=== PATIENT | male | born 1945 | race Caucasian/White ===

== ENCOUNTER 2017-12-12 10:12 | Emergency (ER) | payer MEDICARE, OTHER, SELFPAY ==
[2017-12-12 10:13] VITALS: BP 129/59; PULSE 55; RESP 16; TEMP 36.7; O2SAT 96; BMI 29.8
--- NOTE | 2017-12-12 10:24 | CT_ITS ---
STUDY: CT ABDOMEN AND PELVIS WITHOUT CONTRAST REASON FOR EXAM: Male, 72 years old. Hematuria RADIATION DOSAGE (If Supplied By Facility): CTDIvol = ( 17.22 ) mGy, DLP = ( 985.42 ) mGycm TECHNIQUE: Transaxial images were obtained from the dome of the diaphragm to the symphysis pubis without oral contrast, and without intravenous contrast. Sagittal and coronal images were reconstructed. Individualized dose optimization techniques were used for this CT. COMPARISON: None. FINDINGS: There is minimal atelectasis. There is an emphysematous bleb in the right lung base that measures 3.6 x 1.7 cm. Sternotomy wires are seen midline. There are coronary calcifications. Normal liver. Normal gallbladder and extrahepatic biliary system. Normal spleen. Normal pancreas. Normal bilateral adrenal glands. There is mild right perinephric stranding and hypertrophy of the right-sided perinephric fat. The left side renal stone measuring 6.3 x 8.2 mm. There is left-sided mild perinephric stranding and hypertrophy of the left renal fat. There is a small hiatal hernia. Normal small intestine. There is abundant stool in the colon from the cecum to the descending colon. There is a tortuous redundant appearance of the sigmoid colon which rises up to the upper abdomen. The appendix is visualized and appears normal. The aorta is tortuous and partially calcified. There is calcification the takeoff of the celiac. There is calcification of the takeoff of the super mesenteric artery with at least moderate stenosis. This is best seen on image #89 of the sagittal views and image 62 of the axial views. There is calcification of the takeoff of the bilateral renal arteries left greater than right. Normal inferior vena cava. Normal retroperitoneum. The bladder is decompressed and the wall is thickened. The contents of the bladder are of low attenuation. The prostate is within normal limits of size. There is a small umbilical hernia containing fat. There are diffuse degenerative changes of the visualized lumbar spine. At the level of L3-L4 there is a slight retrolisthesis right lateral osteophyte formation right greater than left neural foraminal narrowing and no significant central stenosis. CT/Abdomen/Pelvis without Cont IMPRESSION: There is a approximately 6.3 mm stone in the left kidney without evidence of hydronephrosis. There is mild bilateral fairly symmetric perinephric stranding with hypertrophy of the perirenal fat. There is a thick walled appearance of the bladder with mild stranding suspicious for cystitis. 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 There is constipation but no radiographic evidence of ischemic colitis at this time. Pulmonary emphysema Status post sternotomy mild cardiomegaly coronary artery disease. Degenerative change of the thoracolumbar spine most significant L3-L4. Electronically Signed: Adela Cabrera MD at 11:19 EDT Tel , Service support ,
[2017-12-12 10:40] LABS: Absolute Lymphocyte Count 1.27 X10^3/ul (0.83-4.51); Absolute Neutrophil Count 3.6 X10^3/uL (2.0-7.7); Basophil# 0.02 X10^3/uL; Basophil% 0.4 % (0-1); Eosinophil# 0.09 X10^3/uL; Eosinophils% 1.7 % (0-5); Hematocrit 38.6 % (40-54); Hemoglobin 12.7 g/dl (13.0-16.5); Lymphocyte # 1.27 X10^3/ul (4.0); Lymphocyte % 23.7 % (19-41); Mean Corp Hgb Conc 32.9 g/gl (32-36); Mean Corpuscular Hgb 31.3 pg (27.0-32.0); Mean Corpuscular Volume 95.1 fL (80-94); Mean Platelet Vol. 10.4 fl (6.2-12.0); Monocyte# 0.39 X10^3/uL; Monocyte% 7.3 % (0-10); Neutrophil # 3.57 X10^3/uL (2.7-7.7); Neutrophil % 66.7 % (47-70); Platelet Count 156 K/mm3 (150-450); RBC Distribution Width CV 14.8 % (11.6-14.6); RBC Distribution Width SD 51.4 fl (35.1-43.9); Red Blood Count 4.06 M/mm3 (4.6-6.2); White Blood Count 5.4 K/mm3 (4.4-11.0)
[2017-12-12 10:41] LABS: POSITIVE COUNT NO; POSITIVE DIFFERENTIAL NO; POSITIVE MORPHOLOGY NO
[2017-12-12 10:51] LABS: Anion Gap 3 (5-15); BUN 26 mg/dL (7-18); BUN/Creat Ratio 24.8 RATIO (10-20); Chloride 107 mmol/L (98-107); Creatinine, Serum 1.05 mg/dL (0.70-1.30); EST Glomerular Filtration Rate 74 mL/min (>60); Est Glom Filt Rate - Afr Amer 89 mL/min (>60); Estimated Creatinine Clearance 70.83 ml/min; Glucose 146 mg/dL (74-106); Potassium 4.4 mmol/L (3.5-5.1); Sodium Level 139 mmol/L (136-145)
[2017-12-12 11:06] LABS: Mucous, Urine 0 SEEN /hpf (<or=2+)
[2017-12-12 11:09] LABS: Color, Urine Yellow (Yellow); Glucose, Dipstick Normal (Normal); Ketone-Dipstick Negative (Negative); Leukocyte Esterase-Dipstick 25 /ul (Negative); Nitrite-Dipstick Negative (Negative); Occult Blood-Urine 250 /ul (Negative); Protein-Dipstick 15 mg/dl (Negative); Specific Gravity, Urine 1.015 (1.002-1.030); Urine Bilirubin Dipstick Negative (Negative); Urine Clarity Cloudy (Clear); Urine Urobilinogen 1 mg/dl (Normal)
[2017-12-12 11:15] LABS: Bacteria RARE /hpf (None Seen); Red Blood Cells-Urine 25-50 SEEN /hpf (0-5); Squamous Epithelial Cells - UA 0-5 SEEN /hpf (0-5); White Blood Cells 0-5 SEEN /hpf (0-5)
--- NOTE | 2017-12-12 12:18 | ED.VISSUMM ---
- ER Visit Summary Date of Service: 12/12/17 Chief Complaint: [Hematuria] History of Present Illness: The patient is a 72 M [presents the emergency department with complaint of blood in his urine that started yesterday. Patient was seen at urgent care and sent to the ER for further evaluation. Patient also gives history of nondescript low back pain for the last 6 weeks. Patient states that typically the pain is there when he wakes up in the morning but after stretching and being up in a chair for 20 or so minutes the pain then resolves. Patient denies any abdominal pain. He denies any fevers. Patient denies dysuria. Patient states he always urinates frequently because he is diabetic. Patient is never had hematuria before. Patient was a smoker but quit many years ago. No prostate issues in the past.] Physical Examination: [HEENT-PERRLA, EOMI. Cranial nerves II through XII grossly intact. TMs clear. Mucous membranes moist. No adenopathy. Cardiovascular-regular rate and rhythm without murmur or ectopy Lungs-clear to auscultation, chest wall stable without crepitus or subcu emphysema Abdomen-normoactive bowel sounds, soft, nontender, no rebound or rigidity, no peritoneal signs. Extremities-intact ?4, normal range of motion, normal pulses, atraumatic] Test Results: CBC with differential obtained showed a white count of 5.4, hemoglobin 12.7, hematocrit 38.6, platelets 156. Chemistries unremarkable. BUN was 6. Current was 1.05. Urinalysis showed 25-50 RBCs, 0-5 WBCs, 25 leukocyte esterase, negative nitrites. CT flank showed 6.51 m stone in the left kidney with no evidence of hydro-. Patient had some bilateral perinephric stranding noted. Patient also had some thickened appearance of the bladder wall there was question for cystitis.] Emergency Department Course and Treatment: Case was discussed with Dr. Sarwat Bruno who is on-call for Dr. Hernandez regarding the patient's Plavix. It was agreed that patient could discontinue his Plavix for the next 5 days until his hematuria resolves or he seen the urologist and may need to have it restarted afterwards. Patient to continue with his aspirin.] Treatment Plan: [Patient will be referred to urology for further follow-up. It is unclear the etiology of his hematuria at this time although given the appearance of the bladder and the painless nature need to rule out malignancy.] Disposition: [Discharged home in stable condition. Patient advised to return if persistent heavy bleeding, fevers, urinary retention, or condition should worsen in any way.] Impression: Hematuria-etiology uncertain] This note was generated with [employer] dictation software. It may contain incorrect words, spelling, and punctuation that were not noted in review of the chart prior to signing ED Disposition - Plan for ED Patient: Chief Complaint: Complaint Referrals: Jeffrey Thorne [Primary Care Provider] -
--- NOTE | 2017-12-12 12:22 | ED.DEP ---
ED Disposition - Plan for ED Patient: Chief Complaint: Complaint Instructions: ED Hematuria Referrals: Jeffrey Thorne [Primary Care Provider] - 2 Days Masoud Solis MD [STAFF PHYSICIAN] - 3-5 Days
[2017-12-12 12:36] VITALS: BP 122/58; PULSE 51; RESP 17; O2SAT 100
== END 2017-12-12 12:38 | disposition home or self-care (01) ==
PROVIDERS: Emergency Provider Emergency Medicine; Family Provider Family Medicine; PCP Family Medicine
DX: R31.9 Hematuria, unspecified (principal); N20.0 Calculus of kidney; E11.9 Type 2 diabetes mellitus without complications; I25.10 Atherosclerotic heart disease of native coronary artery without angina pectoris; Z87.891 Personal history of nicotine dependence; Z79.02 Long term (current) use of antithrombotics/antiplatelets; Z79.82 Long term (current) use of aspirin; Z79.84 Long term (current) use of oral hypoglycemic drugs; Z79.899 Other long term (current) drug therapy
CPT/HCPCS: 74176; 80048; 81001; 85025; 99283; A4216

== ENCOUNTER → 2017-12-14 13:10 | Outpatient (CLI) | payer MEDICARE, OTHER, SELFPAY ==
--- NOTE | 2017-12-14 11:55 | CYSPIN_PTH ---
PATIENT: JEANETH MEHTA LOC: [facility] U#:[id number] AGE/SX: 79/M ROOM: RE12/14/[address]: Dr. Masoud Solis MD : 1945 BED: DIS: SPEC #: [id number] RECD: 12/14/17 13:39 STATUS: ELMA REJose #: [id number] LUCAS: 12/14/17 11:[address]: Masoud Solis DEPT: CYTOLOGY RECD BY: Rito Howell ENTERED: 12/14/17 13:39 SP TYPE: CYSPIN FL OTHR DR: Dr. Jeffrey Thorne, DO Tissues: Urine Procedures: Pap Stain (control) Special Stain Group II Cytospin Fluid HEADER OPERATION: Not noted PRE-OP DIAGNOSIS: Hematuria TISSUE SUBMITTED: Urine for cytology DIAGNOSIS CYTOLOGY Urine for cytology (cytospin): Negative for malignant cells. SJ:ubaldo 12/15/17 COMMENT Clinical correlation and appropriate follow up are necessary. CYTOLOGY STUDY Slides are reviewed. The specimen consists of benign squamous cells, urothelial cells and red blood cells. CYTOLOGY GROSS Received is 20 ml of yellow cloudy fluid labeled with the patient's name and and designated per the requisition as urine. Submitted for cytology preparation. / RB:donny 12/14/17 TC:5 [facility]: [id number]
[2017-12-14 13:13] LABS: Cytology, Body Fluid / CSF SEE PATHOLOGY REPORT
== END ==
PROVIDERS: Family Provider Family Medicine; PCP Family Medicine; Visit Provider Urology
DX: R31.9 Hematuria, unspecified (principal)
CPT/HCPCS: 87086; 87088; 88108; 88313

== ENCOUNTER 2017-12-24 08:34 | Day surgery (SDC) | payer MEDICARE, OTHER, SELFPAY ==
--- NOTE | 2017-12-24 08:45 | RAD_ITS ---
STUDY: X-RAY - ABDOMEN/PELVIS REASON FOR EXAM: Male, 72 years old. Left flank pain and left renal calculus. TECHNIQUE: Two AP supine views of the abdomen and pelvis. COMPARISON: None. FINDINGS: Normal visualized lung bases. There is an abundance of fecal material throughout the colon. Questionable 5.3 mm thickness in the midportion the left kidney. Atherosclerotic calcification of the iliac arteries. There are diffuse degenerative changes of the visualized lumbar spine. RAD/Abdomen Single View IMPRESSION: Large amount of fecal material is seen in the colon. Questionable 5.3 mm calculus in the midportion of the left kidney. Electronically Signed: Beka Holman MD at 9:20 EDT Tel [phone], Service support ,
[2017-12-24 09:19] VITALS: BP 121/54; PULSE 53; TEMP 36.6; O2SAT 96; BMI 30.4
[2017-12-24 09:46] LABS: Bedside Glucose 114 mg/dL (70-110)
[2017-12-24] MEDS: Cefazolin 2 GM in 0.9% Normal Saline 100 ML IV (10:25)
--- NOTE | 2017-12-24 10:31 | PCM.DC.URO ---
Discharge Diet: Light diet - advance as tolerated Discharge Activity: Return to Normal Activity, May Not Drive - for 2 days. Additional Activity Instructions:: typically eat light foods as you take your pain medication. Pain medication may cause constipation, if this is a problem for you, please discuss with your doctor. Call your doctor if your incision/area has: Sudden Increased Bleeding Call your doctor if you observe: Fever of 101 or Higher, Uncontrolled pain Instructions: Shock Wave Lithotripsy Allergies/Adverse Reactions: Allergies lisinopril Allergy (Intermediate, Verified 12/21/17 09:50) Unknown Medications to take at Discharge Aspirin E.C. [Ecotrin] 81 mg PO DAILY@0800 05/22/13 Levothyroxine [Synthroid] 125 mcg PO DAILY 05/22/13 Metformin HCl [Glucophage] 1,000 mg PO DINNER 05/22/13 Metformin HCl [Glucophage] 1,500 mg PO BREAKFAST 05/22/13 Simvastatin [Zocor] 40 mg PO QHS 05/22/13 Pioglitazone HCl 45 mg PO DAILY 01/22/15 Cyanocobalamin (Vitamin B-12) [Vitamin B-12] 500 mcg PO BID 01/05/17 Nitroglycerin [Nitrostat] 0.4 mg SUBLINGUAL Q5M PRN 01/05/17 amlodipine 5 mg tablet 5 mg PO QDAY #90 tab 12/01/17 clopidogrel 75 mg tablet 75 mg PO DAILY #90 tab 12/01/17 glimepiride 4 mg tablet 4 mg PO BID tab 12/01/17 isosorbide mononitrate ER 60 mg tablet,extended release 24 hr 60 mg PO BID #180 tab 12/01/17 losartan 25 mg tablet 25 mg PO DAILY #90 tab 12/01/17 metoprolol tartrate 25 mg tablet 25 mg PO BID #180 tab 12/01/17 ranolazine ER 500 mg tablet,extended release,12 hr 500 mg PO BID #180 tab 12/01/17 Multivitamin [Daily Multiple Vitamin] 1 each PO DAILY 12/12/17 Ciprofloxacin [Cipro] 500 mg PO BID #6 tab 12/24/17 Hydrocodone/Acetaminophen [[place] 5-325 Tablet] 1 ea PO Q4H PRN PRN 3 Days #14 tab 12/24/17 The following prescriptions were given: Hydrocodone/Acetaminophen [[place] 5-325 Tablet] 1 ea PO Q4H PRN PRN 3 Days #14 tab PRN Reason: Pain Ciprofloxacin [Cipro] 500 mg PO BID #6 tab Primary Care Physician: Jeffrey Thorne [Primary Care Provider] - Please Follow Up With: Masoud Solis MD When: January 06 at 9:15 am, get xray first.
[2017-12-24 11:35] VITALS: BP 121/54; BP 122/60; PULSE 65; RESP 15; TEMP 36.1; O2SAT 92
--- NOTE | 2017-12-24 11:36 | OP.PCM_ITS ---
Report of Operation Date of Procedure: 12/24/17 Pre-Operative Diagnosis: Left renal calculi Post-Operative Diagnosis: Same Surgery/Procedure Performed:: Cystoscopy diagnostic, left extracorporeal shockwave lithotripsy Description of Surgical Findings:: 72-year-old male who had episode of gross hematuria presents today the hospital for cystoscopy also treatment of a kidney stone on the left kidney. Procedure note patient was taken back to the operating room. After smooth induction of general anesthesia. He was placed in dorsal lithotomy position. Penis and testicles were prepped and draped in usual sterile fashion. Went into the urethra with a 21 [place] rigid cystourethroscope, the entire length of the urethra is normal, prostate was normal, trigone was normal, the bladder was normal no tumors or stones are seen within the bladder some mild trabeculation of the bladder wall. The bladder was then drained and the cystoscope was removed we then positioned the patient on the lithotripter table identified a stone in the left kidney and delivered 3000 shockwaves to the stone at a rate of 90 shocks per minute. At the end of the treatment cycle the stone appeared to break up nicely. No stent was placed. Plan to see patient back in a few weeks with a KUB. Type of Anesthesia:: General Drains: none - Admit VTE Documentation VTE Present on Admission: No VTE Mechan Device Prophylaxis: SCD's VTE Pharm Prophylaxis ordered?: No Reason prophylaxis not ordered:: Treatment Not Indicated
[2017-12-24 11:45] VITALS: BP 121/54; BP 121/63; PULSE 61; RESP 16; O2SAT 95
--- NOTE | 2017-12-24 11:54 | EKG12_ITS ---
Test Reason : Blood Pressure : / mmHG Vent. Rate : 058 BPM Atrial Rate : 058 BPM P-R Int : 204 ms QRS Dur : 100 ms QT Int : 456 ms P-R-T Axes : 054 002 064 degrees QTc Int : 447 ms Sinus bradycardia Otherwise normal ECG When compared with ECG of 23-MAY-2013 05:43, No significant change was found Confirmed by LIEN SWENSON, COLUMBA ([id number]), editor newspaper JIM BOYER ([id number]) on 12/28/2017 2:12:34 PM Referred By: Masoud Solis Confirmed By:COLUMBA EMMANUEL MD
[2017-12-24 12:00] VITALS: BP 118/55; BP 121/54; PULSE 59; RESP 16; O2SAT 97
[2017-12-24 12:15] VITALS: BP 110/59; BP 121/54; PULSE 60; RESP 16; TEMP 35.8; O2SAT 94
[2017-12-24 13:14] VITALS: BP 121/54
== END 2017-12-24 13:29 | disposition home or self-care (01) ==
LOC: SDC 08:34
PROVIDERS: Family Provider Family Medicine; PCP Family Medicine; Visit Provider Urology
PROC: (CPT 50590; principal; 2017-12-24 10:00)
DX: N20.0 Calculus of kidney (principal); G47.30 Sleep apnea, unspecified; E11.9 Type 2 diabetes mellitus without complications; E05.90 Thyrotoxicosis, unspecified without thyrotoxic crisis or storm; I10 Essential (primary) hypertension; E78.00 Pure hypercholesterolemia, unspecified; Z95.1 Presence of aortocoronary bypass graft; Z87.891 Personal history of nicotine dependence; Z79.82 Long term (current) use of aspirin; Z79.84 Long term (current) use of oral hypoglycemic drugs; Z79.899 Other long term (current) drug therapy
CPT/HCPCS: 52353; 74018; 82962; 93005; J7120

== ENCOUNTER 2017-12-27 19:12 | Inpatient (IN) | payer MEDICARE, OTHER, SELFPAY ==
[2017-12-27] VITALS (7 sets, daily range): BP systolic 123–148; BP diastolic 55–71; PULSE 77–96; RESP 17–26; TEMP 38.3–38.7; O2SAT 89–94; BMI 31.1
--- NOTE | 2017-12-27 19:21 | EKG12_ITS ---
Test Reason : SOB Blood Pressure : / mmHG Vent. Rate : 087 BPM Atrial Rate : 087 BPM P-R Int : 170 ms QRS Dur : 094 ms QT Int : 332 ms P-R-T Axes : 047 -02 059 degrees QTc Int : 399 ms Normal sinus rhythm Normal ECG Confirmed by LIEN SWENSON, COLUMBA ([id number]), magazine editor JIM BOYER ([id number]) on 12/31/2017 2:52:22 PM Referred By: Masoud Solis Confirmed By:COLUMBA EMMANUEL MD
--- NOTE | 2017-12-27 19:31 | ED.VISSUMM ---
- ER Visit Summary Date of Service: 12/27/17 Chief Complaint: Shortness of breath, chills, fever, dysuria, frequency and hematuria History of Present Illness: The patient is a 72 M who presents because he does not feel well. He had lithotripsy by Dr. Solis on Wednesday. He states he felt well until today. He did have hematuria after the procedure. No stents were placed. He does complain of nausea without vomiting diarrhea. He denies headache, photophobia or neck pain. He denies any cardiac respiratory symptoms other than shortness of breath. He does complain of vague abdominal pain with nausea. Review of systems otherwise negative. Past medical history coronary disease, [place], diabetes, hypertension hypercholesterolemia. Past surgical history coronary bypass surgery 1997, 2 vessels and PTCA 2014. Lithotripsy past Wednesday by Dr. Micah Solis Physical Examination: She appears ill. Temperature is 101.7, rest rate 22 heart rate 96 and saturation 94%. Blood pressure is 141/71. Head is atraumatic normocephalic. Pupils are equal round reactive. Extraocular muscles are intact. TMs are pearly white with landmarks noted. Nares patent with no drainage. Posterior pharynx without erythema or exudate. Uvula is midline. There is no dysphonia or dysphasia. Trachea is midline. There is no stridor with auscultation of the neck. Heart is regular without murmur, gallop or rub. S1 and S2 are normal. Lungs are clear to auscultation with good movement of air bilaterally. Abdomen is remarkable minimal tenderness in suprapubic area. There is left flank pain on percussion. Test Results: It is normal with an H&H 7.3 and 34.0. BMP is marked for glucose of 257 with creatinine 1.87. Coags normal. Urine reveals hematuria. CT of the abdomen and pelvis without contrast reveals:Interval development of a abnormal appearing left kidney where there is a peripheral hyperdense appearance of the kidney which is highly suggestive of a subcapsular hematoma or renal parenchymal hemorrhage. There is now a cluster of small stones in the place of the larger 6 mm stone seen in the left kidney. There is no evidence of hydronephrosis. There is a visualization of hyperdense blood tracking in the proximal left ureter. Bilateral perinephric stranding and hypertrophy of the renal fat. Constipation Mild ileus. Trace blood within the bladder. 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 Emergency Department Course and Treatment: Sepsis order set was initiated and presumption is UTI; therefore, Rocephin was ordered. Treatment Plan: IV antibiotics, consult urology, admit to hospital Disposition: Admit MedSurg/PCU Impression: Line 1. Hydronephrosis secondary to obstructing ureteral calculi 2. Subcapsular hematoma and parenchymal bleeding secondary to lithotripsy 3. SIRS syndrome 4. History of coronary disease 5. History of diabetes 6. History of hypertension 7. History hypercholesterolemia This note was generated with [employer] dictation software. It may contain incorrect words, spelling, and punctuation that were not noted in review of the chart prior to signing ED Disposition - Plan for ED Patient: Chief Complaint: Other, Pain/Inj Referrals: Jeffrey Thorne [Primary Care Provider] -
[2017-12-27 20:05] LABS: Bacteria 0 SEEN /hpf (None Seen); Mucous, Urine 0 SEEN /hpf (<or=2+); Squamous Epithelial Cells - UA 0 SEEN /hpf (0-5)
[2017-12-27] MEDS: 0.9% Normal Saline 1,000 ML 250 ML IV (20:06)
[2017-12-27 20:10] LABS: Color, Urine Yellow (Yellow); Glucose, Dipstick 250 mg/dl (Normal); Ketone-Dipstick Negative (Negative); Leukocyte Esterase-Dipstick 25 /ul (Negative); Nitrite-Dipstick Negative (Negative); Occult Blood-Urine 250 /ul (Negative); Protein-Dipstick 100 mg/dl (Negative); Specific Gravity, Urine 1.015 (1.002-1.030); Urine Bilirubin Dipstick Negative (Negative); Urine Clarity Cloudy (Clear); Urine Urobilinogen Normal (Normal)
[2017-12-27 20:18] LABS: Red Blood Cells-Urine > 100 SEEN /hpf (0-5); White Blood Cells 5-10 SEEN /hpf (0-5)
[2017-12-27 20:32] LABS: Lactic Acid 1.3 mmol/L (0.4-2.0)
--- NOTE | 2017-12-27 20:53 | CT_ITS ---
STUDY: CT ABDOMEN AND PELVIS WITHOUT CONTRAST REASON FOR EXAM: Male, 72 years old. Breath, pain, flank pain status post lithotripsy on Wednesday RADIATION DOSAGE (If Supplied By Facility): CTDIvol = ( 18.67 ) mGy, DLP = ( 1119.29 ) mGycm TECHNIQUE: Transaxial images were obtained from the dome of the diaphragm to the symphysis pubis without oral contrast, and without intravenous contrast. Sagittal and coronal images were reconstructed. Individualized dose optimization techniques were used for this CT. COMPARISON: December 12, 2017 CT scan abdomen and pelvis FINDINGS: There is lower lobe atelectasis. There is an emphysematous bleb in the right lung base. There coronary calcifications. There is mild cardiac enlargement. Sternotomy wires are seen midline. Normal liver. The gallbladder is distended. Normal spleen. Normal pancreas. There is a tiny focal metallic density just posterior to the first part of the duodenum. Normal bilateral adrenal glands. There is stable appearance of the right kidney with mild right perinephric stranding and hypertrophy of the renal fat. There is no evidence of hydronephrosis. There is minimal distention of the right distal ureter similar to the prior study. Since prior study there is been interval development of abnormal appearing left kidney. The left kidney appears part hyperdense and part low in attenuation. The hyperdense portion measures 3.2 x 6.7 x 9.8 cm and appears to be surrounding the left kidney which may suggesting subcapsular hemorrhage. There is a cluster of smaller stones in the lower pole of the left kidney when compared to prior study. There was a approximate 6.3 mm stone in the left kidney on prior study which showed no evidence of hydronephrosis. Today's study there is mild left hydronephrosis and visualized blood within the left ureter on image #85. This is also seen on the coronal image #56. There is hypertrophy of the left perirenal fat and fat stranding. There is a minimal hiatal hernia. There is a distended appearance of the small bowel in the left lower quadrant. There is moderate stool in the colon. The appendix is visualized and appears normal. Aorta is densely calcified. There is calcification of the celiac, takeoff of the bilateral renal arteries. There is calcification of the superior mesenteric artery as described on the prior study where there is at least moderate stenosis of the spur mesenteric artery. There is calcification of the bilateral iliac arteries with dense calcification of the branches. Normal inferior vena cava. There is stranding in the retroperitoneum. There is a subtle hyperdense fluid within the bladder suggesting probable blood Normal visualized prostate gland. There is a small umbilical hernia containing fat. There is multilevel degenerative change in the thoracolumbar spine unchanged since the prior study. CT/Abdomen/Pelvis without Cont IMPRESSION: Interval development of a abnormal appearing left kidney where there is a peripheral hyperdense appearance of the kidney which is highly suggestive of a subcapsular hematoma or renal parenchymal hemorrhage. There is now a cluster of small stones in the place of the larger 6 mm stone seen in the left kidney. There is no evidence of hydronephrosis. There is a visualization of hyperdense blood tracking in the proximal left ureter. Bilateral perinephric stranding and hypertrophy of the renal fat. Constipation Mild ileus. Trace blood within the bladder. 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 N.B. : The above information has been verbally conveyed by Adela Cabrera MD to Dr. George Miramontes, Referring Physician, on 12/27/2017 21:56:41 (ET). Electronically Signed: Adela Cabrera MD at 21:57 EDT Tel , Service support , N.B. : The above information has been verbally conveyed by Adela Cabrera MD to Dr. George Miramontes, Referring Physician, on 12/27/2017 21:56:41 (ET).
[2017-12-27 20:57] LABS: Absolute Lymphocyte Count 0.74 X10^3/ul (0.83-4.51); Absolute Neutrophil Count 6.6 X10^3/uL (2.0-7.7); Basophil# 0.01 X10^3/uL; Basophil% 0.1 % (0-1); Hemoglobin 11.3 g/dl (13.0-16.5); Lymphocyte # 0.74 X10^3/ul (4.0); Lymphocyte % 8.9 % (19-41); Mean Corp Hgb Conc 33.2 g/gl (32-36); Mean Corpuscular Hgb 30.7 pg (27.0-32.0); Mean Corpuscular Volume 92.4 fL (80-94); Mean Platelet Vol. 10.6 fl (6.2-12.0); Monocyte# 0.97 X10^3/uL; Monocyte% 11.6 % (0-10); Neutrophil % 79.3 % (47-70); POSITIVE COUNT NO; POSITIVE DIFFERENTIAL NO; POSITIVE MORPHOLOGY NO; Platelet Count 121 K/mm3 (150-450); RBC Distribution Width CV 14.2 % (11.6-14.6); Red Blood Count 3.68 M/mm3 (4.6-6.2); White Blood Count 8.3 K/mm3 (4.4-11.0)
[2017-12-27 21:01] LABS: International Normalized Ratio 1.1; Prothrombin Time (Protime)PT. 14.3 SECONDS (11.7-14.9)
[2017-12-27 21:02] LABS: Partial Thromboplast Time 34.8 Seconds (24.1-36.2)
[2017-12-27 21:15] LABS: ALB/GLOB Ratio 0.7 RATIO (0.9-2.4); AST(SGOT) 29 U/L (15-37); Alanine Aminotransfer ALT/SGPT 31 U/L (16-61); Albumin, Serum 2.8 g/dL (3.2-5.0); Alkaline Phosphatase 86 U/L (45-117); Anion Gap 7 (5-15); BUN 33 mg/dL (7-18); BUN/Creat Ratio 17.6 RATIO (10-20); Calcium,Total 8.8 mg/dL (8.5-10.1); Chloride 98 mmol/L (98-107); Creatinine, Serum 1.87 mg/dL (0.70-1.30); EST Glomerular Filtration Rate 38 mL/min (>60); Est Glom Filt Rate - Afr Amer 46 mL/min (>60); Estimated Creatinine Clearance 39.77 ml/min; Globulin 3.8 g/dL (2.2-4.2); Glucose 257 mg/dL (74-106); Potassium 4.2 mmol/L (3.5-5.1); Protein, Total 6.6 g/dL (6.4-8.2); Sodium Level 133 mmol/L (136-145)
--- NOTE | 2017-12-27 23:31 | HP.PCM_ITS ---
Problem List (1) Back pain Status: Acute Qualifiers: Back pain location: low back pain Back pain laterality: unspecified (2) Abdominal pain Status: Acute Qualifiers: Abdominal location: generalized Qualified Code(s): R10.84 - Generalized abdominal pain (3) Occlusion and stenosis of bilateral carotid arteries Status: Chronic (4) Right carotid bruit Status: Chronic (5) Angina pectoris Status: Chronic (6) Atherosclerosis of aorta Status: Chronic (7) Coronary angioplasty status Status: Resolved Comment: 01/22/2015 left heart cath with subsequent tsfer to [place] for BMS-SVG-CX (8) HLD (hyperlipidemia) Status: Chronic Qualifiers: (9) Hypothyroidism Status: Chronic (10) Diabetes mellitus Status: Chronic Qualifiers: (11) H/O coronary artery bypass surgery Status: Resolved Comment: CABG, PAZ-LAD, SVG-OM of CX Apr 1998 (12) Atherosclerosis of coronary artery bypass graft(s), unspecified, with other forms of angina pectoris Status: Chronic Comment: CABG, PAZ-LAD, SVG-OM of CX Apr 1998; (13) HTN (hypertension) Status: Chronic Qualifiers: History of Present Illness Date of Admission: 12/27/17 Chief Complaint: abdominal pain The patient is a 72 year old male patient with a complex past medical history presents to the ER with abdominal pain, nausea no vomiting and lower back pain. He is status post lithotripsy this past Wednesday and admits to hematuria post procedure every morning since. He states he is unable to eat normally following the procedure. He feels nauseated and prematurely full. He has only moved his bowels one time with the assistance of Colace. CT scan is remarkable for a hematoma formed in the left kidney capsule. The once larger stone is now in smaller particles found the lower pole of the left kidney. The patient also has some chest discomfort and suffers from chronic angina due to a known distal coronary lesion that wasn't amenable to stenting. He had a double bypass in the late nineties and a stent placed in 2014. He will be admitted for hydration and consult to urology for continuing post procedural management. Past Medical History Past Medical History (Chronic Problems): Chronic Problems (Last Updated 11/22/17 @ 16:32 by Navya Ross) Occlusion and stenosis of bilateral carotid arteries (Chronic) Right carotid bruit (Chronic) Angina pectoris (Chronic) Atherosclerosis of aorta (Chronic) HLD (hyperlipidemia) (Chronic) Hypothyroidism (Chronic) Diabetes mellitus (Chronic) Atherosclerosis of coronary artery bypass graft(s), unspecified, with other forms of angina pectoris (Chronic) CABG, PAZ-LAD, SVG-OM of CX Apr 1998; HTN (hypertension) (Chronic) Allergies lisinopril Allergy (Intermediate, Verified 12/27/17 19:16) Unknown Home Medications: Ambulatory Orders Medication Instructions Recorded Aspirin E.C. [Ecotrin] 81 mg PO DAILY@0800 05/22/13 Levothyroxine [Synthroid] 125 mcg PO DAILY 05/22/13 Metformin HCl [Glucophage] 1,000 mg PO DINNER 05/22/13 Metformin HCl [Glucophage] 1,500 mg PO BREAKFAST 05/22/13 Simvastatin [Zocor] 40 mg PO QHS 05/22/13 Pioglitazone HCl 45 mg PO DAILY 01/22/15 Cyanocobalamin (Vitamin B-12) 500 mcg PO BID 01/05/17 [Vitamin B-12] Nitroglycerin [Nitrostat] 0.4 mg SUBLINGUAL Q5M PRN 01/05/17 amlodipine 5 mg tablet 5 mg PO QDAY #90 tab 12/01/17 clopidogrel 75 mg tablet 75 mg PO DAILY #90 tab 12/01/17 glimepiride 4 mg tablet 4 mg PO BID tab 12/01/17 isosorbide mononitrate ER 60 mg 60 mg PO BID #180 tab 12/01/17 tablet,extended release 24 hr losartan 25 mg tablet 25 mg PO DAILY #90 tab 12/01/17 metoprolol tartrate 25 mg tablet 25 mg PO BID #180 tab 12/01/17 ranolazine ER 500 mg 500 mg PO BID #180 tab 12/01/17 tablet,extended release,12 hr Multivitamin [Daily Multiple 1 each PO DAILY 12/12/17 Vitamin] Ciprofloxacin [Cipro] 500 mg PO BID #6 tab 12/24/17 Hydrocodone/Acetaminophen [[place] 1 ea PO Q4H PRN PRN 3 Days #14 tab 12/24/17 5-325 Tablet] Surgical History: - - CABG Smoking Status: Former smoker - *Family History Maternal History Items: No pertinent history Review of Systems Constitutional: Denies: Chills, Fever, Weight Change HEENT: Denies: Head Aches, Sinus Congestion, Sinus Drainage Cardiovascular: Denies: Chest Pain, Palpitations Respiratory: Denies: Cough, Shortness of breath at rest, Sputum production Gastrointestinal: Reports: Abdominal Pain, Nausea. Denies: Vomiting Genitourinary: Denies: Dysuria Musculoskeletal: Reports: Back Pain. Denies: Joint Pain, Joint Tenderness Skin: Denies: Rash, Wounds Neurological: Denies: Numbness, Tingling, Focal weakness Psychiatric: Denies: Anxiety, Depression, Homicidal Ideations, Suicidal Ideations Hematologic/ Lymphatic: Denies: Easy Bruising, Easy Bleeding VTE Information - Inpt Only VTE Present on Admission: No VTE Mechan Device Prophylaxis: SCD's VTE Pharm Prophylaxis ordered?: No Patient Problems: Active and Suspected Problems (Last Updated 11/22/17 @ 16:32 by Navya Ross) Back pain (Acute) Abdominal pain (Acute) - Physical Exam General: Alert, Oriented x3, Cooperative HEENT: Atraumatic, Normocephalic Neck: Supple, No JVD Lungs: Clear to auscultation, Normal air movement, No rhonchi, No wheeze, No rales Cardiovascular: Regular rate, Regular Rhythm, Normal S1, Normal S2 Abdomen: Bowel Sounds Present, Soft, Non Tender, Hyperactive Bowel Sounds, Distended Extremities: No edema, Capillary Refill Less than 3 Seconds Skin: No rashes, No breakdown Musculoskeletal: No Tenderness to Palpation of Joints or Extremities Neurological: Neuro grossly intact Psych/Mental Status: Normal Affect, Appropriate Vital Signs Temp Pulse Resp BP Pulse Ox 101 F H 84 17 128/55 H 94 12/27/17 21:48 12/27/17 23:07 12/27/17 23:07 12/27/17 23:07 12/27/17 23:07 Oxygen Delivery Method Room Air Weight: 229 lb 4.492 oz Body Mass Index (BMI) 31.1 Laboratory Tests Past 24 Hrs 12/27/17 12/27/17 12/27/17 19:45 19:55 20:40 WBC 8.3 RBC 3.68 L Hgb 11.3 L Hct 34.0 L MCV 92.4 MCH 30.7 MCHC 33.2 RDW 14.2 RDW Differential 48.0 H Plt Count 121 L MPV 10.6 Immature Gran % (Auto) 0.100 Neut % (Auto) 79.3 H Lymph % (Auto) 8.[address] [place] % (Auto) 11.6 H Eos % (Auto) 0.0 Baso % (Auto) 0.1 Absolute Neuts (auto) 6.6 Absolute Lymphs (auto) 0.74 L Total Counted Not Reportable PT INR APTT Sodium Potassium Chloride Carbon Dioxide Anion Gap BUN Creatinine Estim Creat Clear Calc Est GFR (MDRD) Af Amer Est GFR (MDRD) Non-Af BUN/Creatinine Ratio Glucose Lactic Acid 1.3 Calcium Total Bilirubin AST ALT Alkaline Phosphatase Total Protein Albumin Globulin Albumin/Globulin Ratio Urine Color Yellow Urine Clarity Cloudy Urine pH 6.0 Ur Specific [place] 1.015 Urine Protein 100 H Urine Glucose (UA) 250 H Urine Ketones Negative Urine Occult Blood 250 H Urine Nitrite Negative Urine Bilirubin Negative Urine Urobilinogen Normal Ur Leukocyte Esterase 25 H Urine RBC > 100 SEEN Urine WBC 5-10 SEEN Ur Squamous Epith Cells 0 SEEN Urine Bacteria 0 SEEN Urine Mucus 0 SEEN 12/27/17 12/27/17 20:40 20:40 WBC RBC Hgb Hct MCV MCH MCHC RDW RDW Differential Plt Count MPV Immature Gran % (Auto) Neut % (Auto) Lymph % (Auto) [place] % (Auto) Eos % (Auto) Baso % (Auto) Absolute Neuts (auto) Absolute Lymphs (auto) Total Counted PT 14.3 INR 1.1 APTT 34.8 Sodium 133 L Potassium 4.2 Chloride 98 Carbon Dioxide 28.0 Anion Gap 7 BUN 33 H Creatinine 1.87 H Estim Creat Clear Calc 39.77 Est GFR (MDRD) Af Amer 46 L Est GFR (MDRD) Non-Af 38 L BUN/Creatinine Ratio 17.6 Glucose 257 H Lactic Acid Calcium 8.8 Total Bilirubin 2.10 H AST 29 ALT 31 Alkaline Phosphatase 86 Total Protein 6.6 Albumin 2.8 L Globulin 3.8 Albumin/Globulin Ratio 0.7 L Urine Color Urine Clarity Urine pH Ur Specific [place] Urine Protein Urine Glucose (UA) Urine Ketones Urine Occult Blood Urine Nitrite Urine Bilirubin Urine Urobilinogen Ur Leukocyte Esterase Urine RBC Urine WBC Ur Squamous Epith Cells Urine Bacteria Urine Mucus Assessment/Plan Active and Suspected Problems (Last Updated 11/22/17 @ 16:32 by [employer]) Back pain (Acute) Abdominal pain (Acute) Chronic Problems (Last Updated 11/22/17 @ 16:32 by Harumi DeFinis) Occlusion and stenosis of bilateral carotid arteries (Chronic) Right carotid bruit (Chronic) Angina pectoris (Chronic) Atherosclerosis of aorta (Chronic) HLD (hyperlipidemia) (Chronic) Hypothyroidism (Chronic) Diabetes mellitus (Chronic) Atherosclerosis of coronary artery bypass graft(s), unspecified, with other forms of angina pectoris (Chronic) CABG, PAZ-LAD, SVG-OM of CX Apr 1998; HTN (hypertension) (Chronic) Plan - admit to medical surgical floor. - cbc, Cmp in am - IV hydration with 125cc/ Normal saline q hour - zofran 4mq IV q 6hrs prn - NPO tonight pending surgical evaluation by Dr Solis. - may need miralax or other management for chronic IBS constipation - SCDs for DVT prophylaxis
[2017-12-28] VITALS (7 sets, daily range): BP systolic 117–138; BP diastolic 53–62; PULSE 75–82; RESP 16–18; TEMP 36.7–38.4; O2SAT 93–98; BMI 30.7; BMI 30.8
[2017-12-28] MEDS: 0.9% Normal Saline 1,000 ML 125 ML IV (00:59)
[2017-12-28 01:11] LABS: Bedside Glucose 158 mg/dL (70-110)
[2017-12-28 06:09] LABS: Absolute Lymphocyte Count 1.11 X10^3/ul (0.83-4.51); Absolute Neutrophil Count 5.4 X10^3/uL (2.0-7.7); Basophil# 0.01 X10^3/uL; Basophil% 0.1 % (0-1); Eosinophil# 0.01 X10^3/uL; Eosinophils% 0.1 % (0-5); Hematocrit 30.7 % (40-54); Hemoglobin 10.2 g/dl (13.0-16.5); Lymphocyte # 1.11 X10^3/ul (4.0); Mean Corp Hgb Conc 33.2 g/gl (32-36); Mean Corpuscular Hgb 30.7 pg (27.0-32.0); Mean Corpuscular Volume 92.5 fL (80-94); Mean Platelet Vol. 10.9 fl (6.2-12.0); Monocyte# 0.83 X10^3/uL; Monocyte% 11.2 % (0-10); Neutrophil # 5.41 X10^3/uL (2.7-7.7); Neutrophil % 73.5 % (47-70); Platelet Count 121 K/mm3 (150-450); RBC Distribution Width CV 14.2 % (11.6-14.6); RBC Distribution Width SD 48.1 fl (35.1-43.9); Red Blood Count 3.32 M/mm3 (4.6-6.2); White Blood Count 7.4 K/mm3 (4.4-11.0)
[2017-12-28 06:14] LABS: POSITIVE COUNT NO; POSITIVE DIFFERENTIAL NO; POSITIVE MORPHOLOGY NO
[2017-12-28 06:26] LABS: ALB/GLOB Ratio 0.7 RATIO (0.9-2.4); AST(SGOT) 22 U/L (15-37); Alanine Aminotransfer ALT/SGPT 26 U/L (16-61); Albumin, Serum 2.5 g/dL (3.2-5.0); Alkaline Phosphatase 72 U/L (45-117); Anion Gap 8 (5-15); BUN 28 mg/dL (7-18); BUN/Creat Ratio 17.2 RATIO (10-20); Calcium,Total 8.3 mg/dL (8.5-10.1); Chloride 103 mmol/L (98-107); Creatinine, Serum 1.63 mg/dL (0.70-1.30); EST Glomerular Filtration Rate 45 mL/min (>60); Est Glom Filt Rate - Afr Amer 54 mL/min (>60); Estimated Creatinine Clearance 45.62 ml/min; Globulin 3.5 g/dL (2.2-4.2); Glucose 135 mg/dL (74-106); Potassium 3.9 mmol/L (3.5-5.1); Sodium Level 137 mmol/L (136-145)
--- NOTE | 2017-12-28 07:36 | CON.PCM_ITS ---
Reason for Consult Date of Consultation: 12/28/17 Reason for Consultation: Admitted to the hospital for generalized pain and fever not feeling well. History of Present Illness: The patient is a 72 year old male who had a stone in the left kidney underwent shockwave lithotripsy. Was doing well and then yesterday presented to the emergency room with a fever and generalized discomfort complaining of discomfort in his neck discomfort in both sides of his back some mild abdominal pain also some constipation. He did have a fever.White blood count was normal on admission 8.3 hemoglobin was 11.3, today is 10.2 after hydration, creatinine is down to 1.6 the urine was positive with blood no signs of infection nitrite negative. Currently admitted for further workup and evaluation. Past Medical History Past Medical History (Chronic Problems): Chronic Problems (Last Updated 11/22/17 @ 16:32 by Navya Ross) Occlusion and stenosis of bilateral carotid arteries (Chronic) Right carotid bruit (Chronic) Angina pectoris (Chronic) Atherosclerosis of aorta (Chronic) HLD (hyperlipidemia) (Chronic) Hypothyroidism (Chronic) Diabetes mellitus (Chronic) Atherosclerosis of coronary artery bypass graft(s), unspecified, with other forms of angina pectoris (Chronic) CABG, PAZ-LAD, SVG-OM of CX Apr 1998; HTN (hypertension) (Chronic) Allergies lisinopril Allergy (Intermediate, Verified 12/27/17 23:38) Unknown Home Medications: Ambulatory Orders Medication Instructions Recorded Aspirin E.C. [Ecotrin] 81 mg PO DAILY@0800 05/22/13 Levothyroxine [Synthroid] 125 mcg PO DAILY 05/22/13 Metformin HCl [Glucophage] 1,000 mg PO DINNER 05/22/13 Metformin HCl [Glucophage] 1,500 mg PO BREAKFAST 05/22/13 Simvastatin [Zocor] 40 mg PO QHS 05/22/13 Pioglitazone HCl 45 mg PO DAILY 01/22/15 Cyanocobalamin (Vitamin B-12) 500 mcg PO BID 01/05/17 [Vitamin B-12] Nitroglycerin [Nitrostat] 0.4 mg SUBLINGUAL Q5M PRN 01/05/17 amlodipine 5 mg tablet 5 mg PO QDAY #90 tab 12/01/17 clopidogrel 75 mg tablet 75 mg PO DAILY #90 tab 12/01/17 glimepiride 4 mg tablet 4 mg PO BID tab 12/01/17 isosorbide mononitrate ER 60 mg 60 mg PO BID #180 tab 12/01/17 tablet,extended release 24 hr losartan 25 mg tablet 25 mg PO DAILY #90 tab 12/01/17 metoprolol tartrate 25 mg tablet 25 mg PO BID #180 tab 12/01/17 ranolazine ER 500 mg 500 mg PO BID #180 tab 12/01/17 tablet,extended release,12 hr Multivitamin [Daily Multiple 1 each PO DAILY 12/12/17 Vitamin] Hydrocodone/Acetaminophen [[place] 1 ea PO Q4H PRN PRN 3 Days #14 tab 12/24/17 5-325 Tablet] Surgical History: - - CABG, lithotripsy Psychiatric History: No pertinent psych hx Lives: Spouse/ Significant Other Smoking Status: Former smoker Tobacco Use: Non-smoker Alcohol: None Drugs: None - *Family History Maternal History Items: No pertinent history Review of Systems Constitutional: Reports: Chills, Fever HEENT: Reports: Difficulty Swallowing. Denies: Head Aches, Sinus Congestion, Sinus Drainage Cardiovascular: Denies: Chest Pain, Palpitations Respiratory: Reports: Shortness of Breath Gastrointestinal: Reports: Abdominal Pain. Denies: Nausea, Vomiting Genitourinary: Reports: Hematuria Musculoskeletal: Denies: Joint Pain, Joint Tenderness Skin: Denies: Rash, Wounds Neurological: Denies: Numbness, Tingling, Focal weakness Psychiatric: Denies: Anxiety, Depression, Homicidal Ideations, Suicidal Ideations Hematologic/ Lymphatic: Denies: Easy Bruising, Easy Bleeding Physical Exam - Physical Exam Vital Signs Temp 98.7 F 12/28/17 05:40 Pulse 75 12/28/17 05:40 Resp 16 12/28/17 05:40 BP 124/57 H 12/28/17 05:40 Pulse Ox 98 12/28/17 05:40 Intake & Output 12/26/17 12/27/17 12/28/17 23:59 23:59 23:59 Intake Total 587 / 587 Output Total 250 / 250 Balance 337 / 337 Weight: 102.9 kg Intake: IV fluid/meds 587 / 587 Output: Urine 250 / 250 General: Alert, Oriented x3 HEENT: Atraumatic Oral: Moist Mucosa Neck: Supple Lungs: Normal air movement Cardiovascular: Regular rate, Regular Rhythm Abdomen: Bowel Sounds Present, Soft Laboratory Tests Past 24 Hrs 12/28/17 12/28/17 05:50 05:50 WBC 7.4 RBC 3.32 L Hgb 10.2 L Hct 30.7 L MCV 92.5 MCH 30.7 MCHC 33.2 RDW 14.2 RDW Differential 48.1 H Plt Count 121 L MPV 10.9 Immature Gran % (Auto) 0.100 Neut % (Auto) 73.5 H Lymph % (Auto) 15.0 L [place] % (Auto) 11.2 H Eos % (Auto) 0.1 Baso % (Auto) 0.1 Absolute Neuts (auto) 5.4 Absolute Lymphs (auto) 1.11 Total Counted Not Reportable Sodium 137 Potassium 3.9 Chloride 103 Carbon Dioxide 26.0 Anion Gap 8 BUN 28 H Creatinine 1.63 H Estim Creat Clear Calc 45.62 Est GFR (MDRD) Af Amer 54 L Est GFR (MDRD) Non-Af 45 L BUN/Creatinine Ratio 17.2 Glucose 135 H Calcium 8.3 L Total Bilirubin 1.50 H AST 22 ALT 26 Alkaline Phosphatase 72 Total Protein 6.0 L Albumin 2.5 L Globulin 3.5 Albumin/Globulin Ratio 0.7 L Assessment/Plan Active and Suspected Problems (Last Updated 11/22/17 @ 16:32 by Navya Ross) Back pain (Acute) Abdominal pain (Acute) Assessment and plan 72-year-old male status post lithotripsy, CT scan reviewed he has no hydronephrosis no obstruction of the kidney he does have a small capsular hematoma around the kidney, we can monitor H&H to make sure its stable , no surgical intervention is necessary, broken stones in the left kidney will pass, I do not anticipate having to do any surgery for the remaining fragmented stones in the left kidney. He does have a myriad of other complaints including shortness of breath, pain in his neck, some generalized back pain,Fever, culture pending, really no localized pain to the left kidney, unclear what the other causes of the pain are would recommend further evaluation by hospitalist/ medical team. From my standpoint no further intervention will be necessary we will continue to monitor him while he is in the hospital, made at the sign out as a plan to leave town within 48 hours. Call me with questions. He has an appointment to follow-up with me on discharge.
--- NOTE | 2017-12-28 09:04 | PN_ITS ---
Patient Problems: Active and Suspected Problems (Last Updated 11/22/17 @ 16:32 by Navya Ross) Back pain (Acute) Abdominal pain (Acute) Subjective: Patient was seen and examined. He complains of severe anterior neck pain, unable to be comfortable. He says this pain feels like when he had his anginal pain. Denied any nausea or vomiting or diaphoresis or palpitations. He said he had a dose of nitro in the ED yesterday which seemed to have helped his pain. He also complains of constipation, last moved his bowel on 12/26/2017. He was febrile last night, afebrile this morning. Denies any cough or dysuria or frequency. Vitals/I&O's: Vital Signs Temp Pulse Resp BP Pulse Ox 98.7 F 81 18 130/62 H 94 12/28/17 08:24 12/28/17 08:24 12/28/17 08:24 12/28/17 08:24 12/28/17 08:24 Oxygen Flow Rate (L/min) 2 Oxygen Delivery Method Room Air Weight: 102.9 kg Body Mass Index (BMI) 30.7 Intake and Output for Last 24 Hours 12/26/17 12/27/17 12/28/17 23:59 23:59 23:59 Intake Total 587 / 587 Output Total 250 / 250 Balance 337 / 337 General: Alert, Oriented x3, Cooperative, No apparent distress, - - on 2L oxygen HEENT: Atraumatic, PERRLA, EOMI, Normocephalic Oral: Moist Mucosa Neck: Supple, - - Tenderness over the anterior chest on palpation especially over the cricoid Lungs: Clear to auscultation, Normal air movement Cardiovascular: Regular rate, Regular Rhythm, Normal S1, Normal S2, No murmurs Abdomen: Bowel Sounds Present, Soft, Non Tender, No Hepato-splenomegaly, Obese, - - Appears full and distended Extremities: No edema Skin: No rashes, No breakdown Musculoskeletal: No Tenderness to Palpation of Joints or Extremities Lymphatic: No Cervical, Supraclavicular, or Inguinal Adenopathy Neurological: Cranial nerves II-XII grossly intact, Neuro grossly intact Psych/Mental Status: Normal Affect, Appropriate Laboratory Results 12/28/17 00:44: POC Glucose 158 H 12/28/17 05:50: WBC 7.4, RBC 3.32 L, Hgb 10.2 L, Hct 30.7 L, MCV 92.5, MCH 30.7 , MCHC 33.2, RDW 14.2, RDW Differential 48.1 H, Plt Count 121 L, MPV 10.9, Immature Gran % (Auto) 0.100, Neut % (Auto) 73.5 H, Lymph % (Auto) 15.0 L, [place] % (Auto) 11.2 H, Eos % (Auto) 0.1, Baso % (Auto) 0.1, Absolute Neuts (auto) 5.4 , Absolute Lymphs (auto) 1.11, Total Counted Not Reportable 12/28/17 05:50: Sodium 137, Potassium 3.9, Chloride 103, Carbon Dioxide 26.0, Anion Gap 8, BUN 28 H, Creatinine 1.63 H, Estim Creat Clear Calc 45.62, Est GFR (MDRD) Af Amer 54 L, Est GFR (MDRD) Non-Af 45 L, BUN/Creatinine Ratio 17.2, Glucose 135 H, Calcium 8.3 L, Total Bilirubin 1.50 H, AST 22, ALT 26, Alkaline Phosphatase 72, Total Protein 6.0 L, Albumin 2.5 L, Globulin 3.5, Albumin/ Globulin Ratio 0.7 L Current Medications Hydrocodone Bitart/Acetaminophen ([place] 5mg-325mg) 1 tablet PO Q4H PRN PRN PRN Reason: PAIN Amlodipine Besylate (Norvasc) 5 mg PO QDAY [facility] Aspirin (Ecotrin) 81 mg PO DAILY@0800 [facility] Clopidogrel Bisulfate (Plavix) 75 mg PO DAILY [facility] Cyanocobalamin (Vitamin B12) 500 mcg PO BID ATM[facility] Glimepiride (Amaryl) 4 mg PO BID [facility] Sodium Chloride () 1,000 mls @ 125 mls/hr IV .Q8H [facility] Last Admin: 12/28/17 08:33 Dose: 125 mls/hr Ceftriaxone Sodium (Rocephin) 1 gm in 50 mls @ 100 mls/hr IV Q24 [facility] Isosorbide Mononitrate (Imdur) 60 mg PO BID [facility] Levothyroxine Sodium (Synthroid) 125 mcg PO DAILY [facility] Losartan Potassium (Cozaar) 25 mg PO DAILY [facility] Magnesium Hydroxide (Milk Of Magnesia) 30 ml PO DAILY PRN PRN PRN Reason: Constipation Metoprolol Tartrate (Lopressor (Beta Suleiman)) 25 mg PO BID [facility] Nitroglycerin (Nitrostat) 0.4 mg SUBLINGUAL Q5M PRN PRN Reason: Chest Pain Non-Formulary Medication (Multivitamin [Daily Multiple Vitamin]) 1 each PO DAILY [facility] Non-Formulary Medication (Simvastatin) 40 mg PO QHS [facility] Ondansetron HCl (Zofran) 4 mg IV Q8H PRN PRN PRN Reason: Nausea Ranolazine (Ranexa) 500 mg PO BID [facility] Sodium Chloride () 5 - 30 ml IV UD PRN PRN Reason: SALINE FLUSH Medical Necessity - Tobacco Use Smoking Status: Former smoker Tobacco Use: Non-smoker Assessment/Plan Active and Suspected Problems (Last Updated 11/22/17 @ 16:32 by Navya Ross) Back pain (Acute) Abdominal pain (Acute) 72-year-old male with multiple comorbidities, status post lithotripsy 4 days ago is admitted with abdominal pain, sore throat and hematuria postprocedure. 1. Neck pain, chest pain, likely secondary to musculoskeletal pain, EKG has been negative, troponins ?1 has been negative, pain is reproducible on examination Plan: Continue on patient's home [place], symptomatic care, PT and OT to evaluate and treat 2. Hematuria secondary to possible left kidney subcapsular hematoma, debris in the renal pelvis stable vitals, stable H&H, neurology consulted and did not recommend any intervention. Continue to monitor and manage patient symptomatically 3. LEONA secondary to dehydration, status post recent procedure with subsequent nausea and poor p.o. intake, creatinine improved with hydration, will continue on IV fluids and repeat BMP in a.m. 4. 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 5. Hypertension, controlled, continue on home medications. 6. CAD, status post CABG, on Plavix, aspirin, beta-suleiman, statins, Imdur, ranolazine 7. DVT prophylaxis with SCDs and account of recent hematuria and subcapsular hematoma 8. Disposition: Possible DC in a.m. if renal function is improved Code Visit Inpatient E&M: 28047 Subs Hosp L3
[2017-12-28] MEDS: Ceftriaxone 1 GM/50 ML BAG IV (09:28)
[2017-12-28] MEDS: amLODIPine 5 MG Tablet PO (09:30)
[2017-12-28] MEDS: Levothyroxine 125 MCG Tablet PO (09:30)
[2017-12-28] MEDS: Clopidogrel Bisulfate 75 MG Tablet PO (09:30)
[2017-12-28] MEDS: Losartan Potassium 25 MG Tablet PO (09:30)
[2017-12-28] MEDS: Metoprolol Tartrate 25 MG Tablet PO ×2 (09:30→21:26)
--- NOTE | 2017-12-28 09:44 | EKG12_ITS ---
Test Reason : CP Blood Pressure : / mmHG Vent. Rate : 080 BPM Atrial Rate : 080 BPM P-R Int : 178 ms QRS Dur : 092 ms QT Int : 384 ms P-R-T Axes : 045 -20 044 degrees QTc Int : 442 ms Normal sinus rhythm Normal ECG Confirmed by RHONDA SWENSON, PHILIP ([id number]), city editor JIM BOYER ([id number] on 01/12/2018 3:26:25 PM Referred By: Masoud Solis Confirmed By:PHILIP ELLIS MD
[2017-12-28] MEDS: BENZOCAINE/MENTHOL 1 LOZENGE MUCOUS MEM ×2 (10:11→12:51)
[2017-12-28] MEDS: HYDROcodone Bitartrate/Apap 5/325 Tablet PO (10:11)
[2017-12-28] MEDS: Acetaminophen 500 MG Tablet PO (10:12)
[2017-12-28] MEDS: Isosorbide Mononitrate 60 MG Tablet PO ×2 (10:12→21:25)
[2017-12-28] MEDS: Cyanocobalamin 500 MCG Tablet PO ×2 (10:13→16:24)
[2017-12-28] MEDS: Ranolazine 500 MG Tablet PO ×2 (10:13→21:26)
[2017-12-28] MEDS: 0.9% Normal Saline 1,000 ML 75 ML IV (10:16)
--- NOTE | 2017-12-28 10:41 | NURSING ---
[facility] notified of EKG order by telephone at this time- notified that they would be up shortly.
--- NOTE | 2017-12-28 11:20 | NURSING ---
EKG obtained. pt being transported down to radiology for X-Ray at this time
--- NOTE | 2017-12-28 11:24 | RAD_ITS ---
STUDY: X-RAY CHEST REASON FOR EXAM: Male, 72 years old. Fever TECHNIQUE: PA and lateral views of the chest. COMPARISON: January 21, 2018 chest x-ray FINDINGS: There is a focus of streaky linear opacity within the left lung base. There is no demonstrated pleural abnormality. Sternal cerclage wires are present from a prior sternotomy. Normal mediastinum and nuria. Normal visualized pulmonary arteries. There is atherosclerotic calcification of the aortic arch with tortuosity. There are diffuse degenerative changes of the visualized thoracic spine. Normal visualized ribs, clavicles, and shoulders. There is no demonstrated abnormality of the visualized soft tissue structures of the upper abdomen. RAD/Chest PA and Lateral IMPRESSION: Streaky linear opacity left lung base suggestive of atelectasis and/or developing infiltrate. Status post sternotomy. Electronically Signed: Adela Cabrera MD at 13:17 EDT Tel , Service support ,
[2017-12-28 11:45] LABS: Bedside Glucose 289 mg/dL (70-110)
[2017-12-28] MEDS: 0.9% NaCl Peripheral Flush Adult/Peds IV (11:46)
[2017-12-28] MEDS: Polyethylene Glycol 3350 17 GM PACKET PO (11:46)
[2017-12-28] MEDS: Glimepiride 4 MG Tablet PO ×2 (11:51→16:24)
--- NOTE | 2017-12-28 13:27 | CASEMGMT ---
RN CM Assessment. See Link. DC PLAN: home -PT/OT evaluations are pending. CM will assist w/dc needs if they arise. Pt with significant back pain today. Luisito GIORDANO RN ACM
--- NOTE | 2017-12-28 16:18 | CHAPLAIN ---
Type of Pastoral Visit _x__ Initial Visit ___ Follow-up Visit ___ On-call Visit ___ General Patient Visit ___ Spiritual Assessment ___ Family Conference ___ Bereavement ___ Rapid Response ___ Code Blue ___ Other (describe below) Pastoral Care Referral From _x__ Patient ___ Family ___ Nurse ___ Physician ___ Shaker Operator ___ Statistical Methods Professor ___ Other (describe below) Sacrament/Intervention _x__ Active listening ___ Anointing ___ Episcopalian ___ Bereavement ___ Communion ___ Winsome exploration ___ _x__ Life review _x__ Prayer ___ Reconciliation ___ Sacrament of Sick _x__ Supportive presence ___ Wedding ___ Other (describe below) Pastoral Comments spouse is with patient in room; pt outlines a long history of illness; spouse adds history of grief and loss to family; pt and spouse both refer to 'being mary' in life or 'blessed'; pt welcomed prayer
[2017-12-28] MEDS: Senna/Docusate Sodium 1 Tablet 2 TABLET PO (16:27)
[2017-12-28 17:31] LABS: Bedside Glucose 239 mg/dL (70-110)
[2017-12-28 21:26] LABS: Bedside Glucose 220 mg/dL (70-110)
[2017-12-28] MEDS: Atorvastatin Calcium 20 MG Tablet PO (21:26)
[2017-12-29] MEDS: 0.9% Normal Saline 1,000 ML 50 ML IV (02:14)
[2017-12-29 02:15] VITALS: BP 119/64; PULSE 76; RESP 18; TEMP 37.6; O2SAT 93
[2017-12-29] MEDS: Levothyroxine 125 MCG Tablet PO (06:04)
[2017-12-29 06:05] LABS: Absolute Lymphocyte Count 0.87 X10^3/ul (0.83-4.51); Absolute Neutrophil Count 4.1 X10^3/uL (2.0-7.7); Basophil# 0.01 X10^3/uL; Basophil% 0.2 % (0-1); Eosinophil# 0.07 X10^3/uL; Eosinophils% 1.2 % (0-5); Hematocrit 30.1 % (40-54); Hemoglobin 10.2 g/dl (13.0-16.5); Lymphocyte # 0.87 X10^3/ul (4.0); Lymphocyte % 14.8 % (19-41); Mean Corp Hgb Conc 33.9 g/gl (32-36); Mean Corpuscular Hgb 31.5 pg (27.0-32.0); Mean Corpuscular Volume 92.9 fL (80-94); Mean Platelet Vol. 10.6 fl (6.2-12.0); Monocyte# 0.77 X10^3/uL; Monocyte% 13.1 % (0-10); Neutrophil # 4.14 X10^3/uL (2.7-7.7); Neutrophil % 70.5 % (47-70); Platelet Count 129 K/mm3 (150-450); RBC Distribution Width CV 13.9 % (11.6-14.6); RBC Distribution Width SD 45.9 fl (35.1-43.9); Red Blood Count 3.24 M/mm3 (4.6-6.2); White Blood Count 5.9 K/mm3 (4.4-11.0)
[2017-12-29 06:19] LABS: POSITIVE COUNT NO; POSITIVE DIFFERENTIAL NO; POSITIVE MORPHOLOGY NO
[2017-12-29 06:29] LABS: Anion Gap 8 (5-15); BUN 27 mg/dL (7-18); BUN/Creat Ratio 16.3 RATIO (10-20); Calcium,Total 8.4 mg/dL (8.5-10.1); Chloride 101 mmol/L (98-107); Creatinine, Serum 1.66 mg/dL (0.70-1.30); EST Glomerular Filtration Rate 44 mL/min (>60); Est Glom Filt Rate - Afr Amer 53 mL/min (>60); Glucose 203 mg/dL (74-106); Potassium 4.2 mmol/L (3.5-5.1); Sodium Level 134 mmol/L (136-145)
[2017-12-29 06:56] LABS: Bedside Glucose 185 mg/dL (70-110)
[2017-12-29 07:46] VITALS: BP 138/70; PULSE 81; RESP 16; TEMP 37.1; O2SAT 95
[2017-12-29] MEDS: Ranolazine 500 MG Tablet PO (07:51)
[2017-12-29] MEDS: Clopidogrel Bisulfate 75 MG Tablet PO (07:51)
[2017-12-29] MEDS: Cyanocobalamin 500 MCG Tablet PO (07:51)
[2017-12-29] MEDS: Glimepiride 4 MG Tablet PO (07:51)
[2017-12-29] MEDS: amLODIPine 5 MG Tablet PO (07:51)
[2017-12-29 07:52] VITALS: PULSE 81
[2017-12-29] MEDS: Losartan Potassium 25 MG Tablet PO (07:52)
[2017-12-29] MEDS: Metoprolol Tartrate 25 MG Tablet PO (07:52)
[2017-12-29] MEDS: Multivitamins,Therapeutic Tablet 1 TABLET PO (07:52)
[2017-12-29] MEDS: Isosorbide Mononitrate 60 MG Tablet PO (07:52)
[2017-12-29] MEDS: Aspirin E.C. 81 MG Tablet PO (07:52)
--- NOTE | 2017-12-29 09:26 | PCM.DC ---
- Discharge Diagnoses Current Active Problems: Current Active and Chronic Problems (Last Updated 11/22/17 @ 16:32 by Navya Ross) Back pain (Acute) Abdominal pain (Acute) Reason(s) for Visit for Discharge Instructions: Abdominal pain, hematuria You will use the following diet at home:: Calorie/Carbohydrate Controlled (specify 1200, 1400, etc), Cardiac Your food should be the consistency of: Regular Your liquids should be the consistency of: Regular/Thin Discharge Activity: Return to Normal Activity Additional Instructions: You are encouraged to keep yourself hydrated with fluids. Drink to your thirst, at least 1.5L of fluids. One of your BP medication has been held for now pending improvement in your kidney function. Continue to be active. Note the changes in your medications for constipation. Allergies/Adverse Reactions: Allergies lisinopril Allergy (Intermediate, Verified 12/27/17 23:38) Unknown Medications to take at Discharge Aspirin E.C. [Ecotrin] 81 mg PO DAILY@0800 05/22/13 Levothyroxine [Synthroid] 125 mcg PO DAILY 05/22/13 Metformin HCl [Glucophage] 1,000 mg PO DINNER 05/22/13 Metformin HCl [Glucophage] 1,500 mg PO BREAKFAST 05/22/13 Simvastatin [Zocor] 40 mg PO QHS 05/22/13 Pioglitazone HCl 45 mg PO DAILY 01/22/15 Cyanocobalamin (Vitamin B-12) [Vitamin B-12] 500 mcg PO BID 01/05/17 Nitroglycerin [Nitrostat] 0.4 mg SUBLINGUAL Q5M PRN 01/05/17 amlodipine 5 mg tablet 5 mg PO QDAY #90 tab 12/01/17 clopidogrel 75 mg tablet 75 mg PO DAILY #90 tab 12/01/17 glimepiride 4 mg tablet 4 mg PO BID tab 12/01/17 isosorbide mononitrate ER 60 mg tablet,extended release 24 hr 60 mg PO BID #180 tab 12/01/17 metoprolol tartrate 25 mg tablet 25 mg PO BID #180 tab 12/01/17 ranolazine ER 500 mg tablet,extended release,12 hr 500 mg PO BID #180 tab 12/01/17 Multivitamin [Daily Multiple Vitamin] 1 each PO DAILY 12/12/17 Hydrocodone/Acetaminophen [[place] 5-325 Tablet] 1 ea PO Q4H PRN PRN 3 Days #14 tab 12/24/17 Bisacodyl [Dulcolax] 5 mg PO DAILY PRN #30 tab 12/29/17 Polyethylene Glycol 3350 [Miralax] 17 gm PO DAILY PRN #30 packet 12/29/17 Senna/Docusate Sodium [Senokot-S] 2 tab PO DAILY PRN PRN #30 tab 12/29/17 The following prescriptions were given: Bisacodyl [Dulcolax] 5 mg PO DAILY PRN #30 tab PRN Reason: Constipation Polyethylene Glycol 3350 [Miralax] 17 gm PO DAILY PRN #30 packet PRN Reason: Constipation Senna/Docusate Sodium [Senokot-S] 2 tab PO DAILY PRN PRN #30 tab PRN Reason: CONSTIPATION Primary Care Physician: Jeffrey Thorne [Primary Care Provider] - Please follow up with your Primary Care Physician in: within 2 weeks Please Follow Up With: Masoud Solis MD When: as scheduled Proposed Discharge Date: 12/29/17
[2017-12-29] MEDS: Senna/Docusate Sodium 1 Tablet 2 TABLET PO (09:30)
[2017-12-29] MEDS: Polyethylene Glycol 3350 17 GM PACKET PO (09:30)
[2017-12-29] MEDS: Ceftriaxone 1 GM/50 ML BAG IV (09:30)
--- NOTE | 2017-12-29 09:30 | DCINST_ITS ---
- Discharge Diagnoses Current Active Problems: Current Active and Chronic Problems (Last Updated 11/22/17 @ 16:32 by Navya Ross) Back pain (Acute) Abdominal pain (Acute) Reason(s) for Visit for Discharge Instructions: Abdominal pain, hematuria You will use the following diet at home:: Calorie/Carbohydrate Controlled ( specify 1200, 1400, etc), Cardiac Your food should be the consistency of: Regular Your liquids should be the consistency of: Regular/Thin Discharge Activity: Return to Normal Activity Additional Instructions: You are encouraged to keep yourself hydrated with fluids. Drink to your thirst, at least 1.5L of fluids. One of your BP medication has been held for now pending improvement in your kidney function. Continue to be active. Note the changes in your medications for constipation. Allergies/Adverse Reactions: Allergies lisinopril Allergy (Intermediate, Verified 12/27/17 23:38) Unknown Medications to take at Discharge Aspirin E.C. [Ecotrin] 81 mg PO DAILY@0800 05/22/13 Levothyroxine [Synthroid] 125 mcg PO DAILY 05/22/13 Metformin HCl [Glucophage] 1,000 mg PO DINNER 05/22/13 Metformin HCl [Glucophage] 1,500 mg PO BREAKFAST 05/22/13 Simvastatin [Zocor] 40 mg PO QHS 05/22/13 Pioglitazone HCl 45 mg PO DAILY 01/22/15 Cyanocobalamin (Vitamin B-12) [Vitamin B-12] 500 mcg PO BID 01/05/17 Nitroglycerin [Nitrostat] 0.4 mg SUBLINGUAL Q5M PRN 01/05/17 amlodipine 5 mg tablet 5 mg PO QDAY #90 tab 12/01/17 clopidogrel 75 mg tablet 75 mg PO DAILY #90 tab 12/01/17 glimepiride 4 mg tablet 4 mg PO BID tab 12/01/17 isosorbide mononitrate ER 60 mg tablet,extended release 24 hr 60 mg PO BID #180 tab 12/01/17 metoprolol tartrate 25 mg tablet 25 mg PO BID #180 tab 12/01/17 ranolazine ER 500 mg tablet,extended release,12 hr 500 mg PO BID #180 tab Multivitamin [Daily Multiple Vitamin] 1 each PO DAILY 12/12/17 Hydrocodone/Acetaminophen [[place] 5-325 Tablet] 1 ea PO Q4H PRN PRN 3 Days #14 tab 12/24/17 Bisacodyl [Dulcolax] 5 mg PO DAILY PRN #30 tab 12/29/17 Polyethylene Glycol 3350 [Miralax] 17 gm PO DAILY PRN #30 packet 12/29/17 Senna/Docusate Sodium [Senokot-S] 2 tab PO DAILY PRN PRN #30 tab 12/29/17 The following prescriptions were given: Bisacodyl [Dulcolax] 5 mg PO DAILY PRN #30 tab PRN Reason: Constipation Polyethylene Glycol 3350 [Miralax] 17 gm PO DAILY PRN #30 packet PRN Reason: Constipation Senna/Docusate Sodium [Senokot-S] 2 tab PO DAILY PRN PRN #30 tab PRN Reason: CONSTIPATION Primary Care Physician: Jeffrey Thorne [Primary Care Provider] - Please follow up with your Primary Care Physician in: within 2 weeks Please Follow Up With: Masoud Solis MD When: as scheduled Proposed Discharge Date: 12/29/17
--- NOTE | 2017-12-29 15:59 | PCM.DC.SUM ---
Discharge Date and Diagnosis Date of Admission: 12/27/17 Date of Discharge: 12/29/17 - Primary Discharge Diagnosis Left kidney subcapsular hematoma Acute kidney injury Hyperglycemia Musculoskeletal pain - Secondary Discharge Diagnosis Chronic Problems (Last Updated 11/22/17 @ 16:32 by Navya Ross) Occlusion and stenosis of bilateral carotid arteries (Chronic) Right carotid bruit (Chronic) Angina pectoris (Chronic) Atherosclerosis of aorta (Chronic) HLD (hyperlipidemia) (Chronic) Hypothyroidism (Chronic) Diabetes mellitus (Chronic) Atherosclerosis of coronary artery bypass graft(s), unspecified, with other forms of angina pectoris (Chronic) CABG, PAZ-LAD, SVG-OM of CX Apr 1998; HTN (hypertension) (Chronic) Hospital Course and Treatment Imaging Results: Clinical Impression(s) from Imaging Studies Abdomen/Pelvis CT 12/27/17 20:53 IMPRESSION: Interval development of a abnormal appearing left kidney where there is a peripheral hyperdense appearance of the kidney which is highly suggestive of a subcapsular hematoma or renal parenchymal hemorrhage. There is now a cluster of small stones in the place of the larger 6 mm stone seen in the left kidney. There is no evidence of hydronephrosis. There is a visualization of hyperdense blood tracking in the proximal left ureter. Bilateral perinephric stranding and hypertrophy of the renal fat. Constipation Mild ileus. Trace blood within the bladder. 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 N.B. : The above information has been verbally conveyed by Adela Cabrera MD to Dr. George Miramontes, Referring Physician, on 12/27/2017 21:56:41 (ET). Electronically Signed: Adela Cabrera MD at 21:57 EDT Tel , Service support , N.B. : The above information has been verbally conveyed by Adela Cabrera MD to Dr. George Miramontes, Referring Physician, on 12/27/2017 21:56:41 (ET). Chest X-Ray 12/28/17 11:24 IMPRESSION: Streaky linear opacity left lung base suggestive of atelectasis and/or developing infiltrate. Status post sternotomy. Electronically Signed: Adela Cabrera MD at 13:17 EDT Tel , Service support , Urology Operations: None Procedures: None Summary of Care Provided: 72-year-old male with multiple comorbidities, status post lithotripsy 4 days prior to admission comes in with abdominal pain, sore throat and hematuria postprocedure. 1. Neck pain, chest pain, likely secondary to musculoskeletal pain, status post intubation for procedure, EKG has been negative, troponins ?1 has been negative, pain is reproducible on examination, resolved with pain medication and lozenges. 2. Hematuria secondary to possible left kidney subcapsular hematoma, to scan of the abdomen and pelvis showed debris in the renal pelvis, H & H remained stable, urology consulted and did not recommend any intervention. Patient was reassured and asked to follow-up with urology in the outpatient 3. LEONA secondary to dehydration, status post recent procedure with subsequent nausea and poor p.o. intake, creatinine slightly improved with hydration, patient will need to follow-up with his primary care doctor in the outpatient and repeat BMP in 3 days. 4. Type II DM, sugars were slightly uncontrolled in the hospital on account of LEONA, patient was discharged on home medications. 5. Hypertension, controlled, fairly controlled, home losartan was held on account of acute kidney injury 6. CAD, status post CABG, on Plavix, aspirin, beta-jolly, statins, Imdur, ranolazine Discharge Diet: Low fat/ Low Cholesterol, 2000 mg Sodium Diet, Carb Control Diet Discharge Activity: Return to Normal Activity Home Medications: Medications to take at Discharge Aspirin E.C. [Ecotrin] 81 mg PO DAILY@0800 05/22/13 Levothyroxine [Synthroid] 125 mcg PO DAILY 05/22/13 Metformin HCl [Glucophage] 1,000 mg PO DINNER 05/22/13 Metformin HCl [Glucophage] 1,500 mg PO BREAKFAST 05/22/13 Simvastatin [Zocor] 40 mg PO QHS 05/22/13 Pioglitazone HCl 45 mg PO DAILY 01/22/15 Cyanocobalamin (Vitamin B-12) [Vitamin B-12] 500 mcg PO BID 01/05/17 Nitroglycerin [Nitrostat] 0.4 mg SUBLINGUAL Q5M PRN 01/05/17 amlodipine 5 mg tablet 5 mg PO QDAY #90 tab 12/01/17 clopidogrel 75 mg tablet 75 mg PO DAILY #90 tab 12/01/17 glimepiride 4 mg tablet 4 mg PO BID tab 12/01/17 isosorbide mononitrate ER 60 mg tablet,extended release 24 hr 60 mg PO BID #180 tab 12/01/17 metoprolol tartrate 25 mg tablet 25 mg PO BID #180 tab 12/01/17 ranolazine ER 500 mg tablet,extended release,12 hr 500 mg PO BID #180 tab 12/01/17 Multivitamin [Daily Multiple Vitamin] 1 each PO DAILY 12/12/17 Hydrocodone/Acetaminophen [[place] 5-325 Tablet] 1 ea PO Q4H PRN PRN 3 Days #14 tab 12/24/17 Bisacodyl [Dulcolax] 5 mg PO DAILY PRN #30 tab 12/29/17 Polyethylene Glycol 3350 [Miralax] 17 gm PO DAILY PRN #30 packet 12/29/17 Senna/Docusate Sodium [Senokot-S] 2 tab PO DAILY PRN PRN #30 tab 12/29/17 Following Prescrptions Were Given to Patient: Bisacodyl [Dulcolax] 5 mg PO DAILY PRN #30 tab PRN Reason: Constipation Polyethylene Glycol 3350 [Miralax] 17 gm PO DAILY PRN #30 packet PRN Reason: Constipation Senna/Docusate Sodium [Senokot-S] 2 tab PO DAILY PRN PRN #30 tab PRN Reason: CONSTIPATION Primary Care Physician: Jeffrey Thorne [Primary Care Provider] - Please follow up with your Primary Care Physician in: within 2 weeks Please Follow Up With: Masoud Solis MD When: as scheduled Please Follow Up With: Jeffrey Thorne Disposition: Home Minutes spent on discharge:: 40 Patient Condition:: Stable Medical Necessity - Tobacco Use Smoking Status: Former smoker Tobacco Use: Non-smoker Meaningful Use Info Meaningful Use Diagnoses (Choose all that apply): None applicable Code Visit Inpatient E&M: 99635 Disch Hosp
--- NOTE | 2017-12-29 16:05 | DS.PCM_ITS ---
Discharge Date and Diagnosis Date of Admission: 12/27/17 Date of Discharge: 12/29/17 - Primary Discharge Diagnosis Left kidney subcapsular hematoma Acute kidney injury Hyperglycemia Musculoskeletal pain - Secondary Discharge Diagnosis Chronic Problems (Last Updated 11/22/17 @ 16:32 by Navya Ross) Occlusion and stenosis of bilateral carotid arteries (Chronic) Right carotid bruit (Chronic) Angina pectoris (Chronic) Atherosclerosis of aorta (Chronic) HLD (hyperlipidemia) (Chronic) Hypothyroidism (Chronic) Diabetes mellitus (Chronic) Atherosclerosis of coronary artery bypass graft(s), unspecified, with other forms of angina pectoris (Chronic) CABG, PAZ-LAD, SVG-OM of CX Apr 1998; HTN (hypertension) (Chronic) Hospital Course and Treatment Imaging Results: Clinical Impression(s) from Imaging Studies Abdomen/Pelvis CT 12/27/17 20:53 IMPRESSION: Interval development of a abnormal appearing left kidney where there is a peripheral hyperdense appearance of the kidney which is highly suggestive of a subcapsular hematoma or renal parenchymal hemorrhage. There is now a cluster of small stones in the place of the larger 6 mm stone seen in the left kidney. There is no evidence of hydronephrosis. There is a visualization of hyperdense blood tracking in the proximal left ureter. Bilateral perinephric stranding and hypertrophy of the renal fat. Constipation Mild ileus. Trace blood within the bladder. 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 N.B. : The above information has been verbally conveyed by Adela Cabrera MD to Dr. George Miramontes, Referring Physician, on 12/27/2017 21:56:41 (ET). Electronically Signed: Adela Cabrera MD at 21:57 EDT Tel , Service support , N.B. : The above information has been verbally conveyed by Adela Cabrera MD to Dr. George Miramontes, Referring Physician, on 12/27/2017 21:56:41 (ET). Chest X-Ray 12/28/17 11:24 IMPRESSION: Streaky linear opacity left lung base suggestive of atelectasis and/or developing infiltrate. Status post sternotomy. Electronically Signed: Adela Cabrera MD at 13:17 EDT Tel , Service support , Urology Operations: None Procedures: None Summary of Care Provided: 72-year-old male with multiple comorbidities, status post lithotripsy 4 days prior to admission comes in with abdominal pain, sore throat and hematuria postprocedure. 1. Neck pain, chest pain, likely secondary to musculoskeletal pain, status post intubation for procedure, EKG has been negative, troponins ?1 has been negative, pain is reproducible on examination, resolved with pain medication and lozenges. 2. Hematuria secondary to possible left kidney subcapsular hematoma, to scan of the abdomen and pelvis showed debris in the renal pelvis, H & H remained stable, urology consulted and did not recommend any intervention. Patient was reassured and asked to follow-up with urology in the outpatient 3. LEONA secondary to dehydration, status post recent procedure with subsequent nausea and poor p.o. intake, creatinine slightly improved with hydration, patient will need to follow-up with his primary care doctor in the outpatient and repeat BMP in 3 days. 4. Type II DM, sugars were slightly uncontrolled in the hospital on account of LEONA, patient was discharged on home medications. 5. Hypertension, controlled, fairly controlled, home losartan was held on account of acute kidney injury 6. CAD, status post CABG, on Plavix, aspirin, beta-jolly, statins, Imdur, ranolazine Discharge Diet: Low fat/ Low Cholesterol, 2000 mg Sodium Diet, Carb Control Diet Discharge Activity: Return to Normal Activity Home Medications: Medications to take at Discharge Aspirin E.C. [Ecotrin] 81 mg PO DAILY@0800 05/22/13 Levothyroxine [Synthroid] 125 mcg PO DAILY 05/22/13 Metformin HCl [Glucophage] 1,000 mg PO DINNER 05/22/13 Metformin HCl [Glucophage] 1,500 mg PO BREAKFAST 05/22/13 Simvastatin [Zocor] 40 mg PO QHS 05/22/13 Pioglitazone HCl 45 mg PO DAILY 01/22/15 Cyanocobalamin (Vitamin B-12) [Vitamin B-12] 500 mcg PO BID 01/05/17 Nitroglycerin [Nitrostat] 0.4 mg SUBLINGUAL Q5M PRN 01/05/17 amlodipine 5 mg tablet 5 mg PO QDAY #90 tab 12/01/17 clopidogrel 75 mg tablet 75 mg PO DAILY #90 tab 12/01/17 glimepiride 4 mg tablet 4 mg PO BID tab 12/01/17 isosorbide mononitrate ER 60 mg tablet,extended release 24 hr 60 mg PO BID #180 tab 12/01/17 metoprolol tartrate 25 mg tablet 25 mg PO BID #180 tab 12/01/17 ranolazine ER 500 mg tablet,extended release,12 hr 500 mg PO BID #180 tab Multivitamin [Daily Multiple Vitamin] 1 each PO DAILY 12/12/17 Hydrocodone/Acetaminophen [[place] 5-325 Tablet] 1 ea PO Q4H PRN PRN 3 Days #14 tab 12/24/17 Bisacodyl [Dulcolax] 5 mg PO DAILY PRN #30 tab 12/29/17 Polyethylene Glycol 3350 [Miralax] 17 gm PO DAILY PRN #30 packet 12/29/17 Senna/Docusate Sodium [Senokot-S] 2 tab PO DAILY PRN PRN #30 tab 12/29/17 Following Prescrptions Were Given to Patient: Bisacodyl [Dulcolax] 5 mg PO DAILY PRN #30 tab PRN Reason: Constipation Polyethylene Glycol 3350 [Miralax] 17 gm PO DAILY PRN #30 packet PRN Reason: Constipation Senna/Docusate Sodium [Senokot-S] 2 tab PO DAILY PRN PRN #30 tab PRN Reason: CONSTIPATION Primary Care Physician: Jeffrey Thorne [Primary Care Provider] - Please follow up with your Primary Care Physician in: within 2 weeks Please Follow Up With: Masoud Solis MD When: as scheduled Please Follow Up With: Jeffrey Thorne Disposition: Home Minutes spent on discharge:: 40 Patient Condition:: Stable Medical Necessity - Tobacco Use Smoking Status: Former smoker Tobacco Use: Non-smoker Meaningful Use Info Meaningful Use Diagnoses (Choose all that apply): None applicable Code Visit Inpatient E&M: 75403 Disch Hosp
--- NOTE | 2017-12-31 09:43 | CASEMGMT ---
ANTOINETTE OSEI DC F/U call: Intro role of CM to patient via home phone. Pt states he is doing well. Back pain is improved, however, he feels more comfortable sitting up. Is considering Hospital bed. Information given to pt re: DME companies locally and able to rent bed. Pt will first attempt to purchase a used one, if not available, will look to rent. Prescriptions: understands medications, has prescriptions filled. F/U appt: made by . Is able to attend, can provide transportation. ANTOINETTE OSEI thanked pt for using [facility]. No suggestions given per pt. Luisito GIORDANO RN ACM
== END 2017-12-29 11:14 | disposition home or self-care (01) | DRG 699 ==
LOC: ED 21:00 → MS2 23:43
PROVIDERS: Admitting Provider Family Medicine; Emergency Provider Emergency Medicine; Family Provider Family Medicine; PCP Family Medicine; Visit Provider Internal Medicine
DX: S37.012A Minor contusion of left kidney, initial encounter (principal); N17.9 Acute kidney failure, unspecified; X58.XXXA Exposure to other specified factors, initial encounter; Y93.9 Activity, unspecified; Y92.9 Unspecified place or not applicable; Y99.9 Unspecified external cause status; M54.2 Cervicalgia; R07.9 Chest pain, unspecified; R31.9 Hematuria, unspecified; E86.0 Dehydration; E11.65 Type 2 diabetes mellitus with hyperglycemia; I10 Essential (primary) hypertension; I25.119 Atherosclerotic heart disease of native coronary artery with unspecified angina pectoris; I25.2 Old myocardial infarction; Z95.1 Presence of aortocoronary bypass graft; Z87.891 Personal history of nicotine dependence; I65.23 Occlusion and stenosis of bilateral carotid arteries; E03.9 Hypothyroidism, unspecified; E78.5 Hyperlipidemia, unspecified; Z79.82 Long term (current) use of aspirin; Z79.84 Long term (current) use of oral hypoglycemic drugs; Z79.899 Other long term (current) drug therapy; Z79.891 Long term (current) use of opiate analgesic; Z98.890 Other specified postprocedural states; N20.0 Calculus of kidney; G47.30 Sleep apnea, unspecified; E05.90 Thyrotoxicosis, unspecified without thyrotoxic crisis or storm
CPT/HCPCS: 36415; 71046; 74018; 74176; 80048; 80053; 81001; 82962; 83605; 84484; 85025; 85610; 85730; 87040; 87086; 93005; 97162; 97165; 99285; J7030; J7120; A4216; J0696

== ENCOUNTER → 2018-01-03 10:47 | Outpatient (CLI) | payer MEDICARE, OTHER, SELFPAY ==
[2018-01-03 11:27] LABS: Absolute Lymphocyte Count 0.93 X10^3/ul (0.83-4.51); Absolute Neutrophil Count 5.2 X10^3/uL (2.0-7.7); Basophil# 0.04 X10^3/uL; Basophil% 0.6 % (0-1); Eosinophil# 0.13 X10^3/uL; Eosinophils% 1.9 % (0-5); Hematocrit 30.4 % (40-54); Hemoglobin 10.1 g/dl (13.0-16.5); Lymphocyte # 0.93 X10^3/ul (4.0); Lymphocyte % 13.3 % (19-41); Mean Corp Hgb Conc 33.2 g/gl (32-36); Mean Corpuscular Hgb 31.1 pg (27.0-32.0); Mean Corpuscular Volume 93.5 fL (80-94); Mean Platelet Vol. 10.2 fl (6.2-12.0); Monocyte# 0.64 X10^3/uL; Monocyte% 9.1 % (0-10); Neutrophil # 5.19 X10^3/uL (2.7-7.7); Neutrophil % 74.1 % (47-70); Platelet Count 297 K/mm3 (150-450); RBC Distribution Width CV 13.7 % (11.6-14.6); RBC Distribution Width SD 45.3 fl (35.1-43.9); Red Blood Count 3.25 M/mm3 (4.6-6.2)
[2018-01-03 11:33] LABS: POSITIVE COUNT NO; POSITIVE DIFFERENTIAL NO; POSITIVE MORPHOLOGY NO
[2018-01-03 11:56] LABS: Anion Gap 9 (5-15); BUN 20 mg/dL (7-18); BUN/Creat Ratio 12.9 RATIO (10-20); Calcium,Total 8.8 mg/dL (8.5-10.1); Chloride 102 mmol/L (98-107); Creatinine, Serum 1.55 mg/dL (0.70-1.30); EST Glomerular Filtration Rate 47 mL/min (>60); Est Glom Filt Rate - Afr Amer 57 mL/min (>60); Glucose 196 mg/dL (74-106); Potassium 4.4 mmol/L (3.5-5.1); Sodium Level 138 mmol/L (136-145)
== END ==
PROVIDERS: Family Provider Family Medicine; PCP Family Medicine; Visit Provider Internal Medicine
DX: N20.0 Calculus of kidney (principal); R31.9 Hematuria, unspecified; N18.9 Chronic kidney disease, unspecified; N17.9 Acute kidney failure, unspecified
CPT/HCPCS: 36415; 80048; 85025

== ENCOUNTER → 2018-01-04 11:30 | Outpatient (CLI) | payer MEDICARE, OTHER, SELFPAY ==
--- NOTE | 2018-01-04 11:37 | RAD_ITS ---
STUDY: X-RAY - ABDOMEN/PELVIS REASON FOR EXAM: Male, 72 years old. History of kidney stones. TECHNIQUE: Two AP supine views of the abdomen and pelvis. COMPARISON: Comparison is made with prior study dated December 24, 2017. FINDINGS: There is an abundance of fecal material throughout the colon. Tiny calcifications are seen in the mid lower pole calyces of the left kidney. Vascular calcification. There are diffuse degenerative changes of the visualized lumbar spine. RAD/Abdomen Single View IMPRESSION: Tiny calculi are seen in the mid lower pole calyces of the left kidney. Electronically Signed: Beka Holman MD at 15:22 EDT Tel [phone], Service support ,
== END ==
PROVIDERS: Family Provider Family Medicine; PCP Family Medicine; Visit Provider Urology
DX: N20.0 Calculus of kidney (principal)
CPT/HCPCS: 74018

== ENCOUNTER → 2018-06-08 09:41 | Outpatient (CLI) | payer MEDICARE, OTHER, SELFPAY ==
--- NOTE | 2018-06-08 09:44 | US_ITS ---
STUDY: RENAL ULTRASOUND - COMPLETE REASON FOR EXAM: Male, 72 years old. ABNORMAL KIDNEY FUNCTION TECHNIQUE: Ultrasound evaluation of the kidneys was performed with real-time and static samuel-scale imaging. COMPARISON: ct 5.14.18 FINDINGS: RIGHT KIDNEY: Normal location of the right kidney, which is normal in size. The right kidney measures 12.6x5.1x5.3 cm. There is a normal cortex of the right kidney. The renal cortex measures 1.7 cm. There is no right renal mass or cyst. There are no right renal calculi. There is no right hydronephrosis. DISTAL RIGHT URETER: There is non-visualization of the distal right ureter. There is no demonstrated right ureterovesical junction calculus. There is a visualized right ureteral jet. LEFT KIDNEY: Normal location of the left kidney, which is normal in size. The left kidney measures 10.6x5.8x6.8 cm. There is a normal cortex of the left kidney. The renal cortex measures 2.2 cm. There is no left renal mass or cyst. Left renal stone measuring 11 x 10 mm. There is no left hydronephrosis. DISTAL LEFT URETER: There is non-visualization of the distal left ureter. There is no demonstrated left ureterovesical junction calculus. There is no demonstrated left ureteral jet. AORTA: There is obscuration of the abdominal aorta by overlying bowel gas I.V.C.: The IVC is obscured. BLADDER: The distended urinary bladder has a volume of 122 ml. There is a normal wall thickness of the distended urinary bladder. There is no demonstrated mass within the urinary bladder. There are no demonstrated bladder calculi. US/Kidney and Bladder IMPRESSION: Nonobstructing left renal stone. Electronically Signed: Maverick Hernandez MD at 21:14 EDT , Service support ,
== END ==
PROVIDERS: Family Provider Family Medicine; PCP Family Medicine; Referring Provider Family Medicine; Visit Provider Family Medicine
DX: N28.9 Disorder of kidney and ureter, unspecified (principal)
CPT/HCPCS: 76770

== ENCOUNTER → 2018-06-20 09:40 | Outpatient (CLI) | payer MEDICARE, OTHER, SELFPAY ==
--- NOTE | 2018-06-20 09:45 | RAD_ITS ---
STUDY: X-RAY - ABDOMEN/PELVIS REASON FOR EXAM: Male, 72 years old. Kidney stones. TECHNIQUE: Two AP supine views of the abdomen and pelvis. COMPARISON: January 04, 2018. FINDINGS: Normal visualized lung bases. There is a large amount of feces throughout the colon with air-filled small bowel loops in the central abdomen. This limits evaluation of the kidneys. There is no demonstrated free abdominal air. The visualized liver, spleen and kidneys are grossly normal in size and morphology. There is no visualized renal calculi. Normal soft tissue structures. There are diffuse degenerative changes of the visualized lumbar spine. RAD/Abdomen Single View IMPRESSION: A large amount of air and feces in bowel limiting evaluation the kidneys. There is no visualized renal calculi. Electronically Signed: Rogers Young DO at 18:52 EST Tel [phone], Service support ,
== END ==
PROVIDERS: Family Provider Family Medicine; PCP Family Medicine; Referring Provider Urology; Visit Provider Urology
DX: N20.0 Calculus of kidney (principal)
CPT/HCPCS: 74018

== ENCOUNTER → 2018-11-07 15:27 | Outpatient (CLI) | payer MEDICARE, OTHER, SELFPAY ==
[2018-07-12 13:58] VITALS: BMI 31.0
[2018-11-07 16:50] LABS: PSA,Total - Annual Screen 0.81 ng/mL (0.00-4.00)
== END ==
PROVIDERS: Family Provider Family Medicine; PCP Family Medicine; Referring Provider Urology; Visit Provider Urology
DX: Z12.5 Encounter for screening for malignant neoplasm of prostate (principal)
CPT/HCPCS: 36415; 84153; G0103

== ENCOUNTER → 2019-07-18 09:36 | Outpatient (CLI) | payer MEDICARE, OTHER, SELFPAY ==
[2019-01-11 10:03] VITALS: BMI 31.0
[2019-07-18 12:50] LABS: Hematocrit 37.3 % (40-54); Hemoglobin 11.7 g/dL (13.0-16.5); Mean Corp Hgb Conc 31.4 g/dL (32-36); Mean Corpuscular Volume 95.6 fL (80-94); Mean Platelet Vol. 11.4 fl (6.2-12.0); Platelet Count 150 K/mm3 (150-450); RBC Distribution Width SD 52.3 fl (35.1-43.9); White Blood Count 4.2 K/mm3 (4.4-11.0)
[2019-07-18 12:56] LABS: Ferritin 54 ng/mL (26-388); Iron 60 ug/dL (65-175)
== END ==
PROVIDERS: Family Provider Family Medicine; PCP Family Medicine; Referring Provider Internal Medicine Gastroenterology; Visit Provider Internal Medicine Gastroenterology
DX: D64.9 Anemia, unspecified (principal); E61.1 Iron deficiency
CPT/HCPCS: 36415; 82728; 83540; 85027

== ENCOUNTER → 2019-08-24 12:22 | Outpatient (CLI) | payer MEDICARE, OTHER, SELFPAY ==
[2019-08-17 08:31] VITALS: BMI 32.4
[2019-08-24 14:14] LABS: Absolute Lymphocyte Count 1.09 X10^3/uL (0.83-4.51); Absolute Neutrophil Count 2.7 X10^3/uL (2.0-7.7); Basophil# 0.03 X10^3/uL; Basophil% 0.7 % (0-1); Eosinophil# 0.12 X10^3/uL; Eosinophils% 2.8 % (0-5); Hematocrit 40.2 % (40-54); Hemoglobin 12.8 g/dL (13.0-16.5); Lymphocyte # 1.09 X10^3/ul (4.0); Lymphocyte % 25.1 % (19-41); Mean Corp Hgb Conc 31.8 g/dL (32-36); Mean Corpuscular Hgb 30.5 pg (27.0-32.0); Mean Corpuscular Volume 95.9 fL (80-94); Mean Platelet Vol. 11.4 fl (6.2-12.0); Monocyte# 0.37 X10^3/uL; Monocyte% 8.5 % (0-10); NRBC Flagged by Analyzer 0 % (0-5); Neutrophil # 2.72 X10^3/uL (2.7-7.7); Neutrophil % 62.4 % (47-70); Platelet Count 143 K/mm3 (150-450); RBC Distribution Width CV 14.9 % (11.6-14.6); RBC Distribution Width SD 52.9 fl (35.1-43.9); Red Blood Count 4.19 M/mm3 (4.6-6.2); White Blood Count 4.4 K/mm3 (4.4-11.0)
[2019-08-24 14:30] LABS: Ferritin 70 ng/mL (26-388); Iron 101 ug/dL (65-175)
== END ==
PROVIDERS: Family Provider Family Medicine; PCP Family Medicine; Referring Provider Internal Medicine Gastroenterology; Visit Provider Internal Medicine Gastroenterology
DX: D64.9 Anemia, unspecified (principal)
CPT/HCPCS: 36415; 82728; 83540; 85025

== ENCOUNTER 2019-10-17 23:27 | Inpatient (IN) | payer MEDICARE, OTHER, SELFPAY ==
[2019-08-17 08:31] VITALS: BMI 32.4
[2019-10-17 23:28] VITALS: BP 115/49; PULSE 74; RESP 18; TEMP 36.4; O2SAT 95; BMI 35.3
--- NOTE | 2019-10-17 23:37 | EKG12_ITS ---
Test Reason : REPEAT Blood Pressure : / mmHG Vent. Rate : 082 BPM Atrial Rate : 082 BPM P-R Int : 222 ms QRS Dur : 098 ms QT Int : 400 ms P-R-T Axes : 056 -37 151 degrees QTc Int : 467 ms Sinus rhythm with 1st degree A-V block Left axis deviation Marked ST abnormality, possible inferior subendocardial injury Marked ST abnormality, possible lateral subendocardial injury Abnormal ECG Confirmed by TOSHA MARTINEZ ([id number]), web content editor NIKITA ALEJANDRE ([id number]) on 10/18/2019 2:21:42 PM Referred By: Confirmed By:TOSHA MARTINEZ
--- NOTE | 2019-10-17 23:37 | RAD_ITS ---
STUDY: X-RAY CHEST REASON FOR EXAM: Male, 74 years old. C/O CP -- BEST INSPIRATION POSSIBLE TECHNIQUE: Single frontal view of the chest. COMPARISON: December 28, 2017. FINDINGS: Low lung volumes. No pneumothorax or pleural effusion. No focal consolidation. Basilar atelectasis. Chronic lung changes. Sternal cerclage wires and vascular clips are present from a prior sternotomy and coronary artery bypass graft procedure (CABG). The heart is within normal limits in size for portable technique. Aortic calcifications. There are diffuse degenerative changes of the visualized thoracic spine. There is degenerative osteoarthritis of the bilateral shoulders. There is no demonstrated abnormality of the visualized soft tissue structures of the upper abdomen. RAD/Chest 1 View (Portable) IMPRESSION: Basilar atelectasis/scarring. There is no focal consolidation identified. Electronically Signed: Oliver Roca, at 0:07 EST Tel , Service support ,
--- NOTE | 2019-10-17 23:38 | ED.VISSUMM ---
- ER Visit Summary Date of Service: 10/17/19 Chief Complaint: Chest pain History of Present Illness: The patient is a 74 M presenting with chest pain that started 1 hour prior to arrival. Patient states this woke him from sleep. He had chest pain and burning sensation that was midsternal radiated to his neck and both arms. He had associated shortness of breath. He states yesterday had an episode of dizziness and near syncope. He was seen by his primary care physician today to evaluate this. He states he had blood work drawn that is pending. He denies falls or head trauma. He has a history of hypertension, diabetes, hypercholesterolemia. Denies PE/DVT risk factors. He took one nitro and was given additional 2 nitro per EMS. This resolved his pain. Physical Examination: Vitals are stable. Patient is afebrile. Alert no acute distress. HEENT exam is unremarkable. Neck is supple. Lungs are clear and equal bilaterally. Heart is regular rate and rhythm. Abdomen is soft nontender nondistended. Extremities are unremarkable. Skin is warm and dry. No focal neurologic deficit. Remainder of exam is unremarkable. Emergency Department Course and Treatment: Patient given aspirin prior to arrival. EKG is sinus rhythm rate of 75 with no acute ischemic changes. Patient is initially pain-free in the ED. CBC shows hemoglobin 6.2, platelet 104. Stool is guaiac negative. He states he has had black stool but he is on iron pills. His chemistry panel shows BUN 101, creatinine 2.0, glucose 243. Troponin is negative. Chest x-ray shows basilar atelectasis/scarring. There is no focal consolidation identified. He was typed and crossed for 2 units packed red blood cells. While in the emergency room he started having chest pain again. Repeat EKG showed ST depression V2 through V6 and inferior laterally. He was given 1 nitro with improvement of his pain. Repeat EKG now that he is pain-free is normal sinus rhythm with no acute ischemic changes. Discussed with Dr. Dawson. Patient will be given blood transfusion. He will be admitted. Discussed with the hospitalist for admission. Disposition: Admission Impression: Chest pain, anemia This note was generated with [employer] dictation software. It may contain incorrect words, spelling, and punctuation that were not noted in review of the chart prior to signing ED Disposition - Plan for ED Patient: Referrals: Jeffrey Thorne [Primary Care Provider] -
[2019-10-17 23:40] VITALS: O2SAT 93
[2019-10-17] MEDS: Aspirin 81 MG TAB.CHEW 324 MG PO (23:43)
[2019-10-17 23:50] LABS: Absolute Lymphocyte Count 0.85 X10^3/uL (0.83-4.51); Absolute Neutrophil Count 3.8 X10^3/uL (2.0-7.7); Basophil# 0.01 X10^3/uL; Basophil% 0.2 % (0-1); Eosinophil# 0.08 X10^3/uL; Eosinophils% 1.5 % (0-5); Hematocrit 18.8 % (40-54); Hemoglobin 6.2 g/dL (13.0-16.5); Lymphocyte # 0.85 X10^3/ul (4.0); Lymphocyte % 16.4 % (19-41); Mean Corpuscular Volume 96.9 fL (80-94); Mean Platelet Vol. 10.3 fl (6.2-12.0); Monocyte# 0.41 X10^3/uL; Monocyte% 7.9 % (0-10); NRBC Flagged by Analyzer 0 % (0-5); Neutrophil % 73.2 % (47-70); Platelet Count 104 K/mm3 (150-450); RBC Distribution Width SD 52.5 fl (35.1-43.9); Red Blood Count 1.94 M/mm3 (4.6-6.2); White Blood Count 5.2 K/mm3 (4.4-11.0)
[2019-10-18] VITALS (48 sets, daily range): BP systolic 84–144; BP diastolic 35–67; PULSE 71–89; RESP 16–25; TEMP 36.4–37.1; O2SAT 91–100; BMI 32.1
[2019-10-18 00:11] LABS: Anion Gap 5 (5-15); BUN 101 mg/dL (7-18); BUN/Creat Ratio 50.5 RATIO (10-20); Calcium,Total 8.7 mg/dL (8.5-10.1); Chloride 107 mmol/L (98-107); EST Glomerular Filtration Rate 35 mL/min (>60); Est Glom Filt Rate - Afr Amer 42 mL/min (>60); Estimated Creatinine Clearance 33.97 ml/min; Glucose 243 mg/dL (74-106); Potassium 4.1 mmol/L (3.5-5.1); Sodium Level 139 mmol/L (136-145)
[2019-10-18] MEDS: Nitroglycerin SL (ED/IMG/CATH) 0.4 MG TABLET SUBLINGUAL (00:38)
--- NOTE | 2019-10-18 00:49 | EKG12_ITS ---
Test Reason : CP Blood Pressure : / mmHG Vent. Rate : 075 BPM Atrial Rate : 075 BPM P-R Int : 198 ms QRS Dur : 100 ms QT Int : 412 ms P-R-T Axes : 054 -06 073 degrees QTc Int : 460 ms Normal sinus rhythm Nonspecific ST abnormality Abnormal ECG Confirmed by TOSHA MARTINEZ ([id number]), manager editorial NIKITA ALEJANDRE ([id number]) on 10/18/2019 2:21:56 PM Referred By: Confirmed By:TOSHA MARTINEZ
--- NOTE | 2019-10-18 00:50 | EKG12_ITS ---
Test Reason : REPEAT X2 Blood Pressure : / mmHG Vent. Rate : 073 BPM Atrial Rate : 073 BPM P-R Int : 196 ms QRS Dur : 102 ms QT Int : 420 ms P-R-T Axes : 056 -09 070 degrees QTc Int : 462 ms Normal sinus rhythm Nonspecific ST abnormality Abnormal ECG Confirmed by TOSHA MARTINEZ ([id number]), manager editorial JIM BOYER ([id number] on 10/18/2019 4:11:41 PM Referred By: Confirmed By:TOSHA MARTINEZ
--- NOTE | 2019-10-18 01:11 | PCM.HP.STD ---
Problem List (1) Acute blood loss anemia Status: Acute (2) Unstable angina Status: Acute History of Present Illness Date of Admission: 10/18/19 Chief Complaint: CHEST PAIN The patient is a 74 year old M with a significant history of CAD status post CABG and stent who presented to the emergency department with chest pain lasted a few hours before presentation. He described the chest pain as a burning sensation that spun across his entire chest goes to his neck and to his left arm. The chest pain started when he was watching TV. He took some nitroglycerin and the chest pain went away. He then went to sleep. However the chest pain woke him up from his sleep. The chest pain is intermittent it comes on with moving in the bed. It improved with rest. Associated with symptoms is nausea. He had hemoptysis significant only for about a drop of blood. A day before his chest pain started he reported paresthesia moving up his body; and weakness. So on the day of presentation he went to see his PCP who ordered labs with a plan to call him later with the results. Also patient reports dark stools that he attributes to his iron pills. Emergency department doctor reported that occult stools was negative at the ED. At emergency department patient was found to have diffuse ST depressions in anterior and lateral leads as he pulled his pants down. This resolved. However while at the [facility] his ST depression reoccurred. Emergent department doctor discussed the case with Dr. aDwson who will follow. Also patient was found to have low hemoglobin and 2 units of blood was ordered from the emergency department. Past Medical History Past Medical History (Chronic Problems): Chronic Problems (Last Reviewed 08/17/19 @ 09:[address] 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 [Ecotrin] 81 mg PO DAILY@0800 05/22/13 Pioglitazone HCl 45 mg PO DAILY 01/22/15 Cyanocobalamin (Vitamin B-12) 500 mcg PO BID 01/05/17 [Vitamin B-12] glimepiride 4 mg tablet 4 mg PO BID tab 12/01/17 levothyroxine 150 mcg capsule 150 mcg PO DAILY 07/12/18 nitroglycerin 0.4 mg sublingual 0.4 mg SUBLINGUAL Q5M PRN #25 tab 07/19/18 tablet alfuzosin 10 mg tablet,extended 10 mg PO DAILY 01/11/19 release 24 hr ascorbate calcium (vitamin C) 500 500 mg PO DAILY 08/17/19 mg tablet ferrous sulfate 325 mg (65 mg 325 mg PO BID 08/17/19 iron) tablet Amlodipine Besylate [Norvasc] 5 mg PO QDAY 10/18/19 Clopidogrel Bisulfate [Clopidogrel] 75 mg PO DAILY 10/18/19 Isosorbide Mononitrate [Isosorbide 60 mg PO BID 10/18/19 Mononitrate ER] Losartan Potassium [Cozaar] 25 mg PO QDAY 10/18/19 Metoprolol Tartrate 25 mg PO BID 10/18/19 Ranolazine [Ranexa] 1,000 mg PO BID 10/18/19 Simvastatin 40 mg PO QHS 10/18/19 Surgical History: Surgical History (Last Reviewed 10/18/19 @ 06:[address] Juan Francisco Pete MD) H/O coronary artery bypass surgery (Resolved) Onset Date: 04/1998 Z95.1 CABG x 2 PAZ-LAD, SVG-OM Apr 1998 History of coronary artery stent placement (Resolved) Onset Date: 01/22/15 Z95.5 [id number] w/ 4.0 x 15 mm Stent 01/22/15 History of left heart catheterization Onset Date: 01/06/17 Z98.890 Surgical History: - - CABG, lithotripsy Psychiatric History: No pertinent psych hx Smoking Status: Former smoker - *Family History Maternal Family History: Family History (Last Reviewed 10/18/19 @ 05:[address] Juan Francisco Pete MD) Father Diabetes Mother Cancer Brother CAD (coronary artery disease) HLD (hyperlipidemia) Myocardial infarction Sister Myocardial infarction CAD (coronary artery disease) Hypertension HLD (hyperlipidemia) Sister Diabetes Daughter Arthritis Son Arthritis Brother Myocardial infarction Review of Systems Constitutional: Reports: Weakness, Fatigue. Denies: Chills, Fever, Weight Change HEENT: Denies: Head Aches, Sinus Congestion, Sinus Drainage Cardiovascular: Reports: Chest Pain. Denies: Palpitations Respiratory: Reports: Hemoptysis, Shortness of Breath. Denies: Cough, Sputum production Gastrointestinal: Reports: Nausea, Melena. Denies: Abdominal Pain, Vomiting Genitourinary: Denies: Dysuria Musculoskeletal: Denies: Joint Pain, Joint Tenderness Skin: Denies: Rash, Wounds Neurological: Denies: Numbness, Tingling, Focal weakness Psychiatric: Denies: Anxiety, Depression, Homicidal Ideations, Suicidal Ideations Hematologic/ Lymphatic: Denies: Easy Bruising, Easy Bleeding VTE Information - Inpt Only VTE Present on Admission: No VTE Mechan Device Prophylaxis: SCD's VTE Pharm Prophylaxis ordered?: No Patient Problems: Active and Suspected Problems (Last Reviewed 08/17/19 @ 09:[address] Cosme Hernandez MD) Acute blood loss anemia (Acute) Unstable angina (Acute) - Physical Exam Vitals/I&O's: Vital Signs Temp Pulse Resp BP Pulse Ox 97.6 F L 74 20 H 98/46 L 99 10/17/19 23:28 10/18/19 01:02 10/18/19 01:02 10/18/19 01:02 10/18/19 01:02 Oxygen Flow Rate (L/min) 2 Oxygen Delivery Method Nasal Cannula Weight: 111.7 kg Body Mass Index (BMI) 35.3 General: Alert, Oriented x3, Cooperative HEENT: Atraumatic, PERRLA, EOMI, Normocephalic Neck: Supple, Trachea Midline Lungs: Clear to auscultation, Normal air movement Cardiovascular: Regular rate, Normal S1, Normal S2, Murmur Abdomen: Bowel Sounds Present, Soft, Non Tender Extremities: No edema, Capillary Refill Less than 3 Seconds Skin: No rashes, No breakdown Musculoskeletal: No Tenderness to Palpation of Joints or Extremities Neurological: Cranial nerves II-XII grossly intact Psych/Mental Status: Normal Affect, Appropriate Microbiology Past 72 Hours 10/18/19 00:10 Stool Stool Occult Blood (STEFANY) - Final Laboratory Results 10/17/19 23:36: WBC 5.2, RBC 1.94 L, Hgb 6.2 L, Hct 18.8 L, MCV 96.9 H, MCH 32.0, MCHC 33.0, RDW Std Deviation 52.5 H, RDW Coeff of Matthew 15.0 H, Plt Count 104 L, MPV 10.3, Immature Gran % (Auto) 0.800, Neut % (Auto) 73.2 H, Lymph % (Auto) 16.4 L, [place] % (Auto) 7.9, Eos % (Auto) 1.5, Baso % (Auto) 0.2, Absolute Neuts (auto) 3.8, Absolute Lymphs (auto) 0.85, Nucleated RBC % 0 10/17/19 23:36: Sodium 139, Potassium 4.1, Chloride 107, Carbon Dioxide 27.0, Anion Gap 5, BUN 101 H*, Creatinine 2.00 H, Estim Creat Clear Calc 33.97, Est GFR (MDRD) Af Amer 42 L, Est GFR (MDRD) Non-Af 35 L, BUN/Creatinine Ratio 50.5 H, Glucose 243 H, Calcium 8.7, Troponin I < 0.015 10/18/19 00:45: Blood Type Pending, Antibody Screen Pending, Crossmatch See Detail Assessment/Plan All Active Problems (Last Reviewed 08/17/19 @ 09:[address] Cosme Hernandez MD) Acute blood loss anemia (Acute) Unstable angina (Acute) H/O coronary artery bypass surgery (Resolved 04/1998) History of coronary artery stent placement (Resolved 01/22/15) Abdominal pain (Resolved) Back pain (Resolved) The patient is a 74 year old M with a significant history of CAD status post CABG and stent who presented to the emergency department with chest pain; hemoptysis vs hematemesis and probable melena with a significant drop in hemoglobin consistent with unstable angina and acute blood loss anemia Unstable angina Hold Plavix because of possible bleed. Continue aspirin. Trend troponin. Consult cardiology. N.p.o. except medications. Because of possible GI bleed hold home amlodipine and Imdur. Hold metoprolol. Nitroglycerin as needed and morphine as needed for pain. Lipitor continued. Trend troponin. Suspected acute blood loss anemia On presentation was 6.2. Repeat hemoglobin still remains 6.2. His hemoglobin on 08/24/2019 was 12.8. His hemoglobin in the last 2 years has been between 10-12s. Probably upper GI bleed because of severely elevated BUN. Of note his BUN on presentation was 101. Highest BUN in our hospital system before presentation was 33. Transfused 2 units of blood ordered at the emergency department. Repeat H&H 1 hour after transfusion. Start on Protonix drip. No chemical thromboprophylaxis. Home Plavix held. Aspirin was continued because of chest pain. Keep n.p.o. except meds. Hold ferrous sulfate for now. LEONA on CKD stage III On presentation his creatinine was 2.0. BUN over creatinine is 50.5. His creatinine 01/03/2018 was 1.55. Likely prerenal from acute GI bleed. Hemoglobin transfusion as above. Gentle IV hydration. Trend BMP. Avoid nephrotoxins. Diabetes and hypertension likely contributed to CKD. Diabetes mellitus Patient is hyperglycemia. On presentation blood glucose was not within goal. Hold home glimepiride and pioglitazone because of n.p.o. status. Accu-Chek with correction scale insulin ordered. Hypertension Generally blood pressure is stable in regard to his age. Home blood pressure medication held in the setting of probable GI bleed. Labetalol PRN ordered. Hypothyroidism Synthroid continued DVT Prophylaxis SCDs. Code Visit Inpatient E&M: [id number] Init Hosp L3
--- NOTE | 2019-10-18 02:33 | EKG12_ITS ---
Test Reason : CP Blood Pressure : / mmHG Vent. Rate : 082 BPM Atrial Rate : 082 BPM P-R Int : 194 ms QRS Dur : 098 ms QT Int : 406 ms P-R-T Axes : 053 -12 138 degrees QTc Int : 474 ms Normal sinus rhythm Marked ST abnormality, possible inferolateral subendocardial injury Abnormal ECG When compared with ECG of 18-OCT-2019 02:28, MANUAL COMPARISON REQUIRED, DATA IS UNCONFIRMED Confirmed by LIEN SWENSON, COLUMBA ([id number]), acquisitions editor JIM BOYER ([id number]) on 10/23/2019 4:01:31 PM Referred By: CAIN Confirmed By:COLUMBA EMMANUEL MD
[2019-10-18] MEDS: Morphine 2 MG/ML Syringe IV ×3 (02:49→14:01)
[2019-10-18] MEDS: 0.9% Saline Lock 10 ML Syringe IV ×4 (02:49→14:01)
[2019-10-18 03:15] LABS: Hemoglobin 6.2 g/dL (13.0-16.5)
[2019-10-18] MEDS: 0.9% Normal Saline 1,000 ML 75 ML IV (03:45)
[2019-10-18] MEDS: Insulin Lispro 100 UNIT/ML INSULN.PEN SC ×3 (05:55→18:12)
[2019-10-18] MEDS: Levothyroxine 150 MCG Tablet PO (05:55)
[2019-10-18 06:25] LABS: Bedside Glucose 233 mg/dL (70-110)
[2019-10-18 06:55] LABS: Anion Gap 8 (5-15); BUN 89 mg/dL (7-18); BUN/Creat Ratio 48.9 RATIO (10-20); Calcium,Total 8.1 mg/dL (8.5-10.1); Chloride 109 mmol/L (98-107); Creatinine, Serum 1.82 mg/dL (0.70-1.30); EST Glomerular Filtration Rate 39 mL/min (>60); Est Glom Filt Rate - Afr Amer 47 mL/min (>60); Estimated Creatinine Clearance 39.68 ml/min; Glucose 235 mg/dL (74-106); Potassium 4.6 mmol/L (3.5-5.1); Sodium Level 135 mmol/L (136-145)
--- NOTE | 2019-10-18 07:14 | CON.PCM_ITS ---
Problem List (1) Unstable angina Status: Acute (2) CAD in [place] artery Status: Chronic (3) History of coronary artery stent placement Status: Resolved Comment: WEY-DAP-THV-OM w/ 4.0 x 15 mm Stent 01/22/15 (4) H/O coronary artery bypass surgery Status: Resolved Comment: CABG x 2 PAZ-LAD, SVG-OM Apr 1998 (5) HLD (hyperlipidemia) Status: Chronic Qualifiers: Hyperlipidemia type: unspecified Qualified Code(s): E78.5 - Hyperlipidemia, unspecified (6) Essential (primary) hypertension Status: Chronic (7) Diabetes mellitus Status: Chronic (8) Acute blood loss anemia Status: Acute (9) Renal insufficiency Status: Acute Reason for Consult Date of Consultation: 10/18/19 History of Present Illness: The patient is a 74 year old white male with a past cardiovascular history which is included underlying CAD, PCI (bare metal stent to the SVG to the LCx system), CABG (PAZ to the LAD and SVG to the LCx system), hyperlipidemia, hypertension, diabetes, and anemia who presents for concerns of unstable angina pectoris in the setting of anemia thought secondary to gastrointestinal bleeding. The patient stated recently he started to note increased episodes of his angina pectoralis which he states he is familiar with which includes discomfort in his chest, neck, as well as upper extremities. He does use nitroglycerin sublingual at home on a as needed basis. He states that he did this and his symptoms abated. However he noted his symptoms returned with very minimal activity and then at rest. Based upon his ongoing symptoms he took aspirin, nitroglycerin sublingual, and summoned EMS. The EMS evaluated the patient with an ECG. It was noted that he had on the EMS ECG sinus rhythm with ST/T wave abnormality concerning for possible subendocardial injury in the anterior, lateral, and inferior distributions. He was brought to the emergency department for further evaluation. In the emergency department he was evaluated and noted to have waxing and waning symptoms depending on whether he was resting or moving. His initial troponin I level was negative. His ECG did wax and wane in the [place] apartment demonstrating sinus rhythm with nonspecific ST/T changes 2 with symptoms more dramatic [address]/T wave changes concerning for subendocardial injury in the anterior, lateral, and inferior distributions. With subsequent rest and nitroglycerin sublingual he has electrocardiogram appeared to return towards baseline. He was also noted to have a drop in his hemoglobin from approximately 12.8 in August of this year to 6.2. His creatinine level was also noted to have increased. He had repeat troponin I levels which became indeterminate. He was placed in the PCU for further evaluation and care. He was treated medically with PRBCs. At the moment he states he is resting comfortably. He has denied ongoing nausea, emesis, or diaphoresis. There has been no near syncope or syncope. He states he can feel somewhat short of breath and dyspneic with his symptoms. He does not recall having any bright red blood per rectum. He states he has been on iron thus his stools have been dark. He states he did coughed up which he believes from his stomach material that he believes was blood-tinged. He states he is undergone EGD and colonoscopy in the past. He notes that he underwent a colonoscopy not long ago which demonstrated a polyp which was clipped . He was placed on iron supplements. He noted his hemoglobin level increased. He states he is supposed to be having a future EGD. He does note he has battled the anemia in the past with no clear-cut etiology. [] Past Medical History Allergies/Adverse Reactions: Allergies lisinopril Allergy (Intermediate, Verified 10/18/19 01:26) COUGH Home Medications: Ambulatory Orders Medication Instructions Recorded Aspirin E.C. [Ecotrin] 81 mg PO DAILY@0800 05/22/13 Pioglitazone HCl 45 mg PO DAILY 01/22/15 Cyanocobalamin (Vitamin B-12) 500 mcg PO BID 01/05/17 [Vitamin B-12] glimepiride 4 mg tablet 4 mg PO BID tab 12/01/17 levothyroxine 150 mcg capsule 150 mcg PO DAILY 07/12/18 nitroglycerin 0.4 mg sublingual 0.4 mg SUBLINGUAL Q5M PRN #25 tab 07/19/18 tablet alfuzosin 10 mg tablet,extended 10 mg PO DAILY 01/11/19 release 24 hr ascorbate calcium (vitamin C) 500 500 mg PO DAILY 08/17/19 mg tablet ferrous sulfate 325 mg (65 mg 325 mg PO BID 08/17/19 iron) tablet Amlodipine Besylate [Norvasc] 5 mg PO QDAY 10/18/19 Clopidogrel Bisulfate [Clopidogrel] 75 mg PO DAILY 10/18/19 Isosorbide Mononitrate [Isosorbide 60 mg PO BID 10/18/19 Mononitrate ER] Losartan Potassium [Cozaar] 25 mg PO QDAY 10/18/19 Metoprolol Tartrate 25 mg PO BID 10/18/19 Ranolazine [Ranexa] 1,000 mg PO BID 10/18/19 Simvastatin 40 mg PO QHS 10/18/19 Past Medical History (Chronic Problems): Chronic Problems (Last Reviewed 10/18/19 @ 06:[address] 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 Juan Francisco Pete MD) Father Diabetes Mother Cancer Brother CAD (coronary artery disease) HLD (hyperlipidemia) Myocardial infarction Sister Myocardial infarction CAD (coronary artery disease) Hypertension HLD (hyperlipidemia) Sister Diabetes Daughter Arthritis Son Arthritis Brother Myocardial infarction History Items: No pertinent history Smoking Status: Former smoker Review of Systems - Review of Systems General: Denies: Fever, Night Sweats, Fatigue Cardiovascular: Reports: Chest Discomfort, Chest Discomfort at Rest, Chest Discomfort with Exertion, Shortness of Breath. Denies: Orthopnea, PND, Peripheral Edema, Palpitations, Lightheadedness, Dizziness, Near Syncope, Syncope Respiratory: Reports: Shortness of Breath. Denies: Cough, Sputum Production, Hemoptysis Gastrointestinal: Reports: Melena. Denies: Hematemesis, Hematochezia Genitourinary: Denies: Dysuria, Hematuria Skin: Denies: Rash Subjectve: This is a 74-year-old white male who appears to be resting comfortably at the moment in no acute distress. Objective: Vital Signs Temp Pulse Resp BP Pulse Ox 97.9 F 79 18 129/55 H 93 10/18/19 07:07 10/18/19 07:07 10/18/19 07:07 10/18/19 07:07 10/18/19 07:07 Oxygen Flow Rate (L/min) 2 Oxygen Delivery Method CPAP Weight: 236 lb 15.951 oz Body Mass Index (BMI) 32.1 Intake and Output for Last 24 Hours 10/16/19 10/17/19 10/18/19 23:59 23:59 23:59 Intake Total 116.25 / 116.25 Output Total 500 / 500 Balance -383.75 / -383.75 General: Awake, Alert, Oriented x 3, Cooperative, No Acute Distress, Obese HEENT: Atraumatic, Normocephalic, PERRL, EOMI, Sclera Non Icteric Oral: Moist Mucosa Neck: Supple, Good ROM, No JVD Lungs: Clear to auscultation Cardiovascular: Regular Rhythm, Normal S1, Normal S2 Murmur Murmur: Grade 2/6, Soft, Mid Systolic, LLSB, LVOT, Sternal Notch Abdomen: Bowel Sounds Present, Soft, Non Tender Extremities: No edema Neurological: No Focal Motor or Sensory Deficit Psych/Mental Status: Appropriate 10/17/19 23:36: WBC 5.2, RBC 1.94 L, Hgb 6.2 L, Hct 18.8 L, MCV 96.9 H, MCH 32.0, MCHC 33.0, Plt Count 104 L, MPV 10.3, Immature Gran % (Auto) 0.800, Neut % (Auto) 73.2 H, Lymph % (Auto) 16.4 L, [place] % (Auto) 7.9, Eos % (Auto) 1.5, Baso % (Auto) 0.2, Absolute Neuts (auto) 3.8, Nucleated RBC % 0 10/17/19 23:36: Sodium 139, Potassium 4.1, Chloride 107, Carbon Dioxide 27.0, Anion Gap 5, BUN 101 H*, Creatinine 2.00 H, Est GFR (MDRD) Af Amer 42 L, Est GFR (MDRD) Non-Af 35 L, BUN/Creatinine Ratio 50.5 H, Glucose 243 H, Calcium 8.7, Troponin I < 0.015 10/18/19 03:00: Troponin I 0.059 H 10/18/19 03:00: Hgb 6.2 L, Hct 19.0 L 10/18/19 05:40: Sodium 135 L, Potassium 4.6, Chloride 109 H, Carbon Dioxide 18.0 L, Anion Gap 8, BUN 89 H, Creatinine 1.82 H, Est GFR (MDRD) Af Amer 47 L, Est GFR (MDRD) Non-Af 39 L, BUN/Creatinine Ratio 48.9 H, Glucose 235 H, Calcium 8.1 L, Troponin I 0.098 H Rhythm: Sinus rhythm EKG: As noted above Stress Test: DATE OF SERVICE: 12/28/2016 EXERCISE MYOCARDIAL PERFUSION STRESS TEST A 71-year-old man with a history of coronary artery disease. MEDICATIONS: Simvastatin, metoprolol, losartan, isosorbide, vitamin D, clopidogrel and amlodipine. Resting EKG demonstrates normal sinus rhythm with a rate of 58 beats per minute. Normal intervals are noted. Resting blood pressure was 128/58. STRESS TEST: The patient exercised according to the regular [place] protocol for a total duration of 6 minutes. Maximum heart rate attained was 98 beats per minute, which is more than85% of maximum predicted heart rate. The patient maintained sinus rhythm throughout the recording. At rest, there were no nonspecific ST-T-wave changes were noted which did not meet the criteria for ischemia. At peak exercise, there was approximately 2.[address] elevation noted in AVR and 1.[address] depression noted in lead I, lead II and less than [address] depression noted, horizontal ST depression noted in V5 and V6. The above changes were not accompanied by chest discomfort. T-wave inversions, however, were noted in lead I, II and aVL, V5 and V6. The above changes are suggestive of ischemia. The workload attained was 7 METs. The resting blood pressure was 120/58 with a peak blood pressure 160/68. MYOCARDIAL PERFUSION PROTOCOL: A 14.1 mCi of sestamibi was injected at rest. The patient exercised according to a regular [place] protocol for 6 minutes, attaining 65% of maximum predicted heart rate and workload of 7 METs. At peak exercise, 44.5 mCi of sestamibi was injected. Stress images were obtained. Stress and rest images were reconstructed and compared in the short axis, vertical long and horizontal long axes. Gated images were also obtained. PERFUSION SPECT ANALYSIS: Review of the images demonstrates normal cardiac silhouette size. There is reduced perfusion noted in the basal anterior wall as well as the apex. The resting images demonstrate improvement in this area suggesting a moderate amount of ischemia noted in the basal anterior wall, moderate amount of ischemia noted at the apex. There is a defect also noted in the basal inferior wall with mild reversibility present. Ischemia is suggested in the basal inferior wall as well. GATED SPECT ANALYSIS: The gated ejection fraction is noted to be 60%. CONCLUSION: 1. Exercise myocardial perfusion stress test with evidence of ischemia noted at a moderate workload on an EKG. 2. The basal anterior, apical, basal inferior ischemia noted. 3. Preserved ejection fraction. Cardiac Cath: 01/22/2015 CONCLUSION: 1. Left main coronary artery with high-grade stenosis. 2. Left anterior descending artery, which is totally occluded. 3. Left circumflex artery, which is totally occluded. 4. Right coronary artery, which is totally occluded. 5. Saphenous vein graft to the circumflex artery with a high-grade lesion noted in the mid segment. 6. Left internal mammary artery to the left anterior descending artery, which is patent. PCI: 01/22/2015: ACH: BMS to the SVG to the LCX CT Surgery:: 1998: PAZ to the LAD; SVG to the LCx system CXR: Portable chest x-ray: Post open heart surgery changes: No acute process identified: Please see official report Assessment/Plan 1. Unstable angina pectoris The patient does have unstable angina pectoris. He has had indeterminate troponin I levels. He has had waxing and waning electrocardiographic changes. This raises concern of his underlying CAD/graft vessel process. His symptoms may be exacerbated by his marked anemia. At the present time he will continue to be monitored. He will continue to have his cardiac enzymes and ECG followed. He can have an echocardiogram to further assess his left ventricular wall motion and systolic function. He will need continued medical therapy. As part of his medical therapy this will include PRBC transfusion to increase his H&H and his oxygen carrying capacity. Depending upon his clinical course he may need further noninvasive or invasive cardiovascular evaluation. 2. CAD status post PCI status post CABG He does have a history of cardiovascular disease as noted. He states he has been doing well on medical therapy using nitroglycerin sublingual as needed. However based upon his current issues there are concerns regarding his underlying CAD/graft vessel process. Again he will continue his noninvasive evaluation. Over time he may need further invasive evaluation when he is clinically stable. In the interim continue with medical therapy with adjustment as needed. Of note there are concerns at this time, based upon his marked anemia and concern of gastrointestinal bleeding, using other agents such as antiplatelet therapy on her anticoagulant therapy. 3. Hyperlipidemia He will continue medical management as deemed appropriate. 4. Hypertension He will continue medical therapy with adjustment as needed take into consideration his renal insufficiency. 5. Diabetes mellitus He will continue under the care of internal medicine. 6. Anemia thought secondary to gastrointestinal bleeding He is markedly anemic. He is receiving PRBCs. He is to be evaluated by general surgery for the need for additional endoscopy and/or other evaluation as deemed appropriate. 7. Renal insufficiency His creatinine level has increased. This may be secondary to his diminished intravascular volume secondary to his anemia thought secondary to his gastrointestinal bleeding process. His renal function will need to be followed as he receives medical management PRBCs. However this does have to be taken into consideration with respect to medications and/or other studies that would involve IV contrast. Comment: The patient's case was discussed and reviewed with the patient, spouse, and Dr. Duenas of the [facility] emergency department staff. This note was generated using a voice recognition system and there may be incorrect words, spelling or punctuation that were not noted when reviewing the office note prior to saving.
--- NOTE | 2019-10-18 07:31 | ECHOD_ITS ---
Reason For Study: CAD Procedure This was a 2D Doppler, Color Flow transthoracic echocardiogram. The exam was of adequate technical quality. Exam performed portable in patient room. Left Ventricle Normal LV size. Segmental dysfunction with preserved ejection fraction (see wall motion). The estimated ejection fraction is 65 %. Anterio-Basal: Hypokinetic. Infero-Basal: Hypokinetic. Mid- Anterior : Hypokinetic. Mid-Lateral : Hypokinetic. Anterior [place] : Hypokinetic. Right Ventricle Normal RV size. Normal systolic function. Atria The left atrium is mildly enlarged. Normal right atrium. No doppler evidence for ASD. Mitral Valve There is no mitral annular calcification. Normal mitral valve. Trivial mitral valve insufficiency. Tricuspid Valve Normal tricuspid valve. Mild tricuspid valve insufficiency. Right ventricular systolic pressure estimated to be 41 mmHg. Aortic Valve Trisinus/trileaflet aortic valve. Mild focal aortic valve calcification. Pulmonic Valve The pulmonic valve is not well visualized. Trivial pulmonic valve insufficiency. Great Vessels Mildly dilated aortic root. Pericardium/Pleural No pericardial effusion. MMode/2D Measurements & Calculations LVIDd: 5.5 cm IVSd: 1.00 cm Ao root diam: 4.0 cm LVIDs: 3.9 cm LVPWd: 1.2 cm RVDd: 3.5 cm FS: 29.8 % LAV(MOD-bp): 70.9 ml LA A4 area: 21.1 cm2 LA dimension(2D): 5.2 cm LAV(MOD-bp) Indexed: 31.0 ml/m2 LAV(MOD-sp2): 75.9 ml LAV(MOD-sp4): 61.9 ml RA A4 area: 11.7 cm2 Doppler Measurements & Calculations MV E max ronaldo: 118.4 cm/sec Lat Peak E' Ronaldo: 10.4 cm/sec Med Peak E' Ronaldo: 4.9 cm/sec MV A max ronaldo: 106.3 cm/sec E/E' lat: 11.4 E/E' med: 24.1 MV E/A: 1.1 MV V2 max: 117.5 cm/sec Ao V2 max: 160.8 cm/sec LV V1 max: 126.9 cm/sec MV max P.5 mmHg Ao max P.3 mmHg LV V1 max P.5 mmHg MV V2 mean: 79.2 cm/sec MV mean P.8 mmHg MV V2 VTI: 35.1 cm PA V2 max: 116.4 cm/sec TR max ronaldo: 305.2 cm/sec MV P1/2t-pr_phl: 70.2 msec TR max P.7 mmHg Interpretation Summary Segmental dysfunction with preserved ejection fraction (see wall motion). The estimated ejection fraction is 65 %. The left atrium is mildly enlarged. Trivial mitral valve insufficiency. Mild tricuspid valve insufficiency. Mild focal aortic valve calcification. Trivial pulmonic valve insufficiency. Mildly dilated aortic root. Right ventricular systolic pressure estimated to be 41 mmHg. Transmitral diastolic flow velocities suggest diastolic dysfunction (pseudonormal pattern). Ordering Physician: Jeffrey Dawson Referring Physician: JEFFREY HERNANDEZ Performed By: Concha Branham, LISHA, RVT
[2019-10-18] MEDS: Metoprolol Tartrate 25 MG Tablet PO ×2 (08:26→22:02)
[2019-10-18] MEDS: Ranolazine 500 MG Tablet 1000 MG PO ×2 (08:26→22:01)
[2019-10-18] MEDS: Cyanocobalamin 500 MCG Tablet PO ×2 (08:27→22:03)
[2019-10-18] MEDS: Aspirin E.C. 81 MG Tablet PO (08:27)
--- NOTE | 2019-10-18 08:57 | CON.PCM_ITS ---
Problem List (1) Acute blood loss anemia Status: Acute Reason for Consult Date of Consultation: 10/18/19 Reason for Consultation: Acute anemia History of Present Illness: The patient is a 74 year old M who presented to the ED last night secondary to chest pain and weakness. Patient states he became weak on Wednesday evening. He developed chest pain Wednesday evening and throughout the night intermittently. Chest pain has radiated down his left arm. Patient's stated the patient has been anemia previously and is currently being treated with B12 and iron supplementation. Patient also noted a coughing spell last night resulting in a single drop of dark sputum. Per patient unsure if this was blood. He notes it was dark. Patient denies previous myocardial infarction. He notes CABG in 1997 and single stent placed in 2014. Dr. Hernandez is his lens gauger. Patient is maintained on Plavix and aspirin. Patient recently had a failed colonoscopy in August with Dr. Elaine. Patient was not cleaned out well enough and Dr. Elaine was only able to view the left side of the colon. Patient is to repeat the colonoscopy in 1 year. He noted having a single polyp removed which was benign. He notes he had an upper scope years ago, unsure of date. He is not currently on PPI medication. He notes occasional heartburn symptoms, however nothing consistent. He notes dark stools, however relates this to iron supplement. He denies tarry stools. He denies abdominal pain. Patient's hemoglobin is 6.2 on admission. Hemoglobin typically ranges from 10-12 range. Patient had heme negative stools test in the ED. He is currently receiving his second unit of blood. 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) Occlusion and stenosis of bilateral carotid arteries (Chronic) Central retinal vein occlusion of left eye (Chronic 05/08/19) Essential (primary) hypertension (Chronic) HLD (hyperlipidemia) (Chronic) Medical History: Medical History (Last Reviewed 10/18/19 @ 09:07 by Monica Davis PA-C) Atherosclerosis of coronary artery of [place] heart with angina pectoris (Chronic) I25.119 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 [Ecotrin] 81 mg PO DAILY@0800 05/22/13 Pioglitazone HCl 45 mg PO DAILY 01/22/15 Cyanocobalamin (Vitamin B-12) 500 mcg PO BID 01/05/17 [Vitamin B-12] glimepiride 4 mg tablet 4 mg PO BID tab 12/01/17 levothyroxine 150 mcg capsule 150 mcg PO DAILY 07/12/18 nitroglycerin 0.4 mg sublingual 0.4 mg SUBLINGUAL Q5M PRN #25 tab 07/19/18 tablet alfuzosin 10 mg tablet,extended 10 mg PO DAILY 01/11/19 release 24 hr ascorbate calcium (vitamin C) 500 500 mg PO DAILY 08/17/19 mg tablet ferrous sulfate 325 mg (65 mg 325 mg PO BID 08/17/19 iron) tablet Amlodipine Besylate [Norvasc] 5 mg PO QDAY 10/18/19 Clopidogrel Bisulfate [Clopidogrel] 75 mg PO DAILY 10/18/19 Isosorbide Mononitrate [Isosorbide 60 mg PO BID 10/18/19 Mononitrate ER] Losartan Potassium [Cozaar] 25 mg PO QDAY 10/18/19 Metoprolol Tartrate 25 mg PO BID 10/18/19 Ranolazine [Ranexa] 1,000 mg PO BID 10/18/19 Simvastatin 40 mg PO QHS 10/18/19 Surgical History: Surgical History (Last Reviewed 10/18/19 @ 09:08 by Monica Davis PA-C) H/O coronary artery bypass surgery (Resolved) Onset Date: 04/1998 Z95.1 CABG x 2 PAZ-LAD, SVG-OM Apr 1998 History of coronary artery stent placement (Resolved) Onset Date: 01/22/15 Z95.5 BTA-NAL-NOV-OM w/ 4.0 x 15 mm Stent 01/22/15 History of left heart catheterization Onset Date: 01/06/17 Z98.890 Surgical History: - - CABG, lithotripsy Psychiatric History: No pertinent psych hx Smoking Status: Former smoker - *Family History Maternal Family History: Family History (Last Reviewed 10/18/19 @ 09:08 by Monica Davis PA-C) Father Diabetes Mother Cancer Brother CAD (coronary artery disease) HLD (hyperlipidemia) Myocardial infarction Sister Myocardial infarction CAD (coronary artery disease) Hypertension HLD (hyperlipidemia) Sister Diabetes Daughter Arthritis Son Arthritis Brother Myocardial infarction History Items: No pertinent history Review of Systems Constitutional: Reports: Anorexia, Weakness, Fatigue HEENT: Denies: Head Aches, Sinus Congestion, Sinus Drainage Cardiovascular: Reports: Chest Pain Respiratory: Reports: Hemoptysis. Denies: Cough, Shortness of breath at rest, Sputum production Gastrointestinal: Denies: Abdominal Pain, Nausea, Vomiting Genitourinary: Denies: Dysuria Musculoskeletal: Reports: - - Bilateral lower extremity edema 2+. Denies: Joint Pain, Joint Tenderness Skin: Denies: Rash, Wounds Neurological: Denies: Numbness, Tingling, Focal weakness Psychiatric: Denies: Anxiety, Depression, Homicidal Ideations, Suicidal Ideations Hematologic/ Lymphatic: Reports: Anemia. Denies: Easy Bruising, Easy Bleeding, Hx of blood clot, Hx of blood transfusion Patient Problems: Active and Suspected Problems (Last Reviewed 10/18/19 @ 09:07 by Monica Davis PA-C) Acute blood loss anemia (Acute) Unstable angina (Acute) Renal insufficiency (Acute) - Physical Exam Vitals/I&O's: Vital Signs Temp Pulse Resp BP Pulse Ox 98.3 F 87 18 125/52 H 95 10/18/19 07:22 10/18/19 08:26 10/18/19 07:22 10/18/19 07:22 10/18/19 08:05 Oxygen Flow Rate (L/min) 3 Oxygen Delivery Method Nasal Cannula Weight: 236 lb 15.951 oz Body Mass Index (BMI) 32.1 Intake and Output for Last 24 Hours 10/16/19 10/17/19 10/18/19 23:59 23:59 23:59 Intake Total 116.25 / 116.25 Output Total 500 / 500 Balance -383.75 / -383.75 General: Alert, Oriented x3, Cooperative HEENT: Atraumatic, PERRLA, EOMI, Normocephalic Neck: Supple, No JVD, Negative Carotid Bruits Lungs: Clear to auscultation, Normal air movement Cardiovascular: Regular rate, No murmurs Abdomen: Bowel Sounds Present, Soft, Non Tender Extremities: Edema - bilateral lower extremity 2+ Skin: No rashes, No breakdown Musculoskeletal: No Tenderness to Palpation of Joints or Extremities Neurological: Neuro grossly intact Psych/Mental Status: Normal Affect, Appropriate Microbiology Past 72 Hours 10/18/19 00:10 Stool Stool Occult Blood (STEFANY) - Final Laboratory Results 10/17/19 23:36: WBC 5.2, RBC 1.94 L, Hgb 6.2 L, Hct 18.8 L, MCV 96.9 H, MCH 32.0, MCHC 33.0, RDW Std Deviation 52.5 H, RDW Coeff of Matthew 15.0 H, Plt Count 104 L, MPV 10.3, Immature Gran % (Auto) 0.800, Neut % (Auto) 73.2 H, Lymph % (Auto) 16.4 L, [place] % (Auto) 7.9, Eos % (Auto) 1.5, Baso % (Auto) 0.2, Absolute Neuts (auto) 3.8, Absolute Lymphs (auto) 0.85, Nucleated RBC % 0 10/17/19 23:36: Sodium 139, Potassium 4.1, Chloride 107, Carbon Dioxide 27.0, Anion Gap 5, BUN 101 H*, Creatinine 2.00 H, Estim Creat Clear Calc 33.97, Est GFR (MDRD) Af Amer 42 L, Est GFR (MDRD) Non-Af 35 L, BUN/Creatinine Ratio 50.5 H , Glucose 243 H, Calcium 8.7, Troponin I < 0.015 10/18/19 00:45: Blood Type O POSITIVE, Antibody Screen NEGATIVE, Crossmatch See Detail 10/18/19 03:00: Troponin I 0.059 H 10/18/19 03:00: Hgb 6.2 L, Hct 19.0 L 10/18/19 05:40: Sodium 135 L, Potassium 4.6, Chloride 109 H, Carbon Dioxide 18.0 L, Anion Gap 8, BUN 89 H, Creatinine 1.82 H, Estim Creat Clear Calc 39.68, Est GFR (MDRD) Af Amer 47 L, Est GFR (MDRD) Non-Af 39 L, BUN/Creatinine Ratio 48.9 H , Glucose 235 H, Calcium 8.1 L, Troponin I 0.098 H 10/18/19 05:52: POC Glucose 233 H Current Medications Acetaminophen (Tylenol) 650 mg PO Q6H PRN PRN PRN Reason: Pain Score 1-10/Temp > 100.7 F Aspirin (Ecotrin) 81 mg PO DAILY@0800 [facility] Last Admin: 10/18/19 08:27 Dose: 81 mg Documented by: Atorvastatin Calcium (Lipitor) 20 mg PO QHS [facility] Cyanocobalamin (Vitamin B12) 500 mcg PO BID [facility] Last Admin: 10/18/19 08:27 Dose: 500 mcg Documented by: Glucagon () 1 mg IM .X1 PRN PRN Reason: Hypoglycemia Sodium Chloride () 500 mls @ 15 mls/hr IV PRN PRN PRN Reason: Blood Transfusion Sodium Chloride () 250 mls @ 15 mls/hr IV .[id number] PRN PRN Reason: Saline Flush Sodium Chloride () 250 mls @ 15 mls/hr IV .[id number] PRN PRN Reason: Additional IVPB Infusion Sodium Chloride () 1,000 mls @ 75 mls/hr IV .[id number] [facility] Last Infusion: 10/18/19 04:30 Dose: 0 mls/hr Documented by: Pantoprazole Sodium 80 mg/ (Sodium Chloride) 100 mls @ 10 mls/hr CONT INF Q10H [facility] Last Admin: 10/18/19 03:59 Dose: 10 mls/hr Documented by: Dextrose (Dextrose 10%-Water) 250 mls @ 999 mls/hr IV .Q16M PRN; Protocol PRN Reason: HYPOGLYCEMIA Insulin Human Lispro (Humalog Kwikpen (Bkc)) 0 unit SC Q6 [facility]; Protocol Last Admin: 10/18/19 05:55 Dose: 4 units Documented by: Labetalol HCl (Trandate) 10 mg IV Q4H PRN PRN PRN Reason: sbp > 160 or DBP > 120 Levothyroxine Sodium (Synthroid) 150 mcg PO DAILY@0600 [facility] Last Admin: 10/18/19 05:55 Dose: 150 mcg Documented by: Metoprolol Tartrate (Lopressor (Beta Suleiman)) 25 mg PO BID [facility] Last Admin: 10/18/19 08:26 Dose: 25 mg Documented by: Morphine Sulfate () 2 mg IV Q4H PRN PRN PRN Reason: Pain 6-10/10 Last Admin: 10/18/19 08:19 Dose: 2 mg Documented by: Nitroglycerin (Nitrostat) 0.4 mg SUBLINGUAL Q5M PRN PRN Reason: CARDIAC/CHEST PAIN Nitroglycerin (Nitrobid) 1 inch TRANSDERM. Q6 [facility] Ondansetron HCl (Zofran) 4 mg IV Q8H PRN PRN PRN Reason: NAUSEA/VOMITING Ranolazine (Ranexa) 1,000 mg PO BID [facility] Last Admin: 10/18/19 08:26 Dose: 1,000 mg Documented by: Sodium Chloride () 10 - 40 ml IV UD PRN PRN Reason: SALINE FLUSH Last Admin: 10/18/19 08:19 Dose: 10 ml Documented by: Tamsulosin HCl (Flomax) 0.4 mg PO DAILY@1730 [facility] Assessment/Plan All Active Problems (Last Reviewed 10/18/19 @ 09:07 by Monica Davis PA-C) Acute blood loss anemia (Acute) Unstable angina (Acute) Renal insufficiency (Acute) H/O coronary artery bypass surgery (Resolved 04/1998) History of coronary artery stent placement (Resolved 01/22/15) Abdominal pain (Resolved) Back pain (Resolved) I have been consulted in conjunction with Dr. Wesley Acute anemia Plan: Patient discussed with Dr. Wesley. Dr. Wesley will plan to perform an upper scope tomorrow. Procedure details, risks and benefits have been explained to the patient and his . I have also discussed with the patient of possible pe rforming a colonoscopy. I will discuss this with Dr. Wesley. Patient is scheduled to have an ECHO today. Patient has had the opportunity to ask and have questions answered. Patient verbally understands and agrees with the plan. Thank you for allowing us to participate in this patient's care. Code Visit Office Visits / Consults: [id number] IP Consult L3
[2019-10-18] MEDS: Nitroglycerin Oint 1 INCH PACKET TRANSDERM. (11:10)
--- NOTE | 2019-10-18 11:20 | EKG12_ITS ---
Test Reason : CP ADMISSION Blood Pressure : / mmHG Vent. Rate : 084 BPM Atrial Rate : 084 BPM P-R Int : 236 ms QRS Dur : 098 ms QT Int : 384 ms P-R-T Axes : 063 -51 165 degrees QTc Int : 453 ms Sinus rhythm with 1st degree A-V block Left axis deviation Marked ST abnormality, possible inferior subendocardial injury Marked ST abnormality, possible anteroseptal subendocardial injury Abnormal ECG Confirmed by LIEN SWENSON, COLUMBA ([id number]), digital editor JIM BOYER ([id number]) on 10/23/2019 4:05:54 PM Referred By: MELVIN Confirmed By:COLUMBA EMMANUEL MD
[2019-10-18 11:24] LABS: Hematocrit 23.6 % (40-54); Hemoglobin 7.8 g/dL (13.0-16.5)
[2019-10-18 11:25] LABS: Bedside Glucose 172 mg/dL (70-110)
--- NOTE | 2019-10-18 11:46 | PN_ITS ---
<Giovana Cisneros - Last Filed: 10/18/19 12:13> Patient Problems: Active and Suspected Problems (Last Reviewed 10/18/19 @ 09:07 by Monica Davis PA-C) Acute blood loss anemia (Acute) Unstable angina (Acute) Renal insufficiency (Acute) Subjective: Patient seen and examined. Denies further chest pain. To undergo EGD tomorrow morning. - Physical Exam Vitals/I&O's: Vital Signs Temp Pulse Resp BP Pulse Ox 98.3 F 87 18 130/56 H 97 10/18/19 09:45 10/18/19 11:10 10/18/19 09:45 10/18/19 11:10 10/18/19 09:45 Oxygen Flow Rate (L/min) 2 Oxygen Delivery Method Nasal Cannula Weight: 236 lb 15.951 oz Body Mass Index (BMI) 32.1 Intake and Output for Last 24 Hours 10/16/19 10/17/19 10/18/19 23:59 23:59 23:59 Intake Total 756.25 / 756.25 Output Total 800 / 800 Balance -43.75 / -43.75 General: Alert, Oriented x3, Cooperative HEENT: Atraumatic, PERRLA, EOMI, Normocephalic Neck: Supple, No JVD, Negative Carotid Bruits Lungs: Clear to auscultation, Normal air movement Cardiovascular: Regular rate, Regular Rhythm, Normal S1, Normal S2, Murmur Abdomen: Bowel Sounds Present, Soft, Non Tender, Non-Distended Extremities: No clubbing, No cyanosis, No edema, Capillary Refill Less than 3 Seconds Skin: No rashes, No breakdown Musculoskeletal: No Tenderness to Palpation of Joints or Extremities Neurological: Cranial nerves II-XII grossly intact, Neuro grossly intact Psych/Mental Status: Normal Affect, Appropriate Microbiology Past 72 Hours 10/18/19 00:10 Stool Stool Occult Blood (STEFANY) - Final Laboratory Results 10/17/19 23:36: WBC 5.2, RBC 1.94 L, Hgb 6.2 L, Hct 18.8 L, MCV 96.9 H, MCH 32.0, MCHC 33.0, RDW Std Deviation 52.5 H, RDW Coeff of Matthew 15.0 H, Plt Count 104 L, MPV 10.3, Immature Gran % (Auto) 0.800, Neut % (Auto) 73.2 H, Lymph % (Auto) 16.4 L, [place] % (Auto) 7.9, Eos % (Auto) 1.5, Baso % (Auto) 0.2, Absolute Neuts (auto) 3.8, Absolute Lymphs (auto) 0.85, Nucleated RBC % 0 10/17/19 23:36: Sodium 139, Potassium 4.1, Chloride 107, Carbon Dioxide 27.0, Anion Gap 5, BUN 101 H*, Creatinine 2.00 H, Estim Creat Clear Calc 33.97, Est GFR (MDRD) Af Amer 42 L, Est GFR (MDRD) Non-Af 35 L, BUN/Creatinine Ratio 50.5 H , Glucose 243 H, Calcium 8.7, Troponin I < 0.015 10/18/19 00:45: Blood Type O POSITIVE, Antibody Screen NEGATIVE, Crossmatch See Detail 10/18/19 03:00: Troponin I 0.059 H 10/18/19 03:00: Hgb 6.2 L, Hct 19.0 L 10/18/19 05:40: Sodium 135 L, Potassium 4.6, Chloride 109 H, Carbon Dioxide 18.0 L, Anion Gap 8, BUN 89 H, Creatinine 1.82 H, Estim Creat Clear Calc 39.68, Est GFR (MDRD) Af Amer 47 L, Est GFR (MDRD) Non-Af 39 L, BUN/Creatinine Ratio 48.9 H , Glucose 235 H, Calcium 8.1 L, Troponin I 0.098 H 10/18/19 05:52: POC Glucose 233 H 10/18/19 11:12: Hgb 7.8 L, Hct 23.6 L 10/18/19 11:17: POC Glucose 172 H Current Medications Acetaminophen (Tylenol) 650 mg PO Q6H PRN PRN PRN Reason: Pain Score 1-10/Temp > 100.7 F Aspirin (Ecotrin) 81 mg PO DAILY@0800 [facility] Last Admin: 10/18/19 08:27 Dose: 81 mg Documented by: Atorvastatin Calcium (Lipitor) 20 mg PO QHS [facility] Cyanocobalamin (Vitamin B12) 500 mcg PO BID [facility] Last Admin: 10/18/19 08:27 Dose: 500 mcg Documented by: Glucagon () 1 mg IM .X1 PRN PRN Reason: Hypoglycemia Sodium Chloride () 500 mls @ 15 mls/hr IV PRN PRN PRN Reason: Blood Transfusion Sodium Chloride () 250 mls @ 15 mls/hr IV .[id number] PRN PRN Reason: Saline Flush Sodium Chloride () 250 mls @ 15 mls/hr IV .[id number] PRN PRN Reason: Additional IVPB Infusion Sodium Chloride () 1,000 mls @ 75 mls/hr IV .[id number] [facility] Last Infusion: 10/18/19 10:00 Dose: 75 mls/hr Documented by: Pantoprazole Sodium 80 mg/ (Sodium Chloride) 100 mls @ 10 mls/hr CONT INF Q10H [facility] Last Admin: 10/18/19 03:59 Dose: 10 mls/hr Documented by: Dextrose (Dextrose 10%-Water) 250 mls @ 999 mls/hr IV .Q16M PRN; Protocol PRN Reason: HYPOGLYCEMIA Insulin Human Lispro (Humalog Kwikpen (Bkc)) 0 unit SC Q6 [facility]; Protocol Last Admin: 10/18/19 11:18 Dose: 2 units Documented by: Labetalol HCl (Trandate) 10 mg IV Q4H PRN PRN PRN Reason: sbp > 160 or DBP > 120 Levothyroxine Sodium (Synthroid) 150 mcg PO DAILY@0600 [facility] Last Admin: 10/18/19 05:55 Dose: 150 mcg Documented by: Metoprolol Tartrate (Lopressor (Beta Suleiman)) 25 mg PO BID [facility] Last Admin: 10/18/19 08:26 Dose: 25 mg Documented by: Morphine Sulfate () 2 mg IV Q4H PRN PRN PRN Reason: Pain 6-1010 Last Admin: 10/18/19 08:19 Dose: 2 mg Documented by: Nitroglycerin (Nitrostat) 0.4 mg SUBLINGUAL Q5M PRN PRN Reason: CARDIAC/CHEST PAIN Nitroglycerin (Nitrobid) 1 inch TRANSDERM. Q6 [facility] Last Admin: 10/18/19 11:10 Dose: 1 inch Documented by: Ondansetron HCl (Zofran) 4 mg IV Q8H PRN PRN PRN Reason: NAUSEA/VOMITING Ranolazine (Ranexa) 1,000 mg PO BID [facility] Last Admin: 10/18/19 08:26 Dose: 1,000 mg Documented by: Sodium Chloride () 10 - 40 ml IV UD PRN PRN Reason: SALINE FLUSH Last Admin: 10/18/19 08:19 Dose: 10 ml Documented by: Tamsulosin HCl (Flomax) 0.4 mg PO DAILY@1730 [facility] Medical Necessity - Tobacco Use Smoking Status: Former smoker Assessment/Plan All Active Problems (Last Reviewed 10/18/19 @ 09:07 by Monica Davis PA-C) Acute blood loss anemia (Acute) Unstable angina (Acute) Renal insufficiency (Acute) H/O coronary artery bypass surgery (Resolved 04/1998) History of coronary artery stent placement (Resolved 01/22/15) Abdominal pain (Resolved) Back pain (Resolved) 1. Chest pain with indeterminate troponin-possibly related to acute anemia and LEONA however patient has history of CAD with history of CABG and PCI-cardiology following. On aspirin, statin, beta-suleiman, Ranexa, isosorbide. Echocardiogram pending. 2. Acute on chronic anemia, suspect GI bleed-status post 2 unit PRBC. Clear liquids. IV PPI. General surgery on consult with plans for EGD tomorrow morning. Trend H&H. Plavix on hold. 3. CAD with history of CABG and PCI-medical management as noted above. Echo pending. 4. Acute kidney injury on chronic kidney disease stage III-improving with fluids. Trend BMP. Renal ultrasound May 2018 unremarkable with the exception of nonobstructing left renal stone. 5. Type 2 diabetes mellitus-hold oral regimen. Accu-Cheks with sliding scale insulin. 6. Hypertension-stable, continue current regimen. 7. Hyperlipidemia-continue statin. 8. Hypothyroidism-continue Synthroid regimen. DVT prophylaxis- SCDs This patient was seen by MICHELE Arreguin under the supervision of Dr. Davenport. <Jono Davenport - Last Filed: 10/18/19 13:19> - Physical Exam Vitals/I&O's: Vital Signs Temp Pulse Resp BP Pulse Ox 36.8 C 87 18 130/56 H 97 10/18/19 09:45 10/18/19 11:10 10/18/19 09:45 10/18/19 11:10 10/18/19 09:45 Oxygen Flow Rate (L/min) 2 Oxygen Delivery Method Nasal Cannula Weight: 107.5 kg Body Mass Index (BMI) 32.1 Intake and Output for Last 24 Hours 10/16/19 10/17/19 10/18/19 23:59 23:59 23:59 Intake Total 756.25 / 756.25 Output Total 800 / 800 Balance -43.75 / -43.75 General: Alert, Cooperative HEENT: Atraumatic, Normocephalic Neck: No Nodes, Trachea Midline Lungs: Clear to auscultation, Normal air movement, No rhonchi, No wheeze Cardiovascular: Regular rate, Regular Rhythm, Normal S1, Normal S2, Murmur Abdomen: Bowel Sounds Present, Soft, Non Tender, Non-Distended Extremities: No edema, No Calf Tenderness Psych/Mental Status: Normal Affect, Appropriate Microbiology Past 72 Hours 10/18/19 00:10 Stool Stool Occult Blood (STEFANY) - Final Laboratory Results 10/17/19 23:36: WBC 5.2, RBC 1.94 L, Hgb 6.2 L, Hct 18.8 L, MCV 96.9 H, MCH 32.0, MCHC 33.0, RDW Std Deviation 52.5 H, RDW Coeff of Matthew 15.0 H, Plt Count 104 L, MPV 10.3, Immature Gran % (Auto) 0.800, Neut % (Auto) 73.2 H, Lymph % (Auto) 16.4 L, [place] % (Auto) 7.9, Eos % (Auto) 1.5, Baso % (Auto) 0.2, Absolute Neuts (auto) 3.8, Absolute Lymphs (auto) 0.85, Nucleated RBC % 0 10/17/19 23:36: Sodium 139, Potassium 4.1, Chloride 107, Carbon Dioxide 27.0, Anion Gap 5, BUN 101 H*, Creatinine 2.00 H, Estim Creat Clear Calc 33.97, Est GFR (MDRD) Af Amer 42 L, Est GFR (MDRD) Non-Af 35 L, BUN/Creatinine Ratio 50.5 H , Glucose 243 H, Calcium 8.7, Troponin I < 0.015 10/18/19 00:45: Blood Type O POSITIVE, Antibody Screen NEGATIVE, Crossmatch See Detail 10/18/19 03:00: Troponin I 0.059 H 10/18/19 03:00: Hgb 6.2 L, Hct 19.0 L 10/18/19 05:40: Sodium 135 L, Potassium 4.6, Chloride 109 H, Carbon Dioxide 18.0 L, Anion Gap 8, BUN 89 H, Creatinine 1.82 H, Estim Creat Clear Calc 39.68, Est GFR (MDRD) Af Amer 47 L, Est GFR (MDRD) Non-Af 39 L, BUN/Creatinine Ratio 48.9 H , Glucose 235 H, Calcium 8.1 L, Troponin I 0.098 H 10/18/19 05:52: POC Glucose 233 H 10/18/19 11:12: Hgb 7.8 L, Hct 23.6 L 10/18/19 11:17: POC Glucose 172 H Current Medications Acetaminophen (Tylenol) 650 mg PO Q6H PRN PRN PRN Reason: Pain Score 1-10/Temp > 100.7 F Aspirin (Ecotrin) 81 mg PO DAILY@0800 [facility] Last Admin: 10/18/19 08:27 Dose: 81 mg Documented by: Atorvastatin Calcium (Lipitor) 20 mg PO QHS [facility] Cyanocobalamin (Vitamin B12) 500 mcg PO BID [facility] Last Admin: 10/18/19 08:27 Dose: 500 mcg Documented by: Glucagon () 1 mg IM .X1 PRN PRN Reason: Hypoglycemia Sodium Chloride () 500 mls @ 15 mls/hr IV PRN PRN PRN Reason: Blood Transfusion Sodium Chloride () 250 mls @ 15 mls/hr IV .[id number] PRN PRN Reason: Saline Flush Sodium Chloride () 250 mls @ 15 mls/hr IV .[id number] PRN PRN Reason: Additional IVPB Infusion Sodium Chloride () 1,000 mls @ 75 mls/hr IV .[id number] [facility] Last Infusion: 10/18/19 10:00 Dose: 75 mls/hr Documented by: Pantoprazole Sodium 80 mg/ (Sodium Chloride) 100 mls @ 10 mls/hr CONT INF Q10H [facility] Last Admin: 10/18/19 03:59 Dose: 10 mls/hr Documented by: Dextrose (Dextrose 10%-Water) 250 mls @ 999 mls/hr IV .Q16M PRN; Protocol PRN Reason: HYPOGLYCEMIA Insulin Human Lispro (Humalog Kwikpen (Bkc)) 0 unit SC Q6 [facility]; Protocol Last Admin: 10/18/19 11:18 Dose: 2 units Documented by: Labetalol HCl (Trandate) 10 mg IV Q4H PRN PRN PRN Reason: sbp > 160 or DBP > 120 Levothyroxine Sodium (Synthroid) 150 mcg PO DAILY@0600 [facility] Last Admin: 10/18/19 05:55 Dose: 150 mcg Documented by: Metoprolol Tartrate (Lopressor (Beta Suleiman)) 25 mg PO BID [facility] Last Admin: 10/18/19 08:26 Dose: 25 mg Documented by: Morphine Sulfate () 2 mg IV Q4H PRN PRN PRN Reason: Pain 6-1010 Last Admin: 10/18/19 08:19 Dose: 2 mg Documented by: Nitroglycerin (Nitrostat) 0.4 mg SUBLINGUAL Q5M PRN PRN Reason: CARDIAC/CHEST PAIN Nitroglycerin (Nitrobid) 1 inch TRANSDERM. Q6 [facility] Last Admin: 10/18/19 11:10 Dose: 1 inch Documented by: Ondansetron HCl (Zofran) 4 mg IV Q8H PRN PRN PRN Reason: NAUSEA/VOMITING Ranolazine (Ranexa) 1,000 mg PO BID [facility] Last Admin: 10/18/19 08:26 Dose: 1,000 mg Documented by: Sodium Chloride () 10 - 40 ml IV UD PRN PRN Reason: SALINE FLUSH Last Admin: 10/18/19 08:19 Dose: 10 ml Documented by: Tamsulosin HCl (Flomax) 0.4 mg PO DAILY@1730 [facility] Assessment/Plan Patient seen and examined independently. Data reviewed. I agree with the above note by the nurse practitioner. 1. Chest pain: Minimal elevation of troponin. Cardiology on consult. 2. Acute on chronic anemia: Patient transfused 2 units. Hemoglobin now up to 7.8 from 6.2. Plan for endoscopy on the fifth. 3. Acute kidney injury: Baseline around 1.5 from 2018. Was to when she presented. Monitor. Code Visit Inpatient E&M: 05318 Subs Hosp L2
--- NOTE | 2019-10-18 13:20 | CASEMGMT ---
RN CM [employer] ADVISER CM to room to meet with patient for initial transition planning/care coordination assessment. RN FARNAZ introduced self and role at [facility]. Pt voices understanding and consents to assessment at this time. Pt resting in bed in no distress at this time. Pt is A/O at this time and answers all questions appropriately. Care providers, pharmacy, and demographics verified at this time. PCP: Dr Jeffrey Thorne Specialists: Dr Hernandez--cardiology, Dr Solis--urology Preferred Pharmacy: [facility] Insurance: MCR, [employer] Prescription Benefit: Yes Living Will/HPOA: does not have LW or HCPOA . Interested in more information but states does not want to talk with SW at this time to complete paperwork. Provided information on advanced directives and given Social Service rac card with number to call if chooses in the future to utilize [facility] social work for advanced directive completion. LNOK: , Belinda Santiago. Has 3 adult children Living Arrangements: Lives with his in ranch-style home. States is handicap accessible/has ramp entrance. Was independent w/ADL's prior to admission. does most home mgmt tasks such as meals and laundry. Transportation: Pt states drives self and states no transportation concerns at this time. also drives. DME: States has the following DME: rails/grab bars, BP machine, CPAP, glucometer-states is functioning properly and he has all the needed supplies for it. Does not have home oxygen. States has a cane and walker available but does not use. Pt states no need for further DME at this time. HHC/SNF: No history of either and denies needs. Pt wishes to return home and states has no concerns with going home at time of discharge. CM to follow for any discharge planning/needs. Pt voices no concerns/needs at this time. Advised pt to ask for CM if any further questions/concerns/needs arise. Voices understanding. PLAN: Home w/family support. PT/OT soledad pending. Javid GIORDANO RN, CM
[2019-10-18 16:18] LABS: Hematocrit 23.1 % (40-54); Hemoglobin 7.7 g/dL (13.0-16.5)
[2019-10-18] MEDS: Nitroglycerin Infusion 250 ML 3 MG CONT INF (17:26)
[2019-10-18] MEDS: Furosemide 100 MG/10 ML Vial 60 MG IV (17:57)
[2019-10-18] MEDS: Tamsulosin HCl 0.4 MG Capsule PO (17:58)
[2019-10-18 18:25] LABS: Bedside Glucose 194 mg/dL (70-110)
[2019-10-18] MEDS: Atorvastatin Calcium 20 MG Tablet PO (22:02)
[2019-10-19] VITALS (35 sets, daily range): BP systolic 91–140; BP diastolic 39–112; PULSE 68–103; RESP 15–27; TEMP 36.7–38.9; O2SAT 91–100
[2019-10-19] MEDS: Insulin Lispro 100 UNIT/ML INSULN.PEN SC ×3 (00:18→15:41)
[2019-10-19 01:11] LABS: Bedside Glucose 223 mg/dL (70-110)
[2019-10-19] MEDS: 0.9% Normal Saline 1,000 ML 75 ML IV (02:20)
[2019-10-19 04:47] LABS: Hematocrit 23.3 % (40-54); Hemoglobin 7.9 g/dL (13.0-16.5); Mean Corp Hgb Conc 33.9 g/dL (32-36); Mean Corpuscular Hgb 31.5 pg (27.0-32.0); Mean Corpuscular Volume 92.8 fL (80-94); Mean Platelet Vol. 11.8 fl (6.2-12.0); Platelet Count 104 K/mm3 (150-450); RBC Distribution Width CV 15.8 % (11.6-14.6); RBC Distribution Width SD 52.5 fl (35.1-43.9); Red Blood Count 2.51 M/mm3 (4.6-6.2); White Blood Count 7.2 K/mm3 (4.4-11.0)
[2019-10-19 04:58] LABS: Anion Gap 8 (5-15); BUN 54 mg/dL (7-18); BUN/Creat Ratio 30.7 RATIO (10-20); Chloride 108 mmol/L (98-107); Creatinine, Serum 1.76 mg/dL (0.70-1.30); EST Glomerular Filtration Rate 41 mL/min (>60); Est Glom Filt Rate - Afr Amer 49 mL/min (>60); Estimated Creatinine Clearance 41.03 ml/min; Glucose 196 mg/dL (74-106); Potassium 3.8 mmol/L (3.5-5.1); Sodium Level 141 mmol/L (136-145)
--- NOTE | 2019-10-19 05:23 | EKG12_ITS ---
Test Reason : AM EKG Blood Pressure : / mmHG Vent. Rate : 078 BPM Atrial Rate : 078 BPM P-R Int : 186 ms QRS Dur : 104 ms QT Int : 366 ms P-R-T Axes : 051 003 178 degrees QTc Int : 417 ms Normal sinus rhythm Marked ST abnormality, possible inferolateral subendocardial injury Abnormal ECG When compared with ECG of 18-OCT-2019 11:24, MANUAL COMPARISON REQUIRED, DATA IS UNCONFIRMED Confirmed by LIEN SWENSON, COLUMBA ([id number]), editor continuity and script JIM BOYER ([id number]) on 10/23/2019 4:01:01 PM Referred By: LIEN Confirmed By:COLUMBA EMMANUEL MD
--- NOTE | 2019-10-19 05:31 | PCM.PN.SRG ---
Patient Problems: Active and Suspected Problems (Last Reviewed 10/18/19 @ 09:07 by Monica Davis PA-C) Acute blood loss anemia (Acute) Unstable angina (Acute) Renal insufficiency (Acute) Subjective: Pt with chest pain continuing last night with abnormal troponins and transferred to [facility]. Labs appear stable for an anemia standpoint. The EGD scheduled for this a.m. has been cancelled but caution will need to be used re: anticoagulation as the etiology to his anemia has not been determined. Fortunately, the patient states this has been a very long problem for him with previous investigations. - Physical Exam Vitals/I&O's: Vital Signs Temp Pulse Resp BP Pulse Ox 98.2 F 74 16 121/45 H 92 10/19/19 04:00 10/19/19 05:00 10/19/19 05:00 10/19/19 05:00 10/19/19 05:00 Oxygen Flow Rate (L/min) 2 Oxygen Delivery Method Room Air Weight: 236 lb 15.951 oz Body Mass Index (BMI) 32.1 Intake and Output for Last 24 Hours 10/17/19 10/18/19 10/19/19 23:59 23:59 23:59 Intake Total 2030.20 / 2215.28 567.58 / 567.58 Output Total 2150 / 2725 975 / 975 Balance -119.80 / -509.72 -407.42 / -407.42 Microbiology Past 72 Hours 10/18/19 00:10 Stool Stool Occult Blood ([facility]) - Final Laboratory Results 10/18/19 00:45: Blood Type O POSITIVE, Antibody Screen NEGATIVE, Crossmatch See Detail 10/18/19 00:45: Crossmatch See Detail 10/18/19 05:40: Sodium 135 L, Potassium 4.6, Chloride 109 H, Carbon Dioxide 18.0 L, Anion Gap 8, BUN 89 H, Creatinine 1.82 H, Estim Creat Clear Calc 39.68, Est GFR (MDRD) Af Amer 47 L, Est GFR (MDRD) Non-Af 39 L, BUN/Creatinine Ratio 48.9 H, Glucose 235 H, Calcium 8.1 L, Troponin I 0.098 H 10/18/19 05:52: POC Glucose 233 H 10/18/19 11:12: Hgb 7.8 L, Hct 23.6 L 10/18/19 11:17: POC Glucose 172 H 10/18/19 16:08: Hgb 7.7 L, Hct 23.1 L 10/18/19 16:55: Troponin I 5.740 H* 10/18/19 18:11: POC Glucose 194 H 10/19/19 00:17: POC Glucose 223 H 10/19/19 04:35: WBC 7.2, RBC 2.51 L, Hgb 7.9 L, Hct 23.3 L, MCV 92.8, MCH 31.5, MCHC 33.9, RDW Std Deviation 52.5 H, RDW Coeff of Matthew 15.8 H, Plt Count 104 L, MPV 11.8 10/19/19 04:35: Sodium 141, Potassium 3.8, Chloride 108 H, Carbon Dioxide 25.0, Anion Gap 8, BUN 54 H, Creatinine 1.76 H, Estim Creat Clear Calc 41.03, Est GFR (MDRD) Af Amer 49 L, Est GFR (MDRD) Non-Af 41 L, BUN/Creatinine Ratio 30.7 H, Glucose 196 H, Calcium 8.0 L Current Medications Acetaminophen (Tylenol) 650 mg PO Q6H PRN PRN PRN Reason: Pain Score 1-10/Temp > 100.7 F Aspirin (Ecotrin) 81 mg PO DAILY@0800 [facility] Last Admin: 10/18/19 08:27 Dose: 81 mg Documented by: Atorvastatin Calcium (Lipitor) 20 mg PO QHS [facility] Last Admin: 10/18/19 22:02 Dose: 20 mg Documented by: Cyanocobalamin (Vitamin B12) 500 mcg PO BID [facility] Last Admin: 10/18/19 22:03 Dose: 500 mcg Documented by: Glucagon () 1 mg IM .X1 PRN PRN Reason: Hypoglycemia Sodium Chloride () 500 mls @ 15 mls/hr IV PRN PRN PRN Reason: Blood Transfusion Last Infusion: 10/18/19 23:16 Dose: Infused Documented by: Sodium Chloride () 250 mls @ 15 mls/hr IV .[id number] PRN PRN Reason: Saline Flush Sodium Chloride () 250 mls @ 15 mls/hr IV .[id number] PRN PRN Reason: Additional IVPB Infusion Sodium Chloride () 1,000 mls @ 75 mls/hr IV .[id number] [facility] Last Infusion: 10/19/19 05:06 Dose: 75 mls/hr Documented by: Pantoprazole Sodium 80 mg/ (Sodium Chloride) 100 mls @ 10 mls/hr CONT INF Q10H [facility] Last Infusion: 10/19/19 00:00 Dose: 10 mls/hr Documented by: Dextrose (Dextrose 10%-Water) 250 mls @ 999 mls/hr IV .Q16M PRN; Protocol PRN Reason: HYPOGLYCEMIA Nitroglycerin/Dextrose () 250 mls @ 3 mls/hr CONT INF .[id number] [facility]; Protocol Last Titration: 10/18/19 21:00 Dose: 0 mcg/min, 0 mls/hr Documented by: Insulin Human Lispro (Humalog Kwikpen (Bkc)) 0 unit SC Q6 [facility]; Protocol Last Admin: 10/19/19 00:18 Dose: 4 units Documented by: Labetalol HCl (Trandate) 10 mg IV Q4H PRN PRN PRN Reason: sbp > 160 or DBP > 120 Levothyroxine Sodium (Synthroid) 150 mcg PO DAILY@0600 [facility] Last Admin: 10/18/19 05:55 Dose: 150 mcg Documented by: Metoprolol Tartrate (Lopressor (Beta Suleiman)) 25 mg PO BID [facility] Last Admin: 10/18/19 22:02 Dose: 25 mg Documented by: Morphine Sulfate () 2 mg IV Q4H PRN PRN PRN Reason: Pain 6-10/10 Last Admin: 10/18/19 14:01 Dose: 2 mg Documented by: Nitroglycerin (Nitrostat) 0.4 mg SUBLINGUAL Q5M PRN PRN Reason: CARDIAC/CHEST PAIN Ondansetron HCl (Zofran) 4 mg IV Q8H PRN PRN PRN Reason: NAUSEA/VOMITING Ranolazine (Ranexa) 1,000 mg PO BID [facility] Last Admin: 10/18/19 22:01 Dose: 1,000 mg Documented by: Sodium Chloride () 10 - 40 ml IV UD PRN PRN Reason: SALINE FLUSH Last Admin: 10/18/19 14:01 Dose: 10 ml Documented by: Tamsulosin HCl (Flomax) 0.4 mg PO DAILY@1730 [facility] Last Admin: 10/18/19 17:58 Dose: 0.4 mg Documented by: Medical Necessity - Tobacco Use Smoking Status: Former smoker Assessment/Plan All Active Problems (Last Reviewed 10/18/19 @ 09:07 by Monica Davis PA-C) Acute blood loss anemia (Acute) Unstable angina (Acute) Renal insufficiency (Acute) H/O coronary artery bypass surgery (Resolved 04/1998) History of coronary artery stent placement (Resolved 01/22/15) Abdominal pain (Resolved) Back pain (Resolved)
[2019-10-19 06:20] LABS: Bedside Glucose 202 mg/dL (70-110)
--- NOTE | 2019-10-19 08:45 | PCM.PN.CARD ---
Subjectve: Patient seen and evaluated. Appears to be doing better this morning. Denies any chest pain. Had some chest pain last night necessitating transfer to the ICU. Objective: Vital Signs Temp Pulse Resp BP Pulse Ox 98.7 F 90 26 H 134/46 H 100 10/19/19 08:30 10/19/19 08:30 10/19/19 08:30 10/19/19 08:30 10/19/19 08:30 Oxygen Flow Rate (L/min) 2 Oxygen Delivery Method Nasal Cannula Weight: 232 lb 5.875 oz Body Mass Index (BMI) 32.1 Intake and Output for Last 24 Hours 10/17/19 10/18/19 10/19/19 23:59 23:59 23:59 Intake Total 2030.20 / 2215.28 843.83 / 843.83 Output Total 2150 / 2725 975 / 975 Balance -119.80 / -509.72 -131.17 / -131.17 General: Awake, Alert, Oriented x 3 HEENT: PERRL, EOMI, Sclera Non Icteric Neck: Supple, Good ROM, No Lymph Node Enlargement Lungs: Clear to auscultation Cardiovascular: Regular Rhythm, Normal S1, Normal S2, No Murmurs, No Rubs, No Gallops Vascular: No Carotid Bruits, Normal Femoral Pulses, Normal Radial Pulses, Normal Dorsalis Pedal Pulse, Normal Posterior Tibial Pulses Abdomen: Bowel Sounds Present, Soft, Non Tender, No HSM, No Organomegaly Extremities: No Cyanosis, No Clubbing, No edema Musculoskeletal: No Erythema Skin: No Rashes Lymphatic: No Lymph Node Enlargement Neurological: No Focal Motor or Sensory Deficit Psych/Mental Status: Appropriate 10/18/19 11:12: Hgb 7.8 L, Hct 23.6 L 10/18/19 16:08: Hgb 7.7 L, Hct 23.1 L 10/18/19 16:55: Troponin I 5.740 H* 10/19/19 04:35: WBC 7.2, RBC 2.51 L, Hgb 7.9 L, Hct 23.3 L, MCV 92.8, MCH 31.5, MCHC 33.9, Plt Count 104 L, MPV 11.8 10/19/19 04:35: Sodium 141, Potassium 3.8, Chloride 108 H, Carbon Dioxide 25.0, Anion Gap 8, BUN 54 H, Creatinine 1.76 H, Est GFR (MDRD) Af Amer 49 L, Est GFR (MDRD) Non-Af 41 L, BUN/Creatinine Ratio 30.7 H, Glucose 196 H, Calcium 8.0 L 10/19/19 07:55: Troponin I 20.300 H* Rhythm: EKG: ECHO: Stress Test: Cardiac Cath: PCI: CT Surgery: Holter monitor: EPS: PPM: CXR: Chest CT Scan: Medical Necessity - Tobacco Use Smoking Status: Former smoker Assessment/Plan 1. Unstable angina pectoris The patient does have unstable angina pectoris. He has had indeterminate troponin I levels. He has had waxing and waning electrocardiographic changes. This raises concern of his underlying CAD/graft vessel process.His symptoms may be exacerbated by his marked anemia. He does have EKG changes with ST depression. On the basis of the above I would suggest that we transfuse him at least 1 more unit of packed red blood cells. At this particular time I would continue to hold aspirin and any clopidogrel. I would not have any intention of performing any cardiac catheterization until he has undergone his GI evaluation. 2. CAD status post PCI status post CABG He does have a history of cardiovascular disease as noted. He states he has been doing well on medical therapy using nitroglycerin sublingual as needed. However based upon his current issues there are concerns regarding his underlying CAD/graft vessel process. Again he will continue his noninvasive evaluation. Over time he may need further invasive evaluation when he is clinically stable. In the interim continue with medical therapy with adjustment as needed. Of note there are concerns at this time, based upon his marked anemia and concern of gastrointestinal bleeding, using other agents such as antiplatelet therapy on her anticoagulant therapy. 3. Hyperlipidemia He will continue medical management as deemed appropriate. 4. Hypertension He will continue medical therapy with adjustment as needed take into consideration his renal insufficiency. 5. Diabetes mellitus He will continue under the care of internal medicine. 6. Anemia thought secondary to gastrointestinal bleeding He is markedly anemic. He is receiving PRBCs. He will receive another unit today. The basis of this being the fact that he is having symptomatic coronary artery disease. He will receive 40 mg of intravenous Lasix chcf through the transfusion. He is to be evaluated by general surgery for the need for additional endoscopy and/or other evaluation as deemed appropriate. Will defer the timing of the above to the surgeon. We will however recommend that probably in the next 24 to 48 hours if he has no further chest pain it may be safe to perform an EGD
[2019-10-19] MEDS: Cyanocobalamin 500 MCG Tablet PO ×2 (09:35→22:01)
[2019-10-19] MEDS: Metoprolol Tartrate 25 MG Tablet PO ×2 (09:35→22:01)
[2019-10-19] MEDS: Ranolazine 500 MG Tablet 1000 MG PO ×2 (09:35→22:01)
[2019-10-19] MEDS: Furosemide 40 MG/4 ML Vial IV (10:04)
[2019-10-19] MEDS: Aspirin E.C. 81 MG Tablet PO (10:04)
--- NOTE | 2019-10-19 12:30 | EGD_PTH ---
PATIENT: JEANETH MEHTA LOC: [facility] U#:[id number] AGE/SX: 74/M ROOM: [facility] RE10/18/[address]: Dr. Niraj Marino MD : 1945 BED: 1 DIS: 10/28/2019 SPEC #: [id number] RECD: 10/19/19 13:33 STATUS: ELMA RYDER #: [id number] LUCAS: 10/19/19 12:[address]: Wolf Wesley DEPT: SURGICAL PATHOLOGY RECD BY: Rito Howell ENTERED: 10/19/19 13:53 SP TYPE: EGD BIOPSY OT DR: DO Dr. Juan Francisco Ace MD Dr. Paul Fracasso, DO Dr. Jeffrey Dawson MD Tissues: A - Duodenum, NOS B - Gastric mucous membrane C - Esophageal mucous membrane Procedures: Surgery Specimen Level IV HEADER OPER[place] [place] DIAGNOSIS: GI bleed TISSUE SUBMITTED: A - Duodenum biopsy, B - Antrum biopsy for H. pylori and path, C - Distal esophageal biopsy MICROSCOPIC DIAGNOSIS A. Duodenum, biopsy: A fragment of duodenal mucosa, no pathologic diagnosis. B. Antrum, biopsy: Mild gastritis. See microscopic description and comment. C. Distal esophageal biopsy: A fragment of squamous epithelium, no pathologic diagnosis. SJ:ubaldo 10/20/19 COMMENT B. The results of immunohistochemistry for Helicobacter pylori will be reported separately ([id number]). MICROSCOPIC DESCRIPTION Slides are reviewed. B. The specimen shows fragments of gastric mucosa with chronic inflammatory cell infiltrates in the lamina propria consisting of lymphocytes and plasma cells, consistent with mild chronic gastritis. GROSS DESCRIPTION A - Received in fixative is one container labeled with the patient's name and designated duodenum biopsy. The specimen consists of one irregular fragment of light arredondo soft tissue that measures 0.3 x 0.2 x 0.1 cm. The specimen is totally submitted in one cassette. B - Received in fixative is one container labeled with the patient's name and designated antrum biopsy. The specimen consists of one irregular fragment of light arredondo soft tissue that measures 0.3 x 0.3 x 0.1 cm. The specimen is totally submitted in one cassette. C - Received in fixative is one container labeled with the patient's name and designated distal esophageal biopsy. The specimen consists of one irregular fragment of light arredondo soft tissue that measures 0.5 x 0.4 x 0.1 cm. The specimen is totally submitted in one cassette. / SJ:rg 10/19/19 TC:3 CPT: 39283 x3
--- NOTE | 2019-10-19 12:30 | IMM_PTH ---
PATIENT: JEANETH MEHTA LOC: [facility] U#:[id number] AGE/SX: 74/M ROOM: [facility] RE10/18/[address]: Dr. Niraj Marino MD : 1945 BED: 1 DIS: 10/28/2019 SPEC #: [id number] RECD: 10/19/19 15:09 STATUS: ELMA REJose #: [id number] LUCAS: 10/19/19 12:[address]: Wolf Wesley DEPT: IMMUNOHISTOCHEMISTRY RECD BY: Becca Stevens ENTERED: 10/19/19 15:10 SP TYPE: IMMUNO OTHR DR: DO Dr. Juan Francisco Ace MD Dr. Paul Fracasso, DO Dr. Jeffrey Dawson MD Tissues: B - Stomach, NOS Procedures: H Pylori (initial) PHYSICIAN & INSTITUTION [place] [id number] SPECIMEN INFORMATION: Tissue Source: B - Antrum biopsy Clinical Info: GI bleed Specimen Number: [id number] CPT code: 89653 METHODOLOGY: Deparaffinized sections of prefer/formalin-fixed tissue or PAP/DQ stained slides are incubated with monoclonal/polyclonal antibodies/oligonucleotide probes. Localization is made via biotin free immunoperoxidase method. Appropriate controls are performed and reacted as expected. Results on target cell population are indicated in the following table: RESULTS: ANTIBODY / CLONE RESULT Block B H Pylori (polyclonal) negative These tests were developed and their performance characteristics determined by [facility]. They may not have been cleared or approved by the U.S. Food and Drug Administration. The FDA has determined that such clearance or approval is not necessary. INTERPRETATION: B. Antrum biopsy: Negative for Helicobacter pylori organisms. SJ:ubaldo 10/20/19
--- NOTE | 2019-10-19 13:03 | OP.CCLET_ITS ---
10/19/2019 Jeffrey Thorne Re : Upper GI endoscopy procedure for Ramiro Santiago Dear Mati This procedure was performed on October. My impressions and recommendations are as follows: Impressions : - Small hiatal hernia. - Normal esophagus. Biopsied distal esophagus - Normal stomach. Biopsied antrum - Normal examined duodenum. Biopsied. Recommendations : - Return patient to ICU for ongoing care. - Resume previous diet. - Continue present medications. - Await pathology results. - Telephone my office for pathology results in 1 week. My findings are described in the full procedure note, which is enclosed. If I can be of further assistance, please feel free to contact me at Doctor phone number(s): Work: . Sincerely, Wofl Wesley MD 10/19/2019 1:03:18 PM This report has been signed electronically.
--- NOTE | 2019-10-19 13:03 | OP.EGD_ITS ---
Patient Name: Ramiro Santiago Procedure Date: 10/19/2019 12:24 PM Date of : 1945 Age: 74 Procedure: Upper GI endoscopy Indications: Iron deficiency anemia Providers: Wolf Wesley MD Medicines: See the Anesthesia note for documentation of the administered medications Complications: No immediate complications. Procedure: Pre-Anesthesia Assessment: - Prior to the procedure, a History and Physical was performed, and patient medications and allergies were reviewed. The patient's tolerance of previous anesthesia was also reviewed. The risks and benefits of the procedure and the sedation options and risks were discussed with the patient. All questions were answered, and informed consent was obtained. Prior Anticoagulants: The patient has taken no previous anticoagulant or antiplatelet agents. ASA Grade Assessment: III - A patient with severe systemic disease. After reviewing the risks and benefits, the patient was deemed in satisfactory condition to undergo the procedure. After obtaining informed consent, the endoscope was passed under direct vision. Throughout the procedure, the patient's blood pressure, pulse, and oxygen saturations were monitored continuously. The gastroscope was introduced through the mouth, and advanced to the second part of duodenum. The upper GI endoscopy was accomplished without difficulty. The patient tolerated the procedure well. Scope In: 12:46:44 PM Scope Out: 12:52:14 PM Total Procedure Duration Time 0 hours 5 minutes 30 seconds Findings: A small hiatal hernia was present. The examined esophagus was normal. Biopsies were taken with a cold forceps for histology. The entire examined stomach was normal. Biopsies were taken with a cold forceps for histology. The examined duodenum was normal. Biopsies were taken with a cold forceps for histology. Impression: - Small hiatal hernia. - Normal esophagus. Biopsied distal esophagus - Normal stomach. Biopsied antrum - Normal examined duodenum. Biopsied. Recommendation: - Return patient to ICU for ongoing care. - Resume previous diet. - Continue present medications. - Await pathology results. - Telephone my office for pathology results in 1 week. Procedure Code(s): --- Professional --- 33717, Esophagogastroduodenoscopy, flexible, transoral; with biopsy, single or multiple Diagnosis Code(s): --- Professional --- K44.9, Diaphragmatic hernia without obstruction or gangrene D50.9, Iron deficiency anemia, unspecified CPT copyright 2017 [employer]. All rights reserved. The codes documented in this report are preliminary and upon guest experience captain review may be revised to meet current compliance requirements. Wolf Wesley MD 10/19/2019 1:03:18 PM This report has been signed electronically. Number of Addenda: 0 Note Initiated On: 10/19/2019 12:24 PM
[2019-10-19 14:01] LABS: Bedside Glucose 206 mg/dL (70-110)
[2019-10-19 14:04] LABS: Hematocrit 26.9 % (40-54); Hemoglobin 9.1 g/dL (13.0-16.5)
--- NOTE | 2019-10-19 14:42 | PCM.PN.HOSP ---
Patient Problems: Active and Suspected Problems (Last Reviewed 10/18/19 @ 09:07 by Monica Davis PA-C) Acute blood loss anemia (Acute) Unstable angina (Acute) Renal insufficiency (Acute) Reason for Visit: anemia Subjective: No further chest pain. Vitals/I&O's: Vital Signs Temp Pulse Resp BP Pulse Ox 37.3 C 91 27 H 133/52 H 92 10/19/19 13:33 10/19/19 14:00 10/19/19 14:00 10/19/19 14:00 10/19/19 14:00 Oxygen Flow Rate (L/min) 2 Oxygen Delivery Method Nasal Cannula Weight: 105.4 kg Body Mass Index (BMI) 32.1 Intake and Output for Last 24 Hours 10/17/19 10/18/19 10/19/19 23:59 23:59 23:59 Intake Total 2030.20 / 2215.28 1425.00 / 1425.00 Output Total 2150 / 2725 1575 / 1575 Balance -119.80 / -509.72 -150.00 / -150.00 General: Alert, No apparent distress HEENT: Atraumatic, Normocephalic Oral: Moist Mucosa, No Gingival or Mucosal Lesions/ Ulcerations Neck: No Nodes, Trachea Midline Lungs: Clear to auscultation, Normal air movement, No rhonchi, No wheeze, No rales Cardiovascular: Regular rate, Regular Rhythm, Normal S1, Normal S2, No murmurs Abdomen: Bowel Sounds Present, Soft, Non Tender, Non-Distended Extremities: No edema, No Calf Tenderness Skin: No rashes, No breakdown Musculoskeletal: No Tenderness to Palpation of Joints or Extremities, No Muscle Wasting Psych/Mental Status: Normal Affect, Appropriate Microbiology Past 72 Hours 10/18/19 00:10 Stool Stool Occult Blood (STEFANY) - Final Laboratory Results 10/18/19 00:45: Crossmatch See Detail 10/18/19 00:45: Crossmatch See Detail 10/18/19 16:08: Hgb 7.7 L, Hct 23.1 L 10/18/19 16:55: Troponin I 5.740 H* 10/18/19 18:11: POC Glucose 194 H 10/19/19 00:17: POC Glucose 223 H 10/19/19 04:35: WBC 7.2, RBC 2.51 L, Hgb 7.9 L, Hct 23.3 L, MCV 92.8, MCH 31.5, MCHC 33.9, RDW Std Deviation 52.5 H, RDW Coeff of Matthew 15.8 H, Plt Count 104 L, MPV 11.8 10/19/19 04:35: Sodium 141, Potassium 3.8, Chloride 108 H, Carbon Dioxide 25.0, Anion Gap 8, BUN 54 H, Creatinine 1.76 H, Estim Creat Clear Calc 41.03, Est GFR (MDRD) Af Amer 49 L, Est GFR (MDRD) Non-Af 41 L, BUN/Creatinine Ratio 30.7 H, Glucose 196 H, Calcium 8.0 L 10/19/19 06:05: POC Glucose 202 H 10/19/19 07:55: Troponin I 20.300 H* 10/19/19 13:48: POC Glucose 206 H 10/19/19 13:55: Hgb 9.1 L, Hct 26.9 L Current Medications Acetaminophen (Tylenol) 650 mg PO Q6H PRN PRN PRN Reason: Pain Score 1-10/Temp > 100.7 F Atorvastatin Calcium (Lipitor) 20 mg PO QHS [facility] Last Admin: 10/18/19 22:02 Dose: 20 mg Documented by: Cyanocobalamin (Vitamin B12) 500 mcg PO BID [facility] Last Admin: 10/19/19 09:35 Dose: 500 mcg Documented by: Glucagon () 1 mg IM .X1 PRN PRN Reason: Hypoglycemia Sodium Chloride () 500 mls @ 15 mls/hr IV PRN PRN PRN Reason: Blood Transfusion Last Infusion: 10/18/19 23:16 Dose: Infused Documented by: Sodium Chloride () 250 mls @ 15 mls/hr IV .[id number] PRN PRN Reason: Saline Flush Sodium Chloride () 250 mls @ 15 mls/hr IV .[id number] PRN PRN Reason: Additional IVPB Infusion Pantoprazole Sodium 80 mg/ (Sodium Chloride) 100 mls @ 10 mls/hr CONT INF Q10H [facility] Last Admin: 10/19/19 09:33 Dose: 10 mls/hr Documented by: Dextrose (Dextrose 10%-Water) 250 mls @ 999 mls/hr IV .Q16M PRN; Protocol PRN Reason: HYPOGLYCEMIA Nitroglycerin/Dextrose () 250 mls @ 3 mls/hr CONT INF .[id number] [facility]; Protocol Last Titration: 10/18/19 21:00 Dose: 0 mcg/min, 0 mls/hr Documented by: Insulin Human Lispro (Humalog Kwikpen (Bkc)) 0 unit SC Q6 [facility]; Protocol Last Admin: 10/19/19 13:58 Dose: Not Given Documented by: Labetalol HCl (Trandate) 10 mg IV Q4H PRN PRN PRN Reason: sbp > 160 or DBP > 120 Levothyroxine Sodium (Synthroid) 150 mcg PO DAILY@0600 [facility] Last Admin: 10/19/19 06:07 Dose: Not Given Documented by: Metoprolol Tartrate (Lopressor (Beta Suleiman)) 25 mg PO BID [facility] Last Admin: 10/19/19 09:35 Dose: 25 mg Documented by: Morphine Sulfate () 2 mg IV Q4H PRN PRN PRN Reason: Pain 6-05/25 Last Admin: 10/18/19 14:01 Dose: 2 mg Documented by: Nitroglycerin (Nitrostat) 0.4 mg SUBLINGUAL Q5M PRN PRN Reason: CARDIAC/CHEST PAIN Ondansetron HCl (Zofran) 4 mg IV Q8H PRN PRN PRN Reason: NAUSEA/VOMITING Ranolazine (Ranexa) 1,000 mg PO BID [facility] Last Admin: 10/19/19 09:35 Dose: 1,000 mg Documented by: Sodium Chloride () 10 - 40 ml IV UD PRN PRN Reason: SALINE FLUSH Last Admin: 10/18/19 14:01 Dose: 10 ml Documented by: Tamsulosin HCl (Flomax) 0.4 mg PO DAILY@1730 [facility] Last Admin: 10/18/19 17:58 Dose: 0.4 mg Documented by: STROKE Vital Signs/Narrative: Vital Signs Temp Pulse Resp BP BP Pulse Ox 10/19/19 14:00 91 27 H 133/52 H 92 10/19/19 13:33 37.3 C 89 24 H 127/51 H 92 10/19/19 13:30 37.3 C 90 24 H 128/54 H 91 10/19/19 13:25 37.2 C 91 22 H 129/51 H 91 10/19/19 13:20 37.1 C 90 23 H 130/54 H 91 10/19/19 13:15 37.2 C 90 25 H 124/46 H 95 10/19/19 13:08 37.1 C 91 26 H 123/47 H 91 10/19/19 12:00 37.2 C 82 21 H 117/52 L 97 10/19/19 11:30 37.2 C 82 22 H 123/52 H 95 Medical Necessity - Tobacco Use Smoking Status: Former smoker Assessment/Plan All Active Problems (Last Reviewed 10/18/19 @ 09:07 by Monica Davis PA-C) Acute blood loss anemia (Acute) Unstable angina (Acute) Renal insufficiency (Acute) H/O coronary artery bypass surgery (Resolved 04/1998) History of coronary artery stent placement (Resolved 01/22/15) Abdominal pain (Resolved) Back pain (Resolved) 1. NSTEMI: troponin trended up to 20.3 off ASA and clopidogrel. DW Dr. Hernandez, medical mgmt for now. Hold antiplatelets until we can ensure that his Hg is stable, possibly tomorrow. on Ntg gtt 2. Acute on chronic anemia: Patient transfused 4 units. Hg now 9.1. No further transfusions at this time. Goal is to keep Hg greater than or equal to 8. EGD unremarkable. Had C-scope in July. Apparently, poor prep, but no glaring lesions. Hg 12.8 on 08/24/2019 3. Chronic kidney dz 3 1.5 from 2018. Was 2 when he presented. Monitor. 4. DM2 elevated and uncontrolled check A1c hold glimepiride for now. continue SSI. add basal for now. 5. VTE prophylaxis: moderate risk. SCDs. Greater than 35 minutes, of which greater than 50% of the time was discussing with the patient and family about the anemia, NSTEMI. Inpatient E&M: 96547 Subs Hosp L3
[2019-10-19 17:40] LABS: Bedside Glucose 201 mg/dL (70-110)
[2019-10-19] MEDS: Tamsulosin HCl 0.4 MG Capsule PO (17:45)
[2019-10-19] MEDS: Acetaminophen 325 MG Tablet 650 MG PO (19:36)
--- NOTE | 2019-10-19 21:14 | RAD_ITS ---
STUDY: X-RAY CHEST REASON FOR EXAM: Male, 74 years old. Fever. TECHNIQUE: Single AP portable view of the chest. COMPARISON: October 17, 2019. FINDINGS: The lungs are hypoexpanded. There is no new mass or infiltrate. Chronic changes are again noted. There is no demonstrated pleural abnormality. Sternal cerclage wires and vascular clips are present from a prior sternotomy and coronary artery bypass graft procedure (CABG). Normal mediastinum and nuria. Normal visualized pulmonary arteries. There is atherosclerotic tortuosity of the aortic arch and descending thoracic aorta. The thoracic spine is obscured by the mediastinum. There is degenerative osteoarthritis of the bilateral shoulders. There is no demonstrated abnormality of the visualized soft tissue structures of the upper abdomen. RAD/Chest 1 View (Portable) IMPRESSION: Limited inspiration without major interval change. Electronically Signed: Rogers Young DO at 22:05 EST Tel [phone], Service support ,
[2019-10-19 21:23] LABS: Bacteria 0 SEEN /hpf (None Seen); Mucous, Urine 0 SEEN /hpf (<or=2+); Squamous Epithelial Cells - UA 0 SEEN /hpf (0-5)
[2019-10-19 21:25] LABS: Color, Urine Yellow (Yellow); Glucose, Dipstick 100 mg/dl (Normal); Ketone-Dipstick 5 mg/dl (Negative); Leukocyte Esterase-Dipstick 25 /ul (Negative); Nitrite-Dipstick Negative (Negative); Occult Blood-Urine Negative /ul (Negative); Protein-Dipstick Negative (Negative); Specific Gravity, Urine 1.015 (1.002-1.030); Urine Bilirubin Dipstick Negative (Negative); Urine Clarity Clear (Clear); Urine Urobilinogen Normal (Normal)
--- NOTE | 2019-10-19 21:30 | NURSING ---
pt called out needing to void, c/o still feeling hot, temp rechecked, 102.1. dr graves notified, stat orders given, cxr, urine, blood cultures, lactic. pt c/o feeling sob,and weak bipap was on w 3l o2, increased to 6l. IS given to the pt and was instructed how to use it.
[2019-10-19 21:36] LABS: Transitional Epithelial - Ur 0-5 SEEN /hpf (0-5)
[2019-10-19 21:37] LABS: Red Blood Cells-Urine 0-5 SEEN /hpf (0-5); White Blood Cells 5-10 SEEN /hpf (0-5)
[2019-10-19 21:38] LABS: Hyaline Cast 0-5 SEEN /lpf (0-5)
[2019-10-19 21:41] LABS: Absolute Lymphocyte Count 0.88 X10^3/uL (0.83-4.51); Absolute Neutrophil Count 7.3 X10^3/uL (2.0-7.7); Basophil# 0.02 X10^3/uL; Basophil% 0.2 % (0-1); Hematocrit 25.9 % (40-54); Hemoglobin 8.7 g/dL (13.0-16.5); Lymphocyte # 0.88 X10^3/ul (4.0); Lymphocyte % 9.6 % (19-41); Mean Corp Hgb Conc 33.6 g/dL (32-36); Mean Corpuscular Hgb 30.6 pg (27.0-32.0); Mean Corpuscular Volume 91.2 fL (80-94); Mean Platelet Vol. 11.1 fl (6.2-12.0); Monocyte# 0.97 X10^3/uL; Monocyte% 10.5 % (0-10); NRBC Flagged by Analyzer 0.5 % (0-5); Neutrophil # 7.29 X10^3/uL (2.7-7.7); Neutrophil % 79.2 % (47-70); POSITIVE MORPHOLOGY YES; Platelet Count 114 K/mm3 (150-450); RBC Distribution Width SD 51.9 fl (35.1-43.9); Red Blood Count 2.84 M/mm3 (4.6-6.2); White Blood Count 9.2 K/mm3 (4.4-11.0)
[2019-10-19 21:45] LABS: Differential Indicated SCAN CRITERIA MET
--- NOTE | 2019-10-19 21:48 | PCM.PN.BLA ---
Progress Note Nurse report a fever not abated by tylenol and crackles at left base. Patient received blood today. CXR ordered. Compared to previous chest x-ray showed infiltrates. CBC, lactic acid, urinalysis urine culture ordered. Blood culture x2 ordered. Vancomycin and Zosyn to start after cultures has been obtained. Different diagnoses include acute non-hemolytic febrile reaction from blood transfusion; pneumonia; pulmonary edema . Patient was examined at the bedside. At the time of examination is fever had improved. Patient stated that he was feeling better. Has an S1-S2 present. Lungs with Rales at the left base. Extremities no edema. Continue vancomycin and Zosyn as above. MRSA nasal screen was ordered. Consider repeating chest x-ray. Consider further needs of antibiotics. Encourage use of Acapella. STROKE Vital Signs/Narrative: Vital Signs Temp Pulse Resp BP Pulse Ox 10/19/19 20:00 101.9 F H 97 23 H 128/55 H 94 10/19/19 19:56 102 H 24 H 91 10/19/19 19:30 101.3 F H 102 H 24 H 140/55 H 92 10/19/19 18:00 92 22 H 123/92 H 96
[2019-10-19] MEDS: Atorvastatin Calcium 20 MG Tablet PO (22:02)
[2019-10-19 22:05] LABS: Differential Comment SCANNED
[2019-10-19 22:09] LABS: Lactic Acid 1.1 mmol/L (0.4-1.9)
--- NOTE | 2019-10-19 22:29 | NURSING ---
dr graves in to assess the pt.
[2019-10-19 23:50] LABS: M R Staph aureus DNA By PCR Negative (Negative); Probe Check PASS; Specimen Processing Control PASS
[2019-10-20] VITALS (34 sets, daily range): BP systolic 108–161; BP diastolic 43–71; PULSE 68–98; RESP 15–26; TEMP 36.9–38; O2SAT 92–98
[2019-10-20] MEDS: Insulin Lispro 100 UNIT/ML INSULN.PEN SC ×4 (00:06→16:45)
--- NOTE | 2019-10-20 00:11 | PCM.RX.CS ---
Consult Pharmacy has been consulted to manage selected antiobiotic: Vancomycin Type of Consult: New start Suspected Infection: Pneumonia Prior Doses of Antibiotics Received/Current Regimen: Medications Vancomycin HCl 750 mg/ Sodium (Chloride) 265 mls @ 250 mls/hr IV Q12H TAMAR Vancomycin HCl 1,500 mg/ (Sodium Chloride) 530 mls @ 250 mls/hr IV X1 ONE Stop: 10/20/19 00:37 Last Admin: 10/19/19 23:18 Dose: 250 mls/hr Labs: Sodium 141 mmol/L (136-145) 10/19/19 04:35 Potassium 3.8 mmol/L (3.5-5.1) 10/19/19 04:35 Chloride 108 mmol/L (98-107) H 10/19/19 04:35 Carbon Dioxide 25.0 mmol/L (21.0-32.0) 10/19/19 04:35 Anion Gap 8 (5-15) 10/19/19 04:35 BUN 54 mg/dL (7-18) H 10/19/19 04:35 Creatinine 1.76 mg/dL (0.70-1.30) H 10/19/19 04:35 Est GFR (MDRD) Af Amer 49 mL/min (>60) L 10/19/19 04:35 Est GFR (MDRD) Non-Af 41 mL/min (>60) L 10/19/19 04:35 BUN/Creatinine Ratio 30.7 RATIO (10-20) H 10/19/19 04:35 Glucose 196 mg/dL (74-106) H 10/19/19 04:35 Microbiology: Microbiology 10/18/19 00:10 Stool Stool Occult Blood (STEFANY) - Final Weight used for dosin.4 kg Estimated Creatinine Clearance: 41 Goal Trough: 15-20 mcg/mL Pharmacy Plan for Drug Dosing: Pharmacy Service will continue to monitor and adjust dosing as required. Follow-Up Labs: Trough Vancomycin Labs to be done on [date and time ordered]: 10/21/19 @1100
[2019-10-20 00:31] LABS: Bedside Glucose 241 mg/dL (70-110)
[2019-10-20] MEDS: Acetaminophen 325 MG Tablet 650 MG PO ×2 (02:31→21:30)
--- NOTE | 2019-10-20 02:35 | NURSING ---
pt awake, c/o feeling hot, temp 99.4, prn tylenol given, water given to drink
[2019-10-20 05:06] LABS: Absolute Lymphocyte Count 0.74 X10^3/uL (0.83-4.51); Absolute Neutrophil Count 6.5 X10^3/uL (2.0-7.7); Basophil# 0.03 X10^3/uL; Basophil% 0.4 % (0-1); Eosinophil# 0.01 X10^3/uL; Eosinophils% 0.1 % (0-5); Hemoglobin 8.2 g/dL (13.0-16.5); Lymphocyte # 0.74 X10^3/ul (4.0); Mean Corp Hgb Conc 32.8 g/dL (32-36); Mean Corpuscular Hgb 30.3 pg (27.0-32.0); Mean Corpuscular Volume 92.3 fL (80-94); Mean Platelet Vol. 10.5 fl (6.2-12.0); Monocyte# 0.88 X10^3/uL; Monocyte% 10.8 % (0-10); NRBC Flagged by Analyzer 0.4 % (0-5); Neutrophil # 6.46 X10^3/uL (2.7-7.7); Platelet Count 105 K/mm3 (150-450); RBC Distribution Width CV 16.3 % (11.6-14.6); RBC Distribution Width SD 52.8 fl (35.1-43.9); Red Blood Count 2.71 M/mm3 (4.6-6.2); White Blood Count 8.2 K/mm3 (4.4-11.0)
[2019-10-20] MEDS: Levothyroxine 150 MCG Tablet PO (05:07)
[2019-10-20 05:19] LABS: Anion Gap 6 (5-15); BUN 42 mg/dL (7-18); BUN/Creat Ratio 22.1 RATIO (10-20); Calcium,Total 7.9 mg/dL (8.5-10.1); Chloride 106 mmol/L (98-107); EST Glomerular Filtration Rate 37 mL/min (>60); Est Glom Filt Rate - Afr Amer 45 mL/min (>60); Estimated Creatinine Clearance 38.01 ml/min; Glucose 245 mg/dL (74-106); Potassium 3.6 mmol/L (3.5-5.1); Sodium Level 138 mmol/L (136-145)
--- NOTE | 2019-10-20 05:52 | NURSING ---
pt stated it feels like his bipap pressure is not right, called resp in the room to assess the machine which is working well, pt stated he hasn't has any changes to it since 1997. resp told the pt she will send another therapist up to check the settings and discuss it w the
--- NOTE | 2019-10-20 06:24 | NURSING ---
tiffany from sleep lab came up and [facility] out [facility] and adjusted his settings.
[2019-10-20 06:26] LABS: Bedside Glucose 231 mg/dL (70-110)
[2019-10-20] MEDS: 0.9% Saline Lock 10 ML Syringe IV (08:49)
[2019-10-20] MEDS: Furosemide 100 MG/10 ML Vial 60 MG IV (08:49)
--- NOTE | 2019-10-20 08:55 | EKG12_ITS ---
Test Reason : ANEMIA Blood Pressure : / mmHG Vent. Rate : 072 BPM Atrial Rate : 072 BPM P-R Int : 168 ms QRS Dur : 138 ms QT Int : 454 ms P-R-T Axes : 040 -32 124 degrees QTc Int : 497 ms Normal sinus rhythm Left axis deviation Non-specific intra-ventricular conduction block T wave abnormality, consider lateral ischemia Abnormal ECG Confirmed by RHONDA SWENSON, PHILIP ([id number]), purchasing expeditor FIDEL TRINIDAD ([id number]) on 10/25/2019 10:01:09 AM Referred By: LIEN Confirmed By:PHILIP ELLIS MD
[2019-10-20] MEDS: Metoprolol Tartrate 25 MG Tablet PO ×2 (09:37→21:30)
[2019-10-20] MEDS: Ranolazine 500 MG Tablet 1000 MG PO ×2 (09:38→22:34)
[2019-10-20] MEDS: Cyanocobalamin 500 MCG Tablet PO ×2 (09:38→22:34)
[2019-10-20] MEDS: Pantoprazole Sodium 40 MG Tablet PO (09:40)
--- NOTE | 2019-10-20 09:59 | EKG12_ITS ---
Test Reason : DYSPNEA Blood Pressure : / mmHG Vent. Rate : 092 BPM Atrial Rate : 092 BPM P-R Int : 168 ms QRS Dur : 142 ms QT Int : 402 ms P-R-T Axes : 046 -44 107 degrees QTc Int : 497 ms Normal sinus rhythm Left axis deviation Non-specific intra-ventricular conduction block Marked ST abnormality, possible anterior subendocardial injury Abnormal ECG When compared with ECG of 20-OCT-2019 09:58, MANUAL COMPARISON REQUIRED, DATA IS UNCONFIRMED Confirmed by TOSHA MARTINEZ ([id number]), newspaper editor JIM BOYER ([id number]) on 10/26/2019 4:27:08 PM Referred By: Confirmed By:TOSHA MARTINEZ
--- NOTE | 2019-10-20 11:52 | PN.CARD_ITS ---
Subjectve: Patient seen and evaluated. Appears to be mildly short of breath. Objective: Vital Signs Temp Pulse Resp BP Pulse Ox 99 F 98 24 H 161/68 H 94 10/20/19 08:00 10/20/19 10:00 10/20/19 10:00 10/20/19 10:00 10/20/19 10:00 Oxygen Flow Rate (L/min) 4 Oxygen Delivery Method Bi-pap Weight: 232 lb 9.403 oz Body Mass Index (BMI) 32.1 Intake and Output for Last 24 Hours 10/18/19 10/19/19 10/20/19 23:59 23:59 23:59 Intake Total 2030.20 / 2215.28 1934.08 / 1934.08 932.75 / 932.75 Output Total 2150 / 2725 2900 / 2900 775 / 775 Balance -119.80 / -509.72 -965.92 / -965.92 157.75 / 157.75 General: Awake, Alert, Oriented x 3 HEENT: PERRL, EOMI, Sclera Non Icteric Neck: Supple, Good ROM, No Lymph Node Enlargement Lungs: Diminished [place] Bases Cardiovascular: Regular Rhythm, Normal S1, Normal S2, No Murmurs, No Rubs, No Gallops Vascular: No Carotid Bruits, Normal Femoral Pulses, Normal Radial Pulses, Normal Dorsalis Pedal Pulse, Normal Posterior Tibial Pulses Abdomen: Bowel Sounds Present, Soft, Non Tender, No HSM, No Organomegaly Extremities: No Cyanosis, No Clubbing, No edema Musculoskeletal: No Erythema Skin: No Rashes Lymphatic: No Lymph Node Enlargement Neurological: No Focal Motor or Sensory Deficit Psych/Mental Status: Appropriate 10/19/19 13:55: Hgb 9.1 L, Hct 26.9 L 10/19/19 21:15: Urine Color Yellow, Urine Clarity Clear, Urine pH 5.0, Ur Specific [place] 1.015, Urine Protein Negative, Urine Glucose (UA) 100 H, Urine Ketones 5 H, Urine Occult Blood Negative, Urine Nitrite Negative, Urine Bilirubin Negative, Urine Urobilinogen Normal, Ur Leukocyte Esterase 25 H, Urine RBC 0-5 SEEN, Urine WBC 5-10 SEEN 10/19/19 21:30: Lactic Acid 1.1 10/19/19 21:30: WBC 9.2, RBC 2.84 L, Hgb 8.7 L, Hct 25.9 L, MCV 91.2, MCH 30.6, MCHC 33.6, Plt Count 114 L, MPV 11.1, Immature Gran % (Auto) 0.500, Neut % (Auto) 79.2 H, Lymph % (Auto) 9.6 L, [place] % (Auto) 10.5 H, Eos % (Auto) 0.0, Baso % (Auto) 0.2, Absolute Neuts (auto) 7.3, Nucleated RBC % 0.5 10/20/19 05:00: WBC 8.2, RBC 2.71 L, Hgb 8.2 L, Hct 25.0 L, MCV 92.3, MCH 30.3, MCHC 32.8, Plt Count 105 L, MPV 10.5, Immature Gran % (Auto) 0.700, Neut % (Auto) 79.0 H, Lymph % (Auto) 9.0 L, [place] % (Auto) 10.8 H, Eos % (Auto) 0.1, Baso % (Auto) 0.4, Absolute Neuts (auto) 6.5, Nucleated RBC % 0.4 10/20/19 05:00: Sodium 138, Potassium 3.6, Chloride 106, Carbon Dioxide 26.0, Anion Gap 6, BUN 42 H, Creatinine 1.90 H, Est GFR (MDRD) Af Amer 45 L, Est GFR (MDRD) Non-Af 37 L, BUN/Creatinine Ratio 22.1 H, Glucose 245 H, Calcium 7.9 L Rhythm: EKG: ECHO: Stress Test: Cardiac Cath: PCI: CT Surgery: Holter monitor: EPS: PPM: CXR: Chest CT Scan: Medical Necessity - Tobacco Use Smoking Status: Former smoker Assessment/Plan 1. Unstable angina pectoris The patient does have unstable angina pectoris. He has had indeterminate troponin I levels. He has had waxing and waning electrocardiographic changes. This raises concern of his underlying CAD/graft vessel process.His symptoms may be exacerbated by his marked anemia. He does have EKG changes with ST depression. At this time he appears to be stable. My recommendation is for us to continue to observe him. He has undergone a GI scope with no underlying upper GI pathology. I would recommend that we continue to watch him over the weekend and perhaps consider a cardiac catheterization on Wednesday. 2. CAD status post PCI status post CABG He does have a history of cardiovascular disease as noted. He states he has been doing well on medical therapy using nitroglycerin sublingual as needed. However based upon his current issues there are concerns regarding his underlying CAD/graft vessel process. Again he will continue his noninvasive evaluation. Over time he may need further invasive evaluation when he is clinically stable. In the interim continue with medical therapy with adjustment as needed. Of note there are concerns at this time, based upon his marked anemia and concern of gastrointestinal bleeding, using other agents such as antiplatelet therapy on her anticoagulant therapy. 3. Hyperlipidemia He will continue medical management as deemed appropriate. 4. Hypertension He will continue medical therapy with adjustment as needed take into consideration his renal insufficiency. 5. Diabetes mellitus He will continue under the care of internal medicine. 6. Anemia thought secondary to gastrointestinal bleeding He is markedly anemic. This has improved with his packed red blood cell transfusion. He did do well with the upper GI evaluation yesterday. We will continue to monitor his hemoglobin. Will hold off on any aspirin or clopidogrel for now. Thank you for allowing me to participate in the care of your patient. Please don't hesitate to call if any issues arise 7. Mild congestive heart failure * He appears to have mild shortness of breath suggestive of mild congestive heart failure my recommendation is to give him intermittent Lasix and continue to monitor his creatinine.
--- NOTE | 2019-10-20 12:01 | PN_ITS ---
Patient Problems: Active and Suspected Problems (Last Reviewed 10/18/19 @ 09:07 by Monica Davis PA-C) Acute blood loss anemia (Acute) Unstable angina (Acute) Renal insufficiency (Acute) Reason for Visit: NSTEMI Subjective: Had a low grade temp last night. Increased shortness of breath, though better now. Started on pip/tazo and vanc for possible HCAP. Received a 1 time dose of furosemide. Vitals/I&O's: Vital Signs Temp Pulse Resp BP Pulse Ox 37.2 C 98 24 H 161/68 H 94 10/20/19 08:00 10/20/19 10:00 10/20/19 10:00 10/20/19 10:00 10/20/19 10:00 Oxygen Flow Rate (L/min) 4 Oxygen Delivery Method Bi-pap Weight: 105.5 kg Body Mass Index (BMI) 32.1 Intake and Output for Last 24 Hours 10/18/19 10/19/19 10/20/19 23:59 23:59 23:59 Intake Total 2030.20 / 2215.28 1934.08 / 1934.08 932.75 / 932.75 Output Total 2150 / 2725 2900 / 2900 775 / 775 Balance -119.80 / -509.72 -965.92 / -965.92 157.75 / 157.75 General: Alert, No apparent distress HEENT: Atraumatic, Normocephalic Oral: Moist Mucosa, No Gingival or Mucosal Lesions/ Ulcerations Neck: No Nodes, Trachea Midline Lungs: - - bilateral crackles Cardiovascular: Regular rate, Regular Rhythm, Normal S1, Normal S2, No murmurs Abdomen: Bowel Sounds Present, Soft, Non Tender, Non-Distended, No Hepato- splenomegaly Extremities: No edema, No Calf Tenderness Skin: No rashes, No breakdown Psych/Mental Status: Normal Affect, Appropriate Microbiology Past 72 Hours 10/18/19 00:10 Stool Stool Occult Blood (STEFANY) - Final Laboratory Results 10/19/19 13:48: POC Glucose 206 H 10/19/19 13:55: Hgb 9.1 L, Hct 26.9 L 10/19/19 15:38: POC Glucose 201 H 10/19/19 21:15: Urine Color Yellow, Urine Clarity Clear, Urine pH 5.0, Ur Specific [place] 1.015, Urine Protein Negative, Urine Glucose (UA) 100 H, Urine Ketones 5 H, Urine Occult Blood Negative, Urine Nitrite Negative, Urine Bilirubin Negative, Urine Urobilinogen Normal, Ur Leukocyte Esterase 25 H, Urine RBC 0-5 SEEN, Urine WBC 5-10 SEEN, Ur Squamous Epith Cells 0 SEEN, Ur Transition Epith Cell 0-5 SEEN, Urine Bacteria 0 SEEN, Hyaline Casts 0-5 SEEN, Urine Mucus 0 SEEN 10/19/19 21:30: Lactic Acid 1.1 10/19/19 21:30: WBC 9.2, RBC 2.84 L, Hgb 8.7 L, Hct 25.9 L, MCV 91.2, MCH 30.6, MCHC 33.6, RDW Std Deviation 51.9 H, RDW Coeff of Matthew 16.0 H, Plt Count 114 L, MPV 11.1, Immature Gran % (Auto) 0.500, Neut % (Auto) 79.2 H, Lymph % (Auto) 9.6 L, [place] % (Auto) 10.5 H, Eos % (Auto) 0.0, Baso % (Auto) 0.2, Absolute Neuts (auto) 7.3, Absolute Lymphs (auto) 0.88, Nucleated RBC % 0.5, Differential Comment SCANNED 10/19/19 22:25: MRSA (PCR) Negative 10/20/19 00:03: POC Glucose 241 H 10/20/19 05:00: WBC 8.2, RBC 2.71 L, Hgb 8.2 L, Hct 25.0 L, MCV 92.3, MCH 30.3, MCHC 32.8, RDW Std Deviation 52.8 H, RDW Coeff of Matthew 16.3 H, Plt Count 105 L, MPV 10.5, Immature Gran % (Auto) 0.700, Neut % (Auto) 79.0 H, Lymph % (Auto) 9.0 L, Thayer % (Auto) 10.8 H, Eos % (Auto) 0.1, Baso % (Auto) 0.4, Absolute Neuts (auto) 6.5, Absolute Lymphs (auto) 0.74 L, Nucleated RBC % 0.4 10/20/19 05:00: Sodium 138, Potassium 3.6, Chloride 106, Carbon Dioxide 26.0, Anion Gap 6, BUN 42 H, Creatinine 1.90 H, Estim Creat Clear Calc 38.01, Est GFR (MDRD) Af Amer 45 L, Est GFR (MDRD) Non-Af 37 L, BUN/Creatinine Ratio 22.1 H, Glucose 245 H, Calcium 7.9 L 10/20/19 06:05: POC Glucose 231 H Current Medications Acetaminophen (Tylenol) 650 mg PO Q6H PRN PRN PRN Reason: Pain Score 1-10/Temp > 100.7 F Last Admin: 10/20/19 02:31 Dose: 650 mg Documented by: Atorvastatin Calcium (Lipitor) 20 mg PO QHS [facility] Last Admin: 10/19/19 22:02 Dose: 20 mg Documented by: Cyanocobalamin (Vitamin B12) 500 mcg PO BID [facility] Last Admin: 10/20/19 09:38 Dose: 500 mcg Documented by: Glucagon () 1 mg IM .X1 PRN PRN Reason: Hypoglycemia Sodium Chloride () 500 mls @ 15 mls/hr IV PRN PRN PRN Reason: Blood Transfusion Last Infusion: 10/18/19 23:16 Dose: Infused Documented by: Sodium Chloride () 250 mls @ 15 mls/hr IV .[id number] PRN PRN Reason: Saline Flush Last Infusion: 10/20/19 03:31 Dose: 0 mls/hr Documented by: Sodium Chloride () 250 mls @ 15 mls/hr IV .[id number] PRN PRN Reason: Additional IVPB Infusion Dextrose (Dextrose 10%-Water) 250 mls @ 999 mls/hr IV .Q16M PRN; Protocol PRN Reason: HYPOGLYCEMIA Nitroglycerin/Dextrose () 250 mls @ 3 mls/hr CONT INF .[id number] [facility]; Protocol Last Titration: 10/18/19 21:00 Dose: 0 mcg/min, 0 mls/hr Documented by: Piperacillin Sod/Tazobactam (Sod 3.375 gm/ Sodium Chloride) 50 mls @ 12.5 mls/hr IV Q8 [facility] Last Admin: 10/20/19 05:42 Dose: 12.5 mls/hr Documented by: Vancomycin IV Pharmacy to Dose (1 ea/ Sodium Chloride) 500 mls @ 250 mls/hr IV PRN PRN; Protocol Vancomycin HCl 750 mg/ Sodium (Chloride) 265 mls @ 250 mls/hr IV Q12H [facility] Last Admin: 10/20/19 11:10 Dose: 250 mls/hr Documented by: Insulin Human Lispro (Humalog Kwikpen (Bkc)) 0 unit SC Q6 [facility]; Protocol Last Admin: 10/20/19 11:13 Dose: 4 units Documented by: Labetalol HCl (Trandate) 10 mg IV Q4H PRN PRN PRN Reason: sbp > 160 or DBP > 120 Levothyroxine Sodium (Synthroid) 150 mcg PO DAILY@0600 [facility] Last Admin: 10/20/19 05:07 Dose: 150 mcg Documented by: Metoprolol Tartrate (Lopressor (Beta Suleiman)) 25 mg PO BID [facility] Last Admin: 10/20/19 09:37 Dose: 25 mg Documented by: Nitroglycerin (Nitrostat) 0.4 mg SUBLINGUAL Q5M PRN PRN Reason: CARDIAC/CHEST PAIN Ondansetron HCl (Zofran) 4 mg IV Q8H PRN PRN PRN Reason: NAUSEA/VOMITING Pantoprazole Sodium (Protonix) 40 mg PO DAILY [facility] Last Admin: 10/20/19 09:40 Dose: 40 mg Documented by: Ranolazine (Ranexa) 1,000 mg PO BID [facility] Last Admin: 10/20/19 09:38 Dose: 1,000 mg Documented by: Sodium Chloride () 10 - 40 ml IV UD PRN PRN Reason: SALINE FLUSH Last Admin: 10/20/19 08:49 Dose: 10 ml Documented by: Tamsulosin HCl (Flomax) 0.4 mg PO DAILY@1730 [facility] Last Admin: 10/19/19 17:45 Dose: 0.4 mg Documented by: STROKE Vital Signs/Narrative: Vital Signs Pulse Resp BP Pulse Ox 10/20/19 10:00 98 24 H 161/68 H 94 10/20/19 09:37 96 10/20/19 09:00 96 24 H 156/71 H 95 Medical Necessity - Tobacco Use Smoking Status: Former smoker Assessment/Plan All Active Problems (Last Reviewed 10/18/19 @ 09:07 by Monica Davis PA-C) Acute blood loss anemia (Acute) Unstable angina (Acute) Renal insufficiency (Acute) H/O coronary artery bypass surgery (Resolved 04/1998) History of coronary artery stent placement (Resolved 01/22/15) Abdominal pain (Resolved) Back pain (Resolved) 1. NSTEMI: * troponin trended up to 20.3 * off ASA and clopidogrel. * DW Dr. Hernandez, medical mgmt for now. Hold antiplatelets until we can ensure that his Hg is stable. * on Ntg gtt 2. Acute on chronic anemia: * Patient transfused 4 units. * Hg now 8.2, down from the 9.1 yesterday. Continue to monitor H/H. Goal is to keep Hg greater than or equal to 8. * EGD unremarkable. * Had C-scope in July. Apparently, poor prep, but no glaring lesions. * Hg 12.8 on 08/24/2019 * Patient states that he has noticed blood in his semen, just a small amount--no george blood. Had mild hematuria once after intervention by Dr. Solis, none since. UA negative for hematuria 3. Chronic kidney dz 3 * 1.5 from 2018. Was 2 when he presented. Monitor. 4. DM2 * elevated and uncontrolled * check A1c * hold glimepiride for now. * continue SSI. * add basal for now. 5. SIRS * low grade temp of 38 * on empiric pip/tazo and vanc, continue for now. If culture negative, then could dc abx 6. acute HFpEF * EF 65% * start furosemide 40 BID * no ACEi/ARB given CKD 7. VTE prophylaxis: moderate risk. SCDs. Inpatient E&M: 08914 Subs Hosp L2
[2019-10-20 12:51] LABS: Bedside Glucose 248 mg/dL (70-110)
[2019-10-20 13:54] LABS: Hematocrit 27.6 % (40-54); Hemoglobin 9.2 g/dL (13.0-16.5)
[2019-10-20 14:24] LABS: Hemoglobin A1c 6.8 % (4.2-6.3)
[2019-10-20] MEDS: Tamsulosin HCl 0.4 MG Capsule PO (16:45)
[2019-10-20 17:06] LABS: Bedside Glucose 296 mg/dL (70-110)
[2019-10-20] MEDS: Atorvastatin Calcium 20 MG Tablet PO (21:30)
[2019-10-20 22:01] LABS: Bedside Glucose 254 mg/dL (70-110)
[2019-10-21] VITALS (30 sets, daily range): BP systolic 94–147; BP diastolic 40–75; PULSE 74–94; RESP 16–30; TEMP 36.7–37.3; O2SAT 90–100
--- NOTE | 2019-10-21 01:35 | SLEEP ---
pt saying he cannot tolerate pressures from using hospital's bi-level machine and requested to go back on his home unit. Pt's home Bilevel Unit was reset up for.
--- NOTE | 2019-10-21 02:05 | SLEEP ---
pt complaining of nasal congestion and unable to breathe through nose. Pt fitted with new full face mask from the sleep center.
[2019-10-21] MEDS: Levothyroxine 150 MCG Tablet PO (05:27)
[2019-10-21 05:41] LABS: Absolute Lymphocyte Count 0.74 X10^3/uL (0.83-4.51); Absolute Neutrophil Count 7.2 X10^3/uL (2.0-7.7); Basophil# 0.02 X10^3/uL; Basophil% 0.2 % (0-1); Eosinophil# 0.07 X10^3/uL; Eosinophils% 0.8 % (0-5); Hematocrit 25.8 % (40-54); Hemoglobin 8.4 g/dL (13.0-16.5); Lymphocyte # 0.74 X10^3/ul (4.0); Lymphocyte % 8.4 % (19-41); Mean Corp Hgb Conc 32.6 g/dL (32-36); Mean Corpuscular Hgb 30.4 pg (27.0-32.0); Mean Corpuscular Volume 93.5 fL (80-94); Mean Platelet Vol. 11.6 fl (6.2-12.0); Monocyte# 0.74 X10^3/uL; Monocyte% 8.4 % (0-10); NRBC Flagged by Analyzer 0 % (0-5); Neutrophil # 7.19 X10^3/uL (2.7-7.7); Neutrophil % 81.7 % (47-70); POSITIVE COUNT YES; RBC Distribution Width CV 16.2 % (11.6-14.6); RBC Distribution Width SD 53.4 fl (35.1-43.9); Red Blood Count 2.76 M/mm3 (4.6-6.2); White Blood Count 8.8 K/mm3 (4.4-11.0)
[2019-10-21 05:45] LABS: Differential Indicated SCAN CRITERIA MET
--- NOTE | 2019-10-21 06:00 | NURSING ---
Lab aware that they need to come and draw pts bmp this am.
[2019-10-21 06:03] LABS: Differential Comment SCANNED
[2019-10-21 06:04] LABS: Platelet Estimate SLT DEC (ADEQ)
[2019-10-21 07:09] LABS: Anion Gap 8 (5-15); BUN 39 mg/dL (7-18); BUN/Creat Ratio 18.9 RATIO (10-20); Calcium,Total 7.8 mg/dL (8.5-10.1); Chloride 102 mmol/L (98-107); Creatinine, Serum 2.06 mg/dL (0.70-1.30); EST Glomerular Filtration Rate 34 mL/min (>60); Est Glom Filt Rate - Afr Amer 41 mL/min (>60); Estimated Creatinine Clearance 35.05 ml/min; Glucose 253 mg/dL (74-106); Potassium 3.5 mmol/L (3.5-5.1); Sodium Level 137 mmol/L (136-145)
[2019-10-21] MEDS: Insulin Lispro 100 UNIT/ML INSULN.PEN SC ×3 (08:38→16:57)
[2019-10-21] MEDS: Pantoprazole Sodium 40 MG Tablet PO (09:21)
[2019-10-21] MEDS: Ranolazine 500 MG Tablet 1000 MG PO ×2 (09:21→21:48)
[2019-10-21] MEDS: Cyanocobalamin 500 MCG Tablet PO ×2 (09:21→21:48)
[2019-10-21] MEDS: Metoprolol Tartrate 25 MG Tablet PO ×2 (09:22→21:48)
[2019-10-21] MEDS: Furosemide 100 MG/10 ML Vial 60 MG IV (09:30)
--- NOTE | 2019-10-21 10:51 | PCM.PN.CARD ---
Subjectve: Patient seen and evaluated. Was apparently anxious during the night. Used CPAP mask. Objective: Vital Signs Temp Pulse Resp BP Pulse Ox 98.0 F 82 30 H 108/59 L 93 10/21/19 04:15 10/21/19 10:00 10/21/19 10:00 10/21/19 10:00 10/21/19 10:31 Oxygen Flow Rate (L/min) 6 Oxygen Delivery Method Nasal Cannula Weight: 233 lb 3.985 oz Body Mass Index (BMI) 32.1 Intake and Output for Last 24 Hours 10/19/19 10/20/19 10/21/19 23:59 23:59 23:59 Intake Total 1934.08 / 1934.08 2177.75 / 2417.75 725 / 725 Output Total 2900 / 2900 2400 / 2400 700 / 700 Balance -965.92 / -965.92 -222.25 / 17.75 25 / 25 General: Awake, Alert, Oriented x 3 HEENT: PERRL, EOMI, Sclera Non Icteric Neck: Supple, Good ROM, No Lymph Node Enlargement Lungs: Clear to auscultation Cardiovascular: Regular Rhythm, Normal S1, Normal S2, No Murmurs, No Rubs, No Gallops Vascular: No Carotid Bruits, Normal Femoral Pulses, Normal Radial Pulses, Normal Dorsalis Pedal Pulse, Normal Posterior Tibial Pulses Abdomen: Bowel Sounds Present, Soft, Non Tender, No HSM, No Organomegaly Extremities: No Cyanosis, No Clubbing, No edema Musculoskeletal: No Erythema Skin: No Rashes Lymphatic: No Lymph Node Enlargement Neurological: No Focal Motor or Sensory Deficit Psych/Mental Status: Appropriate 10/20/19 13:45: Hgb 9.2 L, Hct 27.6 L 10/20/19 13:45: Hemoglobin A1c 6.8 H 10/21/19 05:25: WBC 8.8, RBC 2.76 L, Hgb 8.4 L, Hct 25.8 L, MCV 93.5, MCH 30.4, MCHC 32.6, Plt Count TNP, MPV 11.6, Immature Gran % (Auto) 0.500, Neut % (Auto) 81.7 H, Lymph % (Auto) 8.4 L, [place] % (Auto) 8.4, Eos % (Auto) 0.8, Baso % (Auto) 0.2, Absolute Neuts (auto) 7.2, Nucleated RBC % 0 10/21/19 06:30: Sodium 137, Potassium 3.5, Chloride 102, Carbon Dioxide 27.0, Anion Gap 8, BUN 39 H, Creatinine 2.06 H, Est GFR (MDRD) Af Amer 41 L, Est GFR (MDRD) Non-Af 34 L, BUN/Creatinine Ratio 18.9, Glucose 253 H, Calcium 7.8 L Rhythm: EKG: ECHO: Stress Test: Cardiac Cath: PCI: CT Surgery: Holter monitor: EPS: PPM: CXR: Chest CT Scan: Medical Necessity - Tobacco Use Smoking Status: Former smoker Assessment/Plan 1. Unstable angina pectoris The patient did present with unstable angina pectoris. He has had indeterminate troponin I levels. He has had waxing and waning electrocardiographic changes. This raises concern of his underlying CAD/graft vessel process.His symptoms may be exacerbated by his marked anemia. He did have EKG changes with ST depression. At this time he appears to be stable. My recommendation is for us to continue to observe him. He has undergone a GI scope with no underlying upper GI pathology. I would recommend that we continue to watch him over the weekend and perhaps consider a cardiac catheterization on Wednesday. I have discussed this extensively with family. 2. CAD status post PCI status post CABG He does have a history of cardiovascular disease as noted. He states he has been doing well on medical therapy using nitroglycerin sublingual as needed. However based upon his current issues there are concerns regarding his underlying CAD/graft vessel process. Again he will continue his noninvasive evaluation. Over time he may need further invasive evaluation when he is clinically stable. In the interim continue with medical therapy with adjustment as needed. Of note there are concerns at this time, based upon his marked anemia and concern of gastrointestinal bleeding, using other agents such as antiplatelet therapy on her anticoagulant therapy. 3. Hyperlipidemia He will continue medical management as deemed appropriate. 4. Hypertension He will continue medical therapy with adjustment as needed take into consideration his renal insufficiency. 5. Diabetes mellitus He will continue under the care of internal medicine. 6. Anemia thought secondary to gastrointestinal bleeding He is markedly anemic. The exact etiology is not clear. We may need to evaluate hematologic cause. This has improved with his packed red blood cell transfusion. He did do well with the upper GI evaluation . We will continue to monitor his hemoglobin. Will hold off on any aspirin or clopidogrel for now. Thank you for allowing me to participate in the care of your patient. Please don't hesitate to call if any issues arise 7. Mild congestive heart failure He appears to have mild shortness of breath suggestive of mild congestive heart failure my recommendation is to give him intermittent Lasix and continue to monitor his creatinine. We will try and see whether he has reduced oxygen requirements. If this is so then we can transfer him to the progressive care unit. Above discussed with the nurses, family, and hospitalist.
--- NOTE | 2019-10-21 11:35 | PCM.PN.HOSP ---
Patient Problems: Active and Suspected Problems (Last Reviewed 10/18/19 @ 09:07 by Monica Davis PA-C) Acute blood loss anemia (Acute) Unstable angina (Acute) Renal insufficiency (Acute) Reason for Visit: NSTEMI Subjective: breathing well. Trouble sleeping at night since BiPAP masks did not fit, thought was able to get a mask that fit better. Vitals/I&O's: Vital Signs Temp Pulse Resp BP Pulse Ox 36.7 C 84 18 123/56 H 95 10/21/19 04:15 10/21/19 11:00 10/21/19 11:00 10/21/19 11:00 10/21/19 11:00 Oxygen Flow Rate (L/min) 4 Oxygen Delivery Method Nasal Cannula Weight: 105.8 kg Body Mass Index (BMI) 32.1 Intake and Output for Last 24 Hours 10/19/19 10/20/19 10/21/19 23:59 23:59 23:59 Intake Total 1934.08 / 1934.08 2177.75 / 2417.75 965 / 965 Output Total 2900 / 2900 2400 / 2400 1200 / 1200 Balance -965.92 / -965.92 -222.25 / 17.75 -235 / -235 General: Alert, No apparent distress HEENT: Atraumatic, Normocephalic Oral: Moist Mucosa, No Gingival or Mucosal Lesions/ Ulcerations Neck: No Nodes, Trachea Midline, - Lungs: Clear to auscultation, No rhonchi, No wheeze, - - coarse breath sounds bilaterally. Cardiovascular: Regular rate, Regular Rhythm, Normal S1, Normal S2, No murmurs Abdomen: Bowel Sounds Present, Soft, Non Tender, Non-Distended Extremities: No edema, No Calf Tenderness Psych/Mental Status: Normal Affect, Appropriate Laboratory Results 10/20/19 11:08: POC Glucose 248 H 10/20/19 13:45: Hgb 9.2 L, Hct 27.6 L 10/20/19 13:45: Hemoglobin A1c 6.8 H 10/20/19 16:41: POC Glucose 296 H 10/20/19 21:36: POC Glucose 254 H 10/21/19 05:25: WBC 8.8, RBC 2.76 L, Hgb 8.4 L, Hct 25.8 L, MCV 93.5, MCH 30.4, MCHC 32.6, RDW Std Deviation 53.4 H, RDW Coeff of Matthew 16.2 H, Plt Count TNP, MPV 11.6, Immature Gran % (Auto) 0.500, Neut % (Auto) 81.7 H, Lymph % (Auto) 8.4 L, [place] % (Auto) 8.4, Eos % (Auto) 0.8, Baso % (Auto) 0.2, Absolute Neuts (auto) 7.2, Absolute Lymphs (auto) 0.74 L, Nucleated RBC % 0, Differential Comment SCANNED, Platelet Estimate SLT 10/21/19 06:30: Sodium 137, Potassium 3.5, Chloride 102, Carbon Dioxide 27.0, Anion Gap 8, BUN 39 H, Creatinine 2.06 H, Estim Creat Clear Calc 35.05, Est GFR (MDRD) Af Amer 41 L, Est GFR (MDRD) Non-Af 34 L, BUN/Creatinine Ratio 18.9, Glucose 253 H, Calcium 7.8 L Current Medications Acetaminophen (Tylenol) 650 mg PO Q6H PRN PRN PRN Reason: Pain Score 1-10/Temp > 100.7 F Last Admin: 10/20/19 21:30 Dose: 650 mg Documented by: Atorvastatin Calcium (Lipitor) 20 mg PO QHS [facility] Last Admin: 10/20/19 21:30 Dose: 20 mg Documented by: Cyanocobalamin (Vitamin B12) 500 mcg PO BID [facility] Last Admin: 10/21/19 09:21 Dose: 500 mcg Documented by: Glucagon () 1 mg IM .X1 PRN PRN Reason: Hypoglycemia Sodium Chloride () 500 mls @ 15 mls/hr IV PRN PRN PRN Reason: Blood Transfusion Last Infusion: 10/18/19 23:16 Dose: Infused Documented by: Sodium Chloride () 250 mls @ 15 mls/hr IV .[id number] PRN PRN Reason: Saline Flush Last Infusion: 10/20/19 03:31 Dose: 0 mls/hr Documented by: Sodium Chloride () 250 mls @ 15 mls/hr IV .[id number] PRN PRN Reason: Additional IVPB Infusion Dextrose (Dextrose 10%-Water) 250 mls @ 999 mls/hr IV .Q16M PRN; Protocol PRN Reason: HYPOGLYCEMIA Nitroglycerin/Dextrose () 250 mls @ 3 mls/hr CONT INF .[id number] [facility]; Protocol Last Titration: 10/18/19 21:00 Dose: 0 mcg/min, 0 mls/hr Documented by: Piperacillin Sod/Tazobactam (Sod 3.375 gm/ Sodium Chloride) 50 mls @ 12.5 mls/hr IV Q8 [facility] Last Infusion: 10/21/19 10:25 Dose: Infused Documented by: Vancomycin IV Pharmacy to Dose (1 ea/ Sodium Chloride) 500 mls @ 250 mls/hr IV PRN PRN; Protocol Vancomycin HCl 750 mg/ Sodium (Chloride) 265 mls @ 250 mls/hr IV Q12H [facility] Last Infusion: 10/21/19 00:38 Dose: Infused Documented by: Insulin Human Lispro (Humalog Kwikpen (Bkc)) 0 unit SC TIDAC [facility]; Protocol Last Admin: 10/21/19 08:38 Dose: 4 units Documented by: Labetalol HCl (Trandate) 10 mg IV Q4H PRN PRN PRN Reason: sbp > 160 or DBP > 120 Levothyroxine Sodium (Synthroid) 150 mcg PO DAILY@0600 [facility] Last Admin: 10/21/19 05:27 Dose: 150 mcg Documented by: Metoprolol Tartrate (Lopressor (Beta Suleiman)) 25 mg PO BID [facility] Last Admin: 10/21/19 09:22 Dose: 25 mg Documented by: Nitroglycerin (Nitrostat) 0.4 mg SUBLINGUAL Q5M PRN PRN Reason: CARDIAC/CHEST PAIN Ondansetron HCl (Zofran) 4 mg IV Q8H PRN PRN PRN Reason: NAUSEA/VOMITING Pantoprazole Sodium (Protonix) 40 mg PO DAILY [facility] Last Admin: 10/21/19 09:21 Dose: 40 mg Documented by: Ranolazine (Ranexa) 1,000 mg PO BID [facility] Last Admin: 10/21/19 09:21 Dose: 1,000 mg Documented by: Sodium Chloride () 10 - 40 ml IV UD PRN PRN Reason: SALINE FLUSH Last Admin: 10/20/19 08:49 Dose: 10 ml Documented by: Tamsulosin HCl (Flomax) 0.4 mg PO DAILY@1730 [facility] Last Admin: 10/20/19 16:45 Dose: 0.4 mg Documented by: STROKE Vital Signs/Narrative: Vital Signs Pulse Resp BP BP Pulse Ox 10/21/19 11:00 84 18 123/56 H 95 10/21/19 10:31 93 10/21/19 10:00 82 30 H 108/59 L 97 10/21/19 09:22 93 147/64 H 10/21/19 09:00 94 28 H 147/64 H 93 10/21/19 08:00 89 19 H 120/59 L 94 10/21/19 07:54 80 Medical Necessity - Tobacco Use Smoking Status: Former smoker Assessment/Plan All Active Problems (Last Reviewed 10/18/19 @ 09:07 by Monica Davis PA-C) Acute blood loss anemia (Acute) Unstable angina (Acute) Renal insufficiency (Acute) H/O coronary artery bypass surgery (Resolved 04/1998) History of coronary artery stent placement (Resolved 01/22/15) Abdominal pain (Resolved) Back pain (Resolved) 1. NSTEMI: troponin trended up to 20.3 off ASA and clopidogrel. DW Dr. Hernandez, medical mgmt for now. Hold antiplatelets until we can ensure that his Hg is stable. 2. Acute on chronic anemia: Patient transfused 4 units. Hg has been variable. EGD unremarkable. Had C-scope in July. Apparently, poor prep, but no glaring lesions. Hg 12.8 on 08/24/2019 Patient states that he has noticed blood in his semen, just a small amount--no george blood. Had mild hematuria once after intervention by Dr. Solis, none since. UA negative for hematuria This anemia has been evaluated for several years now with no definitive etiology. He has not seen a field account manager before. Check haptoglobin and LDH. If abnormal, check Luiz. 3. Chronic kidney dz 3 1.5 from 2018. Was 2 when he presented. Monitor. 4. DM2 elevated and uncontrolled A1c 6.8 hold glimepiride for now. continue SSI. add glargine 5. SIRS low grade temp of 38 on empiric pip/tazo and vanc, continue for now. If culture negative, then could dc abx 6. acute HFpEF EF 65% start furosemide 40 BID no ACEi/ARB given CKD 7. VTE prophylaxis: moderate risk. SCDs. DW patient's Inpatient E&M: 01688 Subs Hosp L2
[2019-10-21 12:26] LABS: Bedside Glucose 278 mg/dL (70-110)
[2019-10-21 12:40] LABS: Vancomycin, Trough Level 15.8 ug/mL (5.0-15.0)
--- NOTE | 2019-10-21 12:44 | PCM.RX.CS ---
Consult Pharmacy has been consulted to manage selected antiobiotic: Vancomycin Type of Consult: Follow-up Suspected Infection: Pneumonia Prior Doses of Antibiotics Received/Current Regimen: VANCOMYCIN IV 750MG 10/19 @ 2334 Labs: Sodium 137 mmol/L (136-145) 10/21/19 06:30 Potassium 3.5 mmol/L (3.5-5.1) 10/21/19 06:30 Chloride 102 mmol/L (98-107) 10/21/19 06:30 Carbon Dioxide 27.0 mmol/L (21.0-32.0) 10/21/19 06:30 Anion Gap 8 (5-15) 10/21/19 06:30 BUN 39 mg/dL (7-18) H 10/21/19 06:30 Creatinine 2.06 mg/dL (0.70-1.30) H 10/21/19 06:30 Est GFR (MDRD) Af Amer 41 mL/min (>60) L 10/21/19 06:30 Est GFR (MDRD) Non-Af 34 mL/min (>60) L 10/21/19 06:30 BUN/Creatinine Ratio 18.9 RATIO (10-20) 10/21/19 06:30 Glucose 253 mg/dL (74-106) H 10/21/19 06:30 Vancomycin Trough 15.8 ug/mL (5.0-15.0) H 10/21/19 11:20 Microbiology: Microbiology 10/18/19 00:10 Stool Stool Occult Blood (STEFANY) - Final Estimated Creatinine Clearance: 40.2 Goal Trough: 15-20 mcg/mL Pharmacy Plan for Drug Dosin. 12 hour trough within therapeutic range at 15.8 mg/dL 2. Continue current dosing 3. Trough scheduled in 4 days per policy 4. Pharmacy Service will continue to monitor and adjust dosing as required. Labs to be done on [date and time ordered]: 10/25/19 @ 1100
[2019-10-21 13:59] LABS: LDH 553 U/L (87-241)
[2019-10-21] MEDS: 0.9% Saline Lock 10 ML Syringe IV ×3 (15:03→23:41)
[2019-10-21] MEDS: Tamsulosin HCl 0.4 MG Capsule PO (16:58)
[2019-10-21 17:30] LABS: Bedside Glucose 386 mg/dL (70-110)
[2019-10-21] MEDS: Atorvastatin Calcium 20 MG Tablet PO (21:48)
[2019-10-21] MEDS: Acetaminophen 325 MG Tablet 650 MG PO (21:59)
[2019-10-21 22:45] LABS: Bedside Glucose 295 mg/dL (70-110)
[2019-10-22] VITALS (21 sets, daily range): BP systolic 110–150; BP diastolic 52–74; PULSE 72–98; RESP 18–30; TEMP 36.4–38.1; O2SAT 81–96
[2019-10-22] MEDS: Acetaminophen 325 MG Tablet 650 MG PO ×2 (05:48→22:04)
[2019-10-22] MEDS: Levothyroxine 150 MCG Tablet PO (05:48)
[2019-10-22 06:03] LABS: Absolute Lymphocyte Count 0.56 X10^3/uL (0.83-4.51); Absolute Neutrophil Count 4.8 X10^3/uL (2.0-7.7); Basophil# 0.02 X10^3/uL; Basophil% 0.3 % (0-1); Eosinophil# 0.08 X10^3/uL; Eosinophils% 1.3 % (0-5); Hemoglobin 7.9 g/dL (13.0-16.5); Lymphocyte # 0.56 X10^3/ul (4.0); Lymphocyte % 9.3 % (19-41); Mean Corp Hgb Conc 32.9 g/dL (32-36); Mean Corpuscular Hgb 30.5 pg (27.0-32.0); Mean Corpuscular Volume 92.7 fL (80-94); Monocyte# 0.49 X10^3/uL; Monocyte% 8.1 % (0-10); NRBC Flagged by Analyzer 0 % (0-5); Neutrophil # 4.84 X10^3/uL (2.7-7.7); Neutrophil % 80.3 % (47-70); POSITIVE DIFFERENTIAL YES; Platelet Count 140 K/mm3 (150-450); RBC Distribution Width CV 16.2 % (11.6-14.6); RBC Distribution Width SD 53.1 fl (35.1-43.9); Red Blood Count 2.59 M/mm3 (4.6-6.2)
[2019-10-22] MEDS: Insulin Lispro 100 UNIT/ML INSULN.PEN SC ×3 (06:43→17:05)
[2019-10-22 06:51] LABS: Differential Indicated SCAN CRITERIA MET
[2019-10-22 06:56] LABS: Bedside Glucose 304 mg/dL (70-110)
[2019-10-22 07:07] LABS: ALB/GLOB Ratio 0.7 RATIO (0.9-2.4); AST(SGOT) 50 U/L (15-37); Alanine Aminotransfer ALT/SGPT 30 U/L (16-61); Albumin, Serum 2.3 g/dL (3.2-5.0); Alkaline Phosphatase 49 U/L (45-117); Anion Gap 8 (5-15); BUN 45 mg/dL (7-18); BUN/Creat Ratio 21.3 RATIO (10-20); Chloride 103 mmol/L (98-107); Creatinine, Serum 2.11 mg/dL (0.70-1.30); EST Glomerular Filtration Rate 33 mL/min (>60); Est Glom Filt Rate - Afr Amer 40 mL/min (>60); Estimated Creatinine Clearance 34.22 ml/min; Globulin 3.2 g/dL (2.2-4.2); Glucose 278 mg/dL (74-106); Potassium 3.3 mmol/L (3.5-5.1); Protein, Total 5.5 g/dL (6.4-8.2); Sodium Level 138 mmol/L (136-145)
[2019-10-22 08:49] LABS: Ferritin 208 ng/mL (26-388); International Normalized Ratio 1.3; Iron 19 ug/dL (65-175); Iron Binding Capacity,Total 217 ug/dL (250-450); PERCENT IRON SATURATION 8.8 % (15.0-55.0); Thyroid Stim Hormone (TSH) 6.98 uIU/mL (0.358-3.74)
--- NOTE | 2019-10-22 09:24 | PN.CARD_ITS ---
Subjectve: Patient seen and evaluated. Appears rather despondent. Shortness of breath improved. Overall mood also improved from yesterday. No chest pain noted Objective: Vital Signs Temp Pulse Resp BP Pulse Ox 98.7 F 98 18 124/52 H 94 10/22/19 09:21 10/22/19 09:21 10/22/19 09:21 10/22/19 09:21 10/22/19 09:21 Oxygen Flow Rate (L/min) 3 Oxygen Delivery Method Nasal Cannula Weight: 232 lb 9.403 oz Body Mass Index (BMI) 32.1 Intake and Output for Last 24 Hours 10/20/19 10/21/19 10/23/19 23:59 23:59 00:59 Intake Total 2177.75 / 2417.75 1640.25 / 2100.25 999.58 / 999.58 Output Total 2400 / 2400 1200 / 1200 Balance -222.25 / 17.75 440.25 / 900.25 999.58 / 999.58 General: Awake, Alert, Oriented x 3 HEENT: PERRL, EOMI, Sclera Non Icteric Neck: Supple, Good ROM, No Lymph Node Enlargement Lungs: Diminished [place] Bases Cardiovascular: Regular Rhythm, Normal S1, Normal S2, No Murmurs, No Rubs, No Gallops Vascular: No Carotid Bruits, Normal Femoral Pulses, Normal Radial Pulses, Normal Dorsalis Pedal Pulse, Normal Posterior Tibial Pulses Abdomen: Bowel Sounds Present, Soft, Non Tender, No HSM, No Organomegaly Extremities: No Cyanosis, No Clubbing, No edema Musculoskeletal: No Erythema Skin: No Rashes Neurological: No Focal Motor or Sensory Deficit Psych/Mental Status: Appropriate 10/22/19 05:09: WBC 6.0, RBC 2.59 L, Hgb 7.9 L, Hct 24.0 L, MCV 92.7, MCH 30.5, MCHC 32.9, Plt Count 140 L, MPV 12.0, Immature Gran % (Auto) 0.700, Neut % (Auto) 80.3 H, Lymph % (Auto) 9.3 L, [place] % (Auto) 8.1, Eos % (Auto) 1.3, Baso % (Auto) 0.3, Absolute Neuts (auto) 4.8, Nucleated RBC % 0 10/22/19 05:09: Sodium 138, Potassium 3.3 L, Chloride 103, Carbon Dioxide 27.0, Anion Gap 8, BUN 45 H, Creatinine 2.11 H, Est GFR (MDRD) Af Amer 40 L, Est GFR (MDRD) Non-Af 33 L, BUN/Creatinine Ratio 21.3 H, Glucose 278 H, Calcium 8.0 L, Total Bilirubin 1.90 H 10/22/19 07:45: Iron 19 L, TIBC 217 L, Iron Saturation 8.8 L, Ferritin 208 10/22/19 07:45: PT 16.0 H, INR 1.3 Rhythm: EKG: ECHO: Stress Test: Cardiac Cath: PCI: CT Surgery: Holter monitor: EPS: PPM: CXR: Chest CT Scan: Medical Necessity - Tobacco Use Smoking Status: Former smoker Assessment/Plan 1. Unstable angina pectoris The patient did present with unstable angina pectoris. He has had indeterminate troponin I levels. He has had waxing and waning electrocardiographic changes. This raises concern of his underlying CAD/graft vessel process.His symptoms may be exacerbated by his marked anemia. He did have EKG changes with ST depression. At this time he appears to be stable. My recommendation is for us to continue to observe him. He has undergone a GI scope with no underlying upper GI pathology. * His renal function appears to be worsening and he is anemic again. * At this time I am hesitant to perform a cardiac catheterization as the contrast media may worsen his renal function more. I would like this stabilized before we undertake this. I have explained this to him as well as the family and they understand and agree to proceed. Currently he remains pain-free. 2. CAD status post PCI status post CABG He does have a history of cardiovascular disease as noted. He states he has been doing well on medical therapy using nitroglycerin sublingual as needed. However based upon his current issues there are concerns regarding his underlying CAD/graft vessel process. Again he will continue his noninvasive evaluation. Over time he may need further invasive evaluation when he is clinically stable. In the interim continue with medical therapy with adjustment as needed. Of note there are concerns at this time, based upon his marked anemia and concern of gastrointestinal bleeding, using other agents such as antiplatelet therapy on her anticoagulant therapy. 3. Hyperlipidemia He will continue medical management as deemed appropriate. 4. Hypertension He will continue medical therapy with adjustment as needed take into consideration his renal insufficiency. 5. Diabetes mellitus He will continue under the care of internal medicine. 6. Anemia thought secondary to gastrointestinal bleeding He is markedly anemic. The exact etiology is not clear. We may need to evaluate hematologic cause. This has improved with his packed red blood cell transfusion. He did do well with the upper GI evaluation . We will continue to monitor his hemoglobin. Will hold off on any aspirin or clopidogrel for now. Thank you for allowing me to participate in the care of your patient. Please don't hesitate to call if any issues arise * Hematology consultation has been placed. * He will receive another unit of packed red blood cells today with intermittent Lasix 7. Mild congestive heart failure * He appears to have mild shortness of breath suggestive of mild congestive heart failure my recommendation is to give him intermittent Lasix and continue to monitor his creatinine. * We will try and see whether he has reduced oxygen requirements. * He has been transferred to the progressive care unit and appears to be doing well. * Will obtain a limited echo in a.m. to see whether there has been any worsening of his left ventricular function * At this particular time we are in a holding pattern to see whether his creatinine stabilizes and his anemia improves.
[2019-10-22] MEDS: Ranolazine 500 MG Tablet 1000 MG PO ×2 (09:27→22:03)
[2019-10-22] MEDS: Cyanocobalamin 500 MCG Tablet PO ×2 (09:27→22:03)
[2019-10-22] MEDS: Metoprolol Tartrate 50 MG Tablet PO ×2 (09:27→22:04)
[2019-10-22] MEDS: Pantoprazole Sodium 40 MG Tablet PO (09:27)
--- NOTE | 2019-10-22 09:27 | EKG12_ITS ---
Test Reason : AM EKG Blood Pressure : / mmHG Vent. Rate : 067 BPM Atrial Rate : 067 BPM P-R Int : 162 ms QRS Dur : 116 ms QT Int : 380 ms P-R-T Axes : 032 -35 154 degrees QTc Int : 401 ms Normal sinus rhythm Left axis deviation Incomplete left bundle branch block Marked ST abnormality, possible lateral subendocardial injury Abnormal ECG When compared with ECG of 22-OCT-2019 11:49, MANUAL COMPARISON REQUIRED, DATA IS UNCONFIRMED Confirmed by TOSHA MARTINEZ ([id number]), editorial cartoonist NIKITA ALEJANDRE ([id number]) on 10/26/2019 7:28:44 AM Referred By: ALENA Confirmed By:TOSHA MARTINEZ
[2019-10-22 10:59] LABS: Free T3 0.9 pg/mL (2.18-3.98); T4 Free Direct 1.26 ng/dL (0.76-1.46)
[2019-10-22] MEDS: 0.9% Saline Lock 10 ML Syringe IV ×5 (11:10→22:05)
[2019-10-22 12:10] LABS: Bedside Glucose 357 mg/dL (70-110)
--- NOTE | 2019-10-22 14:21 | PN_ITS ---
Patient Problems: Active and Suspected Problems (Last Reviewed 10/18/19 @ 09:07 by Monica Davis PA-C) Acute blood loss anemia (Acute) Unstable angina (Acute) Renal insufficiency (Acute) Reason for Visit: NSTEMI Subjective: awoke this AM short of breath, hot throat. symptoms resolved. currently feeling well. Vitals/I&O's: Vital Signs Temp Pulse Resp BP Pulse Ox 37.1 C 80 18 110/56 L 93 10/22/19 13:45 10/22/19 13:45 10/22/19 13:45 10/22/19 13:45 10/22/19 13:45 Oxygen Flow Rate (L/min) 4 Oxygen Delivery Method Nasal Cannula Weight: 105.5 kg Body Mass Index (BMI) 32.1 Intake and Output for Last 24 Hours 10/20/19 10/21/19 10/23/19 23:59 23:59 00:59 Intake Total 2177.75 / 2417.75 1640.25 / 2100.25 1728.58 / 1728.58 Output Total 2400 / 2400 1200 / 1200 1100 / 1100 Balance -222.25 / 17.75 440.25 / 900.25 628.58 / 628.58 General: Alert, No apparent distress HEENT: Atraumatic, Normocephalic Oral: Moist Mucosa, No Gingival or Mucosal Lesions/ Ulcerations Neck: No Nodes, Trachea Midline Lungs: Normal air movement, - - bibasilar crackles. Cardiovascular: Regular rate, Regular Rhythm, Normal S1, Normal S2, No murmurs Abdomen: Bowel Sounds Present, Soft, Non Tender, Non-Distended, No Hepato- splenomegaly Extremities: No edema, No Calf Tenderness Skin: No rashes, No breakdown Psych/Mental Status: Normal Affect, Appropriate Laboratory Results 10/21/19 06:30: Lactate Dehydrogenase 553 H 10/21/19 16:55: POC Glucose 386 H 10/21/19 21:45: POC Glucose 295 H 10/22/19 05:09: WBC 6.0, RBC 2.59 L, Hgb 7.9 L, Hct 24.0 L, MCV 92.7, MCH 30.5, MCHC 32.9, RDW Std Deviation 53.1 H, RDW Coeff of Matthew 16.2 H, Plt Count 140 L, MPV 12.0, Immature Gran % (Auto) 0.700, Neut % (Auto) 80.3 H, Lymph % (Auto) 9.3 L, [place] % (Auto) 8.1, Eos % (Auto) 1.3, Baso % (Auto) 0.3, Absolute Neuts (auto) 4.8, Absolute Lymphs (auto) 0.56 L, Nucleated RBC % 0, Differential Comment 10/22/19 05:09: Haptoglobin Pending 10/22/19 05:09: Sodium 138, Potassium 3.3 L, Chloride 103, Carbon Dioxide 27.0, Anion Gap 8, BUN 45 H, Creatinine 2.11 H, Estim Creat Clear Calc 34.22, Est GFR (MDRD) Af Amer 40 L, Est GFR (MDRD) Non-Af 33 L, BUN/Creatinine Ratio 21.3 H, Glucose 278 H, Calcium 8.0 L, Total Bilirubin 1.90 H, AST 50 H, ALT 30, Alkaline Phosphatase 49, Total Protein 5.5 L, Albumin 2.3 L, Globulin 3.2, Albumin/Globulin Ratio 0.7 L 10/22/19 06:41: POC Glucose 304 H 10/22/19 07:45: Iron 19 L, TIBC 217 L, Iron Saturation 8.8 L, Ferritin 208, TSH 6.98 H 10/22/19 07:45: Vitamin B12 Pending 10/22/19 07:45: RBC Folate Hemolysate Pending, RBC Folate Pending, Hematocrit Pending 10/22/19 07:45: Direct Antiglob Test NEG w/POLYSPECIFIC 10/22/19 07:45: Blood Type O POSITIVE, Antibody Screen NEGATIVE, Crossmatch See Detail 10/22/19 07:45: PT 16.0 H, INR 1.3 10/22/19 07:45: Free T4 1.26, Free T3 pg/dL 0.9 L 10/22/19 12:00: POC Glucose 357 H Current Medications Acetaminophen (Tylenol) 650 mg PO Q6H PRN PRN PRN Reason: Pain Score 1-10/Temp > 100.7 F Last Admin: 10/22/19 05:48 Dose: 650 mg Documented by: Atorvastatin Calcium (Lipitor) 80 mg PO QHS TAMAR Cyanocobalamin (Vitamin B12) 500 mcg PO BID TAMAR Last Admin: 10/22/19 09:27 Dose: 500 mcg Documented by: Glucagon () 1 mg IM .X1 PRN PRN Reason: Hypoglycemia Sodium Chloride () 500 mls @ 15 mls/hr IV PRN PRN PRN Reason: Blood Transfusion Last Infusion: 10/18/19 23:16 Dose: Infused Documented by: Sodium Chloride () 250 mls @ 15 mls/hr IV .[id number] PRN PRN Reason: Saline Flush Last Infusion: 10/22/19 10:45 Dose: 0 mls/hr Documented by: Sodium Chloride () 250 mls @ 15 mls/hr IV .[id number] PRN PRN Reason: Additional IVPB Infusion Dextrose (Dextrose 10%-Water) 250 mls @ 999 mls/hr IV .Q16M PRN; Protocol PRN Reason: HYPOGLYCEMIA Piperacillin Sod/Tazobactam (Sod 3.375 gm/ Sodium Chloride) 50 mls @ 12.5 mls/hr IV Q8 [facility] Last Infusion: 10/22/19 09:49 Dose: Infused Documented by: Vancomycin IV Pharmacy to Dose (1 ea/ Sodium Chloride) 500 mls @ 250 mls/hr IV PRN PRN; Protocol Vancomycin HCl 750 mg/ Sodium (Chloride) 265 mls @ 250 mls/hr IV Q12H [facility] Last Infusion: 10/22/19 11:49 Dose: Infused Documented by: Insulin Glargine (Lantus (Bk)) 10 units SC QHS [facility] Last Admin: 10/21/19 21:48 Dose: 10 unit Documented by: Insulin Human Lispro (Humalog Kwikpen ([facility])) 0 unit SC TIDAC [facility]; Protocol Last Admin: 10/22/19 12:03 Dose: 8 units Documented by: Labetalol HCl (Trandate) 10 mg IV Q4H PRN PRN PRN Reason: sbp > 160 or DBP > 120 Levothyroxine Sodium (Synthroid) 150 mcg PO DAILY@0600 [facility] Last Admin: 10/22/19 05:48 Dose: 150 mcg Documented by: Metoprolol Tartrate (Lopressor (Beta Suleiman)) 50 mg PO BID [facility] Last Admin: 10/22/19 09:27 Dose: 50 mg Documented by: Nitroglycerin (Nitrostat) 0.4 mg SUBLINGUAL Q5M PRN PRN Reason: CARDIAC/CHEST PAIN Ondansetron HCl (Zofran) 4 mg IV Q8H PRN PRN PRN Reason: NAUSEA/VOMITING Pantoprazole Sodium (Protonix) 40 mg PO DAILY [facility] Last Admin: 10/22/19 09:27 Dose: 40 mg Documented by: Ranolazine (Ranexa) 1,000 mg PO BID [facility] Last Admin: 10/22/19 09:27 Dose: 1,000 mg Documented by: Sodium Chloride () 10 - 40 ml IV UD PRN PRN Reason: SALINE FLUSH Last Admin: 10/22/19 13:31 Dose: 10 ml Documented by: Tamsulosin HCl (Flomax) 0.4 mg PO DAILY@1730 [facility] Last Admin: 10/21/19 16:58 Dose: 0.4 mg Documented by: STROKE Vital Signs/Narrative: Vital Signs Temp Pulse Resp BP Pulse Ox 10/22/19 13:45 37.1 C 80 18 110/56 L 93 10/22/19 13:30 36.9 C 80 18 110/54 L 93 Medical Necessity - Tobacco Use Smoking Status: Former smoker Assessment/Plan All Active Problems (Last Reviewed 10/18/19 @ 09:07 by Monica Davis PA-C) Acute blood loss anemia (Acute) Unstable angina (Acute) Renal insufficiency (Acute) H/O coronary artery bypass surgery (Resolved 04/1998) History of coronary artery stent placement (Resolved 01/22/15) Abdominal pain (Resolved) Back pain (Resolved) 1. NSTEMI: * troponin trended up to 20.3 * off ASA and clopidogrel given the anemia * DW Dr. Hernandez, medical mgmt for now. Hold antiplatelets until we can ensure that his Hg is stable. 2. Acute on chronic anemia: * Will transfuse another unit today, which we will have given him 5 units total during this admission. * EGD unremarkable. * Had C-scope in July. Apparently, poor prep, but no glaring lesions. * Hg 12.8 on 08/24/2019 * Patient states that he has noticed blood in his semen, just a small amount--no george blood. Had mild hematuria once after intervention by Dr. Solis, none since. UA negative for hematuria * This anemia has been evaluated for several years now with no definitive etiology. He has not seen a director fundraising before. Will consult hematology. * Check LDH elevated, iron low, ferritin normal, TSH elevated, but FT4 normal * Pending: haptoglobin, B12, folate, Luiz 3. Chronic kidney dz 3 * 1.5 from 2018. Was 2 when he presented. Monitor. 4. DM2 * elevated and uncontrolled * A1c 6.8 * hold glimepiride for now. * continue SSI. * add glargine 5. SIRS * cultures negative, will DC abx 6. acute HFpEF * EF 65% * no ACEi/ARB given CKD 7. VTE prophylaxis: moderate risk. SCDs. Greater than 35 minutes of which greater than 50% of the time was discussing and counseling the patient and his about the anemia, coronary artery disease. Explained that the etiology of his anemia is not yet known process is would be important. Explained that the cardiac work-ups can be put on hold until we get some stability with this anemia is that would require antiplatelet medications which given his anemia were not able to give at this time. Inpatient E&M: [id number] Subs Hosp L3
--- NOTE | 2019-10-22 15:54 | RAD_ITS ---
STUDY: X-RAY CHEST REASON FOR EXAM: Male, 74 years old. SOB TECHNIQUE: AP COMPARISON: 10/19/2019 FINDINGS: EKG leads project over the chest. Lungs continue to be hypoinflated. Peripheral dominant reticular and groundglass opacities are once again identified, increased along the periphery of the right upper lobe. Trace pleural effusions are suspected. There is mild cardiac enlargement. Normal mediastinum and nuria. Normal visualized pulmonary arteries. There is atherosclerotic calcification of the aortic arch with tortuosity. No acute bony process. There is no demonstrated abnormality of the visualized soft tissue structures of the upper abdomen. RAD/Chest 1 View (Portable) IMPRESSION: 1. Developing infiltrate in the lateral right upper lobe may represent localized edema or pneumonia. 2. Underlying interstitial fibrotic lung disease or chronic CHF. Electronically Signed: Bentley Reyes MD ([place]) at 16:06 EDT , Service support ,
--- NOTE | 2019-10-22 16:06 | CPS ---
bleed in thru the patients 6L home bipap machine. sats 91%.
[2019-10-22] MEDS: Furosemide 40 MG/4 ML Vial IV (16:38)
[2019-10-22] MEDS: Tamsulosin HCl 0.4 MG Capsule PO (17:06)
[2019-10-22 17:31] LABS: Bedside Glucose 285 mg/dL (70-110)
[2019-10-22 17:41] LABS: Base Excess -1 mmol/L (-2 to +2); Blood Gas Specimen Type ART; EPAP 7; IPAP 11; PO2 52 mmHG (75-100); SITE L Brachial; SO2 89 % (95-99); Time Given 1735; Total Carbon Dioxide 24 mmol/L; pCO2 32.7 mmHg (35-45); pH 7.46 (7.35-7.45)
--- NOTE | 2019-10-22 18:07 | NURSING ---
Patient was experiencing increased WOB. Sats in the 80s on 4LNC. RR increased. Wheezing. RT called to place patient on home BIPAP. MD notified and assessed patient at bedside. CXR and ABGs ordered. RT increased O2 via bipap. Pt improving.
[2019-10-22] MEDS: Atorvastatin Calcium 80 MG Tablet PO (22:03)
[2019-10-22 22:26] LABS: Bedside Glucose 278 mg/dL (70-110)
[2019-10-23] VITALS (15 sets, daily range): BP systolic 121–130; BP diastolic 56–82; PULSE 73–97; RESP 20–24; TEMP 36.6–36.9; O2SAT 88–100
--- NOTE | 2019-10-23 04:05 | CPS ---
Pt.'s home unit being used: 06/22 with an oxygen bleed-in of 10L
[2019-10-23] MEDS: Levothyroxine 150 MCG Tablet PO (05:28)
[2019-10-23 05:52] LABS: Absolute Lymphocyte Count 0.56 X10^3/uL (0.83-4.51); Absolute Neutrophil Count 5.7 X10^3/uL (2.0-7.7); Basophil# 0.03 X10^3/uL; Basophil% 0.4 % (0-1); Eosinophil# 0.07 X10^3/uL; Hematocrit 26.3 % (40-54); Hemoglobin 8.5 g/dL (13.0-16.5); Lymphocyte # 0.56 X10^3/ul (4.0); Mean Corp Hgb Conc 32.3 g/dL (32-36); Mean Corpuscular Hgb 29.7 pg (27.0-32.0); Mean Platelet Vol. 11.7 fl (6.2-12.0); Monocyte# 0.68 X10^3/uL; Monocyte% 9.7 % (0-10); NRBC Flagged by Analyzer 0.3 % (0-5); Neutrophil # 5.66 X10^3/uL (2.7-7.7); Neutrophil % 80.3 % (47-70); POSITIVE DIFFERENTIAL YES; Platelet Count 176 K/mm3 (150-450); RBC Distribution Width CV 16.2 % (11.6-14.6); RBC Distribution Width SD 53.1 fl (35.1-43.9); Red Blood Count 2.86 M/mm3 (4.6-6.2)
[2019-10-23 05:59] LABS: Differential Indicated SCAN CRITERIA MET
[2019-10-23 06:29] LABS: Anion Gap 10 (5-15); BUN 39 mg/dL (7-18); BUN/Creat Ratio 19.3 RATIO (10-20); Calcium,Total 8.2 mg/dL (8.5-10.1); Chloride 102 mmol/L (98-107); Creatinine, Serum 2.02 mg/dL (0.70-1.30); EST Glomerular Filtration Rate 35 mL/min (>60); Est Glom Filt Rate - Afr Amer 42 mL/min (>60); Estimated Creatinine Clearance 35.75 ml/min; Glucose 279 mg/dL (74-106); Potassium 3.5 mmol/L (3.5-5.1); Sodium Level 138 mmol/L (136-145)
[2019-10-23 06:45] LABS: Bedside Glucose 284 mg/dL (70-110)
[2019-10-23 06:48] LABS: Differential Comment SCANNED; Hypochromasia 1+; Microcytosis 1+; Platelet Estimate ADEQUATE (ADEQ)
--- NOTE | 2019-10-23 07:34 | PN.CARD_ITS ---
Subjectve: Patient seen and evaluated. Appears to be stable this morning. No chest pain. Breathing better. Using CPAP at night Objective: Vital Signs Temp Pulse Resp BP Pulse Ox 98.4 F 97 20 H 124/68 H 94 10/23/19 05:29 10/23/19 05:29 10/23/19 05:29 10/23/19 05:29 10/23/19 05:29 Oxygen Flow Rate (L/min) 9 Oxygen Delivery Method Bi-pap Weight: 231 lb 7.766 oz Body Mass Index (BMI) 32.1 Intake and Output for Last 24 Hours 10/21/19 10/22/19 10/23/19 22:59 23:59 23:59 Intake Total 410.83 / 410.83 Output Total 1000 / 1000 Balance -589.17 / -589.17 General: Awake, Alert, Oriented x 3 HEENT: PERRL, EOMI, Sclera Non Icteric Neck: Supple, Good ROM, No Lymph Node Enlargement Lungs: Clear to auscultation Cardiovascular: Regular Rhythm, Normal S1, Normal S2, No Murmurs, No Rubs, No Gallops Vascular: No Carotid Bruits, Normal Femoral Pulses, Normal Radial Pulses, Normal Dorsalis Pedal Pulse, Normal Posterior Tibial Pulses Abdomen: Bowel Sounds Present, Soft, Non Tender, No HSM, No Organomegaly Extremities: No Cyanosis, No Clubbing, No edema Musculoskeletal: No Erythema Lymphatic: No Lymph Node Enlargement Neurological: No Focal Motor or Sensory Deficit 10/22/19 07:45: Iron 19 L, TIBC 217 L, Iron Saturation 8.8 L, Ferritin 208 10/22/19 07:45: PT 16.0 H, INR 1.3 10/22/19 17:36: pH 7.46 H, Bicarbonate Actual 23.0, POC Total CO2 24, Base Excess -1, O2 Saturation 89 L, ABG pCO2 32.7 L, ABG pO2 52 L 10/23/19 05:22: Sodium 138, Potassium 3.5, Chloride 102, Carbon Dioxide 26.0, Anion Gap 10, BUN 39 H, Creatinine 2.02 H, Est GFR (MDRD) Af Amer 42 L, Est GFR (MDRD) Non-Af 35 L, BUN/Creatinine Ratio 19.3, Glucose 279 H, Calcium 8.2 L 10/23/19 05:22: WBC 7.0, RBC 2.86 L, Hgb 8.5 L, Hct 26.3 L, MCV 92.0, MCH 29.7, MCHC 32.3, Plt Count 176, MPV 11.7, Immature Gran % (Auto) 0.600, Neut % (Auto) 80.3 H, Lymph % (Auto) 8.0 L, [place] % (Auto) 9.7, Eos % (Auto) 1.0, Baso % (Auto) 0.4, Absolute Neuts (auto) 5.7, Nucleated RBC % 0.3 Rhythm: EKG: ECHO: Stress Test: Cardiac Cath: PCI: CT Surgery: Holter monitor: EPS: PPM: CXR: Chest CT Scan: Medical Necessity - Tobacco Use Smoking Status: Former smoker Assessment/Plan 1. Unstable angina pectoris 1.The patient did present with unstable angina pectoris. He has had indeterminate troponin I levels. He has had waxing and waning electrocardiographic changes. This raises concern of his underlying CAD/graft vessel process.His symptoms may be exacerbated by his marked anemia. He did have EKG changes with ST depression. These appear to have resolved. At this time he appears to be stable. My recommendation is for us to continue t o observe him. He has undergone a GI scope with no underlying upper GI pathology. * His renal function appears to be stable with a creatinine of 2. * At this time I am hesitant to perform a cardiac catheterization as the contrast media may worsen his renal function more. I would like this stabilized before we undertake this. I have explained this to him as well as the family and they understand and agree to proceed. Currently he remains pain-free. 2. CAD status post PCI status post CABG He does have a history of cardiovascular disease as noted. He states he has been doing well on medical therapy using nitroglycerin sublingual as needed. However based upon his current issues there are concerns regarding his underlying CAD/graft vessel process. Again he will continue his noninvasive evaluation. Over time he may need further invasive evaluation when he is clinically stable. In the interim continue with medical therapy with adjustment as needed. Of note there are concerns at this time, based upon his marked anemia and concern of gastrointestinal bleeding, using other agents such as antiplatelet therapy on her anticoagulant therapy. 3. Hyperlipidemia He will continue medical management as deemed appropriate. 4. Hypertension He will continue medical therapy with adjustment as needed take into consideration his renal insufficiency. 5. Diabetes mellitus He will continue under the care of internal medicine. 6. Anemia thought secondary to gastrointestinal bleeding He is markedly anemic. The exact etiology is not clear. We may need to evaluate hematologic cause. This has improved with his packed red blood cell transfusion. He did do well with the upper GI evaluation . We will continue to monitor his hemoglobin. Will hold off on any aspirin or clopidogrel for now. Thank you for allowing me to participate in the care of your patient. Please don't hesitate to call if any issues arise * Hematology consultation has been placed. * He did receive another unit of packed red blood cells with intermittent Lasix 7. Mild congestive heart failure * He appears to have mild shortness of breath suggestive of mild congestive heart failure my recommendation is to give him intermittent Lasix and continue to monitor his creatinine. * We will try and see whether he has reduced oxygen requirements. * He has been transferred to the progressive care unit and appears to be doing well. * Will obtain a limited echo in a.m. to see whether there has been any worsening of his left ventricular function * At this particular time we are in a holding pattern to see whether his creatinine stabilizes and his anemia improves. * * Thank you for allowing me to participate in the care of your patient. Please don't hesitate to call if any issues arise
--- NOTE | 2019-10-23 07:50 | CPS ---
10LPM BLEED INTO PT'S OWN BIPAP UNIT
[2019-10-23 08:43] LABS: Vitamin B12 1462 pg/mL (211-911)
[2019-10-23] MEDS: Ranolazine 500 MG Tablet 1000 MG PO ×2 (09:09→21:17)
[2019-10-23] MEDS: Pantoprazole Sodium 40 MG Tablet PO (09:09)
[2019-10-23] MEDS: Cyanocobalamin 500 MCG Tablet PO ×2 (09:09→21:17)
[2019-10-23] MEDS: Metoprolol Tartrate 50 MG Tablet PO ×2 (09:09→21:16)
[2019-10-23] MEDS: Furosemide 40 MG/4 ML Vial IV ×2 (09:13→18:29)
[2019-10-23] MEDS: 0.9% Saline Lock 10 ML Syringe IV ×2 (09:13→18:29)
[2019-10-23] MEDS: Insulin Lispro 100 UNIT/ML INSULN.PEN SC ×3 (09:24→16:45)
--- NOTE | 2019-10-23 11:25 | CT_ITS ---
STUDY: CT CHEST WITHOUT CONTRAST REASON FOR EXAM: Male, 74 years old. RESP FAILURE RADIATION DOSAGE (If Supplied By Facility): CTDIvol = ( 18.85 ) mGy, DLP = ( 626.48 ) mGycm TECHNIQUE: Transaxial imaging was performed without the administration of intravenous contrast material. Multiplanar coronal and sagittal images were reformatted. Individualized dose optimization techniques were used for this CT. COMPARISON: 10/22/2019 FINDINGS: Multilobar groundglass opacities and peribronchial thickening predominantly involving the bilateral upper, right middle lobes and lingula. Moderate volume bilateral pleural effusions with compressive atelectasis of the bilateral lower lobes. No cavitating process. No pneumothorax. There is mild cardiac enlargement. Sternal wires and mediastinal surgical clips compatible with prior CABG. There are multiple small lymph nodes within the mediastinum, which are normal in size and morphology most compatible with reactive lymph hyperplasia. Normal hilar regions. There is prominence of the pulmonary hilar arteries and peripheral pulmonary arteries, consistent with congestive heart failure (CHF). There is atherosclerotic calcification of the aortic arch with tortuosity and elongation of the aortic arch and descending thoracic aorta. There are multi-level degenerative changes of the thoracic spine. There is no demonstrated abnormality of the visualized upper abdomen. CT/Chest without Contrast IMPRESSION: 1. Multilobar groundglass opacities, bronchial wall thickening, vascular congestion bilateral pleural effusions likely represent cardiogenic pulmonary edema. Atypical (viral) infectious and cryptogenic organizing pneumonia also possible. 2. CABG Electronically Signed: Bentley Reyes MD ([place]) at 12:14 EDT , Service support ,
--- NOTE | 2019-10-23 11:27 | CON.PCM_ITS ---
Reason for Consult Date of Consultation: 10/23/19 Reason for Consultation: Acute hypoxic respiratory failure History of Present Illness: The patient is a 74-year-old male, with a history as outlined below, who initially presented to the hospital on October 16 with complaints of chest pain. The patient was subsequently admitted to the hospital with unstable angina and suspected acute blood loss anemia. The patient has been transfused a total of 5 units of packed red blood cells throughout this hospital course. The patient did have a ck hemoglobin level of 6.2 g/dL on admission. The patient did undergo upper endoscopy on October 18 which revealed a small hiatal hernia with a normal-appearing esophagus and stomach. The patient has also been followed by cardiology who has been hesitant to perform cardiac catheterization due to underlying renal insufficiency. Therefore, the patient has been medically managed from a cardiac perspective. Prior to this hospitalization, the patient reported that he did not utilize supplemental oxygen at his baseline. He does have a relatively limited smoking history of approximately 17 pack years from the time he was 18 years old, having quit at age 35. 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 He does have known obstructive sleep apnea and does utilize nocturnal BiPAP therapy. For approximately the last 48 hours, the patient has been essentially unable to be weaned from his noninvasive positive pressure ventilatory support. He states that every time he removes his BiPAP mask that within minutes his oxygen saturations fall. He denies the presence of a cough, chest tightness or wheezing. Plain film chest x-ray dated October 21 revealed what appeared to be developing pulmonary edema. A follow-up noncontrasted chest CT revealed bilateral groundglass opacities and moderate size pleural effusions. BNP was also elevated to 3122. 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) Occlusion and stenosis of bilateral carotid arteries (Chronic) Central retinal vein occlusion of left eye (Chronic 05/08/19) Essential (primary) hypertension (Chronic) HLD (hyperlipidemia) (Chronic) Medical History: Medical History (Last Reviewed 10/18/19 @ 09:07 by IAN ZhaoC) 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) I25.119 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 [Ecotrin] 81 mg PO DAILY@0800 05/22/13 Pioglitazone HCl 45 mg PO DAILY 01/22/15 Cyanocobalamin (Vitamin B-12) 500 mcg PO BID 01/05/17 [Vitamin B-12] glimepiride 4 mg tablet 4 mg PO BID tab 12/01/17 levothyroxine 150 mcg capsule 150 mcg PO DAILY 07/12/18 nitroglycerin 0.4 mg sublingual 0.4 mg SUBLINGUAL Q5M PRN #25 tab 07/19/18 tablet alfuzosin 10 mg tablet,extended 10 mg PO DAILY 01/11/19 release 24 hr ascorbate calcium (vitamin C) 500 500 mg PO DAILY 08/17/19 mg tablet ferrous sulfate 325 mg (65 mg 325 mg PO BID 08/17/19 iron) tablet Amlodipine Besylate [Norvasc] 5 mg PO QDAY 10/18/19 Clopidogrel Bisulfate [Clopidogrel] 75 mg PO DAILY 10/18/19 Isosorbide Mononitrate [Isosorbide 60 mg PO BID 10/18/19 Mononitrate ER] Losartan Potassium [Cozaar] 25 mg PO QDAY 10/18/19 Metoprolol Tartrate 25 mg PO BID 10/18/19 Ranolazine [Ranexa] 1,000 mg PO BID 10/18/19 Simvastatin 40 mg PO QHS 10/18/19 Surgical History: Surgical History (Last Reviewed 10/18/19 @ 09:08 by Monica Davis PA-C) H/O coronary artery bypass surgery (Resolved) Onset Date: 04/1998 Z95.1 CABG x 2 PAZ-LAD, SVG-OM Apr 1998 History of coronary artery stent placement (Resolved) Onset Date: 01/22/15 Z95.5 [id number] w/ 4.0 x 15 mm Stent 01/22/15 History of left heart catheterization Onset Date: 01/06/17 Z98.890 Surgical History: - - CABG, lithotripsy Psychiatric History: No pertinent psych hx Smoking Status: Former smoker - *Family History Maternal Family History: Family History (Last Reviewed 10/18/19 @ 09:08 by Monica Davis PA-C) Father Diabetes Mother Cancer Brother CAD (coronary artery disease) HLD (hyperlipidemia) Myocardial infarction Sister Myocardial infarction CAD (coronary artery disease) Hypertension HLD (hyperlipidemia) Sister Diabetes Daughter Arthritis Son Arthritis Brother Myocardial infarction History Items: No pertinent history Review of Systems Constitutional: Denies: Chills, Fever Eyes: Denies: Blurred vision, Double vision HEENT: Denies: Head Aches, Sinus Congestion, Sinus Drainage Cardiovascular: Denies: Chest Pain, Palpitations Respiratory: Reports: Shortness of Breath. Denies: Cough Gastrointestinal: Denies: Abdominal Pain, Nausea, Vomiting Genitourinary: Denies: Dysuria Musculoskeletal: Denies: Joint Pain, Joint Tenderness Skin: Denies: Rash, Wounds Neurological: Denies: Numbness, Tingling, Focal weakness Psychiatric: Denies: Anxiety, Depression, Homicidal Ideations, Suicidal Ideations Hematologic/ Lymphatic: Reports: Anemia, Hx of blood transfusion Patient Problems: Active and Suspected Problems (Last Reviewed 10/18/19 @ 09:07 by Monica Davis PA-C) Acute blood loss anemia (Acute) Unstable angina (Acute) Renal insufficiency (Acute) Objective: The patient's most recent lab work, culture data and imaging studies have all been personally reviewed. - Physical Exam Vitals/I&O's: Vital Signs Temp Pulse Resp BP Pulse Ox 97.8 F 88 20 H 130/60 H 96 10/23/19 09:02 10/23/19 09:09 10/23/19 09:02 10/23/19 09:02 10/23/19 09:02 Oxygen Flow Rate (L/min) 8 Oxygen Delivery Method CPAP Weight: 231 lb 7.766 oz Body Mass Index (BMI) 32.1 Intake and Output for Last 24 Hours 10/21/19 10/22/19 10/23/19 22:59 23:59 23:59 Intake Total 410.83 / 410.83 Output Total 1000 / 1000 Balance -589.17 / -589.17 General: Alert, Cooperative, No apparent distress, - - BIPAP mask in place. is present at the bedside. HEENT: Atraumatic, PERRLA, Normocephalic Oral: No Gingival or Mucosal Lesions/ Ulcerations Neck: Supple, No Nodes, Trachea Midline Lungs: Diminished, Rales Cardiovascular: Regular rate, Regular Rhythm, Normal S1, Normal S2, No murmurs Abdomen: Bowel Sounds Present, Soft, Non Tender Extremities: No clubbing, No cyanosis, No edema Skin: No breakdown Musculoskeletal: No Tenderness to Palpation of Joints or Extremities Lymphatic: No Cervical, Supraclavicular, or Inguinal Adenopathy Neurological: Neuro grossly intact Psych/Mental Status: Normal Affect, Appropriate Labs (Last 48 Hours) 10/21/19 10/21/19 10/21/19 06:30 11:20 12:04 WBC RBC Hgb Hct MCV MCH MCHC RDW Std Deviation RDW Coeff of Matthew Plt Count MPV Immature Gran % (Auto) Neut % (Auto) Lymph % (Auto) [place] % (Auto) Eos % (Auto) Baso % (Auto) Absolute Neuts (auto) Absolute Lymphs (auto) Nucleated RBC % Differential Comment Platelet Estimate Hypochromasia Microcytosis Haptoglobin PT INR Specimen Type Sample Site pH Bicarbonate Actual POC Total CO2 Base Excess O2 Saturation ABG pCO2 ABG pO2 O2 Delivery Device EPAP IPAP Blood Gas Notified Whom Blood Gas Notified Time Sodium Potassium Chloride Carbon Dioxide Anion Gap BUN Creatinine Estim Creat Clear Calc Est GFR (MDRD) Af Amer Est GFR (MDRD) Non-Af BUN/Creatinine Ratio Glucose Calcium Iron TIBC Iron Saturation Ferritin Total Bilirubin AST ALT Alkaline Phosphatase Lactate Dehydrogenase 553 H Total Protein Albumin Globulin Albumin/Globulin Ratio Vitamin B12 RBC Folate Hemolysate RBC Folate Hematocrit TSH Free T4 Free T3 pg/dL Vancomycin Trough 15.8 H POC Glucose 278 H Blood Type Antibody Screen Direct Antiglob Test Crossmatch 0310/21/19 10/22/19 16:55 21:45 05:09 WBC 6.0 RBC 2.59 L Hgb 7.9 L Hct 24.0 L MCV 92.7 MCH 30.5 MCHC 32.9 RDW Std Deviation 53.1 H RDW Coeff of Matthew 16.2 H Plt Count 140 L MPV 12.0 Immature Gran % (Auto) 0.700 Neut % (Auto) 80.3 H Lymph % (Auto) 9.3 L [place] % (Auto) 8.1 Eos % (Auto) 1.3 Baso % (Auto) 0.3 Absolute Neuts (auto) 4.8 Absolute Lymphs (auto) 0.56 L Nucleated RBC % 0 Differential Comment Platelet Estimate Hypochromasia Microcytosis Haptoglobin PT INR Specimen Type Sample Site pH Bicarbonate Actual POC Total CO2 Base Excess O2 Saturation ABG pCO2 ABG pO2 O2 Delivery Device EPAP IPAP Blood Gas Notified Whom Blood Gas Notified Time Sodium Potassium Chloride Carbon Dioxide Anion Gap BUN Creatinine Estim Creat Clear Calc Est GFR (MDRD) Af Amer Est GFR (MDRD) Non-Af BUN/Creatinine Ratio Glucose Calcium Iron TIBC Iron Saturation Ferritin Total Bilirubin AST ALT Alkaline Phosphatase Lactate Dehydrogenase Total Protein Albumin Globulin Albumin/Globulin Ratio Vitamin B12 RBC Folate Hemolysate RBC Folate Hematocrit TSH Free T4 Free T3 pg/dL Vancomycin Trough POC Glucose 386 H 295 H Blood Type Antibody Screen Direct Antiglob Test Crossmatch 10/22/19 10/22/19 10/22/19 05:09 05:09 06:41 WBC RBC Hgb Hct MCV MCH MCHC RDW Std Deviation RDW Coeff of Matthew Plt Count MPV Immature Gran % (Auto) Neut % (Auto) Lymph % (Auto) [place] % (Auto) Eos % (Auto) Baso % (Auto) Absolute Neuts (auto) Absolute Lymphs (auto) Nucleated RBC % Differential Comment Platelet Estimate Hypochromasia Microcytosis Haptoglobin Pending PT INR Specimen Type Sample Site pH Bicarbonate Actual POC Total CO2 Base Excess O2 Saturation ABG pCO2 ABG pO2 O2 Delivery Device EPAP IPAP Blood Gas Notified Whom Blood Gas Notified Time Sodium 138 Potassium 3.3 L Chloride 103 Carbon Dioxide 27.0 Anion Gap 8 BUN 45 H Creatinine 2.11 H Estim Creat Clear Calc 34.22 Est GFR (MDRD) Af Amer 40 L Est GFR (MDRD) Non-Af 33 L BUN/Creatinine Ratio 21.3 H Glucose 278 H Calcium 8.0 L Iron TIBC Iron Saturation Ferritin Total Bilirubin 1.90 H AST 50 H ALT 30 Alkaline Phosphatase 49 Lactate Dehydrogenase Total Protein 5.5 L Albumin 2.3 L Globulin 3.2 Albumin/Globulin Ratio 0.7 L Vitamin B12 RBC Folate Hemolysate RBC Folate Hematocrit TSH Free T4 Free T3 pg/dL Vancomycin Trough POC Glucose 304 H Blood Type Antibody Screen Direct Antiglob Test Crossmatch 10/22/19 10/22/19 10/22/19 07:45 07:45 07:45 WBC RBC Hgb Hct MCV MCH MCHC RDW Std Deviation RDW Coeff of Matthew Plt Count MPV Immature Gran % (Auto) Neut % (Auto) Lymph % (Auto) [place] % (Auto) Eos % (Auto) Baso % (Auto) Absolute Neuts (auto) Absolute Lymphs (auto) Nucleated RBC % Differential Comment Platelet Estimate Hypochromasia Microcytosis Haptoglobin PT INR Specimen Type Sample Site pH Bicarbonate Actual POC Total CO2 Base Excess O2 Saturation ABG pCO2 ABG pO2 O2 Delivery Device EPAP IPAP Blood Gas Notified Whom Blood Gas Notified Time Sodium Potassium Chloride Carbon Dioxide Anion Gap BUN Creatinine Estim Creat Clear Calc Est GFR (MDRD) Af Amer Est GFR (MDRD) Non-Af BUN/Creatinine Ratio Glucose Calcium Iron 19 L TIBC 217 L Iron Saturation 8.8 L Ferritin 208 Total Bilirubin AST ALT Alkaline Phosphatase Lactate Dehydrogenase Total Protein Albumin Globulin Albumin/Globulin Ratio Vitamin B12 1462 H RBC Folate Hemolysate Pending RBC Folate Pending Hematocrit Pending TSH 6.98 H Free T4 Free T3 pg/dL Vancomycin Trough POC Glucose Blood Type Antibody Screen Direct Antiglob Test Crossmatch 10/22/19 10/22/19 10/22/19 07:45 07:45 07:45 WBC RBC Hgb Hct MCV MCH MCHC RDW Std Deviation RDW Coeff of Matthew Plt Count MPV Immature Gran % (Auto) Neut % (Auto) Lymph % (Auto) [place] % (Auto) Eos % (Auto) Baso % (Auto) Absolute Neuts (auto) Absolute Lymphs (auto) Nucleated RBC % Differential Comment Platelet Estimate Hypochromasia Microcytosis Haptoglobin PT 16.0 H INR 1.3 Specimen Type Sample Site pH Bicarbonate Actual POC Total CO2 Base Excess O2 Saturation ABG pCO2 ABG pO2 O2 Delivery Device EPAP IPAP Blood Gas Notified Whom Blood Gas Notified Time Sodium Potassium Chloride Carbon Dioxide Anion Gap BUN Creatinine Estim Creat Clear Calc Est GFR (MDRD) Af Amer Est GFR (MDRD) Non-Af BUN/Creatinine Ratio Glucose Calcium Iron TIBC Iron Saturation Ferritin Total Bilirubin AST ALT Alkaline Phosphatase Lactate Dehydrogenase Total Protein Albumin Globulin Albumin/Globulin Ratio Vitamin B12 RBC Folate Hemolysate RBC Folate Hematocrit TSH Free T4 Free T3 pg/dL Vancomycin Trough POC Glucose Blood Type O POSITIVE Antibody Screen NEGATIVE Direct Antiglob Test NEG w/POLYSPECIFIC Crossmatch See Detail 10/22/19 10/22/19 10/22/19 07:45 12:00 17:02 WBC RBC Hgb Hct MCV MCH MCHC RDW Std Deviation RDW Coeff of Matthew Plt Count MPV Immature Gran % (Auto) Neut % (Auto) Lymph % (Auto) [place] % (Auto) Eos % (Auto) Baso % (Auto) Absolute Neuts (auto) Absolute Lymphs (auto) Nucleated RBC % Differential Comment Platelet Estimate Hypochromasia Microcytosis Haptoglobin PT INR Specimen Type Sample Site pH Bicarbonate Actual POC Total CO2 Base Excess O2 Saturation ABG pCO2 ABG pO2 O2 Delivery Device EPAP IPAP Blood Gas Notified Whom Blood Gas Notified Time Sodium Potassium Chloride Carbon Dioxide Anion Gap BUN Creatinine Estim Creat Clear Calc Est GFR (MDRD) Af Amer Est GFR (MDRD) Non-Af BUN/Creatinine Ratio Glucose Calcium Iron TIBC Iron Saturation Ferritin Total Bilirubin AST ALT Alkaline Phosphatase Lactate Dehydrogenase Total Protein Albumin Globulin Albumin/Globulin Ratio Vitamin B12 RBC Folate Hemolysate RBC Folate Hematocrit TSH Free T4 1.26 Free T3 pg/dL 0.9 L Vancomycin Trough POC Glucose 357 H 285 H Blood Type Antibody Screen Direct Antiglob Test Crossmatch 10/22/19 10/22/19 10/23/19 17:36 22:02 05:22 WBC RBC Hgb Hct MCV MCH MCHC RDW Std Deviation RDW Coeff of Matthew Plt Count MPV Immature Gran % (Auto) Neut % (Auto) Lymph % (Auto) [place] % (Auto) Eos % (Auto) Baso % (Auto) Absolute Neuts (auto) Absolute Lymphs (auto) Nucleated RBC % Differential Comment Platelet Estimate Hypochromasia Microcytosis Haptoglobin PT INR Specimen Type ART Sample Site L Brachial pH 7.46 H Bicarbonate Actual 23.0 POC Total CO2 24 Base Excess -1 O2 Saturation 89 L ABG pCO2 32.7 L ABG pO2 52 L O2 Delivery Device Bi / C PAP EPAP 7 IPAP 11 Blood Gas Notified Whom [facility] Blood Gas Notified Time 1735 Sodium 138 Potassium 3.5 Chloride 102 Carbon Dioxide 26.0 Anion Gap 10 BUN 39 H Creatinine 2.02 H Estim Creat Clear Calc 35.75 Est GFR (MDRD) Af Amer 42 L Est GFR (MDRD) Non-Af 35 L BUN/Creatinine Ratio 19.3 Glucose 279 H Calcium 8.2 L Iron TIBC Iron Saturation Ferritin Total Bilirubin AST ALT Alkaline Phosphatase Lactate Dehydrogenase Total Protein Albumin Globulin Albumin/Globulin Ratio Vitamin B12 RBC Folate Hemolysate RBC Folate Hematocrit TSH Free T4 Free T3 pg/dL Vancomycin Trough POC Glucose 278 H Blood Type Antibody Screen Direct Antiglob Test Crossmatch 10/23/19 10/23/19 05:22 06:26 WBC 7.0 RBC 2.86 L Hgb 8.5 L Hct 26.3 L MCV 92.0 MCH 29.7 MCHC 32.3 RDW Std Deviation 53.1 H RDW Coeff of Matthew 16.2 H Plt Count 176 MPV 11.7 Immature Gran % (Auto) 0.600 Neut % (Auto) 80.3 H Lymph % (Auto) 8.0 L [place] % (Auto) 9.7 Eos % (Auto) 1.0 Baso % (Auto) 0.4 Absolute Neuts (auto) 5.7 Absolute Lymphs (auto) 0.56 L Nucleated RBC % 0.3 Differential Comment SCANNED Platelet Estimate ADEQUATE Hypochromasia 1+ Microcytosis 1+ Haptoglobin PT INR Specimen Type Sample Site pH Bicarbonate Actual POC Total CO2 Base Excess O2 Saturation ABG pCO2 ABG pO2 O2 Delivery Device EPAP IPAP Blood Gas Notified Whom Blood Gas Notified Time Sodium Potassium Chloride Carbon Dioxide Anion Gap BUN Creatinine Estim Creat Clear Calc Est GFR (MDRD) Af Amer Est GFR (MDRD) Non-Af BUN/Creatinine Ratio Glucose Calcium Iron TIBC Iron Saturation Ferritin Total Bilirubin AST ALT Alkaline Phosphatase Lactate Dehydrogenase Total Protein Albumin Globulin Albumin/Globulin Ratio Vitamin B12 RBC Folate Hemolysate RBC Folate Hematocrit TSH Free T4 Free T3 pg/dL Vancomycin Trough POC Glucose 284 H Blood Type Antibody Screen Direct Antiglob Test Crossmatch Microbiology 10/19/19 21:40 Blood Culture (Wb) - Left Forearm Blood Culture - Preliminary No growth in 48 hours. 10/19/19 21:30 Blood Culture (Wb) - Right Wrist Blood Culture - Preliminary No growth in 48 hours. Clinical Impression(s) from Imaging Studies Chest X-Ray 10/17/19 23:37 IMPRESSION: Basilar atelectasis/scarring. There is no focal consolidation identified. Electronically Signed: Oliver Chanelle, at 0:07 EST Tel , Service support , Chest X-Ray 10/19/19 21:14 IMPRESSION: Limited inspiration without major interval change. Electronically Signed: Rogers Young DO at 22:05 EST Tel [phone], Service support , Chest X-Ray 10/22/19 15:54 IMPRESSION: 1. Developing infiltrate in the lateral right upper lobe may represent localized edema or pneumonia. 2. Underlying interstitial fibrotic lung disease or chronic CHF. Electronically Signed: Bentley Reyes MD ([place]) at 16:06 EDT , Service support , Current Medications Acetaminophen (Tylenol) 650 mg PO Q6H PRN PRN PRN Reason: Pain Score 1-10/Temp > 100.7 F Last Admin: 10/22/19 22:04 Dose: 650 mg Documented by: Atorvastatin Calcium (Lipitor) 80 mg PO QHS [facility] Last Admin: 10/22/19 22:03 Dose: 80 mg Documented by: Cyanocobalamin (Vitamin B12) 500 mcg PO BID [facility] Last Admin: 10/23/19 09:09 Dose: 500 mcg Documented by: Furosemide (Lasix) 40 mg IV BID@1000,1800 [facility] Last Admin: 10/23/19 09:13 Dose: 40 mg Documented by: Glucagon () 1 mg IM .X1 PRN PRN Reason: Hypoglycemia Sodium Chloride () 500 mls @ 15 mls/hr IV PRN PRN PRN Reason: Blood Transfusion Last Infusion: 10/18/19 23:16 Dose: Infused Documented by: Sodium Chloride () 250 mls @ 15 mls/hr IV .[id number] PRN PRN Reason: Saline Flush Last Infusion: 10/22/19 10:45 Dose: 0 mls/hr Documented by: Sodium Chloride () 250 mls @ 15 mls/hr IV .[id number] PRN PRN Reason: Additional IVPB Infusion Dextrose (Dextrose 10%-Water) 250 mls @ 999 mls/hr IV .Q16M PRN; Protocol PRN Reason: HYPOGLYCEMIA Insulin Glargine (Lantus ([facility])) 10 units SC QHS [facility] Last Admin: 10/22/19 22:03 Dose: 10 unit Documented by: Insulin Human Lispro (Humalog Kwikpen ([facility])) 0 unit SC TIDAC [facility]; Protocol Last Admin: 10/23/19 09:24 Dose: 8 units Documented by: Labetalol HCl (Trandate) 10 mg IV Q4H PRN PRN PRN Reason: sbp > 160 or DBP > 120 Levothyroxine Sodium (Synthroid) 150 mcg PO DAILY@0600 [facility] Last Admin: 10/23/19 05:28 Dose: 150 mcg Documented by: Metoprolol Tartrate (Lopressor (Beta Suleiman)) 50 mg PO BID [facility] Last Admin: 10/23/19 09:09 Dose: 50 mg Documented by: Nitroglycerin (Nitrostat) 0.4 mg SUBLINGUAL Q5M PRN PRN Reason: CARDIAC/CHEST PAIN Ondansetron HCl (Zofran) 4 mg IV Q8H PRN PRN PRN Reason: NAUSEA/VOMITING Pantoprazole Sodium (Protonix) 40 mg PO DAILY [facility] Last Admin: 10/23/19 09:09 Dose: 40 mg Documented by: Ranolazine (Ranexa) 1,000 mg PO BID [facility] Last Admin: 10/23/19 09:09 Dose: 1,000 mg Documented by: Sodium Chloride () 10 - 40 ml IV UD PRN PRN Reason: SALINE FLUSH Last Admin: 10/23/19 09:13 Dose: 10 ml Documented by: Tamsulosin HCl (Flomax) 0.4 mg PO DAILY@1730 [facility] Last Admin: 10/22/19 17:06 Dose: 0.4 mg Documented by: Assessment/Plan All Active Problems (Last Reviewed 10/18/19 @ 09:07 by Monica Davis PA-C) Anemia (Acute) Acute blood loss anemia (Acute) Unstable angina (Acute) Renal insufficiency (Acute) H/O coronary artery bypass surgery (Resolved 04/1998) History of coronary artery stent placement (Resolved 01/22/15) Abdominal pain (Resolved) Back pain (Resolved) RECOMMENDATIONS: 1. Obtain noncontrasted chest CT. 2. Check BNP level. 3. Obtain respiratory viral panel. 4. If BNP is elevated, consider increasing Lasix regimen. If worsening renal function ensues, nephrology consultation would be warranted. 5. Continue BiPAP therapy as tolerated. Wean FiO2 to maintain oxygen saturations at or above 90%. IMPRESSIONS: 1. Acute hypoxemic respiratory failure The patient was initially admitted to the hospital in the setting of unstable angina and blood loss anemia of unclear etiology. The patient was transfused blood products and has been medically managed from a cardiac perspective. Unfortunately, the patient's respiratory status has declined over the course of this hospitalization. The patient's chest x-ray is concerning for underlying pulmonary edema. I do have a low clinical index of suspicion for an underlying pulmonary infectious process. Based on the chest imaging findings, will obtain CT chest for further clarification. In addition, will check BNP and respiratory viral panel. If BNP is significantly elevated, may need to consider escalation in the patient's Lasix regimen. 2. Acute on chronic anemia The patient has normocytic blood indices. Upper endoscopy was unremarkable. Hemoglobin is stable at this time. Continue to monitor daily and transfuse if hemoglobin drops below 7 g/dL. Hematology consultation is pending. 3. Acute on chronic kidney disease As noted above, if creatinine worsens with diuresis, consider obtaining nephrology consultation. Continue to hold nephrotoxic medications. 4. History of obstructive sleep apnea/diabetes mellitus/hypothyroidism/hypertension/hyperlipidemia Complicates care, management, recovery and prognosis. Continue home noninvasive positive pressure ventilatory support. This note was generated with Vingle dictation software. It may contain incorrect words, spelling, and punctuation that were not noted in checking the note before signing. Inpatient E&M: 81791 Init Hosp L3
[2019-10-23 11:40] LABS: Bedside Glucose 396 mg/dL (70-110)
[2019-10-23 12:02] LABS: BNP,B-Type NATRIURETIC PEPTIDE 3122.5 pg/mL (0-100)
--- NOTE | 2019-10-23 12:18 | PN_ITS ---
Patient Problems: Active and Suspected Problems (Last Reviewed 10/18/19 @ 09:07 by Monica Davis PA-C) Acute blood loss anemia (Acute) Unstable angina (Acute) Renal insufficiency (Acute) Subjective: Patient seen and examined. He still remains short of breath, and was on CPAP at time of review. He usually doesnt wear oxygen at home. He denies any chest pain, palpitations or dizziness, nausea vomiting or diarrhea. Review of systems otherwise negative. He has received 5 units of packed red blood cells in total. He has been receiving Lasix in between transfusions. He had EGD during this admission which was unremarkable. Labs and vitals reviewed. CBC shows hemoglobin of 8.5. BNP is 3122.5 Vitals/I&O's: Vital Signs Temp Pulse Resp BP Pulse Ox 97.8 F 88 20 H 130/60 H 90 10/23/19 09:02 10/23/19 09:09 10/23/19 09:02 10/23/19 09:02 10/23/19 11:40 Oxygen Flow Rate (L/min) 12 Oxygen Delivery Method Nasal Cannula Weight: 231 lb 7.766 oz Body Mass Index (BMI) 32.1 Intake and Output for Last 24 Hours 10/21/19 10/22/19 10/23/19 22:59 23:59 23:59 Intake Total 410.83 / 410.83 Output Total 1000 / 1000 Balance -589.17 / -589.17 General: Alert, Oriented x3, Cooperative, No apparent distress HEENT: Atraumatic, PERRLA, EOMI, Normocephalic Oral: Dry Mucosa Neck: Supple, No JVD, Negative Carotid Bruits Lungs: - - decreased breath sounds bibasally, no wheezes or crackles. on 10L of oxygen by CPAP. Cardiovascular: Regular rate, Regular Rhythm, Normal S1, Normal S2, No murmurs Abdomen: Bowel Sounds Present, Soft, Non Tender, Non-Distended, No Hepato- splenomegaly Extremities: No clubbing, No cyanosis, No edema, Capillary Refill Less than 3 Seconds Skin: No rashes, No breakdown Musculoskeletal: No Tenderness to Palpation of Joints or Extremities Lymphatic: No Cervical, Supraclavicular, or Inguinal Adenopathy Neurological: Cranial nerves II-XII grossly intact, Neuro grossly intact, Motor Exam 5/5 strength throughout Psych/Mental Status: Normal Affect, Appropriate, Alert and oriented to time, place, person, mood and affect Microbiology Past 72 Hours 10/19/19 21:40 Blood Culture (Wb) - Left Forearm Blood Culture - Preliminary No growth in 48 hours. 10/19/19 21:30 Blood Culture (Wb) - Right Wrist Blood Culture - Preliminary No growth in 48 hours. Laboratory Results 10/22/19 07:45: Vitamin B12 1462 H 10/22/19 07:45: Blood Type O POSITIVE, Antibody Screen NEGATIVE, Crossmatch See Detail 10/22/19 17:02: POC Glucose 285 H 10/22/19 17:36: Specimen Type ART, Sample Site L Brachial, pH 7.46 H, Bicarbonate Actual 23.0, POC Total CO2 24, Base Excess -1, O2 Saturation 89 L, ABG pCO2 32.7 L, ABG pO2 52 L, O2 Delivery Device Bi / C PAP, EPAP 7, IPAP 11, Blood Gas Notified Whom ELIUD SWENSON, Blood Gas Notified Time 1735 10/22/19 22:02: POC Glucose 278 H 10/23/19 05:22: Sodium 138, Potassium 3.5, Chloride 102, Carbon Dioxide 26.0, Anion Gap 10, BUN 39 H, Creatinine 2.02 H, Estim Creat Clear Calc 35.75, Est GFR (MDRD) Af Amer 42 L, Est GFR (MDRD) Non-Af 35 L, BUN/Creatinine Ratio 19.3, Glucose 279 H, Calcium 8.2 L 10/23/19 05:22: WBC 7.0, RBC 2.86 L, Hgb 8.5 L, Hct 26.3 L, MCV 92.0, MCH 29.7, MCHC 32.3, RDW Std Deviation 53.1 H, RDW Coeff of Matthew 16.2 H, Plt Count 176, MPV 11.7, Immature Gran % (Auto) 0.600, Neut % (Auto) 80.3 H, Lymph % (Auto) 8.0 L, [place] % (Auto) 9.7, Eos % (Auto) 1.0, Baso % (Auto) 0.4, Absolute Neuts (auto) 5.7, Absolute Lymphs (auto) 0.56 L, Nucleated RBC % 0.3, Differential Comment SCANNED, Platelet Estimate ADEQUATE, Hypochromasia 1+, Microcytosis 1+ 10/23/19 05:22: B-Natriuretic Peptide 3122.5 H 10/23/19 06:26: POC Glucose 284 H 10/23/19 09:23: POC Glucose 396 H Diagnostic Data Chest X-Ray 10/22/19 15:54 IMPRESSION: 1. Developing infiltrate in the lateral right upper lobe may represent localized edema or pneumonia. 2. Underlying interstitial fibrotic lung disease or chronic CHF. Electronically Signed: Bentley Reyes MD ([facility]) at 16:06 EDT , Service support , Chest CT 10/23/19 11:25 IMPRESSION: 1. Multilobar groundglass opacities, bronchial wall thickening, vascular congestion bilateral pleural effusions likely represent cardiogenic pulmonary edema. Atypical (viral) infectious and cryptogenic organizing pneumonia also possible. 2. CABG Electronically Signed: Bentley Reyes MD ([facility]) at 12:14 EDT , Service support , Current Medications Acetaminophen (Tylenol) 650 mg PO Q6H PRN PRN PRN Reason: Pain Score 1-10/Temp > 100.7 F Last Admin: 10/22/19 22:04 Dose: 650 mg Documented by: Atorvastatin Calcium (Lipitor) 80 mg PO QHS [facility] Last Admin: 10/22/19 22:03 Dose: 80 mg Documented by: Cyanocobalamin (Vitamin B12) 500 mcg PO BID [facility] Last Admin: 10/23/19 09:09 Dose: 500 mcg Documented by: Furosemide (Lasix) 40 mg IV BID@1000,1800 [facility] Last Admin: 10/23/19 09:13 Dose: 40 mg Documented by: Glucagon () 1 mg IM .X1 PRN PRN Reason: Hypoglycemia Sodium Chloride () 500 mls @ 15 mls/hr IV PRN PRN PRN Reason: Blood Transfusion Last Infusion: 10/18/19 23:16 Dose: Infused Documented by: Sodium Chloride () 250 mls @ 15 mls/hr IV .[id number] PRN PRN Reason: Saline Flush Last Infusion: 10/22/19 10:45 Dose: 0 mls/hr Documented by: Sodium Chloride () 250 mls @ 15 mls/hr IV .[id number] PRN PRN Reason: Additional IVPB Infusion Dextrose (Dextrose 10%-Water) 250 mls @ 999 mls/hr IV .Q16M PRN; Protocol PRN Reason: HYPOGLYCEMIA Insulin Glargine (Lantus ([facility])) 10 units SC QHS [facility] Last Admin: 10/22/19 22:03 Dose: 10 unit Documented by: Insulin Human Lispro (Humalog Kwikpen ([facility])) 0 unit SC TIDAC [facility]; Protocol Last Admin: 10/23/19 09:24 Dose: 8 units Documented by: Labetalol HCl (Trandate) 10 mg IV Q4H PRN PRN PRN Reason: sbp > 160 or DBP > 120 Levothyroxine Sodium (Synthroid) 150 mcg PO DAILY@0600 [facility] Last Admin: 10/23/19 05:28 Dose: 150 mcg Documented by: Metoprolol Tartrate (Lopressor (Beta Suleiman)) 50 mg PO BID [facility] Last Admin: 10/23/19 09:09 Dose: 50 mg Documented by: Nitroglycerin (Nitrostat) 0.4 mg SUBLINGUAL Q5M PRN PRN Reason: CARDIAC/CHEST PAIN Ondansetron HCl (Zofran) 4 mg IV Q8H PRN PRN PRN Reason: NAUSEA/VOMITING Pantoprazole Sodium (Protonix) 40 mg PO DAILY [facility] Last Admin: 10/23/19 09:09 Dose: 40 mg Documented by: Ranolazine (Ranexa) 1,000 mg PO BID [facility] Last Admin: 10/23/19 09:09 Dose: 1,000 mg Documented by: Sodium Chloride () 10 - 40 ml IV UD PRN PRN Reason: SALINE FLUSH Last Admin: 10/23/19 09:13 Dose: 10 ml Documented by: Tamsulosin HCl (Flomax) 0.4 mg PO DAILY@1730 [facility] Last Admin: 10/22/19 17:06 Dose: 0.4 mg Documented by: STROKE Vital Signs/Narrative: Vital Signs Temp Pulse Resp BP Pulse Ox 10/23/19 11:40 90 10/23/19 09:09 88 10/23/19 09:02 97.8 F 88 20 H 130/60 H 96 Medical Necessity - Tobacco Use Smoking Status: Former smoker Assessment/Plan All Active Problems (Last Reviewed 10/18/19 @ 09:07 by Monica Davis PA-C) Anemia (Acute) Acute blood loss anemia (Acute) Unstable angina (Acute) Renal insufficiency (Acute) H/O coronary artery bypass surgery (Resolved 04/1998) History of coronary artery stent placement (Resolved 01/22/15) Abdominal pain (Resolved) Back pain (Resolved) 1. Nonstemi * Troponins peaked at 20.3. Aspirin and Plavix on hold due to anemia. * Cardiology on board. [facility] for now. 2.Acute on chronic anemia * hb in August 2019 was 12.8 * Hb on admission was 6.2. Is s/p transfusion of 5 units of PRBCs * had EGD which was unremarkable; had colonoscopy in August 2019, which per documtenation, was of poor prep, but there were no glaring lesions * aspirin and plavix on hold for now * hematology consulted; await rec's/ * Hb today is 8.5 * 3. Acute hypoxic respiratory failure due to acute HFpEF * BNP is over 3000. Patient does not wear oxygen at home but is currently on up to 9 L of oxygen. He has a CPAP mask on and gets short of breath with talking. * This was thought to be possibly due to fluid overload from transfusion. He had been receiving Lasix in between transfusion. * 2D echo done showed EF of 65% * Pulmonology consulted. * Chest CT done showed multilobar groundglass opacities and bronchial wall thickening with vascular congestion and bilateral pleural effusions likely due to cardiogenic pulmonary edema. * Currently on Lasix IV 40mg bid; in cumulative negative balance by 578mls since admission. Urine output so far is 11.15L * cardiology on board * 4. Acute on chronic heart failure preserved ejection fraction: * As under 3. * 5.LEONA on CKD stage 3: * Cr is 2.02 the baseline of around 1.5 from 2018. * Creatinine went down to a ck of 1.76 on 10/19/2019. * Creatinine is trended down slightly from 2.11 level yesterday to 2.02 today. * upward trend in cr may be due to diuresis with IVF lasix. If Cr trends up some more, will consider nephro consult * 6. Type 2 diabetes mellitus with nephropathy * A1c was 6.3. Glimepiride on hold. * Blood sugars have been poorly controlled. Lantus 10 units nightly added on. * Insulin sliding scale. Accu-Cheks AC at bedtime. * * Code status: full code Inpatient E&M: 46130 Subs Hosp L3
[2019-10-23 12:55] LABS: Bedside Glucose 297 mg/dL (70-110)
[2019-10-23] MEDS: Tamsulosin HCl 0.4 MG Capsule PO (16:46)
[2019-10-23 17:01] LABS: Bedside Glucose 305 mg/dL (70-110)
--- NOTE | 2019-10-23 17:12 | CON.PCM_ITS ---
- Problem List (1) Anemia Status: Acute (2) Acute blood loss anemia Status: Acute (3) Iron deficiency anemia due to chronic blood loss Status: Chronic Consult Referring Physician: Hospitalist Consult Results: Anemia Subjective Date of Service:: 10/23/19 Chief Complaint: Chest Pain History of Present Illness: 74-year-old male with significant cardiac history, chronic renal insufficiency and history of iron deficiency anemia admitted with unstable angina and severe anemia. Patient's hematologic history is notable for anemia noted in the fall 2018 attributed to iron deficiency. He underwent a colonoscopy in May 2019 which to his understanding a benign polyp was removed. He was advised to start oral iron supplement which he did in August 2019 and shortly after noted black discoloration of the stools which he attributed to oral iron therapy. 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) Occlusion and stenosis of bilateral carotid arteries (Chronic) Central retinal vein occlusion of left eye (Chronic 05/08/19) Essential (primary) hypertension (Chronic) HLD (hyperlipidemia) (Chronic) Past Medical/Surgical History: Past Medical History - Most Recent Inpatient Visit Past Medical History Start: 10/18/19 02:02 Text: Status: Complete Freq: ONCE Protocol: Document 10/18/19 02:23 HS (Rec: 10/18/19 02:25 HS [id number]) BMI Required to complete PMH What is Patient's BMI 32.1 Past Medical History Unable History Recalled Yes Query Text:Pt Unable/Family Not Present Neurologic Medical History Hx Stroke/TIA No Hx Dementia/Alzheimer's No Hx Parkinson's Disease No Hx Seizures No Hx Multiple Sclerosis No Hx Migraines No Cardiac Medical History VTE Present on Admission No Hx of Deep Vein Thrombosis/VTE/PE No Hx Hypertension Yes: CONTROLLED WITH MEDICATIONS Hx Chest Pain/Angina Yes: EPIGASTRIC DISCOMFORT Hx Heart Attack No Hx Cardiac Surgery/Stents/Etc. Yes: CABG x2 vessels 1998 Hx Heart Failure No Hx Pacemaker/AICD No Hx Irregular Heartbeat and/or Afib No: FOLLOWS DR. EMMANUEL [id number] Hx Anticoagulant Therapy Yes: ASPIRIN, Plavix Query Text:(Coumadin, Aspirin, Plavix, Xarelto, etc.) Hx Pain in Legs when Walking/Leg Cramps No Respiratory Medical History Hx COPD No Hx Emphysema No Hx Smoking Yes: SMOKED FOR 17 YRS. Smoking Status Former smoker Hx Smoking Cessation Date 08/16/79 Hx Smoking Cessation Counseling No Hx Smoking Exposure No Hx Tobacco Use in last 12 months No Hx of Pipe Smoking No Hx Sleep Apnea Yes CPAP No BIPAP Yes STOP Results Positive GI Medical History Hx Ulcer No Hx Hepatitis No Hx Cirrhosis No Hx GI Bleed No Hx Unplanned Weight Loss No Genitourinary Medical History Indwelling Catheter in Place on Arrival/ No Admission Hx Renal Disease Yes: KIDNEY STONES Hx Dialysis No Musculoskeletal History Hx Arthritis Yes: OA Hx Rheumatoid Arthritis No Endocrine Medical History Hx Diabetes Yes: ORAL MEDICATIONS Hx Thyroid Disease Yes: ON MEDICATION Hematologic Medical History Hx of Blood Transfusion No Hx of Transfusion in last 3 Months No Ever experience any problems with No transfusion(s)? Hx of Preganancy in last 3 Months N/A Nurse Filling Out Transfusion & HSMUCKER Questions: Date: 10/18/19 Time: 02:24 Psycho/Social Medical History Hx Depression Yes Hx Anxiety No Hx Behavior Disorder No Hx Alcohol Use Yes: SOCIAL Hx Substance Use No Other Medical History Hx Blood Disorders No Hx Anemia Yes: IN THE PAST COUPLE YEARS. Hx Cancer No Hx Drug Resistant Organism No Wound/Pressure Injury Present on Arrival No /Admission Query Text:If yes, chart assessment in Shift/Clinical Findings Central Line/PICC/VAD Present on Arrival No /Admission Antibiotics within last 7 days? 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) Occlusion and stenosis of bilateral carotid arteries (Chronic) Central retinal vein occlusion of left eye (Chronic 05/08/19) Essential (primary) hypertension (Chronic) HLD (hyperlipidemia) (Chronic) Atherosclerosis of aorta (Chronic) Chronic anemia (Chronic) Diabetes mellitus (Chronic) Hypothyroidism (Chronic) Renal calculi (Chronic) Right carotid bruit (Chronic) Past Surgical History (Last Reviewed 10/18/19 @ 09:08 by Monica Davis PA-C) H/O coronary artery bypass surgery (Resolved 04/1998) History of coronary artery stent placement (Resolved 01/22/15) History of left heart catheterization (Resolved 01/06/17) Maternal Family History: Family History (Last Reviewed 10/18/19 @ 09:08 by Monica Davis PA-C) Father Diabetes Mother Cancer Brother CAD (coronary artery disease) HLD (hyperlipidemia) Myocardial infarction Sister Myocardial infarction CAD (coronary artery disease) Hypertension HLD (hyperlipidemia) Sister Diabetes Daughter Arthritis Son Arthritis Brother Myocardial infarction Family History: No pertinent history - Social History Smoking Status: Former smoker Allergies/Adverse Reactions: Allergy/AdvReac Type Severity Reaction Status Date / Time lisinopril Allergy Intermediate COUGH Verified 10/18/19 01:26 Review of Systems Constitutional:: Reports: Weakness, Fatigue. Denies: Fever, Sweats, Weight loss, Appetite change, Chills Cardiovascular:: Reports: Chest pain - On admission, resolved, Dyspnea on exertion, Peripheral edema, Shortness of breath. Denies: Palpitations, Orthopnea, PND Respiratory: Reports: Shortness of breath upon exertion. Denies: Cough, Hemoptysis, Shortness of Breath, Wheezing Gastrointestinal:: Reports: Melena. Denies: Abdominal pain, Nausea, Vomiting, Diarrhea, Constipation, Hematochezia Genitourinary: Denies: Dysuria, Hematuria, 15, Flank pain Musculoskeletal:: Denies: Back pain, Myalgia, Arthralgia Skin: Reports: - - Easy bruises, attributed to Plavix. Denies: Rash, Skin Changes, Wounds Neurological:: Denies: Headache, Dizziness, Visual changes, Tinnitus, Hearing loss Psychiatric: Denies: Anxiety, Depression, Homicidal Ideations, Suicidal Ideations Vital Signs Height 6 ft Weight: 105 kg Weight in Pounds 231.5 lbs Pulse Ox 100 Temperature 97.8 F Pulse Rate 77 Respiratory Rate 20 Blood Pressure [BP] 115/67 Blood Pressure 128/82 Blood Pressure Position [BP] Supine Blood Pressure Position Sitting - Physical Exam General: Alert, Oriented x3, No apparent distress, - - On oxygen through a nonrebreather HEENT: Atraumatic, PERRLA, EOMI, Normocephalic Oropharynx:: Pale mucosa, Dry mucosa Neck:: Supple, Trachea midline. Negative for: JVD, bilateral Cardiac:: Regular rate, Regular rhythm, Normal S1, Normal S2. Negative for: Murmur Lungs: Clear to auscultation, Excusion symmetrical. Negative for: Rhonchi, Wheezes Abdomen:: Bowel sounds x 4, Soft, Non-tender, Non-distended Extremities:: Edema - 1+. Negative for: Cyanosis Neurological: Neuro grossly intact Skin:: Ecchymosis. Negative for: Lesions, Rash, Petechiae Psychiatric:: Appropriate affect, Euthymic Lymphatics:: Negative for: Cervical lymphadenopathy, Supraclavicular lymphadenopathy, Axillary lymphadenopathy Laboratory Data: Microbiology 10/23/19 11:40 Respiratory Panel (PCR) - Preliminary Mucosa - Nasopharyngeal 10/19/19 21:40 Blood Culture - Preliminary Blood Culture (Wb) - Left Forearm No growth in 48 hours. 10/19/19 21:30 Blood Culture - Preliminary Blood Culture (Wb) - Right Wrist No growth in 48 hours. Laboratory Tests 10/23/19 10/23/19 10/23/19 Range/Units 16:44 12:32 09:23 WBC (4.4-11.0) K/mm3 RBC (4.6-6.2) M/mm3 Hgb (13.0-16.5) g/dL Hct (40-54) % MCV (80-94) fL MCH (27.0-32.0) pg MCHC (32-36) g/dL RDW Std Deviation (35.1-43.9) fl RDW Coeff of Matthew (11.6-14.6) % Plt Count (150-450) K/mm3 MPV (6.2-12.0) fl Immature Gran % (Auto) (0.0-0.9) % Neut % (Auto) (47-70) % Lymph % (Auto) (19-41) % Cuming % (Auto) (0-10) % Eos % (Auto) (0-5) % Baso % (Auto) (0-1) % Absolute Neuts (auto) (2.0-7.7) X10^3/uL Absolute Lymphs (auto) (0.83-4.51) X10^3/uL Nucleated RBC % (0-5) % Differential Comment Platelet Estimate (ADEQ) Hypochromasia Microcytosis Specimen Type Sample Site pH (7.35-7.45) Bicarbonate Actual (22-26) mmol/L POC Total CO2 mmol/L Base Excess (-2 to +2) mmol/L O2 Saturation (95-99) % ABG pCO2 (35-45) mmHg ABG pO2 (75-100) mmHG O2 Delivery Device EPAP IPAP Blood Gas Notified Whom Blood Gas Notified Time Sodium (136-145) mmol/L Potassium (3.5-5.1) mmol/L Chloride (98-107) mmol/L Carbon Dioxide (21.0-32.0) mmol/L Anion Gap (5-15) BUN (7-18) mg/dL Creatinine (0.70-1.30) mg/dL Estim Creat Clear Calc ml/min Est GFR (MDRD) Af Amer (>60) mL/min Est GFR (MDRD) Non-Af (>60) mL/min BUN/Creatinine Ratio (10-20) RATIO Glucose (74-106) mg/dL Calcium (8.5-10.1) mg/dL B-Natriuretic Peptide (0-100) pg/mL Vitamin B12 (211-911) pg/mL POC Glucose 305 H 297 H 396 H (70-110) mg/dL 10/23/19 10/23/19 10/23/19 Range/Units 06:26 05:22 05:22 WBC 7.0 (4.4-11.0) K/mm3 RBC 2.86 L (4.6-6.2) M/mm3 Hgb 8.5 L (13.0-16.5) g/dL Hct 26.3 L (40-54) % MCV 92.0 (80-94) fL MCH 29.7 (27.0-32.0) pg MCHC 32.3 (32-36) g/dL RDW Std Deviation 53.1 H (35.1-43.9) fl RDW Coeff of Matthew 16.2 H (11.6-14.6) % Plt Count 176 (150-450) K/mm3 MPV 11.7 (6.2-12.0) fl Immature Gran % (Auto) 0.600 (0.0-0.9) % Neut % (Auto) 80.3 H (47-70) % Lymph % (Auto) 8.0 L (19-41) % Cuming % (Auto) 9.7 (0-10) % Eos % (Auto) 1.0 (0-5) % Baso % (Auto) 0.4 (0-1) % Absolute Neuts (auto) 5.7 (2.0-7.7) X10^3/uL Absolute Lymphs (auto) 0.56 L (0.83-4.51) X10^3/uL Nucleated RBC % 0.3 (0-5) % Differential Comment SCANNED Platelet Estimate ADEQUATE (ADEQ) Hypochromasia 1+ Microcytosis 1+ Specimen Type Sample Site pH (7.35-7.45) Bicarbonate Actual (22-26) mmol/L POC Total CO2 mmol/L Base Excess (-2 to +2) mmol/L O2 Saturation (95-99) % ABG pCO2 (35-45) mmHg ABG pO2 (75-100) mmHG O2 Delivery Device EPAP IPAP Blood Gas Notified Whom Blood Gas Notified Time Sodium (136-145) mmol/L Potassium (3.5-5.1) mmol/L Chloride (98-107) mmol/L Carbon Dioxide (21.0-32.0) mmol/L Anion Gap (5-15) BUN (7-18) mg/dL Creatinine (0.70-1.30) mg/dL Estim Creat Clear Calc ml/min Est GFR (MDRD) Af Amer (>60) mL/min Est GFR (MDRD) Non-Af (>60) mL/min BUN/Creatinine Ratio (10-20) RATIO Glucose (74-106) mg/dL Calcium (8.5-10.1) mg/dL B-Natriuretic Peptide 3122.5 H (0-100) pg/mL Vitamin B12 (211-911) pg/mL POC Glucose 284 H (70-110) mg/dL 03/09/20 03/08/20 03/08/20 Range/Units 05:22 22:02 17:36 WBC (4.4-11.0) K/mm3 RBC (4.6-6.2) M/mm3 Hgb (13.0-16.5) g/dL Hct (40-54) % MCV (80-94) fL MCH (27.0-32.0) pg MCHC (32-36) g/dL RDW Std Deviation (35.1-43.9) fl RDW Coeff of Matthew (11.6-14.6) % Plt Count (150-450) K/mm3 MPV (6.2-12.0) fl Immature Gran % (Auto) (0.0-0.9) % Neut % (Auto) (47-70) % Lymph % (Auto) (19-41) % Cuming % (Auto) (0-10) % Eos % (Auto) (0-5) % Baso % (Auto) (0-1) % Absolute Neuts (auto) (2.0-7.7) X10^3/uL Absolute Lymphs (auto) (0.83-4.51) X10^3/uL Nucleated RBC % (0-5) % Differential Comment Platelet Estimate (ADEQ) Hypochromasia Microcytosis Specimen Type ART Sample Site L Brachial pH 7.46 H (7.35-7.45) Bicarbonate Actual 23.0 (22-26) mmol/L POC Total CO2 24 mmol/L Base Excess -1 (-2 to +2) mmol/L O2 Saturation 89 L (95-99) % ABG pCO2 32.7 L (35-45) mmHg ABG pO2 52 L (75-100) mmHG O2 Delivery Device Bi / C PAP EPAP 7 IPAP 11 Blood Gas Notified Whom [facility] Blood Gas Notified Time 1735 Sodium 138 (136-145) mmol/L Potassium 3.5 (3.5-5.1) mmol/L Chloride 102 (98-107) mmol/L Carbon Dioxide 26.0 (21.0-32.0) mmol/L Anion Gap 10 (5-15) BUN 39 H (7-18) mg/dL Creatinine 2.02 H (0.70-1.30) mg/dL Estim Creat Clear Calc 35.75 ml/min Est GFR (MDRD) Af Amer 42 L (>60) mL/min Est GFR (MDRD) Non-Af 35 L (>60) mL/min BUN/Creatinine Ratio 19.3 (10-20) RATIO Glucose 279 H (74-106) mg/dL Calcium 8.2 L (8.5-10.1) mg/dL B-Natriuretic Peptide (0-100) pg/mL Vitamin B12 (211-911) pg/mL POC Glucose 278 H (70-110) mg/dL 10/22/19 10/22/19 Range/Units 17:02 07:45 WBC (4.4-11.0) K/mm3 RBC (4.6-6.2) M/mm3 Hgb (13.0-16.5) g/dL Hct (40-54) % MCV (80-94) fL MCH (27.0-32.0) pg MCHC (32-36) g/dL RDW Std Deviation (35.1-43.9) fl RDW Coeff of Matthew (11.6-14.6) % Plt Count (150-450) K/mm3 MPV (6.2-12.0) fl Immature Gran % (Auto) (0.0-0.9) % Neut % (Auto) (47-70) % Lymph % (Auto) (19-41) % Cuming % (Auto) (0-10) % Eos % (Auto) (0-5) % Baso % (Auto) (0-1) % Absolute Neuts (auto) (2.0-7.7) X10^3/uL Absolute Lymphs (auto) (0.83-4.51) X10^3/uL Nucleated RBC % (0-5) % Differential Comment Platelet Estimate (ADEQ) Hypochromasia Microcytosis Specimen Type Sample Site pH (7.35-7.45) Bicarbonate Actual (22-26) mmol/L POC Total CO2 mmol/L Base Excess (-2 to +2) mmol/L O2 Saturation (95-99) % ABG pCO2 (35-45) mmHg ABG pO2 (75-100) mmHG O2 Delivery Device EPAP IPAP Blood Gas Notified Whom Blood Gas Notified Time Sodium (136-145) mmol/L Potassium (3.5-5.1) mmol/L Chloride (98-107) mmol/L Carbon Dioxide (21.0-32.0) mmol/L Anion Gap (5-15) BUN (7-18) mg/dL Creatinine (0.70-1.30) mg/dL Estim Creat Clear Calc ml/min Est GFR (MDRD) Af Amer (>60) mL/min Est GFR (MDRD) Non-Af (>60) mL/min BUN/Creatinine Ratio (10-20) RATIO Glucose (74-106) mg/dL Calcium (8.5-10.1) mg/dL B-Natriuretic Peptide (0-100) pg/mL Vitamin B12 1462 H (211-911) pg/mL POC Glucose 285 H (70-110) mg/dL Laboratory Tests 10/22/19 07:45 TIBC 217 L Iron Saturation 8.8 L Ferritin 208 Direct Luiz test negative Diagnostic Data: Diagnostic Data Chest X-Ray 10/22/19 15:54 IMPRESSION: 1. Developing infiltrate in the lateral right upper lobe may represent localized edema or pneumonia. 2. Underlying interstitial fibrotic lung disease or chronic CHF. Electronically Signed: Bentley Reyes MD ([place]) at 16:06 EDT , Service support , Chest CT 10/23/19 11:25 IMPRESSION: 1. Multilobar groundglass opacities, bronchial wall thickening, vascular congestion bilateral pleural effusions likely represent cardiogenic pulmonary edema. Atypical (viral) infectious and cryptogenic organizing pneumonia also possible. 2. CABG Electronically Signed: Bentley Reyes MD ([place]) at 12:14 EDT , Service support , Pathology Data: EGD October 19, 2019 no active bleeding lesions, mild gastritis and negative for H. pylori Assessment and Plan 74-year-old male admitted with unstable angina with acute on chronic anemia. Lab evaluation does not suggest an acute hemolytic process and the findings are most consistent with: 1. Acute external blood loss anemia most likely GI masked by oral iron therapy source not identified on EGD October 19, 2019 and a colonoscopy May 2019 according to patient showed a benign polyp. 2-Anemia of chronic disease and chronic renal insufficiency. 3-functional iron deficiency due to chronic disease and chronic renal failure: The iron profile is consistent with a normal ferritin, low TIBC and transferrin saturation. Primary bone marrow disease is unlikely.. Recommendations: From the hematologic aspect of illness: 1-transfuse with packed red blood cells to a target hemoglobin of 8 in view of cardiac disease.. 2-IV iron, avoiding oral avoid masking recurrent GI bleed and due to relatively limited availability of oral iron in presence of anemia of chronic disease. Orders placed in EMR. Target ferritin above 100 and transferrin saturation above 20%. 3-review outside colonoscopy reports of 2019 ( Dr. Elaine). 4-we will follow-up as outpatient 1 month after discharge. Patient seen with his family, impression and plan discussed. Discussed with Dr Dunne. Jong Hurtado MD Site Supervisor, [facility] Divisions of Medical Oncology & Hematology Department of Internal Medicine [place] [phone] This note was generated using a voice recognition system software. Although it was reviewed by the author prior to finalization, it may still contain incorrect words, spelling, and punctuation that were not noted when reviewing prior to saving. If a clinically significant typo or inaccurately typed phrase is noted, please notify the author. Medications: Prescriptions This Visit Medication Instructions Recorded Amlodipine Besylate [Norvasc] 5 mg PO QDAY 10/18/19 Clopidogrel Bisulfate [Clopidogrel] 75 mg PO DAILY 10/18/19 Isosorbide Mononitrate [Isosorbide 60 mg PO BID 10/18/19 Mononitrate ER] Losartan Potassium [Cozaar] 25 mg PO QDAY 10/18/19 Metoprolol Tartrate 25 mg PO BID 10/18/19 Ranolazine [Ranexa] 1,000 mg PO BID 10/18/19 Simvastatin 40 mg PO QHS 10/18/19 Medications Added to Medication List This Visit Category Date Time Status Furosemide [Lasix] Med 10/23/19 10:00 Active 40 mg IV BID@1000,1800 Iron Sucrose Complex [Venofer] 200 mg Med 10/23/19 17:11 Ordered 0.9% Normal Saline 100 ml IV X1 Primary Care Provider: Jeffrey Thorne Referring Provider:
[2019-10-23] MEDS: Atorvastatin Calcium 80 MG Tablet PO (21:16)
[2019-10-23 21:25] LABS: Bedside Glucose 310 mg/dL (70-110)
[2019-10-24] VITALS (12 sets, daily range): BP systolic 121–142; BP diastolic 60–72; PULSE 74–80; RESP 16–20; TEMP 36.6–37.1; O2SAT 92–98
[2019-10-24 06:24] LABS: Absolute Lymphocyte Count 0.63 X10^3/uL (0.83-4.51); Absolute Neutrophil Count 4.8 X10^3/uL (2.0-7.7); Basophil# 0.03 X10^3/uL; Basophil% 0.5 % (0-1); Eosinophil# 0.16 X10^3/uL; Eosinophils% 2.5 % (0-5); Hematocrit 25.4 % (40-54); Hemoglobin 8.4 g/dL (13.0-16.5); Lymphocyte # 0.63 X10^3/ul (4.0); Lymphocyte % 9.9 % (19-41); Mean Corp Hgb Conc 33.1 g/dL (32-36); Mean Corpuscular Hgb 30.2 pg (27.0-32.0); Mean Corpuscular Volume 91.4 fL (80-94); Mean Platelet Vol. 11.3 fl (6.2-12.0); Monocyte# 0.72 X10^3/uL; Monocyte% 11.3 % (0-10); NRBC Flagged by Analyzer 0.3 % (0-5); Neutrophil # 4.76 X10^3/uL (2.7-7.7); Platelet Count 192 K/mm3 (150-450); RBC Distribution Width CV 15.9 % (11.6-14.6); Red Blood Count 2.78 M/mm3 (4.6-6.2); White Blood Count 6.4 K/mm3 (4.4-11.0)
[2019-10-24] MEDS: Levothyroxine 150 MCG Tablet PO (06:36)
[2019-10-24] MEDS: Insulin Lispro 100 UNIT/ML INSULN.PEN SC ×3 (06:45→17:07)
[2019-10-24 06:50] LABS: Bedside Glucose 284 mg/dL (70-110)
[2019-10-24 06:57] LABS: Anion Gap 8 (5-15); BUN 38 mg/dL (7-18); BUN/Creat Ratio 18.8 RATIO (10-20); Calcium,Total 8.3 mg/dL (8.5-10.1); Chloride 102 mmol/L (98-107); Creatinine, Serum 2.02 mg/dL (0.70-1.30); EST Glomerular Filtration Rate 35 mL/min (>60); Est Glom Filt Rate - Afr Amer 42 mL/min (>60); Estimated Creatinine Clearance 35.75 ml/min; Glucose 311 mg/dL (74-106); Potassium 3.2 mmol/L (3.5-5.1); Sodium Level 137 mmol/L (136-145)
--- NOTE | 2019-10-24 07:30 | PN.CARD_ITS ---
Subjectve: Patient seen and evaluated. Appears to be doing well. Still mildly short of breath. Feels somewhat reassured after speaking with the forensic artist yesterday Objective: Vital Signs Temp Pulse Resp BP Pulse Ox 98.6 F 79 16 138/70 H 93 10/24/19 03:10 10/24/19 03:10 10/24/19 03:10 10/24/19 03:10 10/24/19 03:10 Oxygen Flow Rate (L/min) 6 Oxygen Delivery Method CPAP Weight: 230 lb 6.129 oz Body Mass Index (BMI) 32.1 Intake and Output for Last 24 Hours 10/22/19 10/23/19 10/24/19 23:59 23:59 23:59 Intake Total 1200.83 / 1200.83 100 / 100 Output Total 1400 / 1400 Balance -199.17 / -199.17 100 / 100 General: Awake, Alert, Oriented x 3 HEENT: PERRL, EOMI, Sclera Non Icteric Neck: Supple, Good ROM, No Lymph Node Enlargement Lungs: Clear to auscultation Cardiovascular: Regular Rhythm, Normal S1, Normal S2, No Murmurs, No Rubs, No Gallops Vascular: No Carotid Bruits, Normal Femoral Pulses, Normal Radial Pulses, Normal Dorsalis Pedal Pulse, Normal Posterior Tibial Pulses Abdomen: Bowel Sounds Present, Soft, Non Tender, No HSM, No Organomegaly Extremities: No Cyanosis, No Clubbing, No edema Musculoskeletal: No Erythema Skin: No Rashes Lymphatic: No Lymph Node Enlargement Neurological: No Focal Motor or Sensory Deficit Psych/Mental Status: Appropriate 10/23/19 05:22: B-Natriuretic Peptide 3122.5 H 10/24/19 05:50: WBC 6.4, RBC 2.78 L, Hgb 8.4 L, Hct 25.4 L, MCV 91.4, MCH 30.2, MCHC 33.1, Plt Count 192, MPV 11.3, Immature Gran % (Auto) 0.800, Neut % (Auto) 75.0 H, Lymph % (Auto) 9.9 L, Titus % (Auto) 11.3 H, Eos % (Auto) 2.5, Baso % (Auto) 0.5, Absolute Neuts (auto) 4.8, Nucleated RBC % 0.3 10/24/19 05:50: Sodium 137, Potassium 3.2 L, Chloride 102, Carbon Dioxide 27.0, Anion Gap 8, BUN 38 H, Creatinine 2.02 H, Est GFR (MDRD) Af Amer 42 L, Est GFR (MDRD) Non-Af 35 L, BUN/Creatinine Ratio 18.8, Glucose 311 H, Calcium 8.3 L Rhythm: EKG: ECHO: Stress Test: Cardiac Cath: PCI: CT Surgery: Holter monitor: EPS: PPM: CXR: Chest CT Scan: Medical Necessity - Tobacco Use Smoking Status: Former smoker Assessment/Plan 1. Unstable angina pectoris 1.The patient did present with unstable angina pectoris. He has had indeterminate troponin I levels. He has had waxing and waning electrocardiographic changes. This raises concern of his underlying CAD/graft vessel process.His symptoms may be exacerbated by his marked anemia. He did have EKG changes with ST depression. These appear to have resolved. At this time he appears to be stable. My recommendation is for us to continue to observe him. He has undergone a GI scope with no underlying upper GI pathology. * His renal function appears to be stable with a creatinine of 2. * At this time I am hesitant to perform a cardiac catheterization as the contrast media may worsen his renal function more. I would like this stabilized before we undertake this. * He is requesting that we do this tomorrow. * I have explained this to him as well as the family and they understand and agree to proceed. Currently he remains pain-free. 2. CAD status post PCI status post CABG He does have a history of cardiovascular disease as noted. He states he has been doing well on medical therapy using nitroglycerin sublingual as needed. However based upon his current issues there are concerns regarding his underlying CAD/graft vessel process. Again he will continue his noninvasive evaluation. Over time he may need further invasive evaluation when he is clinically stable. In the interim continue with medical therapy with adjustment as needed. Of note there are concerns at this time, based upon his marked anemia and concern of gastrointestinal bleeding, using other agents such as antiplatelet therapy on her anticoagulant therapy. 3. Hyperlipidemia He will continue medical management as deemed appropriate. 4. Hypertension He will continue medical therapy with adjustment as needed take into consideration his renal insufficiency. 5. Diabetes mellitus He will continue under the care of internal medicine. 6. Anemia thought secondary to gastrointestinal bleeding He is markedly anemic. The exact etiology is not clear. Appreciate forensic artist input He did do well with the upper GI evaluation . We will continue to monitor his hemoglobin. Will hold off on any aspirin or clopidogrel for now. Thank you for allowing me to participate in the care of your patient. Please don't hesitate to call if any issues arise * Hematology consultation has been placed. * He did receive another unit of packed red blood cells with intermittent Lasix 7. Mild congestive heart failure * He appears to have mild shortness of breath suggestive of mild congestive heart failure my recommendation is to give him intermittent Lasix and continue to monitor his creatinine. * We will try and see whether he has reduced oxygen requirements. * He has been transferred to the progressive care unit and appears to be doing well. * His echocardiogram from yesterday demonstrated overall preserved left ventricular systolic function which is reassuring. * Thank you for allowing me to participate in the care of your patient. Please don't hesitate to call if any issues arise
[2019-10-24] MEDS: Furosemide 40 MG/4 ML Vial IV ×2 (09:56→17:08)
[2019-10-24] MEDS: Metoprolol Tartrate 50 MG Tablet PO ×2 (09:58→21:40)
[2019-10-24] MEDS: Ranolazine 500 MG Tablet 1000 MG PO ×2 (09:58→21:40)
[2019-10-24] MEDS: Pantoprazole Sodium 40 MG Tablet PO (09:59)
[2019-10-24] MEDS: Cyanocobalamin 500 MCG Tablet PO ×2 (10:00→21:40)
--- NOTE | 2019-10-24 12:04 | PN_ITS ---
Patient Problems: Active and Suspected Problems (Last Reviewed 10/18/19 @ 09:07 by Monica Davis PA-C) Acute blood loss anemia (Acute) Unstable angina (Acute) Renal insufficiency (Acute) Subjective: Patient seen and examined. He still states that he feels short of breath but it is improving. He denies chest pain, nausea vomiting, fever or chills, abdominal pain, diarrhea vomiting. Review of systems otherwise negative. Labs and vitals reviewed. Potassium was 3.2 today and creatinine is down to 2.02. Hemoglobin is 8.4 today. He is receiving IV Venofer per Hematology. Vitals/I&O's: Vital Signs Temp Pulse Resp BP Pulse Ox 98.7 F 80 18 124/60 H 97 10/24/19 09:10 10/24/19 09:58 10/24/19 09:10 10/24/19 09:10 10/24/19 09:10 Oxygen Flow Rate (L/min) 2 Oxygen Delivery Method Nasal Cannula Weight: 230 lb 6.129 oz Body Mass Index (BMI) 32.1 Intake and Output for Last 24 Hours 10/22/19 10/23/19 10/24/19 23:59 23:59 23:59 Intake Total 1200.83 / 1200.83 100 / 100 Output Total 1400 / 1400 Balance -199.17 / -199.17 100 / 100 General: Alert, Oriented x3, Cooperative, No apparent distress HEENT: Atraumatic, PERRLA, EOMI, Normocephalic Oral: Dry Mucosa Neck: Supple, No JVD, Negative Carotid Bruits Lungs: - - decreased breath sounds bibasally, no wheezes or crackles. on 5L of oxygen by nasal canula Cardiovascular: Regular rate, Regular Rhythm, Normal S1, Normal S2, No murmurs Abdomen: Bowel Sounds Present, Soft, Non Tender, Non-Distended, No Hepato-splen omegaly Extremities: No clubbing, No cyanosis, No edema, Capillary Refill Less than 3 Seconds Skin: No rashes, No breakdown Musculoskeletal: No Tenderness to Palpation of Joints or Extremities Lymphatic: No Cervical, Supraclavicular, or Inguinal Adenopathy Neurological: Cranial nerves II-XII grossly intact, Neuro grossly intact, Motor Exam 5/5 strength throughout Psych/Mental Status: Normal Affect, Appropriate, Alert and oriented to time, place, person, mood and affect Microbiology Past 72 Hours 10/23/19 11:40 Mucosa - Nasopharyngeal Respiratory Panel (PCR) - Preliminary 10/19/19 21:40 Blood Culture (Wb) - Left Forearm Blood Culture - Preliminary No growth in 48 hours. 10/19/19 21:30 Blood Culture (Wb) - Right Wrist Blood Culture - Preliminary No growth in 48 hours. Laboratory Results 10/23/19 12:32: POC Glucose 297 H 10/23/19 16:44: POC Glucose 305 H 10/23/19 21:14: POC Glucose 310 H 10/24/19 05:50: WBC 6.4, RBC 2.78 L, Hgb 8.4 L, Hct 25.4 L, MCV 91.4, MCH 30.2, MCHC 33.1, RDW Std Deviation 52.0 H, RDW Coeff of Matthew 15.9 H, Plt Count 192, MPV 11.3, Immature Gran % (Auto) 0.800, Neut % (Auto) 75.0 H, Lymph % (Auto) 9.9 L, [place] % (Auto) 11.3 H, Eos % (Auto) 2.5, Baso % (Auto) 0.5, Absolute Neuts (auto) 4.8, Absolute Lymphs (auto) 0.63 L, Nucleated RBC % 0.3 10/24/19 05:50: Sodium 137, Potassium 3.2 L, Chloride 102, Carbon Dioxide 27.0, Anion Gap 8, BUN 38 H, Creatinine 2.02 H, Estim Creat Clear Calc 35.75, Est GFR (MDRD) Af Amer 42 L, Est GFR (MDRD) Non-Af 35 L, BUN/Creatinine Ratio 18.8, Glucose 311 H, Calcium 8.3 L 10/24/19 06:42: POC Glucose 284 H Diagnostic Data Chest X-Ray 10/22/19 15:54 IMPRESSION: 1. Developing infiltrate in the lateral right upper lobe may represent localized edema or pneumonia. 2. Underlying interstitial fibrotic lung disease or chronic CHF. Electronically Signed: Bentley Reyes MD ([place]) at 16:06 EDT , Service support , Chest CT 10/23/19 11:25 IMPRESSION: 1. Multilobar groundglass opacities, bronchial wall thickening, vascular congestion bilateral pleural effusions likely represent cardiogenic pulmonary edema. Atypical (viral) infectious and cryptogenic organizing pneumonia also possible. 2. CABG Electronically Signed: Bentley Reyes MD ([place]) at 12:14 EDT , Service support , Current Medications Acetaminophen (Tylenol) 650 mg PO Q6H PRN PRN PRN Reason: Pain Score 1-10/Temp > 100.7 F Last Admin: 10/22/19 22:04 Dose: 650 mg Documented by: Atorvastatin Calcium (Lipitor) 80 mg PO QHS [facility] Last Admin: 10/23/19 21:16 Dose: 80 mg Documented by: Cyanocobalamin (Vitamin B12) 500 mcg PO BID [facility] Last Admin: 10/24/19 10:00 Dose: 500 mcg Documented by: Furosemide (Lasix) 40 mg IV BID@1000,1800 [facility] Last Admin: 10/24/19 09:56 Dose: 40 mg Documented by: Glucagon () 1 mg IM .X1 PRN PRN Reason: Hypoglycemia Sodium Chloride () 500 mls @ 15 mls/hr IV PRN PRN PRN Reason: Blood Transfusion Last Infusion: 10/18/19 23:16 Dose: Infused Documented by: Sodium Chloride () 250 mls @ 15 mls/hr IV .[id number] PRN PRN Reason: Saline Flush Last Infusion: 10/22/19 10:45 Dose: 0 mls/hr Documented by: Sodium Chloride () 250 mls @ 15 mls/hr IV .[id number] PRN PRN Reason: Additional IVPB Infusion Dextrose (Dextrose 10%-Water) 250 mls @ 999 mls/hr IV .Q16M PRN; Protocol PRN Reason: HYPOGLYCEMIA Insulin Glargine (Lantus ([facility])) 10 units SC QHS [facility] Last Admin: 10/23/19 21:17 Dose: 10 unit Documented by: Insulin Human Lispro (Humalog Kwikpen ([facility])) 0 unit SC TIDAC [facility]; Protocol Last Admin: 10/24/19 06:45 Dose: 6 units Documented by: Labetalol HCl (Trandate) 10 mg IV Q4H PRN PRN PRN Reason: sbp > 160 or DBP > 120 Levothyroxine Sodium (Synthroid) 150 mcg PO DAILY@0600 [facility] Last Admin: 10/24/19 06:36 Dose: 150 mcg Documented by: Metoprolol Tartrate (Lopressor (Beta Suleiman)) 50 mg PO BID [facility] Last Admin: 10/24/19 09:58 Dose: 50 mg Documented by: Nitroglycerin (Nitrostat) 0.4 mg SUBLINGUAL Q5M PRN PRN Reason: CARDIAC/CHEST PAIN Ondansetron HCl (Zofran) 4 mg IV Q8H PRN PRN PRN Reason: NAUSEA/VOMITING Pantoprazole Sodium (Protonix) 40 mg PO DAILY [facility] Last Admin: 10/24/19 09:59 Dose: 40 mg Documented by: Ranolazine (Ranexa) 1,000 mg PO BID [facility] Last Admin: 10/24/19 09:58 Dose: 1,000 mg Documented by: Sodium Chloride () 10 - 40 ml IV UD PRN PRN Reason: SALINE FLUSH Last Admin: 10/23/19 18:29 Dose: 10 ml Documented by: Tamsulosin HCl (Flomax) 0.4 mg PO DAILY@1730 [facility] Last Admin: 10/23/19 16:46 Dose: 0.4 mg Documented by: STROKE Vital Signs/Narrative: Vital Signs Temp Pulse Resp BP Pulse Ox 10/24/19 09:58 80 10/24/19 09:10 98.7 F 80 18 124/60 H 97 Medical Necessity - Tobacco Use Smoking Status: Former smoker Assessment/Plan All Active Problems (Last Reviewed 10/18/19 @ 09:07 by Monica Davis PA-C) Anemia (Acute) Acute blood loss anemia (Acute) Unstable angina (Acute) Renal insufficiency (Acute) H/O coronary artery bypass surgery (Resolved 04/1998) History of coronary artery stent placement (Resolved 01/22/15) Abdominal pain (Resolved) Back pain (Resolved) 1. Nonstemi * Troponins peaked at 20.3. Aspirin and Plavix on hold due to anemia. * Cardiology on board. * for cardiac cath tomorrow, per cardiology * aspirin and plavix on hold o/a of acute on chronic anemia 2.Acute on chronic anemia * hb in August 2019 was 12.8 * Hb on admission was 6.2. 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 Acute hypoxic respiratory failure due to acute HFpEF * BNP is over 3000. now on 5L of oxygen * 2D echo done showed EF of 65% * Pulmonology and cardiology on board * Chest CT done showed multilobar groundglass opacities and bronchial wall thickening with vascular congestion and bilateral pleural effusions likely due to cardiogenic pulmonary edema. * Currently on Lasix IV 40mg bid; in cumulative positive balance by 311mls since admission. Urine output so far is 11.15L * cardiology on board * 4. Acute on chronic heart failure preserved ejection fraction: * As under 3. * for heart cath tomorrow, per cardiology 5.LEONA on CKD stage 3: * Cr is still 2.02 the baseline of around 1.5 from 2018. * on lasix; will monitor renal function 6. Hypokalemia: K is 3.2 today. Will replace and monitor 7. Type 2 diabetes mellitus with nephropathy * A1c was 6.3. Glimepiride on hold. * on lantus 10IU qhs * Insulin sliding scale. Accu-Cheks AC at bedtime. * * Code status: full code Inpatient E&M: 13109 Subs Hosp L3
[2019-10-24 12:26] LABS: Bedside Glucose 404 mg/dL (70-110)
--- NOTE | 2019-10-24 15:59 | PCM.PN.PUL ---
Patient Problems: Active and Suspected Problems (Last Reviewed 10/18/19 @ 09:07 by Monica Davis PA-C) Acute blood loss anemia (Acute) Unstable angina (Acute) Renal insufficiency (Acute) Subjective: The patient was seen and examined at the bedside this morning. Events from the last 24 hours have been reviewed. The patient is currently afebrile, hemodynamically stable and maintaining appropriate oxygen saturations on 2 L/min via nasal cannula. The patient is currently sitting in his bedside recliner and does report improvement in his breathing quality over the last 24 hours. Objective: The patient's most recent lab work, culture data and imaging studies have all been personally reviewed. - Physical Exam Vitals/I&O's: Vital Signs Temp Pulse Resp BP Pulse Ox 98.2 F 75 18 121/64 H 92 10/24/19 15:10 10/24/19 15:10 10/24/19 15:10 10/24/19 15:10 10/24/19 15:10 Oxygen Flow Rate (L/min) 6 Oxygen Delivery Method Nasal Cannula Weight: 230 lb 6.129 oz Body Mass Index (BMI) 32.1 Intake and Output for Last 24 Hours 10/22/19 10/23/19 10/24/19 23:59 23:59 23:59 Intake Total 1200.83 / 1200.83 340 / 340 Output Total 1400 / 1400 Balance -199.17 / -199.17 340 / 340 General: Alert, Cooperative, No apparent distress HEENT: Atraumatic, Normocephalic Oral: No Gingival or Mucosal Lesions/ Ulcerations Neck: Supple, No Nodes, Trachea Midline Lungs: No rhonchi, No wheeze, No rales, Diminished Cardiovascular: Regular rate, Regular Rhythm, Normal S1, Normal S2 Abdomen: Bowel Sounds Present, Soft, Non Tender Extremities: No clubbing, No cyanosis, No edema Skin: No breakdown Musculoskeletal: No Tenderness to Palpation of Joints or Extremities, No Muscle Wasting Lymphatic: No Cervical, Supraclavicular, or Inguinal Adenopathy Neurological: Cranial nerves II-XII grossly intact, Neuro grossly intact Psych/Mental Status: Normal Affect, Appropriate Labs (Last 48 Hours) 10/22/19 10/22/19 10/22/19 07:45 07:45 17:02 WBC RBC Hgb Hct MCV MCH MCHC RDW Std Deviation RDW Coeff of Matthew Plt Count MPV Immature Gran % (Auto) Neut % (Auto) Lymph % (Auto) [place] % (Auto) Eos % (Auto) Baso % (Auto) Absolute Neuts (auto) Absolute Lymphs (auto) Nucleated RBC % Differential Comment Platelet Estimate Hypochromasia Microcytosis Specimen Type Sample Site pH Bicarbonate Actual POC Total CO2 Base Excess O2 Saturation ABG pCO2 ABG pO2 O2 Delivery Device EPAP IPAP Blood Gas Notified Whom Blood Gas Notified Time Sodium Potassium Chloride Carbon Dioxide Anion Gap BUN Creatinine Estim Creat Clear Calc Est GFR (MDRD) Af Amer Est GFR (MDRD) Non-Af BUN/Creatinine Ratio Glucose Calcium B-Natriuretic Peptide Vitamin B12 1462 H POC Glucose 285 H Crossmatch See Detail 10/22/19 10/22/19 10/23/19 17:36 22:02 05:22 WBC RBC Hgb Hct MCV MCH MCHC RDW Std Deviation RDW Coeff of Matthew Plt Count MPV Immature Gran % (Auto) Neut % (Auto) Lymph % (Auto) [place] % (Auto) Eos % (Auto) Baso % (Auto) Absolute Neuts (auto) Absolute Lymphs (auto) Nucleated RBC % Differential Comment Platelet Estimate Hypochromasia Microcytosis Specimen Type ART Sample Site L Brachial pH 7.46 H Bicarbonate Actual 23.0 POC Total CO2 24 Base Excess -1 O2 Saturation 89 L ABG pCO2 32.7 L ABG pO2 52 L O2 Delivery Device Bi / C PAP EPAP 7 IPAP 11 Blood Gas Notified Whom [facility] Blood Gas Notified Time 1735 Sodium 138 Potassium 3.5 Chloride 102 Carbon Dioxide 26.0 Anion Gap 10 BUN 39 H Creatinine 2.02 H Estim Creat Clear Calc 35.75 Est GFR (MDRD) Af Amer 42 L Est GFR (MDRD) Non-Af 35 L BUN/Creatinine Ratio 19.3 Glucose 279 H Calcium 8.2 L B-Natriuretic Peptide Vitamin B12 POC Glucose 278 H Crossmatch 10/23/19 10/23/19 10/23/19 05:22 05:22 06:26 WBC 7.0 RBC 2.86 L Hgb 8.5 L Hct 26.3 L MCV 92.0 MCH 29.7 MCHC 32.3 RDW Std Deviation 53.1 H RDW Coeff of Matthew 16.2 H Plt Count 176 MPV 11.7 Immature Gran % (Auto) 0.600 Neut % (Auto) 80.3 H Lymph % (Auto) 8.0 L [place] % (Auto) 9.7 Eos % (Auto) 1.0 Baso % (Auto) 0.4 Absolute Neuts (auto) 5.7 Absolute Lymphs (auto) 0.56 L Nucleated RBC % 0.3 Differential Comment SCANNED Platelet Estimate ADEQUATE Hypochromasia 1+ Microcytosis 1+ Specimen Type Sample Site pH Bicarbonate Actual POC Total CO2 Base Excess O2 Saturation ABG pCO2 ABG pO2 O2 Delivery Device EPAP IPAP Blood Gas Notified Whom Blood Gas Notified Time Sodium Potassium Chloride Carbon Dioxide Anion Gap BUN Creatinine Estim Creat Clear Calc Est GFR (MDRD) Af Amer Est GFR (MDRD) Non-Af BUN/Creatinine Ratio Glucose Calcium B-Natriuretic Peptide 3122.5 H Vitamin B12 POC Glucose 284 H Crossmatch 10/23/19 10/23/19 10/23/19 09:23 12:32 16:44 WBC RBC Hgb Hct MCV MCH MCHC RDW Std Deviation RDW Coeff of Matthew Plt Count MPV Immature Gran % (Auto) Neut % (Auto) Lymph % (Auto) [place] % (Auto) Eos % (Auto) Baso % (Auto) Absolute Neuts (auto) Absolute Lymphs (auto) Nucleated RBC % Differential Comment Platelet Estimate Hypochromasia Microcytosis Specimen Type Sample Site pH Bicarbonate Actual POC Total CO2 Base Excess O2 Saturation ABG pCO2 ABG pO2 O2 Delivery Device EPAP IPAP Blood Gas Notified Whom Blood Gas Notified Time Sodium Potassium Chloride Carbon Dioxide Anion Gap BUN Creatinine Estim Creat Clear Calc Est GFR (MDRD) Af Amer Est GFR (MDRD) Non-Af BUN/Creatinine Ratio Glucose Calcium B-Natriuretic Peptide Vitamin B12 POC Glucose 396 H 297 H 305 H Crossmatch 10/23/19 10/24/19 10/24/19 21:14 05:50 05:50 WBC 6.4 RBC 2.78 L Hgb 8.4 L Hct 25.4 L MCV 91.4 MCH 30.2 MCHC 33.1 RDW Std Deviation 52.0 H RDW Coeff of Matthew 15.9 H Plt Count 192 MPV 11.3 Immature Gran % (Auto) 0.800 Neut % (Auto) 75.0 H Lymph % (Auto) 9.9 L [place] % (Auto) 11.3 H Eos % (Auto) 2.5 Baso % (Auto) 0.5 Absolute Neuts (auto) 4.8 Absolute Lymphs (auto) 0.63 L Nucleated RBC % 0.3 Differential Comment Platelet Estimate Hypochromasia Microcytosis Specimen Type Sample Site pH Bicarbonate Actual POC Total CO2 Base Excess O2 Saturation ABG pCO2 ABG pO2 O2 Delivery Device EPAP IPAP Blood Gas Notified Whom Blood Gas Notified Time Sodium 137 Potassium 3.2 L Chloride 102 Carbon Dioxide 27.0 Anion Gap 8 BUN 38 H Creatinine 2.02 H Estim Creat Clear Calc 35.75 Est GFR (MDRD) Af Amer 42 L Est GFR (MDRD) Non-Af 35 L BUN/Creatinine Ratio 18.8 Glucose 311 H Calcium 8.3 L B-Natriuretic Peptide Vitamin B12 POC Glucose 310 H Crossmatch 10/24/19 10/24/19 06:42 12:15 WBC RBC Hgb Hct MCV MCH MCHC RDW Std Deviation RDW Coeff of Matthew Plt Count MPV Immature Gran % (Auto) Neut % (Auto) Lymph % (Auto) [place] % (Auto) Eos % (Auto) Baso % (Auto) Absolute Neuts (auto) Absolute Lymphs (auto) Nucleated RBC % Differential Comment Platelet Estimate Hypochromasia Microcytosis Specimen Type Sample Site pH Bicarbonate Actual POC Total CO2 Base Excess O2 Saturation ABG pCO2 ABG pO2 O2 Delivery Device EPAP IPAP Blood Gas Notified Whom Blood Gas Notified Time Sodium Potassium Chloride Carbon Dioxide Anion Gap BUN Creatinine Estim Creat Clear Calc Est GFR (MDRD) Af Amer Est GFR (MDRD) Non-Af BUN/Creatinine Ratio Glucose Calcium B-Natriuretic Peptide Vitamin B12 POC Glucose 284 H 404 H Crossmatch Microbiology 10/23/19 11:40 Mucosa - Nasopharyngeal Respiratory Panel (PCR) - Final 10/19/19 21:40 Blood Culture (Wb) - Left Forearm Blood Culture - Preliminary No growth in 48 hours. 10/19/19 21:30 Blood Culture (Wb) - Right Wrist Blood Culture - Preliminary No growth in 48 hours. Clinical Impression(s) from Imaging Studies Chest X-Ray 10/17/19 23:37 IMPRESSION: Basilar atelectasis/scarring. There is no focal consolidation identified. Electronically Signed: Oliver Roca, at 0:07 EST Tel , Service support , Chest X-Ray 10/19/19 21:14 IMPRESSION: Limited inspiration without major interval change. Electronically Signed: Rogers YoungDO at 22:05 EST Tel [phone], Service support , Chest X-Ray 10/22/19 15:54 IMPRESSION: 1. Developing infiltrate in the lateral right upper lobe may represent localized edema or pneumonia. 2. Underlying interstitial fibrotic lung disease or chronic CHF. Electronically Signed: Bentley Reyes MD ([place]) at 16:06 EDT , Service support , Chest CT 10/23/19 11:25 IMPRESSION: 1. Multilobar groundglass opacities, bronchial wall thickening, vascular congestion bilateral pleural effusions likely represent cardiogenic pulmonary edema. Atypical (viral) infectious and cryptogenic organizing pneumonia also possible. 2. CABG Electronically Signed: Bentley Reyes MD ([place]) at 12:14 EDT , Service support , Current Medications Acetaminophen (Tylenol) 650 mg PO Q6H PRN PRN PRN Reason: Pain Score 1-10/Temp > 100.7 F Last Admin: 10/22/19 22:04 Dose: 650 mg Documented by: Atorvastatin Calcium (Lipitor) 80 mg PO QHS [facility] Last Admin: 10/23/19 21:16 Dose: 80 mg Documented by: Cyanocobalamin (Vitamin B12) 500 mcg PO BID [facility] Last Admin: 10/24/19 10:00 Dose: 500 mcg Documented by: Furosemide (Lasix) 40 mg IV BID@1000,1800 [facility] Last Admin: 10/24/19 09:56 Dose: 40 mg Documented by: Glucagon () 1 mg IM .X1 PRN PRN Reason: Hypoglycemia Sodium Chloride () 500 mls @ 15 mls/hr IV PRN PRN PRN Reason: Blood Transfusion Last Infusion: 10/18/19 23:16 Dose: Infused Documented by: Sodium Chloride () 250 mls @ 15 mls/hr IV .[id number] PRN PRN Reason: Saline Flush Last Infusion: 10/22/19 10:45 Dose: 0 mls/hr Documented by: Sodium Chloride () 250 mls @ 15 mls/hr IV .[id number] PRN PRN Reason: Additional IVPB Infusion Dextrose (Dextrose 10%-Water) 250 mls @ 999 mls/hr IV .Q16M PRN; Protocol PRN Reason: HYPOGLYCEMIA Insulin Glargine (Lantus ([facility])) 10 units SC QHS [facility] Last Admin: 10/23/19 21:17 Dose: 10 unit Documented by: Insulin Human Lispro (Humalog Kwikpen ([facility])) 0 unit SC TIDAC [facility]; Protocol Last Admin: 10/24/19 12:17 Dose: 10 units Documented by: Labetalol HCl (Trandate) 10 mg IV Q4H PRN PRN PRN Reason: sbp > 160 or DBP > 120 Levothyroxine Sodium (Synthroid) 150 mcg PO DAILY@0600 [facility] Last Admin: 10/24/19 06:36 Dose: 150 mcg Documented by: Metoprolol Tartrate (Lopressor (Beta Suleiman)) 50 mg PO BID [facility] Last Admin: 10/24/19 09:58 Dose: 50 mg Documented by: Nitroglycerin (Nitrostat) 0.4 mg SUBLINGUAL Q5M PRN PRN Reason: CARDIAC/CHEST PAIN Ondansetron HCl (Zofran) 4 mg IV Q8H PRN PRN PRN Reason: NAUSEA/VOMITING Pantoprazole Sodium (Protonix) 40 mg PO DAILY [facility] Last Admin: 10/24/19 09:59 Dose: 40 mg Documented by: Ranolazine (Ranexa) 1,000 mg PO BID [facility] Last Admin: 10/24/19 09:58 Dose: 1,000 mg Documented by: Sodium Chloride () 10 - 40 ml IV UD PRN PRN Reason: SALINE FLUSH Last Admin: 10/23/19 18:29 Dose: 10 ml Documented by: Tamsulosin HCl (Flomax) 0.4 mg PO DAILY@1730 [facility] Last Admin: 10/23/19 16:46 Dose: 0.4 mg Documented by: Medical Necessity - Tobacco Use Smoking Status: Former smoker Assessment/Plan All Active Problems (Last Reviewed 10/18/19 @ 09:07 by Monica Davis PA-C) Anemia (Acute) Acute blood loss anemia (Acute) Unstable angina (Acute) Renal insufficiency (Acute) H/O coronary artery bypass surgery (Resolved 04/1998) History of coronary artery stent placement (Resolved 01/22/15) Abdominal pain (Resolved) Back pain (Resolved) RECOMMENDATIONS: 1. Continue Lasix as tolerated by renal function. 2. Wean supplemental oxygen to maintain saturations at or above 90%. 3. Encourage incentive spirometer use and mobilize patient as tolerated. IMPRESSIONS: 1. Acute hypoxemic respiratory failure The patient was initially admitted to the hospital in the setting of unstable angina and blood loss anemia of unclear etiology. The patient was transfused blood products and has been medically managed from a cardiac perspective. Unfortunately, the patient's respiratory status has declined over the course of this hospitalization. The patient's chest x-ray is concerning for underlying pulmonary edema. I do have a low clinical index of suspicion for an underlying pulmonary infectious process. In addition, the patient did have an elevated BNP. He has been responding favorably to the use of diuretics. I would recommend continuing the aforementioned therapy as tolerated by renal function. 2. Acute on chronic anemia The patient has normocytic blood indices. Upper endoscopy was unremarkable. Hemoglobin is stable at this time. Continue to monitor daily and transfuse if hemoglobin drops below 7 g/dL. Hematology is following. 3. Acute on chronic kidney disease As noted above, if creatinine worsens with diuresis, consider obtaining nephrology consultation. Continue to hold nephrotoxic medications. 4. History of obstructive sleep apnea/diabetes mellitus/hypothyroidism/hypertension/hyperlipidemia Complicates care, management, recovery and prognosis. Continue home noninvasive positive pressure ventilatory support. This note was generated with [employer] software. It may contain incorrect words, spelling, and punctuation that were not noted in checking the note before signing. Inpatient E&M: 28951 Subs Hosp L2
[2019-10-24 16:08] LABS: Folate, RBC (Hct) Test 23.6 % (37.5-51.0)
[2019-10-24] MEDS: Tamsulosin HCl 0.4 MG Capsule PO (17:07)
[2019-10-24 17:15] LABS: Folates, RBC Test 1314 ng/mL (>498)
[2019-10-24 17:15] LABS: Haptoglobin 414 mg/dL (34-355)
[2019-10-24 17:30] LABS: Bedside Glucose 295 mg/dL (70-110)
[2019-10-24] MEDS: Aspirin 81 MG TAB.CHEW PO (21:39)
[2019-10-24] MEDS: Atorvastatin Calcium 80 MG Tablet PO (21:40)
[2019-10-24 21:45] LABS: Bedside Glucose 230 mg/dL (70-110)
[2019-10-24] MEDS: 0.9% Saline Lock 10 ML Syringe IV (21:45)
[2019-10-25] VITALS (23 sets, daily range): BP systolic 114–145; BP diastolic 57–73; PULSE 61–82; RESP 16–24; TEMP 36.4–36.9; O2SAT 91–98
--- NOTE | 2019-10-25 05:55 | EKG12_ITS ---
Test Reason : DYSPNEA Blood Pressure : / mmHG Vent. Rate : 094 BPM Atrial Rate : 094 BPM P-R Int : 170 ms QRS Dur : 140 ms QT Int : 398 ms P-R-T Axes : 000 227 072 degrees QTc Int : 497 ms Suspect arm lead reversal, interpretation assumes no reversal Normal sinus rhythm Non-specific intra-ventricular conduction block Lateral infarct , age undetermined Marked ST abnormality, possible anterior subendocardial injury Abnormal ECG No previous ECGs available Confirmed by TOSHA MARTINEZ ([id number]), electronic news gathering editor JIM BOYER ([id number]) on 10/26/2019 4:27:20 PM Referred By: Confirmed By:TOSHA MARTINEZ
[2019-10-25] MEDS: Levothyroxine 150 MCG Tablet PO (06:08)
[2019-10-25] MEDS: 0.9% Saline Lock 10 ML Syringe IV (06:08)
[2019-10-25 06:24] LABS: Absolute Lymphocyte Count 0.68 X10^3/uL (0.83-4.51); Absolute Neutrophil Count 5.9 X10^3/uL (2.0-7.7); Basophil# 0.04 X10^3/uL; Basophil% 0.5 % (0-1); Eosinophil# 0.21 X10^3/uL; Eosinophils% 2.8 % (0-5); Hemoglobin 8.1 g/dL (13.0-16.5); Lymphocyte # 0.68 X10^3/ul (4.0); Lymphocyte % 8.9 % (19-41); Mean Corp Hgb Conc 31.2 g/dL (32-36); Mean Corpuscular Hgb 29.5 pg (27.0-32.0); Mean Corpuscular Volume 94.5 fL (80-94); Mean Platelet Vol. 11.5 fl (6.2-12.0); Monocyte# 0.77 X10^3/uL; Monocyte% 10.1 % (0-10); NRBC Flagged by Analyzer 0 % (0-5); Neutrophil # 5.89 X10^3/uL (2.7-7.7); Neutrophil % 77.2 % (47-70); Platelet Count 211 K/mm3 (150-450); RBC Distribution Width CV 16.2 % (11.6-14.6); RBC Distribution Width SD 53.9 fl (35.1-43.9); Red Blood Count 2.75 M/mm3 (4.6-6.2); White Blood Count 7.6 K/mm3 (4.4-11.0)
[2019-10-25 06:48] LABS: Anion Gap 4 (5-15); BUN 36 mg/dL (7-18); BUN/Creat Ratio 18.4 RATIO (10-20); Calcium,Total 8.5 mg/dL (8.5-10.1); Chloride 103 mmol/L (98-107); Creatinine, Serum 1.96 mg/dL (0.70-1.30); EST Glomerular Filtration Rate 36 mL/min (>60); Est Glom Filt Rate - Afr Amer 43 mL/min (>60); Estimated Creatinine Clearance 36.84 ml/min; Glucose 234 mg/dL (74-106); Potassium 3.5 mmol/L (3.5-5.1); Sodium Level 140 mmol/L (136-145)
[2019-10-25] MEDS: Metoprolol Tartrate 50 MG Tablet PO ×2 (08:08→21:21)
[2019-10-25] MEDS: Aspirin 81 MG TAB.CHEW PO (08:08)
[2019-10-25] MEDS: TICAGRELOR 90 MG TABLET 180 MG PO (08:08)
[2019-10-25 08:31] LABS: Bedside Glucose 261 mg/dL (70-110)
--- NOTE | 2019-10-25 10:04 | PCM.PN.PUL ---
Patient Problems: Active and Suspected Problems (Last Reviewed 10/18/19 @ 09:07 by Monica Davis PA-C) Acute blood loss anemia (Acute) Unstable angina (Acute) Renal insufficiency (Acute) Subjective: The patient was seen and examined at the bedside this morning. Events from the last 24 hours have been reviewed. The patient is currently afebrile, hemodynamically stable and maintaining appropriate oxygen saturations on 4 L/min via nasal cannula. Creatinine continues to improve. Objective: The patient's most recent lab work, culture data and imaging studies have all been personally reviewed. Respiratory viral panel was negative. Blood cultures have shown no growth to date. - Physical Exam Vitals/I&O's: Vital Signs Temp Pulse Resp BP Pulse Ox 98.5 F 75 20 H 122/61 H 94 10/25/19 07:49 10/25/19 08:08 10/25/19 07:49 10/25/19 07:49 10/25/19 07:49 Oxygen Flow Rate (L/min) 4 Oxygen Delivery Method Nasal Cannula Weight: 230 lb 6.129 oz Body Mass Index (BMI) 32.1 Intake and Output for Last 24 Hours 10/23/19 10/24/19 10/25/19 23:59 23:59 23:59 Intake Total 1200.83 / 1200.83 820 / 820 60 / 60 Output Total 1400 / 1400 Balance -199.17 / -199.17 820 / 820 60 / 60 General: Alert, Cooperative, No apparent distress HEENT: Atraumatic, Normocephalic Oral: No Gingival or Mucosal Lesions/ Ulcerations Neck: Supple, No Nodes, Trachea Midline Lungs: No rhonchi, No wheeze, No rales, Diminished Cardiovascular: Regular rate, Regular Rhythm, Normal S1, Normal S2 Abdomen: Bowel Sounds Present, Soft, Non Tender Extremities: No clubbing, No cyanosis, No edema Skin: No breakdown Musculoskeletal: No Tenderness to Palpation of Joints or Extremities Lymphatic: No Cervical, Supraclavicular, or Inguinal Adenopathy Neurological: Cranial nerves II-XII grossly intact, Neuro grossly intact Psych/Mental Status: Normal Affect, Appropriate Labs (Last 48 Hours) 10/22/19 10/22/19 10/22/19 05:09 07:45 07:45 WBC RBC Hgb Hct MCV MCH MCHC RDW Std Deviation RDW Coeff of Matthew Plt Count MPV Immature Gran % (Auto) Neut % (Auto) Lymph % (Auto) [place] % (Auto) Eos % (Auto) Baso % (Auto) Absolute Neuts (auto) Absolute Lymphs (auto) Nucleated RBC % Haptoglobin 414 H Sodium Potassium Chloride Carbon Dioxide Anion Gap BUN Creatinine Estim Creat Clear Calc Est GFR (MDRD) Af Amer Est GFR (MDRD) Non-Af BUN/Creatinine Ratio Glucose Calcium B-Natriuretic Peptide RBC Folate Hemolysate 310.0 RBC Folate 1314 Hematocrit 23.6 L POC Glucose Crossmatch See Detail 10/23/19 10/23/19 10/23/19 05:22 09:23 12:32 WBC RBC Hgb Hct MCV MCH MCHC RDW Std Deviation RDW Coeff of Matthew Plt Count MPV Immature Gran % (Auto) Neut % (Auto) Lymph % (Auto) [place] % (Auto) Eos % (Auto) Baso % (Auto) Absolute Neuts (auto) Absolute Lymphs (auto) Nucleated RBC % Haptoglobin Sodium Potassium Chloride Carbon Dioxide Anion Gap BUN Creatinine Estim Creat Clear Calc Est GFR (MDRD) Af Amer Est GFR (MDRD) Non-Af BUN/Creatinine Ratio Glucose Calcium B-Natriuretic Peptide 3122.5 H RBC Folate Hemolysate RBC Folate Hematocrit POC Glucose 396 H 297 H Crossmatch 10/23/19 10/23/19 10/24/19 16:44 21:14 05:50 WBC 6.4 RBC 2.78 L Hgb 8.4 L Hct 25.4 L MCV 91.4 MCH 30.2 MCHC 33.1 RDW Std Deviation 52.0 H RDW Coeff of Matthew 15.9 H Plt Count 192 MPV 11.3 Immature Gran % (Auto) 0.800 Neut % (Auto) 75.0 H Lymph % (Auto) 9.9 L [place] % (Auto) 11.3 H Eos % (Auto) 2.5 Baso % (Auto) 0.5 Absolute Neuts (auto) 4.8 Absolute Lymphs (auto) 0.63 L Nucleated RBC % 0.3 Haptoglobin Sodium Potassium Chloride Carbon Dioxide Anion Gap BUN Creatinine Estim Creat Clear Calc Est GFR (MDRD) Af Amer Est GFR (MDRD) Non-Af BUN/Creatinine Ratio Glucose Calcium B-Natriuretic Peptide RBC Folate Hemolysate RBC Folate Hematocrit POC Glucose 305 H 310 H Crossmatch 10/24/19 10/24/19 10/24/19 05:50 06:42 12:15 WBC RBC Hgb Hct MCV MCH MCHC RDW Std Deviation RDW Coeff of Matthew Plt Count MPV Immature Gran % (Auto) Neut % (Auto) Lymph % (Auto) [place] % (Auto) Eos % (Auto) Baso % (Auto) Absolute Neuts (auto) Absolute Lymphs (auto) Nucleated RBC % Haptoglobin Sodium 137 Potassium 3.2 L Chloride 102 Carbon Dioxide 27.0 Anion Gap 8 BUN 38 H Creatinine 2.02 H Estim Creat Clear Calc 35.75 Est GFR (MDRD) Af Amer 42 L Est GFR (MDRD) Non-Af 35 L BUN/Creatinine Ratio 18.8 Glucose 311 H Calcium 8.3 L B-Natriuretic Peptide RBC Folate Hemolysate RBC Folate Hematocrit POC Glucose 284 H 404 H Crossmatch 10/24/19 10/24/19 10/25/19 17:02 21:37 05:50 WBC 7.6 RBC 2.75 L Hgb 8.1 L Hct 26.0 L MCV 94.5 H MCH 29.5 MCHC 31.2 L D RDW Std Deviation 53.9 H RDW Coeff of Matthew 16.2 H Plt Count 211 MPV 11.5 Immature Gran % (Auto) 0.500 Neut % (Auto) 77.2 H Lymph % (Auto) 8.9 L [place] % (Auto) 10.1 H Eos % (Auto) 2.8 Baso % (Auto) 0.5 Absolute Neuts (auto) 5.9 Absolute Lymphs (auto) 0.68 L Nucleated RBC % 0 Haptoglobin Sodium Potassium Chloride Carbon Dioxide Anion Gap BUN Creatinine Estim Creat Clear Calc Est GFR (MDRD) Af Amer Est GFR (MDRD) Non-Af BUN/Creatinine Ratio Glucose Calcium B-Natriuretic Peptide RBC Folate Hemolysate RBC Folate Hematocrit POC Glucose 295 H 230 H Crossmatch 10/25/19 10/25/19 05:50 08:25 WBC RBC Hgb Hct MCV MCH MCHC RDW Std Deviation RDW Coeff of Matthew Plt Count MPV Immature Gran % (Auto) Neut % (Auto) Lymph % (Auto) [place] % (Auto) Eos % (Auto) Baso % (Auto) Absolute Neuts (auto) Absolute Lymphs (auto) Nucleated RBC % Haptoglobin Sodium 140 Potassium 3.5 Chloride 103 Carbon Dioxide 33.0 H Anion Gap 4 L BUN 36 H Creatinine 1.96 H Estim Creat Clear Calc 36.84 Est GFR (MDRD) Af Amer 43 L Est GFR (MDRD) Non-Af 36 L BUN/Creatinine Ratio 18.4 Glucose 234 H Calcium 8.5 B-Natriuretic Peptide RBC Folate Hemolysate RBC Folate Hematocrit POC Glucose 261 H Crossmatch Microbiology 10/19/19 21:30 Blood Culture (Wb) - Right Wrist Blood Culture - Final No growth in 5 days. 10/19/19 21:40 Blood Culture (Wb) - Left Forearm Blood Culture - Final No growth in 5 days. 10/23/19 11:40 Mucosa - Nasopharyngeal Respiratory Panel (PCR) - Final Clinical Impression(s) from Imaging Studies Chest X-Ray 10/17/19 23:37 IMPRESSION: Basilar atelectasis/scarring. There is no focal consolidation identified. Electronically Signed: Oliver Roca at 0:07 EST Tel , Service support , Chest X-Ray 10/19/19 21:14 IMPRESSION: Limited inspiration without major interval change. Electronically Signed: Rogers Young DO at 22:05 EST Tel [phone], Service support , Chest X-Ray 10/22/19 15:54 IMPRESSION: 1. Developing infiltrate in the lateral right upper lobe may represent localized edema or pneumonia. 2. Underlying interstitial fibrotic lung disease or chronic CHF. Electronically Signed: Bentley Reyes MD ([place]) at 16:06 EDT , Service support , Chest CT 10/23/19 11:25 IMPRESSION: 1. Multilobar groundglass opacities, bronchial wall thickening, vascular congestion bilateral pleural effusions likely represent cardiogenic pulmonary edema. Atypical (viral) infectious and cryptogenic organizing pneumonia also possible. 2. CABG Electronically Signed: Bentley Reyes MD ([place]) at 12:14 EDT , Service support , Current Medications Acetaminophen (Tylenol) 650 mg PO Q6H PRN PRN PRN Reason: Pain Score 1-10/Temp > 100.7 F Last Admin: 10/22/19 22:04 Dose: 650 mg Documented by: Aspirin (Aspirin, Baby) 81 mg PO DAILY@0800 [facility] Last Admin: 10/25/19 08:08 Dose: 81 mg Documented by: Atorvastatin Calcium (Lipitor) 80 mg PO QHS [facility] Last Admin: 10/24/19 21:40 Dose: 80 mg Documented by: Cyanocobalamin (Vitamin B12) 500 mcg PO BID [facility] Last Admin: 10/24/19 21:40 Dose: 500 mcg Documented by: Furosemide (Lasix) 40 mg IV BID@1000,1800 [facility] Last Admin: 10/24/19 17:08 Dose: 40 mg Documented by: Glucagon () 1 mg IM .X1 PRN PRN Reason: Hypoglycemia Sodium Chloride () 500 mls @ 15 mls/hr IV PRN PRN PRN Reason: Blood Transfusion Last Infusion: 10/18/19 23:16 Dose: Infused Documented by: Sodium Chloride () 250 mls @ 15 mls/hr IV .[id number] PRN PRN Reason: Saline Flush Last Infusion: 10/22/19 10:45 Dose: 0 mls/hr Documented by: Sodium Chloride () 250 mls @ 15 mls/hr IV .[id number] PRN PRN Reason: Additional IVPB Infusion Dextrose (Dextrose 10%-Water) 250 mls @ 999 mls/hr IV .Q16M PRN; Protocol PRN Reason: HYPOGLYCEMIA Sodium Chloride () 1,000 mls @ 0 mls/hr IV .Q0M [facility] Insulin Glargine (Lantus (Bkc)) 10 units SC QHS [facility] Last Admin: 10/24/19 21:41 Dose: 10 unit Documented by: Insulin Human Lispro (Humalog Kwikpen (Bkc)) 0 unit SC TIDAC [facility]; Protocol Last Admin: 10/24/19 17:07 Dose: 6 units Documented by: Labetalol HCl (Trandate) 10 mg IV Q4H PRN PRN PRN Reason: sbp > 160 or DBP > 120 Levothyroxine Sodium (Synthroid) 150 mcg PO DAILY@0600 [facility] Last Admin: 10/25/19 06:08 Dose: 150 mcg Documented by: Metoprolol Tartrate (Lopressor (Beta Suleiman)) 50 mg PO BID [facility] Last Admin: 10/25/19 08:08 Dose: 50 mg Documented by: Nitroglycerin (Nitrostat) 0.4 mg SUBLINGUAL Q5M PRN PRN Reason: CARDIAC/CHEST PAIN Ondansetron HCl (Zofran) 4 mg IV Q8H PRN PRN PRN Reason: NAUSEA/VOMITING Pantoprazole Sodium (Protonix) 40 mg PO DAILY [facility] Last Admin: 10/24/19 09:59 Dose: 40 mg Documented by: Ranolazine (Ranexa) 1,000 mg PO BID [facility] Last Admin: 10/24/19 21:40 Dose: 1,000 mg Documented by: Sodium Chloride () 10 - 40 ml IV UD PRN PRN Reason: SALINE FLUSH Last Admin: 10/25/19 06:08 Dose: 10 ml Documented by: Tamsulosin HCl (Flomax) 0.4 mg PO DAILY@1730 [facility] Last Admin: 10/24/19 17:07 Dose: 0.4 mg Documented by: Medical Necessity - Tobacco Use Smoking Status: Former smoker Assessment/Plan All Active Problems (Last Reviewed 10/18/19 @ 09:07 by Monica Davis PA-C) Anemia (Acute) Acute blood loss anemia (Acute) Unstable angina (Acute) Renal insufficiency (Acute) H/O coronary artery bypass surgery (Resolved 04/1998) History of coronary artery stent placement (Resolved 01/22/15) Abdominal pain (Resolved) Back pain (Resolved) RECOMMENDATIONS: 1. Continue Lasix as tolerated by renal function. 2. Wean supplemental oxygen to maintain saturations at or above 90%. 3. Encourage incentive spirometer use and mobilize patient as tolerated. 4. Plans for cardiac catheterization today. IMPRESSIONS: 1. Acute hypoxemic respiratory failure The patient was initially admitted to the hospital in the setting of unstable angina and blood loss anemia of unclear etiology. The patient was transfused blood products and has been medically managed from a cardiac perspective. Unfortunately, the patient's respiratory status has declined over the course of this hospitalization. The patient's chest x-ray is concerning for underlying pulmonary edema. I do have a low clinical index of suspicion for an underlying pulmonary infectious process. In addition, the patient did have an elevated BNP. He has been responding favorably to the use of diuretics. I would recommend continuing the aforementioned therapy as tolerated by renal function. There are plans for cardiac catheterization today. 2. Acute on chronic anemia The patient has normocytic blood indices. Upper endoscopy was unremarkable. Hemoglobin is stable at this time. Continue to monitor daily and transfuse if hemoglobin drops below 7 g/dL. Hematology is following. 3. Acute on chronic kidney disease As noted above, if creatinine worsens with diuresis, consider obtaining nephrology consultation. Continue to hold nephrotoxic medications. 4. History of obstructive sleep apnea/diabetes mellitus/hypothyroidism/hypertension/hyperlipidemia Complicates care, management, recovery and prognosis. Continue home noninvasive positive pressure ventilatory support. This note was generated with [employer] dictation software. It may contain incorrect words, spelling, and punctuation that were not noted in checking the note before signing. Inpatient E&M: 51401 Subs Hosp L2
--- NOTE | 2019-10-25 10:04 | NURSING ---
report called to [facility]
--- NOTE | 2019-10-25 10:57 | PN.CARD_ITS ---
Subjectve: Patient seen and evaluated. Underwent cardiac catheterization this morning Objective: Vital Signs Temp Pulse Resp BP Pulse Ox 98.5 F 75 20 H 122/61 H 94 10/25/19 07:49 10/25/19 08:08 10/25/19 07:49 10/25/19 07:49 10/25/19 07:49 Oxygen Flow Rate (L/min) 4 Oxygen Delivery Method Nasal Cannula Weight: 230 lb 6.129 oz Body Mass Index (BMI) 32.1 Intake and Output for Last 24 Hours 10/23/19 10/24/19 10/25/19 23:59 23:59 23:59 Intake Total 1200.83 / 1200.83 820 / 820 60 / 60 Output Total 1400 / 1400 Balance -199.17 / -199.17 820 / 820 60 / 60 General: Awake, Alert, Oriented x 3 HEENT: PERRL, EOMI, Sclera Non Icteric Neck: Supple, Good ROM, No Lymph Node Enlargement Lungs: Clear to auscultation Cardiovascular: Regular Rhythm, Normal S1, Normal S2, No Murmurs, No Rubs, No Gallops Vascular: No Carotid Bruits, Normal Femoral Pulses, Normal Radial Pulses, Normal Dorsalis Pedal Pulse, Normal Posterior Tibial Pulses Abdomen: Bowel Sounds Present, Soft, Non Tender, No HSM, No Organomegaly Extremities: No Cyanosis, No Clubbing, No edema Musculoskeletal: No Erythema Skin: No Rashes Lymphatic: No Lymph Node Enlargement Neurological: No Focal Motor or Sensory Deficit 10/25/19 05:50: WBC 7.6, RBC 2.75 L, Hgb 8.1 L, Hct 26.0 L, MCV 94.5 H, MCH 29.5, MCHC 31.2 L D, Plt Count 211, MPV 11.5, Immature Gran % (Auto) 0.500, Neut % (Auto) 77.2 H, Lymph % (Auto) 8.9 L, [place] % (Auto) 10.1 H, Eos % (Auto) 2.8, Baso % (Auto) 0.5, Absolute Neuts (auto) 5.9, Nucleated RBC % 0 10/25/19 05:50: Sodium 140, Potassium 3.5, Chloride 103, Carbon Dioxide 33.0 H, Anion Gap 4 L, BUN 36 H, Creatinine 1.96 H, Est GFR (MDRD) Af Amer 43 L, Est GFR (MDRD) Non-Af 36 L, BUN/Creatinine Ratio 18.4, Glucose 234 H, Calcium 8.5 Rhythm: EKG: ECHO: Stress Test: Cardiac Cath: PCI: CT Surgery: Holter monitor: EPS: PPM: CXR: Chest CT Scan: Medical Necessity - Tobacco Use Smoking Status: Former smoker Assessment/Plan 1. Unstable angina pectoris 1.The patient did present with unstable angina pectoris. He has had indeterminate troponin I levels. He has had waxing and waning electrocardiographic changes. This raises concern of his underlying CAD/graft vessel process.His symptoms may be exacerbated by his marked anemia. He did have EKG changes with ST depression. These appear to have resolved. At this time he appears to be stable. * The cardiac catheterization this morning demonstrated that the saphenous vein graft to the obtuse marginal branch was patent. Post bypass graft stenosis in the [place] vessel was noted but unchanged from before. * Based on this angiographic findings and the fact that his EKG has stabilized we will continue to manage him clinically. * His beta-jolly can be started later on if he is stable with adequate blood pressure. * Would discontinue his ticagrelor * Will hold off on aspirin for now 2. CAD status post PCI status post CABG He does have a history of cardiovascular disease as noted. He states he has been doing well on medical therapy using nitroglycerin sublingual as needed. However based upon his current issues there are concerns regarding his underlying CAD/graft vessel process. Again he will continue his noninvasive evaluation. Over time he may need further invasive evaluation when he is clinically stable. In the interim continue with medical therapy with adjustment as needed. Of note there are concerns at this time, based upon his marked anemia and concern of gastrointestinal bleeding, using other agents such as antiplatelet therapy on her anticoagulant therapy. 3. Hyperlipidemia He will continue medical management as deemed appropriate. 4. Hypertension He will continue medical therapy with adjustment as needed take into consideration his renal insufficiency. 5. Diabetes mellitus He will continue under the care of internal medicine. 6. Anemia thought secondary to gastrointestinal bleeding He is markedly anemic. The exact etiology is not clear. Appreciate wireless manager input He did do well with the upper GI evaluation . We will continue to monitor his hemoglobin. Will hold off on any aspirin or clopidogrel for now. Thank you for allowing me to participate in the care of your patient. Please don't hesitate to call if any issues arise * Hematology consultation has been placed. * He did receive another unit of packed red blood cells with intermittent Lasix 7. Mild congestive heart failure * He appears to have mild shortness of breath suggestive of mild congestive heart failure my recommendation is to give him intermittent Lasix and continue to monitor his creatinine. * We will try and see whether he has reduced oxygen requirements. * He has been transferred to the progressive care unit and appears to be doing well. * His echocardiogram from yesterday demonstrated overall preserved left ventricular systolic function which is reassuring. * Thank you for allowing me to participate in the care of your patient. Please don't hesitate to call if any issues arise
--- NOTE | 2019-10-25 11:05 | CL.D_ITS ---
Patient Name: JEANETH MEHTA Study Date: 10/25/2019 Performing: Cosme Hernandez MD Ht: 72 inches 183 cm : 1945 Wt: 231.8 lbs 105 kg Age: 74 Gender: male BSA: 2.27 PROCEDURE(S) PERFORMED [id number] CLINICAL PROFILE AND INDICATIONS Indications: Suspected CAD Heart Failure: NYHA Class: 3, Newly Diagnosed: No Stress/Imaging Stress/Image Study Performed: No CONCLUSIONS Patent saphenous vein graft to the circumflex artery. Presumed patent PAZ to the LAD. Preserved ej ection fraction RECOMMENDATIONS Medical therapy DESCRIPTION OF PROCEDURE The patient arrived to the procedure lab. The risks and benefits of the procedure as well as a full d escription of our services here and current unavailability of surgical backup were fully explained to the patient and/or their significant other prior to the catheterization. The Timeout was completed, verifying the correct patient and procedure. The patient's procedural site was prepped and draped in the usual fashion. Local anesthetic was given subcutaneously to right groin region with Lidocaine 2%. Using a modified Seldinger technique, arterial access was obtained via the right femoral artery, a 5 Fr sheath was inserted. Saphenous Vein graft to the OM 1 selective angiography was performed in mult iple views using a 5 Fr. JR 4 catheter. LV to AO pullback pressures were then recorded.Contrast was i njected through the sheath and the Right Iliac and Femoral artery were assessed for possible closure device.The arterial sheath was pulled and a Mynx closure device was deployed for hemostasis CORONARY ANGIOGRAPHY DOMINANCE: Right Dominant The patient was previously noted to have a totally occluded LAD, circumflex artery, right coronary ar saray. The PAZ was patent. This was not imaged. The LVEDP was noted to be elevated. Echocardiogra m demonstrated preserved ejection fraction. GRAFTS: Saphenous Vein graft to the 2nd OM This graft is patent with a previously placed stent which is adams nt. The distal anastomotic site is free of significant disease. Post anastomotic site there are 2 a reas in the branch obtuse marginal branch as well as the AV groove with stenosis and a post aneurysma l dilatation. In comparison to the previous cardiac catheterization from January 2019 the above is unch anged. COMPLICATIONS No Complications PROCEDURE MEDICATIONS Oxygen: 15 L/min via non-rebreather mask Lasix 40 mg IV 10/25/2019 10:48:47 SUMMARY OF HEMODYNAMIC DATA Time AIR REST ECG 10:15:40 AO 141/67 (98) SA 10:41:59 LV 136/12, 34 10:46:12 LV 134/11, 34 10:46:18 LVp 138/16, 39 10:46:39 AOp 140/66 (97) 10:46:44 Signed By Cosme Hernandez MD On 10/25/2019 11:04:55 Cosme Hernandez MD
[2019-10-25] MEDS: Pantoprazole Sodium 40 MG Tablet PO (13:17)
[2019-10-25] MEDS: Ranolazine 500 MG Tablet 1000 MG PO ×2 (13:18→21:21)
[2019-10-25] MEDS: Cyanocobalamin 500 MCG Tablet PO ×2 (13:18→21:21)
[2019-10-25] MEDS: Insulin Lispro 100 UNIT/ML INSULN.PEN SC ×2 (13:28→17:17)
--- NOTE | 2019-10-25 13:28 | PN_ITS ---
Patient Problems: Active and Suspected Problems (Last Reviewed 10/18/19 @ 09:07 by Monica Davis PA-C) Acute blood loss anemia (Acute) Unstable angina (Acute) Renal insufficiency (Acute) Subjective: Patient seen and examined. Shortness of breath has improved mildly. He is down to 4 L of oxygen but when he lays down, shortness of breath gets with that he requires up to 6 L of oxygen. He however denied any cough, chest pain, nausea vomiting, palpitations, dizziness or abdominal pain. Review of systems is otherwise negative. He is for cardiac cath today. Labs and vitals reviewed. Creatinine is down to 1.96. He has remained hemodynamically stable. Vitals/I&O's: Vital Signs Temp Pulse Resp BP Pulse Ox 98 F 65 20 H 122/60 H 97 10/25/19 12:30 10/25/19 13:00 10/25/19 13:00 10/25/19 13:00 10/25/19 13:00 Oxygen Flow Rate (L/min) 6 Oxygen Delivery Method CPAP Weight: 230 lb 6.129 oz Body Mass Index (BMI) 32.1 Intake and Output for Last 24 Hours 10/23/19 10/24/19 10/25/19 23:59 23:59 23:59 Intake Total 1200.83 / 1200.83 820 / 820 60 / 60 Output Total 1400 / 1400 Balance -199.17 / -199.17 820 / 820 60 / 60 General: Alert, Oriented x3, Cooperative, No apparent distress HEENT: Atraumatic, PERRLA, EOMI, Normocephalic Oral: Dry Mucosa Neck: Supple, No JVD, Negative Carotid Bruits Lungs: - - decreased breath sounds bibasally, no wheezes or crackles. on 4L of oxygen by nasal canula Cardiovascular: Regular rate, Regular Rhythm, Normal S1, Normal S2, No murmurs Abdomen: Bowel Sounds Present, Soft, Non Tender, Non-Distended, No Hepato- splenomegaly Extremities: No clubbing, No cyanosis, No edema, Capillary Refill Less than 3 Seconds Skin: No rashes, No breakdown Musculoskeletal: No Tenderness to Palpation of Joints or Extremities Lymphatic: No Cervical, Supraclavicular, or Inguinal Adenopathy Neurological: Cranial nerves II-XII grossly intact, Neuro grossly intact, Motor Exam 5/5 strength throughout Psych/Mental Status: Normal Affect, Appropriate, Alert and oriented to time, place, person, mood and affect Microbiology Past 72 Hours 10/19/19 21:30 Blood Culture (Wb) - Right Wrist Blood Culture - Final No growth in 5 days. 10/19/19 21:40 Blood Culture (Wb) - Left Forearm Blood Culture - Final No growth in 5 days. 10/23/19 11:40 Mucosa - Nasopharyngeal Respiratory Panel (PCR) - Final Laboratory Results 10/22/19 05:09: Haptoglobin 414 H 10/22/19 07:45: RBC Folate Hemolysate 310.0, RBC Folate 1314, Hematocrit 23.6 L 10/22/19 07:45: Crossmatch See Detail 10/24/19 17:02: POC Glucose 295 H 10/24/19 21:37: POC Glucose 230 H 10/25/19 05:50: WBC 7.6, RBC 2.75 L, Hgb 8.1 L, Hct 26.0 L, MCV 94.5 H, MCH 29.5, MCHC 31.2 L D, RDW Std Deviation 53.9 H, RDW Coeff of Matthew 16.2 H, Plt Count 211, MPV 11.5, Immature Gran % (Auto) 0.500, Neut % (Auto) 77.2 H, Lymph % (Auto) 8.9 L, [place] % (Auto) 10.1 H, Eos % (Auto) 2.8, Baso % (Auto) 0.5, Absolute Neuts (auto) 5.9, Absolute Lymphs (auto) 0.68 L, Nucleated RBC % 0 10/25/19 05:50: Sodium 140, Potassium 3.5, Chloride 103, Carbon Dioxide 33.0 H, Anion Gap 4 L, BUN 36 H, Creatinine 1.96 H, Estim Creat Clear Calc 36.84, Est GFR (MDRD) Af Amer 43 L, Est GFR (MDRD) Non-Af 36 L, BUN/Creatinine Ratio 18.4, Glucose 234 H, Calcium 8.5 10/25/19 08:25: POC Glucose 261 H Diagnostic Data Chest X-Ray 10/22/19 15:54 IMPRESSION: 1. Developing infiltrate in the lateral right upper lobe may represent localized edema or pneumonia. 2. Underlying interstitial fibrotic lung disease or chronic CHF. Electronically Signed: Bentley Reyes MD ([place]) at 16:06 EDT , Service support , Chest CT 10/23/19 11:25 IMPRESSION: 1. Multilobar groundglass opacities, bronchial wall thickening, vascular congestion bilateral pleural effusions likely represent cardiogenic pulmonary edema. Atypical (viral) infectious and cryptogenic organizing pneumonia also possible. 2. CABG Electronically Signed: Bentley Reyes MD ([place]) at 12:14 EDT , Service support , Current Medications Acetaminophen (Tylenol) 650 mg PO Q6H PRN PRN PRN Reason: Pain Score 1-10/Temp > 100.7 F Last Admin: 10/22/19 22:04 Dose: 650 mg Documented by: Aspirin (Aspirin, Baby) 81 mg PO DAILY@0800 [facility] Last Admin: 10/25/19 08:08 Dose: 81 mg Documented by: Atorvastatin Calcium (Lipitor) 80 mg PO QHS [facility] Last Admin: 10/24/19 21:40 Dose: 80 mg Documented by: Cyanocobalamin (Vitamin B12) 500 mcg PO BID [facility] Last Admin: 10/25/19 13:18 Dose: 500 mcg Documented by: Furosemide (Lasix) 40 mg IV BID@1000,1800 [facility] Last Admin: 10/25/19 13:16 Dose: Not Given Documented by: Glucagon () 1 mg IM .X1 PRN PRN Reason: Hypoglycemia Heparin Sodium (Beef Lung) (Heparin 500 Unit/5 Ml (100/Ml)) 500 unit IV UD PRN PRN Reason: HEPARIN FLUSH Sodium Chloride () 500 mls @ 15 mls/hr IV PRN PRN PRN Reason: Blood Transfusion Last Infusion: 10/18/19 23:16 Dose: Infused Documented by: Sodium Chloride () 250 mls @ 15 mls/hr IV .[id number] PRN PRN Reason: Saline Flush Last Infusion: 10/22/19 10:45 Dose: 0 mls/hr Documented by: Sodium Chloride () 250 mls @ 15 mls/hr IV .[id number] PRN PRN Reason: Additional IVPB Infusion Dextrose (Dextrose 10%-Water) 250 mls @ 999 mls/hr IV .Q16M PRN; Protocol PRN Reason: HYPOGLYCEMIA Sodium Chloride () 1,000 mls @ 0 mls/hr IV .Q0M [facility] Insulin Glargine (Lantus ([facility])) 10 units SC QHS [facility] Last Admin: 10/24/19 21:41 Dose: 10 unit Documented by: Insulin Human Lispro (Humalog Kwikpen ([facility])) 0 unit SC TIDAC [facility]; Protocol Last Admin: 10/25/19 13:28 Dose: 6 units Documented by: Labetalol HCl (Trandate) 10 mg IV Q4H PRN PRN PRN Reason: sbp > 160 or DBP > 120 Labetalol HCl (Trandate) 5 mg IV X1 PRN PRN Reason: SBP > 160 prior to sheath pull Stop: 10/27/19 10:56 Levothyroxine Sodium (Synthroid) 150 mcg PO DAILY@0600 [facility] Last Admin: 10/25/19 06:08 Dose: 150 mcg Documented by: Metoprolol Tartrate (Lopressor (Beta Suleiman)) 50 mg PO BID [facility] Last Admin: 10/25/19 08:08 Dose: 50 mg Documented by: Nitroglycerin (Nitrostat) 0.4 mg SUBLINGUAL Q5M PRN PRN Reason: CARDIAC/CHEST PAIN Ondansetron HCl (Zofran) 4 mg IV Q8H PRN PRN PRN Reason: NAUSEA/VOMITING Pantoprazole Sodium (Protonix) 40 mg PO DAILY [facility] Last Admin: 10/25/19 13:17 Dose: 40 mg Documented by: Ranolazine (Ranexa) 1,000 mg PO BID [facility] Last Admin: 10/25/19 13:18 Dose: 1,000 mg Documented by: Sodium Chloride () 10 - 40 ml IV UD PRN PRN Reason: SALINE FLUSH Last Admin: 10/25/19 06:08 Dose: 10 ml Documented by: Tamsulosin HCl (Flomax) 0.4 mg PO DAILY@1730 [facility] Last Admin: 10/24/19 17:07 Dose: 0.4 mg Documented by: STROKE Vital Signs/Narrative: Vital Signs Temp Pulse Resp BP Pulse Ox 10/25/19 13:00 65 20 H 122/60 H 97 10/25/19 12:30 98 F 70 20 H 124/59 H 98 10/25/19 12:28 70 20 H 124/59 H 98 10/25/19 12:15 70 22 H 116/67 98 10/25/19 11:57 67 16 114/62 97 10/25/19 11:45 66 24 H 123/58 H 98 10/25/19 11:30 69 24 H 123/57 H 98 10/25/19 11:15 75 24 H 145/69 H 91 Medical Necessity - Tobacco Use Smoking Status: Former smoker Assessment/Plan All Active Problems (Last Reviewed 10/18/19 @ 09:07 by Monica Davis PA-C) Anemia (Acute) Acute blood loss anemia (Acute) Unstable angina (Acute) Renal insufficiency (Acute) H/O coronary artery bypass surgery (Resolved 04/1998) History of coronary artery stent placement (Resolved 01/22/15) Abdominal pain (Resolved) Back pain (Resolved) 1. Nonstemi * Troponins peaked at 20.3. Aspirin and Plavix on hold due to anemia. * Cardiology on board. had cardiac cath today which showed patent saphenous vein grafts to the circumflex artery and presumed patent PAZ to the LAD, with preserved EF. * per cardiology, for medical management. * 2.Acute on chronic anemia * hgb today is 8.1 * Hb on admission was 6.2. 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 * per hematology, avoid oral iron as it masks GI bleed; give IV iron with a target ferritin >100 and transferrin saturation >20% * 3. Acute hypoxic respiratory failure due to acute HFpEF * now down to 4L of oxygen. * 2D echo done showed EF of 65% * Pulmonology and cardiology on board * Chest CT done showed multilobar groundglass opacities and bronchial wall thickening with vascular congestion and bilateral pleural effusions likely due to cardiogenic pulmonary edema. * Currently on Lasix IV 40mg bid; in cumulative positive balance by 851mls since admission. Urine output so far is 11.15L * cardiology on board * 4. Acute on chronic heart failure preserved ejection fraction: * As under 3. * heart cath as under 1. 5.LEONA on CKD stage 3: * Cr is down to 1.96 today * on lasix; will monitor renal function 6. Hypokalemia: K is 3.2 today. Will replace and monitor 7. Type 2 diabetes mellitus with nephropathy * A1c was 6.3. Glimepiride on hold. * on lantus 10IU qhs * Insulin sliding scale. Accu-Cheks AC at bedtime. * * Code status: full code Inpatient E&M: 04092 Subs Hosp L2
[2019-10-25 13:40] LABS: Bedside Glucose 299 mg/dL (70-110)
--- NOTE | 2019-10-25 15:52 | NURSING ---
pt ambulated around bed and to the chair. Rt groin heart cath site c/d/i, no signs of bleeding or hematoma noted
[2019-10-25] MEDS: Tamsulosin HCl 0.4 MG Capsule PO (17:12)
[2019-10-25] MEDS: Furosemide 40 MG/4 ML Vial IV (17:12)
[2019-10-25 17:31] LABS: Bedside Glucose 221 mg/dL (70-110)
[2019-10-25] MEDS: Atorvastatin Calcium 80 MG Tablet PO (21:21)
[2019-10-25 21:36] LABS: Bedside Glucose 373 mg/dL (70-110)
[2019-10-26] VITALS (15 sets, daily range): BP systolic 127–134; BP diastolic 56–62; PULSE 68–81; RESP 18–20; TEMP 36.4–36.9; O2SAT 92–97
[2019-10-26 05:43] LABS: Absolute Lymphocyte Count 0.53 X10^3/uL (0.83-4.51); Absolute Neutrophil Count 6.1 X10^3/uL (2.0-7.7); Basophil# 0.03 X10^3/uL; Basophil% 0.4 % (0-1); Eosinophil# 0.16 X10^3/uL; Eosinophils% 2.1 % (0-5); Hematocrit 25.7 % (40-54); Hemoglobin 8.3 g/dL (13.0-16.5); Lymphocyte # 0.53 X10^3/ul (4.0); Mean Corp Hgb Conc 32.3 g/dL (32-36); Mean Corpuscular Hgb 29.7 pg (27.0-32.0); Mean Corpuscular Volume 92.1 fL (80-94); Mean Platelet Vol. 11.1 fl (6.2-12.0); Monocyte# 0.73 X10^3/uL; Monocyte% 9.6 % (0-10); NRBC Flagged by Analyzer 0 % (0-5); Neutrophil # 6.11 X10^3/uL (2.7-7.7); Neutrophil % 80.4 % (47-70); POSITIVE DIFFERENTIAL YES; Platelet Count 242 K/mm3 (150-450); RBC Distribution Width SD 51.7 fl (35.1-43.9); Red Blood Count 2.79 M/mm3 (4.6-6.2); White Blood Count 7.6 K/mm3 (4.4-11.0)
[2019-10-26 05:48] LABS: Differential Indicated SCAN CRITERIA MET
[2019-10-26 06:10] LABS: Anion Gap 7 (5-15); BUN 37 mg/dL (7-18); BUN/Creat Ratio 18.7 RATIO (10-20); Chloride 98 mmol/L (98-107); Creatinine, Serum 1.98 mg/dL (0.70-1.30); EST Glomerular Filtration Rate 35 mL/min (>60); Est Glom Filt Rate - Afr Amer 43 mL/min (>60); Estimated Creatinine Clearance 36.47 ml/min; Glucose 333 mg/dL (74-106); Potassium 3.2 mmol/L (3.5-5.1); Sodium Level 137 mmol/L (136-145)
[2019-10-26 06:11] LABS: Differential Comment SCANNED
[2019-10-26] MEDS: Levothyroxine 150 MCG Tablet PO (06:37)
[2019-10-26] MEDS: Insulin Lispro 100 UNIT/ML INSULN.PEN SC ×3 (06:37→21:37)
[2019-10-26 06:45] LABS: Bedside Glucose 303 mg/dL (70-110)
[2019-10-26] MEDS: Furosemide 40 MG/4 ML Vial IV (09:08)
[2019-10-26] MEDS: 0.9% Saline Lock 10 ML Syringe IV (09:08)
[2019-10-26] MEDS: Pantoprazole Sodium 40 MG Tablet PO (09:09)
[2019-10-26] MEDS: Ranolazine 500 MG Tablet 1000 MG PO ×2 (09:09→21:35)
[2019-10-26] MEDS: Aspirin 81 MG TAB.CHEW PO (09:09)
[2019-10-26] MEDS: Cyanocobalamin 500 MCG Tablet PO ×2 (09:09→21:35)
[2019-10-26] MEDS: Metoprolol Tartrate 50 MG Tablet PO ×2 (09:09→21:35)
[2019-10-26 12:05] LABS: Bedside Glucose 451 mg/dL (70-110)
[2019-10-26 12:15] LABS: Bedside Glucose 419 mg/dL (70-110)
[2019-10-26] MEDS: Insulin Lispro 100 UNIT/ML INSULN.PEN 10 UNIT SC (12:30)
--- NOTE | 2019-10-26 13:26 | PCM.PN.HOSP ---
Patient Problems: Active and Suspected Problems (Last Reviewed 10/18/19 @ 09:07 by Monica Davis PA-C) Acute blood loss anemia (Acute) Unstable angina (Acute) Renal insufficiency (Acute) Subjective: Patient seen and examined today. He said he was progressively feeling better but still got a bit short of breath when he tried to get out of the bed and into the chair. He denied any chest pain, nausea vomiting, no abdominal pain, any fever or chills. Review systems otherwise negative. He has remained hemodynamically stable. He was on 4 L of oxygen this morning which was successfully weaned down to 2 L of oxygen. Potassium was 3.2 today and hemoglobin is 8.3. Vitals/I&O's: Vital Signs Temp Pulse Resp BP Pulse Ox 98.0 F 81 18 130/56 H 93 10/26/19 09:08 10/26/19 09:09 10/26/19 09:08 10/26/19 09:08 10/26/19 09:20 Oxygen Flow Rate (L/min) 2 Oxygen Delivery Method Nasal Cannula Weight: 225 lb 1.471 oz Body Mass Index (BMI) 32.1 Intake and Output for Last 24 Hours 10/24/19 10/25/19 10/26/19 23:59 23:59 23:59 Intake Total 820 / 820 550 / 550 560 / 560 Output Total 800 / 800 1075 / 1075 Balance 820 / 820 -250 / -250 -515 / -515 General: Alert, Oriented x3, Cooperative, No apparent distress HEENT: Atraumatic, PERRLA, EOMI, Normocephalic Oral: Dry Mucosa Neck: Supple, No JVD, Negative Carotid Bruits Lungs: - - decreased breath sounds bibasally, no wheezes or crackles. on 2L of oxygen by nasal canula Cardiovascular: Regular rate, Regular Rhythm, Normal S1, Normal S2, No murmurs Abdomen: Bowel Sounds Present, Soft, Non Tender, Non-Distended, No Hepato-splenomegaly Extremities: No clubbing, No cyanosis, No edema, Capillary Refill Less than 3 Seconds Skin: No rashes, No breakdown Musculoskeletal: No Tenderness to Palpation of Joints or Extremities Lymphatic: No Cervical, Supraclavicular, or Inguinal Adenopathy Neurological: Cranial nerves II-XII grossly intact, Neuro grossly intact, Motor Exam 5/5 strength throughout Psych/Mental Status: Normal Affect, Appropriate, Alert and oriented to time, place, person, mood and affect Microbiology Past 72 Hours 10/19/19 21:30 Blood Culture (Wb) - Right Wrist Blood Culture - Final No growth in 5 days. 10/19/19 21:40 Blood Culture (Wb) - Left Forearm Blood Culture - Final No growth in 5 days. 10/23/19 11:40 Mucosa - Nasopharyngeal Respiratory Panel (PCR) - Final Laboratory Results 10/25/19 13:27: POC Glucose 299 H 10/25/19 17:15: POC Glucose 221 H 10/25/19 21:17: POC Glucose 373 H 10/26/19 05:30: WBC 7.6, RBC 2.79 L, Hgb 8.3 L, Hct 25.7 L, MCV 92.1, MCH 29.7, MCHC 32.3, RDW Std Deviation 51.7 H, RDW Coeff of Matthew 16.0 H, Plt Count 242, MPV 11.1, Immature Gran % (Auto) 0.500, Neut % (Auto) 80.4 H, Lymph % (Auto) 7.0 L, Caroline % (Auto) 9.6, Eos % (Auto) 2.1, Baso % (Auto) 0.4, Absolute Neuts (auto) 6.1, Absolute Lymphs (auto) 0.53 L, Nucleated RBC % 0, Differential Comment SCANNED 10/26/19 05:30: Sodium 137, Potassium 3.2 L, Chloride 98, Carbon Dioxide 32.0, Anion Gap 7, BUN 37 H, Creatinine 1.98 H, Estim Creat Clear Calc 36.47, Est GFR (MDRD) Af Amer 43 L, Est GFR (MDRD) Non-Af 35 L, BUN/Creatinine Ratio 18.7, Glucose 333 H, Calcium 8.0 L 10/26/19 06:36: POC Glucose 303 H 10/26/19 11:12: POC Glucose 451 H* 10/26/19 12:12: POC Glucose 419 H Current Medications Acetaminophen (Tylenol) 650 mg PO Q6H PRN PRN PRN Reason: Pain Score 1-10/Temp > 100.7 F Last Admin: 10/22/19 22:04 Dose: 650 mg Documented by: Aspirin (Aspirin, Baby) 81 mg PO DAILY@0800 [facility] Last Admin: 10/26/19 09:09 Dose: 81 mg Documented by: Atorvastatin Calcium (Lipitor) 80 mg PO QHS [facility] Last Admin: 10/25/19 21:21 Dose: 80 mg Documented by: Cyanocobalamin (Vitamin B12) 500 mcg PO BID [facility] Last Admin: 10/26/19 09:09 Dose: 500 mcg Documented by: Furosemide (Lasix) 40 mg IV BID@1000,1800 [facility] Last Admin: 10/26/19 09:08 Dose: 40 mg Documented by: Glucagon () 1 mg IM .X1 PRN PRN Reason: Hypoglycemia Heparin Sodium (Beef Lung) (Heparin 500 Unit/5 Ml (100/Ml)) 500 unit IV UD PRN PRN Reason: HEPARIN FLUSH Sodium Chloride () 500 mls @ 15 mls/hr IV PRN PRN PRN Reason: Blood Transfusion Last Infusion: 10/18/19 23:16 Dose: Infused Documented by: Sodium Chloride () 250 mls @ 15 mls/hr IV .[id number] PRN PRN Reason: Saline Flush Last Infusion: 10/22/19 10:45 Dose: 0 mls/hr Documented by: Sodium Chloride () 250 mls @ 15 mls/hr IV .[id number] PRN PRN Reason: Additional IVPB Infusion Dextrose (Dextrose 10%-Water) 250 mls @ 999 mls/hr IV .Q16M PRN; Protocol PRN Reason: HYPOGLYCEMIA Sodium Chloride () 1,000 mls @ 0 mls/hr IV .Q0M [facility] Insulin Glargine (Lantus ([facility])) 10 units SC QHS [facility] Last Admin: 10/25/19 21:21 Dose: 10 unit Documented by: Insulin Human Lispro (Humalog Kwikpen ([facility])) 0 unit SC ACHS [facility]; Protocol Labetalol HCl (Trandate) 10 mg IV Q4H PRN PRN PRN Reason: sbp > 160 or DBP > 120 Labetalol HCl (Trandate) 5 mg IV X1 PRN PRN Reason: SBP > 160 prior to sheath pull Stop: 10/27/19 10:56 Levothyroxine Sodium (Synthroid) 150 mcg PO DAILY@0600 [facility] Last Admin: 10/26/19 06:37 Dose: 150 mcg Documented by: Metoprolol Tartrate (Lopressor (Beta Suleiman)) 50 mg PO BID [facility] Last Admin: 10/26/19 09:09 Dose: 50 mg Documented by: Nitroglycerin (Nitrostat) 0.4 mg SUBLINGUAL Q5M PRN PRN Reason: CARDIAC/CHEST PAIN Ondansetron HCl (Zofran) 4 mg IV Q8H PRN PRN PRN Reason: NAUSEA/VOMITING Pantoprazole Sodium (Protonix) 40 mg PO DAILY [facility] Last Admin: 10/26/19 09:09 Dose: 40 mg Documented by: Ranolazine (Ranexa) 1,000 mg PO BID [facility] Last Admin: 10/26/19 09:09 Dose: 1,000 mg Documented by: Sodium Chloride () 10 - 40 ml IV UD PRN PRN Reason: SALINE FLUSH Last Admin: 10/26/19 09:08 Dose: 10 ml Documented by: Tamsulosin HCl (Flomax) 0.4 mg PO DAILY@1730 [facility] Last Admin: 10/25/19 17:12 Dose: 0.4 mg Documented by: Medical Necessity - Tobacco Use Smoking Status: Former smoker Assessment/Plan All Active Problems (Last Reviewed 10/18/19 @ 09:07 by Monica Davis PA-C) Anemia (Acute) Acute blood loss anemia (Acute) Unstable angina (Acute) Renal insufficiency (Acute) H/O coronary artery bypass surgery (Resolved 04/1998) History of coronary artery stent placement (Resolved 01/22/15) Abdominal pain (Resolved) Back pain (Resolved) 1. Nonstemi s/p cardiac cath. Cath (10/25/19) showed patent saphenous vein graft to the circumflex artery with presumed patent PAZ to the LAD and preserved ejection fraction. By cardiology, to give medical management. Aspirin resumed per cardiology. Plavix on hold on account of GI bleed. 2.Acute on chronic anemia hgb today is 8.3. Status post transfusion of 5 units of packed red blood cells. Hb on admission was 6.2. Is s/p transfusion of 5 units of PRBCs had EGD which was unremarkable; had colonoscopy in August 2019, which per documtenation, was of poor prep, but there were no glaring lesions Has received Venofer. per hematology, avoid oral iron as it masks GI bleed; give IV iron with a target ferritin >100 and transferrin saturation >20% 3. Acute hypoxic respiratory failure due to acute HFpEF now down to 2L of oxygen. 2D echo done showed EF of 65% Pulmonology and cardiology on board Chest CT done showed multilobar groundglass opacities and bronchial wall thickening with vascular congestion and bilateral pleural effusions likely due to cardiogenic pulmonary edema. Switch IV Lasix to p.o. Lasix 40 mg twice daily. cardiology on board 4. Acute on chronic heart failure preserved ejection fraction: As under 3. heart cath as under 1. 5.LEONA on CKD stage 3: Cr is 1.98 today on lasix; will monitor renal function 6. Hypokalemia: K is 3.2 today. Will replace and monitor 7. Type 2 diabetes mellitus with nephropathy A1c was 6.3. Glimepiride on hold. on lantus 10IU qhs. Sugars have been poorly controlled. Will resume glimepiride and increase Lantus to 15 units nightly. Insulin sliding scale. Accu-Cheks AC at bedtime. Disposition: For discharge home tomorrow. Try to wean off of oxygen as patient is not on oxygen at home. Patient however counseled that we will likely need some oxygen at home for now he is agreeable. Inpatient E&M: 48471 Subs Hosp L2
[2019-10-26] MEDS: Furosemide 40 MG Tablet PO (16:59)
[2019-10-26] MEDS: Tamsulosin HCl 0.4 MG Capsule PO (16:59)
[2019-10-26 17:00] LABS: Bedside Glucose 148 mg/dL (70-110)
[2019-10-26] MEDS: Atorvastatin Calcium 80 MG Tablet PO (21:34)
[2019-10-26 23:26] LABS: Bedside Glucose 239 mg/dL (70-110)
[2019-10-27] VITALS (15 sets, daily range): BP systolic 109–129; BP diastolic 49–60; PULSE 65–80; RESP 16–18; TEMP 36.7–37; O2SAT 87–97
[2019-10-27] MEDS: Levothyroxine 150 MCG Tablet PO (05:01)
[2019-10-27 05:56] LABS: Absolute Lymphocyte Count 0.78 X10^3/uL (0.83-4.51); Absolute Neutrophil Count 5.2 X10^3/uL (2.0-7.7); Basophil# 0.03 X10^3/uL; Basophil% 0.4 % (0-1); Eosinophil# 0.18 X10^3/uL; Eosinophils% 2.6 % (0-5); Hemoglobin 8.1 g/dL (13.0-16.5); Lymphocyte # 0.78 X10^3/ul (4.0); Lymphocyte % 11.4 % (19-41); Mean Corp Hgb Conc 31.2 g/dL (32-36); Mean Corpuscular Volume 93.2 fL (80-94); Mean Platelet Vol. 10.8 fl (6.2-12.0); Monocyte# 0.68 X10^3/uL; Monocyte% 9.9 % (0-10); NRBC Flagged by Analyzer 0 % (0-5); Neutrophil # 5.15 X10^3/uL (2.7-7.7); Platelet Count 258 K/mm3 (150-450); RBC Distribution Width CV 16.4 % (11.6-14.6); RBC Distribution Width SD 54.9 fl (35.1-43.9); Red Blood Count 2.79 M/mm3 (4.6-6.2); White Blood Count 6.9 K/mm3 (4.4-11.0)
[2019-10-27 06:44] LABS: Anion Gap 7 (5-15); BUN 35 mg/dL (7-18); Calcium,Total 8.2 mg/dL (8.5-10.1); Chloride 100 mmol/L (98-107); Creatinine, Serum 1.94 mg/dL (0.70-1.30); EST Glomerular Filtration Rate 36 mL/min (>60); Est Glom Filt Rate - Afr Amer 44 mL/min (>60); Estimated Creatinine Clearance 37.22 ml/min; Glucose 201 mg/dL (74-106); Potassium 3.1 mmol/L (3.5-5.1); Sodium Level 139 mmol/L (136-145)
[2019-10-27] MEDS: Insulin Lispro 100 UNIT/ML INSULN.PEN SC ×4 (06:57→21:58)
[2019-10-27 07:21] LABS: Bedside Glucose 190 mg/dL (70-110)
[2019-10-27] MEDS: Ranolazine 500 MG Tablet 1000 MG PO ×2 (09:20→21:58)
[2019-10-27] MEDS: Furosemide 40 MG Tablet PO ×2 (09:20→17:00)
[2019-10-27] MEDS: Pantoprazole Sodium 40 MG Tablet PO (09:20)
[2019-10-27] MEDS: Cyanocobalamin 500 MCG Tablet PO ×2 (09:20→21:58)
[2019-10-27] MEDS: Metoprolol Tartrate 50 MG Tablet PO ×2 (09:20→21:57)
[2019-10-27] MEDS: Aspirin 81 MG TAB.CHEW PO (09:20)
[2019-10-27 10:19] LABS: Magnesium 1.9 mg/dL (1.6-2.6); Phosphorus 2.8 mg/dL (2.5-4.9)
[2019-10-27 11:26] LABS: Bedside Glucose 379 mg/dL (70-110)
[2019-10-27] MEDS: 0.9% Saline Lock 10 ML Syringe IV (11:46)
--- NOTE | 2019-10-27 14:00 | CASEMGMT ---
This RN CM to room to discuss discharge plan with pt/ at this time. Pt does qualify for home oxygen at this time. After provided with list of local DME companies, pt states he would like [employer] at this time. Pt states that he gets his cpap supplies from [facility] but states that he has not been happy with their service. Advised pt that he does like [employer], then he can switch his cpap over to them as well, voices understanding. Pt/ state no concerns with pt going home at time of discharge. Pt/ decline need for therapy at discharge at this time. Pt states is not homebound and states that pt keeps active at home. Advised pt/ that once he's home, if they decide that he needs further therapy then they can contact his PCP, voice understanding. Pt/ state that they have not yet seen the physician and states 'it's already 2 o'clock and no one has been in.' Dr. Marino notified at this time and states he will be over to see pt as soon as he can. Pt/ updated by Emma CURRY regarding this at this time. Pt/ voice no further questions/concerns/needs at this time. Green sheet left on chart for possible home oxygen need. SStsavita CURRY CM
[2019-10-27 16:36] LABS: Bedside Glucose 290 mg/dL (70-110)
[2019-10-27] MEDS: Tamsulosin HCl 0.4 MG Capsule PO (17:00)
--- NOTE | 2019-10-27 20:01 | PCM.PN.HOSP ---
Patient Problems: Active and Suspected Problems (Last Reviewed 10/18/19 @ 09:07 by Monica Davis PA-C) Acute blood loss anemia (Acute) Unstable angina (Acute) Renal insufficiency (Acute) Subjective: States that he feels better than when he came in however he still short of breath and yesterday he felt very tired. He did have an ambulatory pulse ox this morning where he desaturated to 87% but only corrected to 90% on 3 L nasal cannula. Vitals/I&O's: Vital Signs Temp Pulse Resp BP Pulse Ox 98.1 F 70 18 129/60 H 97 10/27/19 19:40 10/27/19 19:40 10/27/19 19:40 10/27/19 19:40 10/27/19 19:40 Oxygen Flow Rate (L/min) [ 3 AMBULATION with Oxygen] Oxygen Flow Rate (L/min) 3 Oxygen Delivery Method Nasal Cannula Weight: 225 lb 15.581 oz Body Mass Index (BMI) 32.1 Intake and Output for Last 24 Hours 10/25/19 10/26/19 10/27/19 23:59 23:59 23:59 Intake Total 550 / 550 1240 / 1240 980 / 980 Output Total 800 / 800 1275 / 1275 700 / 700 Balance -250 / -250 -35 / -35 280 / 280 General: Alert, Oriented x3, Cooperative, No apparent distress HEENT: Atraumatic, PERRLA, EOMI, Normocephalic Oral: Moist Mucosa Neck: Supple, No JVD Lungs: Clear to auscultation, Normal air movement, No rhonchi, No wheeze, No rales, Diminished Cardiovascular: Regular rate, Regular Rhythm, Normal S1, Normal S2, No murmurs Abdomen: Soft, Non Tender, Non-Distended, No Hepato-splenomegaly Extremities: No edema, Capillary Refill Less than 3 Seconds Skin: No rashes, No breakdown Neurological: Neuro grossly intact, Sensory exam intact to light touch and pain Psych/Mental Status: Normal Affect, Appropriate Microbiology Past 72 Hours 10/19/19 21:30 Blood Culture (Wb) - Right Wrist Blood Culture - Final No growth in 5 days. 10/19/19 21:40 Blood Culture (Wb) - Left Forearm Blood Culture - Final No growth in 5 days. Laboratory Results 10/26/19 21:32: POC Glucose 239 H 10/27/19 05:44: WBC 6.9, RBC 2.79 L, Hgb 8.1 L, Hct 26.0 L, MCV 93.2, MCH 29.0, MCHC 31.2 L, RDW Std Deviation 54.9 H, RDW Coeff of Matthew 16.4 H, Plt Count 258, MPV 10.8, Immature Gran % (Auto) 0.700, Neut % (Auto) 75.0 H, Lymph % (Auto) 11.4 L, [place] % (Auto) 9.9, Eos % (Auto) 2.6, Baso % (Auto) 0.4, Absolute Neuts (auto) 5.2, Absolute Lymphs (auto) 0.78 L, Nucleated RBC % 0 10/27/19 05:44: Sodium 139, Potassium 3.1 L, Chloride 100, Carbon Dioxide 32.0, Anion Gap 7, BUN 35 H, Creatinine 1.94 H, Estim Creat Clear Calc 37.22, Est GFR (MDRD) Af Amer 44 L, Est GFR (MDRD) Non-Af 36 L, BUN/Creatinine Ratio 18.0, Glucose 201 H, Calcium 8.2 L 10/27/19 05:44: Phosphorus 2.8, Magnesium 1.9 10/27/19 06:56: POC Glucose 190 H 10/27/19 11:18: POC Glucose 379 H 10/27/19 16:28: POC Glucose 290 H Current Medications Acetaminophen (Tylenol) 650 mg PO Q6H PRN PRN PRN Reason: Pain Score 1-10/Temp > 100.7 F Last Admin: 10/22/19 22:04 Dose: 650 mg Documented by: Aspirin (Aspirin, Baby) 81 mg PO DAILY@0800 [facility] Last Admin: 10/27/19 09:20 Dose: 81 mg Documented by: Atorvastatin Calcium (Lipitor) 80 mg PO QHS [facility] Last Admin: 10/26/19 21:34 Dose: 80 mg Documented by: Cyanocobalamin (Vitamin B12) 500 mcg PO BID [facility] Last Admin: 10/27/19 09:20 Dose: 500 mcg Documented by: Furosemide (Lasix) 40 mg PO BID@1000,1800 [facility] Last Admin: 10/27/19 17:00 Dose: 40 mg Documented by: Glucagon () 1 mg IM .X1 PRN PRN Reason: Hypoglycemia Heparin Sodium (Beef Lung) (Heparin 500 Unit/5 Ml (100/Ml)) 500 unit IV UD PRN PRN Reason: HEPARIN FLUSH Sodium Chloride () 500 mls @ 15 mls/hr IV PRN PRN PRN Reason: Blood Transfusion Last Infusion: 10/18/19 23:16 Dose: Infused Documented by: Sodium Chloride () 250 mls @ 15 mls/hr IV .[id number] PRN PRN Reason: Saline Flush Last Infusion: 10/26/19 15:37 Dose: Infused Documented by: Sodium Chloride () 250 mls @ 15 mls/hr IV .[id number] PRN PRN Reason: Additional IVPB Infusion Dextrose (Dextrose 10%-Water) 250 mls @ 999 mls/hr IV .Q16M PRN; Protocol PRN Reason: HYPOGLYCEMIA Sodium Chloride () 1,000 mls @ 0 mls/hr IV .Q0M [facility] Insulin Glargine (Lantus ([facility])) 10 units SC QHS [facility] Last Admin: 10/26/19 21:37 Dose: 10 unit Documented by: Insulin Human Lispro (Humalog Kwikpen ([facility])) 0 unit SC ACHS [facility]; Protocol Last Admin: 10/27/19 17:00 Dose: 9 units Documented by: Labetalol HCl (Trandate) 10 mg IV Q4H PRN PRN PRN Reason: sbp > 160 or DBP > 120 Levothyroxine Sodium (Synthroid) 150 mcg PO DAILY@0600 [facility] Last Admin: 10/27/19 05:01 Dose: 150 mcg Documented by: Metoprolol Tartrate (Lopressor (Beta Suleiman)) 50 mg PO BID [facility] Last Admin: 10/27/19 09:20 Dose: 50 mg Documented by: Nitroglycerin (Nitrostat) 0.4 mg SUBLINGUAL Q5M PRN PRN Reason: CARDIAC/CHEST PAIN Ondansetron HCl (Zofran) 4 mg IV Q8H PRN PRN PRN Reason: NAUSEA/VOMITING Pantoprazole Sodium (Protonix) 40 mg PO DAILY [facility] Last Admin: 10/27/19 09:20 Dose: 40 mg Documented by: Ranolazine (Ranexa) 1,000 mg PO BID [facility] Last Admin: 10/27/19 09:20 Dose: 1,000 mg Documented by: Sodium Chloride () 10 - 40 ml IV UD PRN PRN Reason: SALINE FLUSH Last Admin: 10/27/19 11:46 Dose: 10 ml Documented by: Tamsulosin HCl (Flomax) 0.4 mg PO DAILY@1730 T[facility]AR Last Admin: 10/27/19 17:00 Dose: 0.4 mg Documented by: STROKE Vital Signs/Narrative: Vital Signs Temp Pulse Resp BP Pulse Ox 10/27/19 19:40 98.1 F 70 18 129/60 H 97 10/27/19 18:56 80 Medical Necessity - Tobacco Use Smoking Status: Former smoker Assessment/Plan All Active Problems (Last Reviewed 10/18/19 @ 09:07 by Monica Davis PA-C) Anemia (Acute) Acute blood loss anemia (Acute) Unstable angina (Acute) Renal insufficiency (Acute) H/O coronary artery bypass surgery (Resolved 04/1998) History of coronary artery stent placement (Resolved 01/22/15) Abdominal pain (Resolved) Back pain (Resolved) 1. NSTEMI/CAD s/p CABG and stent/HTN/HLD -Cardiac cath 10/25/2019 showed a patent saphenous vein graft to the circumflex, his echo had a normal EF with an RVSP of 41 mmHg -He has been diuresed but he is also been giving him quite a bit of fluids especially with Red blood cells -He is down 11 pounds but his net fluid is up about 800 cc -He is on losartan because he is allergic to lisinopril, and he is also on his Norvasc did have a history of swelling could potentially discontinue the Norvasc on follow-up with his PCP -Currently on Lasix he like to be discharged on Lasix -Continue with metoprolol as well as aspirin, Plavix is continued to be on hold -Continue with Ranexa 2. Acute hypoxic respiratory failure secondary to diastolic CHF pulmonary edema -CT scan of the chest showed multilobular groundglass opacities with bronchial wall thickening with vascular congestion bilateral pleural effusions -He still maintaining his sats on 3 L nasal cannula he will likely need to be discharged on oxygen -We will continue with Lasix and have him follow-up with both cardiology and pulmonology on discharge 3. Acute on chronic anemia -Hematology was consulted and recommended Venofer -ferritin is now over 200, he received close to 4 units of packed red blood cells during his hospitalization -We will continue with his home oral iron when he leaves and he will follow-up with hematology in about a month -EGD was negative for bleed and biopsy was unremarkable, he had had a colonoscopy in the beginning of August 2019 and it was negative 4. DM 2/CKD 3 -Would recommend discontinuing Actos as this can cause worsening of heart failure -He is currently on insulin here but will likely be discharged back on his glimepiride would recommend having him start sitagliptin or something similar when he follows up with his PCP -Creatinine is 1.94 his baseline appears to be around 1.8 DVT: SCDs Inpatient E&M: 49540 Subs Hosp L2
[2019-10-27] MEDS: Atorvastatin Calcium 80 MG Tablet PO (21:58)
[2019-10-27 22:11] LABS: Bedside Glucose 272 mg/dL (70-110)
[2019-10-28] VITALS (9 sets, daily range): BP systolic 107–123; BP diastolic 46–64; PULSE 60–70; RESP 15–18; TEMP 36.7–36.9; O2SAT 84–97
[2019-10-28] MEDS: Levothyroxine 150 MCG Tablet PO (06:32)
[2019-10-28] MEDS: Insulin Lispro 100 UNIT/ML INSULN.PEN SC ×2 (06:32→12:52)
[2019-10-28 06:49] LABS: Absolute Lymphocyte Count 0.82 X10^3/uL (0.83-4.51); Absolute Neutrophil Count 6.6 X10^3/uL (2.0-7.7); Basophil# 0.03 X10^3/uL; Basophil% 0.4 % (0-1); Eosinophil# 0.26 X10^3/uL; Hematocrit 25.6 % (40-54); Hemoglobin 8.1 g/dL (13.0-16.5); Lymphocyte # 0.82 X10^3/ul (4.0); Lymphocyte % 9.6 % (19-41); Mean Corp Hgb Conc 31.6 g/dL (32-36); Mean Corpuscular Hgb 29.5 pg (27.0-32.0); Mean Corpuscular Volume 93.1 fL (80-94); Mean Platelet Vol. 11.2 fl (6.2-12.0); Monocyte# 0.81 X10^3/uL; Monocyte% 9.5 % (0-10); NRBC Flagged by Analyzer 0 % (0-5); Neutrophil # 6.57 X10^3/uL (2.7-7.7); Platelet Count 262 K/mm3 (150-450); RBC Distribution Width CV 16.2 % (11.6-14.6); RBC Distribution Width SD 53.7 fl (35.1-43.9); Red Blood Count 2.75 M/mm3 (4.6-6.2); White Blood Count 8.5 K/mm3 (4.4-11.0)
[2019-10-28 06:51] LABS: Bedside Glucose 197 mg/dL (70-110)
[2019-10-28 07:04] LABS: Anion Gap 7 (5-15); BUN 34 mg/dL (7-18); BUN/Creat Ratio 18.4 RATIO (10-20); Calcium,Total 8.1 mg/dL (8.5-10.1); Chloride 101 mmol/L (98-107); Creatinine, Serum 1.85 mg/dL (0.70-1.30); EST Glomerular Filtration Rate 38 mL/min (>60); Est Glom Filt Rate - Afr Amer 46 mL/min (>60); Estimated Creatinine Clearance 39.03 ml/min; Glucose 197 mg/dL (74-106); Potassium 3.3 mmol/L (3.5-5.1); Sodium Level 138 mmol/L (136-145)
[2019-10-28] MEDS: Aspirin 81 MG TAB.CHEW PO (08:42)
[2019-10-28] MEDS: Furosemide 40 MG Tablet PO (08:42)
[2019-10-28] MEDS: Glimepiride 4 MG Tablet PO (08:42)
[2019-10-28] MEDS: Metoprolol Tartrate 50 MG Tablet PO (08:43)
[2019-10-28] MEDS: Pantoprazole Sodium 40 MG Tablet PO (08:43)
[2019-10-28] MEDS: Ranolazine 500 MG Tablet 1000 MG PO (08:43)
[2019-10-28] MEDS: Cyanocobalamin 500 MCG Tablet PO (08:43)
--- NOTE | 2019-10-28 09:55 | DCINST_ITS ---
- Discharge Diagnoses Current Active Problems: Current Active and Chronic Problems (Last Reviewed 10/18/19 @ 09:07 by Monica Davis PA-C) Acute blood loss anemia (Acute) Unstable angina (Acute) CAD in [place] artery (Chronic) Diabetes mellitus (Chronic) Renal insufficiency (Acute) You will use the following diet at home:: Calorie/Carbohydrate Controlled (specify 1200, 1400, etc), Cardiac Your food should be the consistency of: Regular Your liquids should be the consistency of: Regular/Thin Discharge Activity: Return to Normal Activity Call your doctor if you observe: Fever of 101 or Higher, Shortness of breath, Dizziness, Fainting spells, Swelling in the ankles, Chest pain, Increased palpitations (irregular heartbeat) Allergies/Adverse Reactions: Allergies lisinopril Allergy (Intermediate, Verified 10/18/19 01:26) COUGH Medications to take at Discharge Aspirin E.C. [Ecotrin] 81 mg PO DAILY@0800 05/22/13 Cyanocobalamin (Vitamin B-12) [Vitamin B-12] 500 mcg PO BID 01/05/17 glimepiride 4 mg tablet 4 mg PO BID tab 12/01/17 levothyroxine 150 mcg capsule 150 mcg PO DAILY 07/12/18 nitroglycerin 0.4 mg sublingual tablet 0.4 mg SUBLINGUAL Q5M PRN #25 tab 07/19/18 alfuzosin 10 mg tablet,extended release 24 hr 10 mg PO DAILY 01/11/19 ascorbate calcium (vitamin C) 500 mg tablet 500 mg PO DAILY 08/17/19 ferrous sulfate 325 mg (65 mg iron) tablet 325 mg PO BID 08/17/19 Ranolazine [Ranolazine ER] 1,000 mg PO BID 10/18/19 Simvastatin 40 mg PO QHS 10/18/19 Furosemide [Lasix] 40 mg PO BID@1000,1800 #60 tab 10/28/19 Metoprolol Tartrate [Lopressor (beta jolly)] 50 mg PO BID #60 tab 10/28/19 The following prescriptions were given: Furosemide [Lasix] 40 mg PO BID@1000,1800 #60 tab Transmission Status: Pending to [facility] Metoprolol Tartrate [Lopressor (beta jolly)] 50 mg PO BID #60 tab Transmission Status: Pending to [facility] Primary Care Physician: Jeffrey Thorne [Primary Care Provider] - Please follow up with your Primary Care Physician in: 3-5 days Test Results: Test results from this visit will be discussed in further detail at your follow- up appointment, if applicable. Please Follow Up With: Cosme Hernandez MD When: 2-4 weeks Please Follow Up With: Shine Pressley DO When: 2 weeks Please Follow Up With: Bjorn Perry MD When: 2-4 weeks
--- NOTE | 2019-10-28 09:57 | DS.PCM_ITS ---
Discharge Date and Diagnosis - Problem List Patient Problems: Active and Suspected Problems (Last Reviewed 10/18/19 @ 09:07 by Monica Davis PA-C) Acute blood loss anemia (Acute) Unstable angina (Acute) Renal insufficiency (Acute) Date of Admission: 10/18/19 Date of Discharge: 10/28/19 - Primary Discharge Diagnosis Active and Suspected Problems (Last Reviewed 10/18/19 @ 09:07 by Monica Davis PA-C) Acute blood loss anemia (Acute) Unstable angina (Acute) Renal insufficiency (Acute) - Secondary Discharge Diagnosis Chronic Problems (Last Reviewed 10/18/19 @ 09:07 by Monica Davis PA-C) Iron deficiency anemia due to chronic blood loss (Chronic) CAD in [place] artery (Chronic) Diabetes mellitus (Chronic) 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 There is no focal consolidation identified. Echo: Interpretation Summary Segmental dysfunction with preserved ejection fraction (see wall motion). The estimated ejection fraction is 65 %. The left atrium is mildly enlarged. Trivial mitral valve insufficiency. Mild tricuspid valve insufficiency. Mild focal aortic valve calcification. Trivial pulmonic valve insufficiency. Mildly dilated aortic root. Right ventricular systolic pressure estimated to be 41 mmHg. Transmitral diastolic flow velocities suggest diastolic dysfunction (pseudonormal pattern). EGD: Impression: - Small hiatal hernia. - Normal esophagus. Biopsied distal esophagus - Normal stomach. Biopsied antrum - Normal examined duodenum. Biopsied. Recommendation: - Return patient to ICU for ongoing care. - Resume previous diet. - Continue present medications. - Await pathology results. - Telephone my office for pathology results in [address] Chest: IMPRESSION: 1. Multilobar groundglass opacities, bronchial wall thickening, vascular congestion bilateral pleural effusions likely represent cardiogenic pulmonary edema. Atypical (viral) infectious and cryptogenic organizing pneumonia also possible. 2. CABG Cardiac Cath: CLINICAL PROFILE AND INDICATIONS Indications: Suspected CAD Heart Failure: NYHA Class: 3, Newly Diagnosed: No Stress/Imaging Stress/Image Study Performed: No CONCLUSIONS Patent saphenous vein graft to the circumflex artery. Presumed patent PAZ to the LAD. Preserved ejection fraction RECOMMENDATIONS Medical therapy Consults: Pulmonology Cardiology Hematology General Surgery Operations: None Procedures: 2-D Echocardiogram, Cardiac catheterization, EGD Summary of Care Provided: Per HPI: The patient is a 74 year old M with a significant history of CAD status post CABG and stent who presented to the emergency department with chest pain lasted a few hours before presentation. He described the chest pain as a burning sensation that spun across his entire chest goes to his neck and to his left arm. The chest pain started when he was watching TV. He took some nitroglycerin and the chest pain went away. He then went to sleep. However the chest pain woke him up from his sleep. The chest pain is intermittent it comes on with moving in the bed. It improved with rest. Associated with symptoms is nausea. He had hemoptysis significant only for about a drop of blood. A day before his chest pain started he reported paresthesia moving up his body; and weakness. So on the day of presentation he went to see his PCP who ordered labs with a plan to call him later with the results. Also patient reports dark stools that he attributes to his iron pills. Emergency department doctor reported that occult stools was negative at the ED. At emergency department patient was found to have diffuse ST depressions in anterior and lateral leads as he pulled his pants down. This resolved. However while at the [facility] his ST depression reoccurred. Emergent department doctor discussed the case with Dr. Dawson who will follow. Also patient was found to have low hemoglobin and 2 units of blood was ordered from the emergency department. Hospital Course: 1. NSTEMI/CAD s/p CABG and stent/HTN/EMX-[id number]-[id number]-old male presented to the hospital with angina, he had troponins drawn with the initial being normal however repeat troponins peaked at 20.3. He had an echo with a normal EF and in our RSVP of 41 mmHg. He had a cardiac cath which showed that his saphenous vein graft was patent. He was started on diuresis and is down about 11 pounds from admission. He was on losartan, Norvasc as well as metoprolol 25 mg p.o. twice daily at home as well as isosorbide, however because of his kidney disease his losartan was held and his blood pressure has actually been fairly well controlled on the increased dosage of metoprolol to 50 mg p.o. twice daily as well as Lasix 40 mg p.o. twice daily. Because of this and because he is on quite a few medications, I discontinued his losartan and his Norvasc on discharge and he can follow-up with cardiology in 2 to 4 weeks as well as his PCP in 3 to 5 days for follow-up of his blood pressure. In the hospital he has been fairly consistently in the 110s to 120s. We will continue with his statin and his aspirin but will hold his Plavix because of his GI bleed. I had an extensive discussion with the family both yesterday and today and they expressed understanding of the risks and benefits of discharge and they also expressed understanding of the medication changes. He will continue with his Ranexa until he is able to follow-up with pulmonology and cardiology. 2. Acute hypoxic respiratory failure secondary to diastolic CHF and pulmonary edema-CT scan of the chest showed multilobular groundglass opacities bronchial wall thickening with vascular congestion and bilateral pleural effusions which is why diuresis was pursued. He unfortunately is still on nasal cannula and has been unable to be weaned off. He did have an ambulatory pulse ox where he desaturated on room air to about 87% and required 3 L just to bring him up to 90%. He will be discharged on oxygen and will need to follow-up with cardiology and pulmonology as an outpatient. 3. Acute on chronic anemia-at the moment we are still unsure as to the etiology, he does have iron deficiency with an iron of 19 a TIBC of 217 and an iron saturation of 8.8. His ferritin was 208 and he was provided Venofer by hematology as well as being transfused about 4 units of PRBCs, over the course of his hospitalization. He did have an EGD which was negative for any signs of bleeding and he had had a colonoscopy as an outpatient in August, however he was continued on aspirin but had his Plavix discontinued per cardiology. He will need to follow-up with hematology as an outpatient in about a month. In the meantime would continue with his oral iron replacement. 4. DM 2/CKD 3 with LEONA-initially on presentation his creatinine was elevated to 2.0 and it peaked at 2.11. On the day of discharge she is down to 1.85 which is close to his baseline a number of around 1.8. However because of his kidney disease he is no longer on metformin and I did discontinue his losartan. The family expressed a desire to possibly see an medical information officer therefore I said that they should see Dr. Perry in 2 to 4 weeks. I did discontinue his Actos given the issues between that medication and heart failure, I did continue his glimepiride however given his kidney dysfunction he will likely need to be transitioned off of that as well as an outpatient. I did have extensive discussions about lifestyle modifications including diet and exercise to try to help control his diabetes. He and his did express understanding. Patient Problems: Active and Suspected Problems (Last Reviewed 10/18/19 @ 09:07 by Monica gonzales PA-C) Acute blood loss anemia (Acute) Unstable angina (Acute) Renal insufficiency (Acute) - Physical Exam Vitals/I&O's: Vital Signs Temp Pulse Resp BP Pulse Ox 98.1 F 66 15 123/52 H 95 10/28/19 08:25 10/28/19 08:43 10/28/19 08:25 10/28/19 08:43 10/28/19 08:25 Oxygen Flow Rate (L/min) [ 3 AMBULATION with Oxygen] Oxygen Flow Rate (L/min) 2 Oxygen Delivery Method Nasal Cannula Weight: 229 lb 15.074 oz Body Mass Index (BMI) 32.1 Intake and Output for Last 24 Hours 10/26/19 10/27/19 10/28/19 23:59 23:59 23:59 Intake Total 1240 / 1240 1220 / 1220 120 / 120 Output Total 1275 / 1275 1075 / 1075 325 / 325 Balance -35 / -35 145 / 145 -205 / -205 General: Alert, Oriented x3, Cooperative, No apparent distress HEENT: Atraumatic, PERRLA, EOMI, Normocephalic Oral: Moist Mucosa Neck: Supple, No JVD Lungs: Clear to auscultation, Normal air movement, No rhonchi, No wheeze, No rales, Diminished Cardiovascular: Regular rate, Regular Rhythm, Normal S1, Normal S2, No murmurs Abdomen: Soft, Non Tender, Non-Distended, No Hepato-splenomegaly Extremities: No edema, Capillary Refill Less than 3 Seconds Skin: No rashes, No breakdown Neurological: Neuro grossly intact, Sensory exam intact to light touch and pain Psych/Mental Status: Normal Affect, Appropriate Microbiology Past 72 Hours 10/19/19 21:30 Blood Culture (Wb) - Right Wrist Blood Culture - Final No growth in 5 days. 10/19/19 21:40 Blood Culture (Wb) - Left Forearm Blood Culture - Final No growth in 5 days. Laboratory Results 10/27/19 05:44: Phosphorus 2.8, Magnesium 1.9 10/27/19 11:18: POC Glucose 379 H 10/27/19 16:28: POC Glucose 290 H 10/27/19 21:55: POC Glucose 272 H 10/28/19 05:33: WBC 8.5, RBC 2.75 L, Hgb 8.1 L, Hct 25.6 L, MCV 93.1, MCH 29.5, MCHC 31.6 L, RDW Std Deviation 53.7 H, RDW Coeff of Matthew 16.2 H, Plt Count 262, MPV 11.2, Immature Gran % (Auto) 0.500, Neut % (Auto) 77.0 H, Lymph % (Auto) 9.6 L, Burnett % (Auto) 9.5, Eos % (Auto) 3.0, Baso % (Auto) 0.4, Absolute Neuts (auto) 6.6, Absolute Lymphs (auto) 0.82 L, Nucleated RBC % 0 10/28/19 05:33: Sodium 138, Potassium 3.3 L, Chloride 101, Carbon Dioxide 30.0, Anion Gap 7, BUN 34 H, Creatinine 1.85 H, Estim Creat Clear Calc 39.03, Est GFR (MDRD) Af Amer 46 L, Est GFR (MDRD) Non-Af 38 L, BUN/Creatinine Ratio 18.4, Gluc ose 197 H, Calcium 8.1 L 10/28/19 06:31: POC Glucose 197 H Current Medications Acetaminophen (Tylenol) 650 mg PO Q6H PRN PRN PRN Reason: Pain Score 1-10/Temp > 100.7 F Last Admin: 10/22/19 22:04 Dose: 650 mg Documented by: Aspirin (Aspirin, Baby) 81 mg PO DAILY@0800 [facility] Last Admin: 10/28/19 08:42 Dose: 81 mg Documented by: Atorvastatin Calcium (Lipitor) 80 mg PO QHS [facility] Last Admin: 10/27/19 21:58 Dose: 80 mg Documented by: Cyanocobalamin (Vitamin B12) 500 mcg PO BID [facility] Last Admin: 10/28/19 08:43 Dose: 500 mcg Documented by: Furosemide (Lasix) 40 mg PO BID@1000,1800 [facility] Last Admin: 10/28/19 08:42 Dose: 40 mg Documented by: [facility] (Amaryl) [facility] Last Admin: 10/28/19 08:42 Dose: 4 mg Documented by: Glucagon () 1 mg IM .X1 PRN PRN Reason: Hypoglycemia Heparin Sodium (Beef Lung) (Heparin 500 Unit/5 Ml (100/Ml)) 500 unit IV UD PRN PRN Reason: HEPARIN FLUSH Sodium Chloride () 500 mls @ 15 mls/hr IV PRN PRN PRN Reason: Blood Transfusion Last Infusion: 10/18/19 23:16 Dose: Infused Documented by: Sodium Chloride () 250 mls @ 15 mls/hr IV .[id number] PRN PRN Reason: Saline Flush Last Infusion: 10/26/19 15:37 Dose: Infused Documented by: Sodium Chloride () 250 mls @ 15 mls/hr IV .[id number] PRN PRN Reason: Additional IVPB Infusion Dextrose (Dextrose 10%-Water) 250 mls @ 999 mls/hr IV .Q16M PRN; Protocol PRN Reason: HYPOGLYCEMIA Sodium Chloride () 1,000 mls @ 0 mls/hr IV .Q0M [facility] Insulin Glargine (Lantus (Bkc)) 15 units SC QHS [facility] Last Admin: 10/27/19 21:58 Dose: 15 units Documented by: Insulin Human Lispro (Humalog Kwikpen (Bkc)) [facility] Protocol Last Admin: 10/28/19 06:32 Dose: 3 units Documented by: Labetalol HCl (Trandate) 10 mg IV Q4H PRN PRN PRN Reason: sbp > 160 or DBP > 120 Levothyroxine Sodium (Synthroid) 150 mcg PO DAILY@0600 [facility] Last Admin: 10/28/19 06:32 Dose: 150 mcg Documented by: Metoprolol Tartrate (Lopressor (Beta Suleiman)) 50 mg PO BID [facility] Last Admin: 10/28/19 08:43 Dose: 50 mg Documented by: Nitroglycerin (Nitrostat) 0.4 mg SUBLINGUAL Q5M PRN PRN Reason: CARDIAC/CHEST PAIN Ondansetron HCl (Zofran) 4 mg IV Q8H PRN PRN PRN Reason: NAUSEA/VOMITING Pantoprazole Sodium (Protonix) 40 mg PO DAILY [facility] Last Admin: 10/28/19 08:43 Dose: 40 mg Documented by: Ranolazine (Ranexa) 1,000 mg PO BID [facility] Last Admin: 10/28/19 08:43 Dose: 1,000 mg Documented by: Sodium Chloride () 10 - 40 ml IV UD PRN PRN Reason: SALINE FLUSH Last Admin: 10/27/19 11:46 Dose: 10 ml Documented by: Tamsulosin HCl (Flomax) 0.4 mg PO DAILY@1730 [facility] Last Admin: 10/27/19 17:00 Dose: 0.4 mg Documented by: Discharge Activity: Return to Normal Activity Call your doctor if you observe: Fever of 101 or Higher, Shortness of breath, Dizziness, Fainting spells, Swelling in the ankles, Chest pain, Increased palpitations (irregular heartbeat) Home Medications: Medications to take at Discharge Aspirin E.C. [Ecotrin] 81 mg PO DAILY@0800 05/22/13 Cyanocobalamin (Vitamin B-12) [Vitamin B-12] 500 mcg PO BID 01/05/17 glimepiride 4 mg tablet 4 mg PO BID tab 12/01/17 levothyroxine 150 mcg capsule 150 mcg PO DAILY 07/12/18 nitroglycerin 0.4 mg sublingual tablet 0.4 mg SUBLINGUAL Q5M PRN #25 tab 07/19/18 alfuzosin 10 mg tablet,extended release 24 hr 10 mg PO DAILY 01/11/19 ascorbate calcium (vitamin C) 500 mg tablet 500 mg PO DAILY 08/17/19 ferrous sulfate 325 mg (65 mg iron) tablet 325 mg PO BID 08/17/19 Ranolazine [Ranolazine ER] 1,000 mg PO BID 10/18/19 Simvastatin 40 mg PO QHS 10/18/19 Furosemide [Lasix] 40 mg PO BID@1000,1800 #60 tab 10/28/19 Metoprolol Tartrate [Lopressor (beta suleiman)] 50 mg PO BID #60 tab 10/28/19 Following Prescrptions Were Given to Patient: Furosemide [Lasix] 40 mg PO BID@1000,1800 #60 tab Transmission Status: Pending to [facility] Metoprolol Tartrate [Lopressor (beta suleiman)] 50 mg PO BID #60 tab Transmission Status: Pending to [facility] Primary Care Physician: Jeffrey Thorne [Primary Care Provider] - Please follow up with your Primary Care Physician in: 3-5 days Please Follow Up With: Cosme Hernandez MD When: 2-4 weeks Please Follow Up With: Shine Pressley DO When: 2 weeks Please Follow Up With: Bjorn Perry MD When: 2-4 weeks Please Follow Up With: Jong Hurtado MD When: 4 weeks Additional Instructions: Obtain BMP and CBC in 3-5 days by your PCP Disposition: Home Minutes spent on discharge:: 40 Patient Condition:: Stable Medical Necessity - Tobacco Use Smoking Status: Former smoker Meaningful Use Info Meaningful Use Diagnoses (Choose all that apply): AMI - AMI/Post PCI/Angioplasty Aspirin given w/in 24hrs of arrival?: Yes ASA at discharge?: Yes Statins at discharge?: Yes Daniel/ARB at discharge?: No Reason Daniel/ARB not ordered:: Worsening renal disease Beta Suleiman at discharge?: Yes Done w/ Acute HI measure.: Yes Documented LVEF (%): 65 Inpatient E&M: 77450 Disch Hosp
[2019-10-28 12:16] LABS: Bedside Glucose 282 mg/dL (70-110)
--- NOTE | 2019-10-28 15:09 | NURSING ---
Discharge teaching complete. Questions answered. Patient and voice understanding of same.
== END 2019-10-28 15:26 | disposition home or self-care (01) | DRG 280 ==
LOC: ED 10-18 00:54 → PCU 10-18 02:51 → ICU 10-18 18:33 → PCU 10-23 07:16
PROVIDERS: Internal Medicine Critical Care Medicine; Nurse Practitioner Family; Student in an Organized Health Care Education/Training Program; Surgery; Admitting Provider Hospitalist; Emergency Provider Emergency Medicine; PCP Family Medicine; Visit Provider Family Medicine
PROC: 0DJ08ZZ Inspection of Upper Intestinal Tract, Via Natural or Artificial Opening Endoscopic (ICD-10-PCS; CPT 43235; principal; 2019-10-19 12:25)
DX: I21.4 Non-ST elevation (NSTEMI) myocardial infarction (principal); J96.01 Acute respiratory failure with hypoxia; I50.31 Acute diastolic (congestive) heart failure; N17.9 Acute kidney failure, unspecified; I13.0 Hypertensive heart and chronic kidney disease with heart failure and stage 1 through stage 4 chronic kidney disease, or unspecified chronic kidney disease; D50.9 Iron deficiency anemia, unspecified; I25.10 Atherosclerotic heart disease of native coronary artery without angina pectoris; E03.9 Hypothyroidism, unspecified; E11.65 Type 2 diabetes mellitus with hyperglycemia; N18.3 Chronic kidney disease, stage 3 (moderate); E11.22 Type 2 diabetes mellitus with diabetic chronic kidney disease; G47.33 Obstructive sleep apnea (adult) (pediatric); K44.9 Diaphragmatic hernia without obstruction or gangrene; E78.5 Hyperlipidemia, unspecified; E87.6 Hypokalemia; Z95.5 Presence of coronary angioplasty implant and graft; Z95.1 Presence of aortocoronary bypass graft; Z79.84 Long term (current) use of oral hypoglycemic drugs; Z79.82 Long term (current) use of aspirin; Z79.02 Long term (current) use of antithrombotics/antiplatelets; Z87.891 Personal history of nicotine dependence
CPT/HCPCS: 36415; 36600; 71045; 71250; 80048; 80053; 80202; 81001; 82274; 82607; 82728; 82747; 82803; 82962; 83010; 83036; 83540; 83550; 83605; 83615; 83735; 83880; 84100; 84439; 84443; 84481; 84484; 85014; 85018; 85025; 85027; 85610; 86850; 86880; 86900; 86901; 86920; 86922; 87040; 87633; 87641; 88305; 88342; 93005; 93306; 93308; 93455; 94002; 94003; 97110; 97116; 97162; 97166; 97530; 97535; 99251; 99285; C1760; J1756; J7030; J7040; J7050; P9016; Q9957; A4216; C1769; C8924; G0463; J1940; Q9967

== ENCOUNTER 2020-01-09 05:21 | Day surgery (SDC) | payer MEDICARE, OTHER, SELFPAY ==
[2019-12-26 12:52] VITALS: BMI 32.1
--- NOTE | 2020-01-09 | COLBX_PTH ---
PATIENT: JEANETH MEHTA LOC: EN U#:[id number] AGE/SX: 74/M ROOM: RE01/09/[address]: Dr. Wolf Wesley MD : 1945 BED: DIS: 01/09/2020 SPEC #: [id number] RECD: 01/09/20 10:42 STATUS: ELMA REJose #: [id number] LUCAS: 01/09/20 00:[address]: Wolf Wesley DEPT: SURGICAL PATHOLOGY RECD BY: Edward Alebrt ENTERED: 01/09/20 10:43 SP TYPE: COLON BX OTHR DR: Dr. Jeffrey Thorne DO Tissues: Descending colon Procedures: Surgery Specimen Level IV HEADER OPERATION: Colonoscopy (MAC) PRE-OP DIAGNOSIS: Chronic iron deficiency anemia TISSUE SUBMITTED: Descending colon polyp biopsy MICROSCOPIC DIAGNOSIS Descending colon polyp, biopsy: Benign mucosal polyp with focal hyperplastic change and focal acute cryptitis. See comment. AM:ubaldo 01/10/20 COMMENT Adenomatous change is not present. Clinical correlation is suggested. MICROSCOPIC DESCRIPTION Slides are reviewed. GROSS DESCRIPTION Received in fixative is one container labeled with the patient's name and designated descending colon polyp. The specimen consists of one irregular fragment of light arredondo soft tissue that measures 0.5 x 0.2 x 0.1 cm. The specimen is totally submitted in one cassette. / AM:ubaldo 01/09/20 TC:5 CPT: 90127
[2020-01-09 05:49] VITALS: BP 148/66; PULSE 53; RESP 16; TEMP 36.1; O2SAT 98; BMI 29.9
[2020-01-09] MEDS: Lactated Ringers 1,000 ML 75 ML IV (06:15)
[2020-01-09 06:21] LABS: Bedside Glucose 69 mg/dL (70-110)
--- NOTE | 2020-01-09 06:26 | HP.PCM_ITS ---
Problem List (1) Iron deficiency anemia due to chronic blood loss Status: Chronic History of Present Illness Date of Admission: 01/09/20 The patient is a 74 year old M presents for colonoscopy today to help evaluate chronic anemia Intake Visit Reasons: CSCOPE, ANEMIA Chief Complaint: Anemia Core Analysis Operator Required: No Is patient in pain?: No Allergies lisinopril Allergy (Intermediate, Verified 12/26/19 12:47) COUGH Medications Aspirin E.C. [Ecotrin] 81 mg PO DAILY@0800 05/22/13 [History Confirmed 12/26/19] Cyanocobalamin (Vitamin B-12) [Vitamin B-12] 500 mcg PO BID 01/05/17 [History Confirmed 12/26/19] glimepiride 4 mg tablet 4 mg PO BID tab 12/01/17 [History Confirmed 12/26/19] levothyroxine 150 mcg capsule 150 mcg PO DAILY 07/12/18 [History Confirmed 12/26/19] ascorbate calcium (vitamin C) 500 mg tablet 500 mg PO DAILY 08/17/19 [History Confirmed 12/26/19] Ranolazine [Ranolazine ER] 1,000 mg PO BID 10/18/19 [History Confirmed 12/26/19] Simvastatin 40 mg PO QHS 10/18/19 [History Confirmed 12/26/19] nitroglycerin 0.4 mg sublingual tablet 0.4 mg SUBLINGUAL Q5-15M PRN #25 tab 11/01/19 [Rx Confirmed 12/26/19] alfuzosin 10 mg tablet,extended release 24 hr 10 mg PO QHS tab 11/17/19 [H istory Confirmed 12/26/19] insulin glargine 100 unit/mL (3 mL) subcutaneous pen 100 ml SC UD 11/17/19 [History Confirmed 12/26/19] metoprolol tartrate 50 mg tablet 50 mg PO BID #180 tab 11/17/19 [Rx Confirmed 12/26/19] furosemide 40 mg tablet 40 mg PO DAILY #90 tab 12/15/19 [Rx Confirmed 12/26/19] PFSH Family History Father Diabetes Mother Cancer Lung cancer Brother CAD (coronary artery disease) HLD (hyperlipidemia) Myocardial infarction Sister Myocardial infarction CAD (coronary artery disease) Hypertension HLD (hyperlipidemia) Sister Diabetes Daughter Arthritis Son Arthritis Brother Myocardial infarction Social History (Updated 12/26/19 @ 13:[address] Wolf Wesley MD) Smoking Status: Former smoker quit date: 08/16/79 alcohol intake: current alcohol intake frequency: holidays/special occasions only substance use type: does not use caffeine: Yes Type: coffee Number of servings: 2 what type of physical activity do you participate in: bicycling frequency: 5-6 times per week duration: 45-60 minutes/day seatbelt use: always do you feel safe at home: Yes HPI HPI Chief Complaint: Anemia Details: Patient was informed that this visit will be billed to patient. This visit was conducted during pandemic. JEANETH MEHTA, is a 74 M who presents to the office today for surgical consultation regarding a colonoscopy. The patient was scheduled for an office visit but because he had some nasal drip he requested that it be converted to a simple phone call. The patient is located at home. I am located the office. The patient presented to the emergency room and was admitted to the [facility] on October 18, 2019. There is been concern about GI blood loss anemia. He had a small amount of blood in his phlegm. On October 19, 2019 I did an upper endoscopy. That showed minimal gastritis confirmed on biopsy. H. pylori was negative. That was not felt to correlate with the source of any blood loss. His presentation hemoglobin at that time was 6.2. It is of note that the patient had a previous coronary bypass grafting in 1997. He has had also coronary stenting performed in 2014. Dr. Cosme Hernandez is his dye range tender. August 2019 Dr. Papito Elaine had attempted to colonoscopy but failed because of poor bowel prep. The patient has had a history of her chronic anemia. He is treated with B12 and iron supplementation. It is of note at the time of his presentation he was Hemoccult negative in the emergency room. He is on anticoagulant in the form of clopidogrel. At the time of his presentation to the emergency room he was complaining of chest pressure. Because of the Covid- pandemic the patient has not pursued additional treatment. It is of note that on November 20, 2019 his white blood cell count was 3.9 with a hemoglobin 10 hematocrit 32.5 platelet count 178,000. BUN was 26 and creatinine 1.54 with a glucose of 231. Potassium was normal at 4.2. At that time his TIBC was 300 and his iron was 49 which was low. Iron saturation 16.3 [address]. Ferritin [address] Dr. Jong Hurtado is his talent development manager. The patient is currently being treated with IV iron infusions. The patient feels much improved since his hospitalization. He claims that he is 9095% back to his normal self. He is eating a normal diet. He is regained about 3 pounds in weight. He denies bright red blood per rectum. No abdominal pain. It is of additional note that October 2019 he had a cardiac catheterization performed by Dr. Cosme Hernandez with no critical disease identified Exam Details: Details:: Exam was limited due to phone visit with no video. Quality Reporting BMI Screening ([facility] 69) Body Mass Index (BMI): 32.1 Tobacco Screening ([facility] 138) Smoking Status: Former smoker Assessment & Plan Problems 1. Iron deficiency anemia due to chronic blood loss D50.0 Plan I plan to proceed with a colonoscopy with possible biopsy or polypectomy as indicated. He is very much aware of the technique, benefit, risk, alternatives. He has had an opportunity to ask and have questions answered. We will utilize a 2-day bowel prep because of his history of failed prep. He will do 2 days of clear liquids. Day 1 Dulcolax tablets x2 and magnesium citrate x1 bottle. On day 2 MiraLAX split prep. He is aware that [facility] current protocol is to perform Covid-19 testing preprocedure. We will schedule procedure discretion. I very much appreciate the kind opportunity of assisting with surgical care Cc: Dr. Jeffrey Thorne and Dr. Jong Hurtado and Dr. Cosme Wesley M.D., F.A.C.S. 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[place]o heart with angina pectoris (Chronic) Occlusion and stenosis of bilateral carotid arteries (Chronic) Central retinal vein occlusion of left eye (Chronic 05/08/19) Essential (primary) hypertension (Chronic) HLD (hyperlipidemia) (Chronic) Medical History: Medical History (Last Reviewed 12/26/19 @ 12:49 by Lupis Conner) Acute on chronic diastolic (congestive) heart failure (Chronic) I50.33 Chronic anemia (Chronic) D64.9 Iron deficiency anemia due to chronic blood loss (Chronic) D50.0 Renal insufficiency (Chronic) N28.9 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) I25.119 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 [Ecotrin] 81 mg PO DAILY@0800 05/22/13 Cyanocobalamin (Vitamin B-12) 500 mcg PO BID 01/05/17 [Vitamin B-12] levothyroxine 150 mcg capsule 150 mcg PO DAILY 07/12/18 ascorbate calcium (vitamin C) 500 500 mg PO DAILY 08/17/19 mg tablet Ranolazine [Ranolazine ER] 1,000 mg PO BID 10/18/19 Simvastatin 40 mg PO QHS 10/18/19 nitroglycerin 0.4 mg sublingual 0.4 mg SUBLINGUAL Q5-15M PRN #25 11/01/19 tablet tab alfuzosin 10 mg tablet,extended 10 mg PO QHS tab 11/17/19 release 24 hr metoprolol tartrate 50 mg tablet 50 mg PO BID #180 tab 11/17/19 furosemide 40 mg tablet 40 mg PO DAILY #90 tab 12/15/19 Insulin Detemir [Levemir (BKC)] 30 units SUBCUT DAILY 01/05/20 Surgical History: Surgical History (Last Updated 12/26/19 @ 12:50 by Lupis Conner) H/O coronary artery bypass surgery (Resolved) Onset Date: 04/1998 Z95.1 CABG x 2 PAZ-LAD, SVG-OM Apr 1998 History of coronary artery stent placement (Resolved) Onset Date: 01/22/15 Z95.5 [id number] w/ 4.0 x 15 mm Stent 01/22/15 History of colonoscopy Onset Date: ~08/2019 Z98.890 History of esophagogastroduodenoscopy (EGD) Onset Date: ~10/2019 Z98.890 History of left heart catheterization Onset Date: 10/24/19 Z98.890 10/24/2019 Patent saphenous vein graft to the circumflex artery. Presumed patent PAZ to the LAD. Preserved ejection fraction. Surgical History: - - CABG, lithotripsy Psychiatric History: No pertinent psych hx Smoking Status: Former smoker Tobacco Use: Non-smoker - *Family History Maternal Family History: Family History (Last Reviewed 12/26/19 @ 12:49 by Lupis Conner) Father Diabetes Mother Cancer Brother CAD (coronary artery disease) HLD (hyperlipidemia) Myocardial infarction Sister Myocardial infarction CAD (coronary artery disease) Hypertension HLD (hyperlipidemia) Sister Diabetes Daughter Arthritis Son Arthritis Brother Myocardial infarction History Items: No pertinent history Review of Systems Constitutional: Denies: Anorexia HEENT: Denies: Difficulty Swallowing Cardiovascular: Denies: Chest Pain Respiratory: Denies: Shortness of Breath Gastrointestinal: Denies: Abdominal Pain Endocrine: Denies: Change in Body Habitus VTE Information - Inpt Only VTE Present on Admission: No - Physical Exam Vitals/I&O's: Vital Signs Temp Pulse Resp BP Pulse Ox 97 F L 53 L 16 148/66 H 98 01/09/20 05:49 01/09/20 05:49 01/09/20 05:49 01/09/20 05:49 01/09/20 05:49 Oxygen Delivery Method Room Air Weight: 220 lb 10.923 oz Body Mass Index (BMI) 29.9 General: Alert, Oriented x3, Cooperative Lungs: Clear to auscultation, Normal air movement Cardiovascular: Regular rate, Regular Rhythm Abdomen: Soft, Non Tender Extremities: No Calf Tenderness Psych/Mental Status: Normal Affect Microbiology Past 72 Hours 01/07/20 08:56 Mucosa - Nasopharyngeal Coronavirus COVID-19 PCR - Final Laboratory Results 01/09/20 06:08: POC Glucose 69 L Current Medications Lactated Ringer's () 1,000 mls @ 75 mls/hr IV .[id number] TAMAR Last Admin: 01/09/20 06:15 Dose: 75 mls/hr Documented by: Assessment/Plan All Active Problems (Last Reviewed 12/26/19 @ 12:49 by Lupis Conner) Bilateral pleural effusion (Acute 10/24/19) History of non-ST elevation myocardial infarction (NSTEMI) (Acute 10/24/19) Acute blood loss anemia (Resolved) H/O coronary artery bypass surgery (Resolved 04/1998) History of coronary artery stent placement (Resolved 01/22/15) Abdominal pain (Resolved) Back pain (Resolved) Unstable angina (Resolved) The patient presents for a colonoscopy with possible biopsy or polypectomy as indicated to help evaluate a chronic iron deficiency anemia. He is aware of the technique, benefit, risk and alternatives. He has had an opportunity to ask and have questions answered. We will proceed as noted. Wolf Wesley M.D., F.A.C.S. He presents via the COVID 19 pandemic. He is aware that the [facility] administration suggests a low local incidence. He is aware of the increased risk
[2020-01-09 07:00] VITALS: BP 121/52; BP 148/66; PULSE 52; RESP 18; TEMP 36.8; O2SAT 100
[2020-01-09 07:05] VITALS: BP 133/55; BP 148/66; PULSE 53; RESP 18; O2SAT 99
[2020-01-09 07:10] VITALS: BP 130/76; BP 148/66; PULSE 56; RESP 18; O2SAT 99
[2020-01-09 07:15] VITALS: BP 103/77; BP 148/66; PULSE 51; RESP 18; TEMP 36.6; O2SAT 99
[2020-01-09 07:26] VITALS: BP 148/66
--- NOTE | 2020-01-09 09:30 | OP.COLON_ITS ---
Patient Name: Ramiro Santiago Procedure Date: 01/09/2020 5:53 AM Date of : 1945 Age: 74 Procedure: Colonoscopy Indications: Iron deficiency anemia Providers: Wolf Wesley MD Medicines: See the Anesthesia note for documentation of the administered medications Patient Profile: Last Colonoscopy: 6 months ago. Complications: No immediate complications. Procedure: Pre-Anesthesia Assessment: - Prior to the procedure, a History and Physical was performed, and patient medications and allergies were reviewed. The patient's tolerance of previous anesthesia was also reviewed. The risks and benefits of the procedure and the sedation options and risks were discussed with the patient. All questions were answered, and informed consent was obtained. Prior Anticoagulants: The patient has taken no previous anticoagulant or antiplatelet agents. ASA Grade Assessment: II - A patient with mild systemic disease. After reviewing the risks and benefits, the patient was deemed in satisfactory condition to undergo the procedure. After I obtained informed consent, the scope was passed under direct vision. Throughout the procedure, the patient's blood pressure, pulse, and oxygen saturations were monitored continuously. The pediatric colonoscope was introduced through the anus and advanced to the cecum, identified by appendiceal orifice and ileocecal valve. The colonoscopy was performed without difficulty. The patient tolerated the procedure well. The quality of the bowel preparation was fair. The ileocecal valve and the appendiceal orifice were photographed. Scope In: 6:38:55 AM Scope Withdrawal Time 0 hours 8 minutes 28 seconds Scope Out: 6:54:20 AM Total Procedure Duration Time 0 hours 15 minutes 25 seconds Findings: The digital rectal exam findings include non-thrombosed internal hemorrhoids and internal hemorrhoids that prolapse with straining, but spontaneously regress to the resting position (Grade II). Pertinent negatives include normal prostate (size, shape, and consistency). A 4 mm polyp was found in the descending colon. The polyp was sessile. The polyp was removed with a cold biopsy forceps. Resection and retrieval were complete. Multiple diverticula were found in the sigmoid colon and descending colon. Impression: - Preparation of the colon was fair. - Non-thrombosed internal hemorrhoids and internal hemorrhoids that prolapse with straining, but spontaneously regress to the resting position (Grade II) found on digital rectal exam. - One 4 mm polyp in the descending colon, removed with a cold biopsy forceps. Resected and retrieved. - Diverticulosis in the sigmoid colon and in the descending colon. Recommendation: - Discharge patient to home. - Resume previous diet. - Continue present medications. - Telephone my office for pathology results in 1 week. - Repeat colonoscopy in 5 years for surveillance based on pathology results. No active bleeding identified at this time. Diverticulosis and hemorrhoids both present Procedure Code(s): --- Professional --- 97427, Colonoscopy, flexible; with biopsy, single or multiple Diagnosis Code(s): --- Professional --- K64.1, Second degree hemorrhoids D12.4, Benign neoplasm of descending colon D50.9, Iron deficiency anemia, unspecified K57.30, Diverticulosis of large intestine without perforation or abscess without bleeding CPT copyright 2017 [employer]. All rights reserved. The codes documented in this report are preliminary and upon shirt presser review may be revised to meet current compliance requirements. Wolf Wesley MD 01/09/2020 7:02:03 AM This report has been signed electronically. Number of Addenda: 0 Note Initiated On: 01/09/2020 5:53 AM
--- NOTE | 2020-01-09 09:30 | OP.CCLET_ITS ---
01/09/2020 Jeffrey Thorne Re : Colonoscopy procedure for Ramiro Santiago Dear Mati This procedure was performed on Thursday, January 09, 2020. My impressions and recommendations are as follows: Impressions : - Preparation of the colon was fair. - Non-thrombosed internal hemorrhoids and internal hemorrhoids that prolapse with straining, but spontaneously regress to the resting position (Grade II) found on digital rectal exam. - One 4 mm polyp in the descending colon, removed with a cold biopsy forceps. Resected and retrieved. - Diverticulosis in the sigmoid colon and in the descending colon. Recommendations : - Discharge patient to home. - Resume previous diet. - Continue present medications. - Telephone my office for pathology results in 1 week. - Repeat colonoscopy in 5 years for surveillance based on pathology results. No active bleeding identified at this time. Diverticulosis and hemorrhoids both present My findings are described in the full procedure note, which is enclosed. If I can be of further assistance, please feel free to contact me at Doctor phone number(s): Work: . Sincerely, Wolf Wesley MD 01/09/2020 7:02:03 AM This report has been signed electronically.
== END 2020-01-09 07:42 | disposition home or self-care (01) ==
LOC: EN 05:23 → AC 05:23
PROVIDERS: PCP Family Medicine; Referring Provider Family Medicine; Visit Provider Surgery
PROC: 0DJD8ZZ Inspection of Lower Intestinal Tract, Via Natural or Artificial Opening Endoscopic (ICD-10-PCS; CPT 45378; principal; 2020-01-09 06:25)
DX: K63.5 Polyp of colon (principal); K62.89 Other specified diseases of anus and rectum; K64.1 Second degree hemorrhoids; K57.30 Diverticulosis of large intestine without perforation or abscess without bleeding; I13.0 Hypertensive heart and chronic kidney disease with heart failure and stage 1 through stage 4 chronic kidney disease, or unspecified chronic kidney disease; I50.32 Chronic diastolic (congestive) heart failure; N18.9 Chronic kidney disease, unspecified; I25.10 Atherosclerotic heart disease of native coronary artery without angina pectoris; E78.5 Hyperlipidemia, unspecified; E11.22 Type 2 diabetes mellitus with diabetic chronic kidney disease; E03.9 Hypothyroidism, unspecified; G47.30 Sleep apnea, unspecified; Z79.82 Long term (current) use of aspirin; Z79.4 Long term (current) use of insulin; Z87.891 Personal history of nicotine dependence; Z95.1 Presence of aortocoronary bypass graft; Z79.02 Long term (current) use of antithrombotics/antiplatelets; Z11.59 Encounter for screening for other viral diseases
CPT/HCPCS: 45380; 82962; 87635; 88305; G2023; J7120; J2405; U0004

== ENCOUNTER → 2020-02-28 | Outpatient (CLI) | payer MEDICARE, OTHER, SELFPAY ==
[2020-02-27 09:13] VITALS: BMI 29.9
[2020-02-28 10:11] LABS: AST(SGOT) 14 U/L (15-37); Alanine Aminotransfer ALT/SGPT 20 U/L (16-61); Albumin, Serum 3.4 g/dL (3.2-5.0); Alkaline Phosphatase 130 U/L (45-117); Cholesterol 133 mg/dL (200); Globulin 3.2 g/dL (2.2-4.2); High Density Lipoprotein 41 mg/dL; Protein, Total 6.6 g/dL (6.4-8.2); Triglycerides 86 mg/dL; Very Low Density Lipoprotein 17 mg/dL (5-40)
== END | disposition home or self-care (01) ==
LOC: LAB 08:30
PROVIDERS: PCP Family Medicine; Referring Provider Nurse Practitioner Family; Visit Provider Nurse Practitioner Family
DX: I25.119 Atherosclerotic heart disease of native coronary artery with unspecified angina pectoris (principal); Z95.1 Presence of aortocoronary bypass graft; E78.5 Hyperlipidemia, unspecified; Z95.5 Presence of coronary angioplasty implant and graft
CPT/HCPCS: 36415; 80061; 80076

== ENCOUNTER → 2020-03-15 | Outpatient (CLI) | payer MEDICARE, OTHER, SELFPAY ==
[2020-02-27 09:13] VITALS: BMI 29.9
--- NOTE | 2020-03-15 13:32 | BI_ITS ---
MAMMOGRAPHY - BILATERAL DIAGNOSTIC REASON FOR EXAM: Male, 74 years old. Bilateral nipple pain. PERTINENT HISTORY: Non-contributory. TECHNIQUE: Digital bilateral breast chinyere (3D mammographic acquisition) in the CC and MLO projections. 2-D mediolateral oblique (MLO) and craniocaudad (CC) views of both breasts were obtained. CAD: Full Field Digital Mammography with Computer Added Detection was performed. COMPARISON: None. Baseline examination. FINDINGS: Breast Composition: There are scattered areas of fibroglandular density in the subareolar regions of both breasts.. There are no dominant masses or suspicious calcifications. No other significant abnormalities are identified. BI/DIAG MAMM W/CAD, BILAT IMPRESSION: Negative diagnostic mammogram. With the patient''s history of bilateral nipple pain, correlation with ultrasound is recommended. ASSESSMENT CATEGORY: BIRADS Category 0: Incomplete. Need additional imaging evaluation. A letter regarding these results will be sent to the patient by the facility within 30 days. Approximately 10% of breast cancers are not detected by mammography. A normal mammogram should not delay biopsy of a clinically suspicious abnormality. Electronically Signed: Beka Holman, at 14:27 EDT , Service support ,
--- NOTE | 2020-03-15 13:33 | US_ITS ---
STUDY: ULTRASOUND BREAST - RIGHT REASON FOR EXAM: Male, 74 years old. Palpable lump in the right retroareolar region. TECHNIQUE: Axial and longitudinal images of the RIGHT breast were performed with a high resolution ultrasound transducer. # OF IMAGES: 43 COMPARISON: Comparison is made with prior mammogram done earlier today. FINDINGS: RIGHT Breast: There is evidence of a retroareolar glandular tissue in keeping with gynecomastia. IMPRESSION: Findings in keeping with gynecomastia. ASSESSMENT CATEGORY: BIRADS Category 2: Benign. A letter regarding these results will be sent to the patient by the facility within 30 days. Electronically Signed: Beka Holman, at 8:43 EDT , Service support , STUDY: ULTRASOUND BREAST - LEFT REASON FOR EXAM: Male, 74 years old. Gynecomastia. TECHNIQUE: Axial and longitudinal images of the LEFT breast were performed with a high resolution ultrasound transducer. # OF IMAGES: 43 COMPARISON: Comparison is made with prior mammogram done earlier in the day. FINDINGS: LEFT Breast: There is evidence of retroareolar fibroglandular tissue in keeping with gynecomastia. US/Breast Limited Unilateral IMPRESSION: Gynecomastia. ASSESSMENT CATEGORY: BIRADS Category 2: Benign. A letter regarding these results will be sent to the patient by the facility within 30 days. Electronically Signed: Beka Holman, at 8:43 EDT , Service support ,
== END | disposition home or self-care (01) ==
LOC: OPBI 13:24
PROVIDERS: PCP Family Medicine; Referring Provider Family Medicine; Visit Provider Family Medicine
DX: N63.10 Unspecified lump in the right breast, unspecified quadrant (principal); N63.41 Unspecified lump in right breast, subareolar
CPT/HCPCS: 76642; 77062; 77066; G0279

== ENCOUNTER → 2020-05-09 | Outpatient (CLI) | payer MEDICARE, OTHER, SELFPAY ==
[2020-03-25 13:32] VITALS: BMI 31.0
--- NOTE | 2020-05-09 10:06 | ECHOD_ITS ---
Reason For Study: SOB Procedure This was a 2D Doppler, Color Flow transthoracic echocardiogram. Exam performed in department. Left Ventricle Normal LV size. Mild segmental systolic dysfunction (see wall motion). The estimated ejection fraction is 50 %. Stage 1 diastolic dysfunction. Mid-Inferior: Mildly hypokinetic. Infero-Basal: Hypokinetic. Mid-inferoseptal : Mildly hypokinetic. The rest of the wall segments are normal. Right Ventricle Normal RV size. Normal systolic function. Atria Normal left atrium. Normal right atrium. Mitral Valve Normal mitral valve. Tricuspid Valve Normal tricuspid valve. Aortic Valve Trisinus/trileaflet aortic valve. Mild focal aortic valve calcification. Pulmonic Valve Normal pulmonic valve. Great Vessels Normal aortic root. The pulmonary artery is normal size. Normal inferior vena cava. Pericardium/Pleural No pericardial effusion. MMode/2D Measurements & Calculations LVIDd: 5.4 cm IVSd: 1.1 cm Ao root diam: 3.4 cm LVIDs: 4.1 cm LVPWd: 1.1 cm RVDd: 3.2 cm FS: 25.0 % LAV(MOD-bp): 63.3 ml LVAd ap4: 33.5 cm2 SV(MOD-sp4): 65.1 ml LAV(MOD-bp) Indexed: 28.7 ml/m2 EDV(MOD-sp4): 109.0 ml LAV(MOD-sp2): 85.0 ml EDV(sp4-el): 113.3 ml LAV(MOD-sp4): 38.9 ml LVAs ap4: 19.7 cm2 ESV(MOD-sp4): 43.9 ml ESV(sp4-el): 42.4 ml EF(MOD-sp4): 59.7 % EF(sp4-el): 62.6 % SV(sp4-el): 70.9 ml LA A4 area: 15.0 cm2 LA dimension(2D): 4.3 cm RA A4 area: 12.4 cm2 Doppler Measurements & Calculations MV E max ronaldo: 69.1 cm/sec Lat Peak E' Ronaldo: 5.9 cm/sec Med Peak E' Ronaldo: 4.8 cm/sec MV A max ronaldo: 84.6 cm/sec E/E' lat: 11.6 E/E' med: 14.3 MV E/A: 0.82 Ao V2 max: 129.3 cm/sec LV V1 max: 104.3 cm/sec PA V2 max: 94.2 cm/sec Ao max P.7 mmHg LV V1 max P.4 mmHg Interpretation Summary Normal LV size. Mild segmental systolic dysfunction (see wall motion). The estimated ejection fraction is 50 %. Stage 1 diastolic dysfunction. Compared to previous study, the left ventricular systolic function is the same.. Ordering Physician: Mayte Drake Referring Physician: Jeffrey Thorne Performed By: Yusra Rush RDCS
--- NOTE | 2020-05-10 09:52 | PFT ---
INTRODUCTION: The patient is a 74-year-old male that presents for pulmonary function studies secondary to a diagnosis of dyspnea on exertion. Respiratory therapy reports good patient effort. Bronchodilators were used during testing. INTERPRETATION: Forced expiration spirometry demonstrates no evidence of a large airways obstructive ventilatory defect. There was no significant response to aerosolized bronchodilators. Spirograms are of good quality and plateau normally. Body plethysmography was performed and reveals lung volumes to be within normal limits. Diffusing capacity by single breath CO is also within normal limits. IMPRESSION: Grossly normal pulmonary function studies.
== END | disposition home or self-care (01) ==
LOC: CVS 10:06
PROVIDERS: PCP Family Medicine; Referring Provider Nurse Practitioner Acute Care; Visit Provider Nurse Practitioner Acute Care
DX: R06.02 Shortness of breath (principal); R06.00 Dyspnea, unspecified; I25.10 Atherosclerotic heart disease of native coronary artery without angina pectoris
CPT/HCPCS: 93306; 94060; 94726; 94729

== ENCOUNTER → 2020-05-10 | Outpatient (CLI) | payer MEDICARE, OTHER, SELFPAY ==
[2020-03-25 13:32] VITALS: BMI 31.0
== END | disposition home or self-care (01) ==
LOC: SL 20:10
PROVIDERS: PCP Family Medicine; Referring Provider Nurse Practitioner Acute Care; Visit Provider Nurse Practitioner Acute Care
DX: G47.30 Sleep apnea, unspecified (principal)
CPT/HCPCS: 95811

== ENCOUNTER → 2020-07-15 10:15 | Outpatient (CLI) | payer MEDICARE, OTHER, SELFPAY ==
[2020-07-15 09:38] VITALS: BMI 30.5
[2020-07-15 11:04] LABS: Absolute Lymphocyte Count 1.24 X10^3/uL (0.83-4.51); Absolute Neutrophil Count 4.1 X10^3/uL (2.0-7.7); Basophil# 0.03 X10^3/uL; Basophil% 0.5 % (0-1); Eosinophil# 0.13 X10^3/uL; Eosinophils% 2.2 % (0-5); Hematocrit 40.4 % (40-54); Hemoglobin 13.4 g/dL (13.0-16.5); Lymphocyte # 1.24 X10^3/ul (4.0); Lymphocyte % 20.9 % (19-41); Mean Corp Hgb Conc 33.2 g/dL (32-36); Mean Corpuscular Volume 93.5 fL (80-94); Mean Platelet Vol. 10.6 fl (6.2-12.0); Monocyte# 0.45 X10^3/uL; Monocyte% 7.6 % (0-10); NRBC Flagged by Analyzer 0 % (0-5); Neutrophil # 4.07 X10^3/uL (2.7-7.7); Neutrophil % 68.5 % (47-70); Platelet Count 179 K/mm3 (150-450); RBC Distribution Width CV 12.9 % (11.6-14.6); RBC Distribution Width SD 44.4 fl (35.1-43.9); Red Blood Count 4.32 M/mm3 (4.6-6.2); White Blood Count 5.9 K/mm3 (4.4-11.0)
[2020-07-18 03:07] LABS: Alternaria alternata <0.10 kU/L (Class 0); Bermuda Grass <0.10 kU/L (Class 0); Bluegrass, Kentucky <0.10 kU/L (Class 0); Cat Hair/Dander, Standard <0.10 kU/L (Class 0); D farinae Mite 0.57 kU/L (Class II); Dog Epithelia <0.10 kU/L (Class 0); Elm, American White <0.10 kU/L (Class 0); Mouse Urine <0.10 kU/L (Class 0); Oak, White <0.10 kU/L (Class 0); Plantain, English <0.10 kU/L (Class 0); Ragweed, Short/Common <0.10 kU/L (Class 0)
[2020-07-18 06:36] LABS: ANTINUCLEAR ANTIBODIES DIRECT Negative (Negative)
[2020-07-19 03:06] LABS: Aspirgillus flavus Negative (Neg:<1:1); Aspirgillus fumigatus Negative (Neg:<1:1); Aspirgillus niger Negative (Neg:<1:1)
[2020-07-19 09:13] LABS: Immunoglobulin E 91 IU/mL (6-495)
== END ==
PROVIDERS: PCP Family Medicine; Referring Provider Nurse Practitioner Acute Care; Visit Provider Nurse Practitioner Acute Care
DX: J30.2 Other seasonal allergic rhinitis (principal)
CPT/HCPCS: 36415; 82785; 85025; 86003; 86038; 86225; 86235; 86606

== ENCOUNTER → 2021-01-08 08:48 | Outpatient (CLI) | payer MEDICARE, OTHER, SELFPAY ==
[2020-12-24 14:37] VITALS: BMI 31.1
--- NOTE | 2021-01-08 08:53 | AAVD_ITS ---
Reason For Study: Aortic calcification Aorta Measurements Aorta Doppler Measurements Proximal aorta measures1.66 x 1.66cm. in cross- Peak systolic flow velocities within the proximal sectional axis. aorta measure 80.6 cm/sec. Proximal aorta measures1.63cm. in longitudinal Peak systolic flow velocities within the mid aorta axis. measure 91.6 cm/sec. Mid aorta measures1.82 x 1.82cm. in cross- Peak systolic flow velocities within the distal sectional axis. aorta measure 75.7 cm/sec. Mid aorta measures1.83cm. in longitudinal axis. Distal aorta measures1.54 x 1.54cm. in cross- sectional axis. Distal aorta measures1.56cm. in longitudinal axis. Left Iliac Artery Left iliac artery measures 1.10 x 1.08 cm. in the cross-sectional axis. Left iliac artery measures 1.05 cm. in the longitudinal axis. Peak systolic velocity in the left iliac artery measures 126.4 cm/sec. Right Iliac Artery Right iliac artery measures 1.12 x 1.12 cm. in the cross-sectional axis. Right iliac artery measures 1.12 cm. in the longitudinal axis. Peak systolic velocity in the right iliac artery measures 91.6 cm/sec. Procedure Aorta IVC Iliac vasculature or bypass grafts [id number]. Exam performed in department. VL/Abd Aortic/IVC Duplex scan Interpretation Summary Abdominal aorta maximal dimensions 1.82 x 1.82 cm diameter in the mid abdominal aorta. Normal flow velocity noted within the abdominal aorta. No evidence for abdominal aortic aneurysm Left common iliac measures 1.1 x 1.08 cm diameter Right common iliac measures 1.12 x 1.12 cm in diameter Ordering Physician: Bryant Delaney Referring Physician: Jeffrey Thorne Performed By: Jane Blunt RVT
== END ==
PROVIDERS: PCP Family Medicine; Referring Provider Family Medicine; Visit Provider Family Medicine
DX: I70.0 Atherosclerosis of aorta (principal); I73.9 Peripheral vascular disease, unspecified
CPT/HCPCS: 93978

== ENCOUNTER 2021-08-30 10:01 | Emergency (ER) | payer MEDICARE, OTHER, SELFPAY ==
[2021-08-30 10:02] VITALS: BP 138/56; PULSE 53; RESP 15; TEMP 37.7; O2SAT 98; BMI 32.1
--- NOTE | 2021-08-30 10:30 | EDS_ITS ---
HPI History of Present Illness Chief Complaint: Hypoglycemia Informant: patient and spouse/S.O. Narrative Narrative: 76-year-old male arriving to the ED via EMS with concerns for possible stroke. Patient states that he was up this morning took his insulin around 7:00 in the morning. He began to feel like his blood sugar was getting low. states that she made some sausage and pancakes and it took him a very long time to try to eat some of it. She noted that he was slurring his speech and was diaphoretic. EMS was called and they noted him to be hypoglycemic. Patient states he has never had a hypoglycemic episode before. He did eat a protein bar during the night. [facility] Medical History Acute on chronic diastolic (congestive) heart failure Atherosclerosis of aorta Atherosclerosis of coronary artery bypass graft of [place] heart with angina pectoris Atherosclerosis of coronary artery of [place] heart with angina pectoris Central retinal vein occlusion of left eye (05/08/19) Chronic anemia Diabetes mellitus Essential (primary) hypertension HLD (hyperlipidemia) Hypothyroidism Iron deficiency anemia due to chronic blood loss Occlusion and stenosis of bilateral carotid arteries Renal calculi Renal insufficiency Right carotid bruit Sleep apnea Home Medications aspirin 81 mg PO DAILY@0800 05/22/13 [History Last Taken 10/17/19 07:30] ascorbate calcium (vitamin C) 500 mg tablet 500 mg PO DAILY 08/17/19 [History Last Taken 10/17/19 07:30] nitroglycerin 0.4 mg sublingual tablet 0.4 mg SUBLINGUAL Q5-15M PRN #25 tab 11/01/19 [Rx Last Taken Unknown] alfuzosin 10 mg tablet,extended release 24 hr 10 mg PO QHS tab 11/17/19 [History Last Taken Unknown] aflibercept 2 mg/0.05 mL intravitreal solution for injection 2 mg INTRAVIT Q12W ml 07/15/20 [History Last Taken Unknown] albuterol sulfate 90 mcg/actuation aerosol inhaler 2 puff INHALATION Q4H PRN #18 g 08/15/20 [Rx Last Taken Unknown] insulin detemir U-100 100 unit/mL (3 mL) subcutaneous pen 50 unit SC DAILY ml 10/17/20 [History Last Taken Unknown] simvastatin 20 mg tablet 40 mg PO QHS tab 12/24/20 [History Last Taken Unknown] ranolazine 1,000 mg tablet,extended release,12 hr 1,000 mg PO BID #180 tab 02/12/21 [Rx Last Taken Unknown] amlodipine 5 mg tablet 5 mg PO BID #180 tab 08/27/21 [Rx Last Taken Unknown] levothyroxine 150 mcg PO DAILY 08/30/21 [History Last Taken Unknown] metoprolol tartrate 50 mg PO BID 08/30/21 [History Last Taken Unknown] Allergy/AdvReac Type Severity Reaction Status Date / Time lisinopril AdvReac Intermediate COUGH Verified 08/30/21 10:08 Family History Father Diabetes Mother Cancer Lung cancer Brother CAD (coronary artery disease) HLD (hyperlipidemia) Myocardial infarction Sister Myocardial infarction CAD (coronary artery disease) Hypertension HLD (hyperlipidemia) Sister Diabetes Daughter Arthritis Son Arthritis Brother Myocardial infarction Surgical History H/O coronary artery bypass surgery (04/1998) History of bilateral cataract extraction History of colonoscopy (~08/2019) History of coronary artery stent placement (01/22/15) History of esophagogastroduodenoscopy (EGD) (~10/2019) History of left heart catheterization (10/24/19) Social History Smoking Status: Former smoker quit date: 08/16/79 alcohol intake: current alcohol intake frequency: holidays/special occasions only substance use type: does not use caffeine: Yes Type: coffee Number of servings: 2 what type of physical activity do you participate in: bicycling frequency: 5-6 times per week duration: 45-60 minutes/day seatbelt use: always do you feel safe at home: Yes ROS ROS ED ROS Narrative Generalized fatigue Constitutional Constitutional ED: Denies chills or weight loss Eyes Eyes: Denies change in vision or diplopia ENT ENT ED: Denies ear pain, rhinorrhea or sore throat Cardiovascular Cardiovascular: Denies chest pain, orthopnea, palpitations or racing heartbeat Respiratory/Chest Respiratory/Chest: Denies cough, dyspnea or orthopnea Gastrointestinal Gastrointestinal: Denies abdominal pain, diarrhea, nausea or vomiting Genitourinary Genitourinary ED: Denies dysuria, hematuria or urinary frequency Musculoskeletal Musculoskeletal: Denies arthralgias or myalgias Integumentary Denies abscess or rash Neurologic Neurologic: Denies headache(s) or weakness Psychiatric Psychiatric: Denies anxiety, depression, suicidal ideation or suicidal thoughts Endocrine Endocrinology: Denies polydipsia, polyphagia or polyuria Allergic/Immunologic Allergic/Immunologic ED: Denies mouth swelling, tongue swelling or urticaria EXAM Physical Exam Const Vital Signs: 08/30/21 10:02 08/30/21 12:07 Temperature 99.9 F H Temperature Source Temporal Pulse Rate 53 L 55 L Respiratory Rate 15 22 H Blood Pressure 138/56 H 134/51 H Blood Pressure Mean 83 78 Pulse Ox 98 97 Oxygen Delivery Method Room Air Room Air Positive well nourished, well developed and obese General Appearance ED: well developed Nutritional Appearance: obese HEENT Reports normocephalic, head/scalp atraumatic and moist mucous membranes Eyes PERRL and EOMs intact bilaterally Neck no lymphadenopathy, supple and no JVD Resp normal respiratory effort and clear to auscultation bilaterally Cardio regular rate, regular rhythm and no murmurs GI normal to inspection, nondistended, normoactive bowel sounds and non-tender Palpation: soft Back/Spine no CVA tenderness and normal ROM Extremity normal to inspection General Extremety ED: Negative for edema General Extremity: Negative for edema Neuro oriented x3 and CN's II-XII intact bilaterally Sensorium / Orientation: alert Motor Exam: strength 5/5 throughout Psych mental status grossly normal Mood & Affect: Negative for depressed or tearful Skin no rashes or lesions noted and no wounds MDM MDM MDM Narrative Medical decision making narrative: Patient received an amp of D50 upon arrival to the emergency department. He was also given food. Every hour blood sugars were obtained. These have remained stable. Patient is clinically doing better. The patient will be discharged home. Instructions to eat well today to monitor his blood sugar closely Lab Data Attestation: I reviewed the patient's lab results. Labs: Laboratory Results - last 24 hr 08/30/21 08/30/21 08/30/21 10:27 10:35 10:35 WBC 8.6 RBC 4.28 L Hgb 13.6 Hct 40.1 MCV 93.7 MCH 31.8 MCHC 33.9 RDW Std Deviation 45.5 H RDW Coeff of Matthew 13.3 Plt Count 178 MPV 11.4 Immature Gran % (Auto) 0.700 Neut % (Auto) 82.5 H Lymph % (Auto) 10.1 L [place] % (Auto) 5.6 Eos % (Auto) 0.8 Baso % (Auto) 0.3 Absolute Neuts (auto) 7.1 Absolute Lymphs (auto) 0.87 Nucleated RBC % 0 Sodium Cancelled Potassium Cancelled Chloride Cancelled Carbon Dioxide Cancelled Anion Gap Cancelled BUN Cancelled Creatinine Cancelled Estim Creat Clear Calc Cancelled Est GFR (MDRD) Af Amer Cancelled Est GFR (MDRD) Non-Af Cancelled BUN/Creatinine Ratio Cancelled Glucose Cancelled Calcium Cancelled Total Bilirubin Cancelled AST Cancelled ALT Cancelled Alkaline Phosphatase Cancelled Total Protein Cancelled Albumin Cancelled Globulin Cancelled Albumin/Globulin Ratio Cancelled POC Glucose 142 H 08/30/21 08/30/21 11:13 12:14 WBC RBC Hgb Hct MCV MCH MCHC RDW Std Deviation RDW Coeff of Matthew Plt Count MPV Immature Gran % (Auto) Neut % (Auto) Lymph % (Auto) [place] % (Auto) Eos % (Auto) Baso % (Auto) Absolute Neuts (auto) Absolute Lymphs (auto) Nucleated RBC % Sodium 135 L Potassium 4.7 Chloride 107 Carbon Dioxide 23.0 Anion Gap 5 BUN 31 H Creatinine 1.71 H Estim Creat Clear Calc 40.97 Est GFR (MDRD) Af Amer 50 L Est GFR (MDRD) Non-Af 42 L BUN/Creatinine Ratio 18.1 Glucose 191 H Calcium 9.2 Total Bilirubin 1.40 H AST 24 ALT 22 Alkaline Phosphatase 107 Total Protein 7.3 Albumin 3.8 Globulin 3.5 Albumin/Globulin Ratio 1.1 POC Glucose 169 H Discharge Plan Triage Chief Complaint: Hypoglycemia ED Provider: Sarwat Blevins Dx/Rx/DC Orders Clinical Impression: Diabetic hypoglycemia Instructions: ED Diabetic Insulin Reaction Prescriptions: No Action alfuzosin 10 mg tablet extended release 24 hr 10 mg PO QHS RF: 0 ascorbate calcium (vitamin C) 500 mg tablet 500 mg PO DAILY RF: 0 E[place]a 2 mg/0.05 mL solution 2 mg INTRAVIT Q12W RF: 0 albuterol sulfate [Ventolin HFA] 90 mcg/actuation HFA aerosol inhaler 2 puff INHALATION Q4H PRN (Reason: shortness of breath or wheezing) Qty: 18 RF: 6 aspirin 81 MG tablet 81 mg PO DAILY@0800 RF: 0 simvastatin 20 mg tablet 40 mg PO QHS RF: 0 insulin detemir U-100 100 unit/mL (3 mL) insulin pen 50 unit SC DAILY RF: 0 levothyroxine 150 mcg Tablet 150 mcg PO DAILY RF: 0 metoprolol tartrate 50 mg tablet 50 mg PO BID RF: 0 nitroglycerin 0.4 mg tablet, sublingual 0.4 mg SUBLINGUAL Q5-15M PRN (Reason: Chest Pain) Qty: 25 RF: 4 ranolazine 1,000 mg tablet extended release 12 hr 1,000 mg PO BID Qty: 180 RF: 3 amlodipine 5 mg tablet 5 mg PO BID Qty: 180 RF: 3 Primary Care Provider: Jeffrey Thorne Referrals: Jeffrey Thorne DO [Primary Care Provider] - As Needed Disposition Disposition: Home, Self Care
[2021-08-30 10:35] LABS: Bedside Glucose 142 mg/dL (70-110)
[2021-08-30 11:01] LABS: Absolute Lymphocyte Count 0.87 X10^3/uL (0.83-4.51); Absolute Neutrophil Count 7.1 X10^3/uL (2.0-7.7); Basophil# 0.03 X10^3/uL; Basophil% 0.3 % (0-1); Eosinophil# 0.07 X10^3/uL; Eosinophils% 0.8 % (0-5); Hematocrit 40.1 % (40-54); Hemoglobin 13.6 g/dL (13.0-16.5); Lymphocyte # 0.87 X10^3/ul (0.83-4.51); Lymphocyte % 10.1 % (19-41); Mean Corp Hgb Conc 33.9 g/dL (32-36); Mean Corpuscular Hgb 31.8 pg (27.0-32.0); Mean Corpuscular Volume 93.7 fL (80-94); Mean Platelet Vol. 11.4 fl (6.2-12.0); Monocyte# 0.48 X10^3/uL; Monocyte% 5.6 % (0-10); NRBC Flagged by Analyzer 0 % (0-5); Neutrophil # 7.08 X10^3/uL (2.7-7.7); Neutrophil % 82.5 % (47-70); Platelet Count 178 K/mm3 (150-450); RBC Distribution Width CV 13.3 % (11.6-14.6); RBC Distribution Width SD 45.5 fl (35.1-43.9); Red Blood Count 4.28 M/mm3 (4.6-6.2); White Blood Count 8.6 K/mm3 (4.4-11.0)
[2021-08-30 11:15] LABS: Bedside Glucose 169 mg/dL (70-110)
[2021-08-30 12:07] VITALS: BP 134/51; PULSE 55; RESP 22; O2SAT 97
[2021-08-30 12:42] LABS: ALB/GLOB Ratio 1.1 RATIO (0.9-2.4); AST(SGOT) 24 U/L (15-37); Alanine Aminotransfer ALT/SGPT 22 U/L (16-61); Albumin, Serum 3.8 g/dL (3.2-5.0); Alkaline Phosphatase 107 U/L (45-117); Anion Gap 5 (5-15); BUN 31 mg/dL (7-18); BUN/Creat Ratio 18.1 RATIO (10-20); Calcium,Total 9.2 mg/dL (8.5-10.1); Chloride 107 mmol/L (98-107); Creatinine, Serum 1.71 mg/dL (0.70-1.30); EST Glomerular Filtration Rate 42 mL/min (>60); Est Glom Filt Rate - Afr Amer 50 mL/min (>60); Estimated Creatinine Clearance 40.97 ml/min; Globulin 3.5 g/dL (2.2-4.2); Glucose 191 mg/dL (74-106); Potassium 4.7 mmol/L (3.5-5.1); Protein, Total 7.3 g/dL (6.4-8.2); Sodium Level 135 mmol/L (136-145)
[2021-08-30 13:00] LABS: Bedside Glucose 227 mg/dL (70-110)
[2021-09-01 08:45] LABS: Bedside Glucose 55 mg/dL (70-110)
== END 2021-08-30 13:58 | disposition home or self-care (01) ==
PROVIDERS: Emergency Provider Emergency Medicine; PCP Family Medicine; Visit Provider Emergency Medicine
DX: E11.649 Type 2 diabetes mellitus with hypoglycemia without coma (principal); Z79.4 Long term (current) use of insulin; I10 Essential (primary) hypertension; Z87.891 Personal history of nicotine dependence; E78.5 Hyperlipidemia, unspecified; I25.10 Atherosclerotic heart disease of native coronary artery without angina pectoris; R47.81 Slurred speech; E03.9 Hypothyroidism, unspecified; G47.30 Sleep apnea, unspecified; Z79.899 Other long term (current) drug therapy; Z79.82 Long term (current) use of aspirin; Z79.890 Hormone replacement therapy
CPT/HCPCS: 80053; 82962; 85025; 99285; A4216

== ENCOUNTER 2021-10-10 09:26 | Outpatient (CLI) | payer MEDICARE, OTHER, SELFPAY ==
--- NOTE | 2021-10-10 09:30 | US_ITS ---
STUDY: RENAL ULTRASOUND - COMPLETE REASON FOR EXAM: Male, 76 years old. Elevated BUN/creatinine TECHNIQUE: Ultrasound evaluation of the kidneys was performed with real-time and static samuel-scale imaging. COMPARISON: 2017 FINDINGS: RIGHT KIDNEY: Normal location of the right kidney, which is normal in size. The right kidney measures 13 x 7.2 x 4.8 cm. There is a normal cortex of the right kidney. The renal cortex measures 1 cm. There is no right renal mass or cyst. There are no right renal calculi. There is no right hydronephrosis. DISTAL RIGHT URETER: There is non-visualization of the distal right ureter. There is no demonstrated right ureterovesical junction calculus. There is a visualized right ureteral jet. LEFT KIDNEY: Normal location of the left kidney, which is mildly atrophic. The left kidney measures 8.7 x 3.3 x 4.3 cm. There is diffuse thinning of the renal cortex. The renal cortex measures 0.6 cm. There is no left renal mass or cyst. There is a nonobstructing 7 mm stone There is no left hydronephrosis. DISTAL LEFT URETER: There is non-visualization of the distal left ureter. There is no demonstrated left ureterovesical junction calculus. There is a visualized left ureteral jet. AORTA: There is no elongation or tortuosity of the abdominal aorta. I.V.C.: The IVC is patent. BLADDER: The distended urinary bladder has a volume of 117.05 ml. The empty urinary bladder has a volume of less than 10 ml. There is a diffusely thickened wall of the distended bladder at 5.6 mm. There is no demonstrated mass within the urinary bladder. There are no demonstrated bladder calculi. US/Kidney and Bladder IMPRESSION: No obstructive uropathy or suspicious solid renal lesion, left kidney is atrophic Nonobstructing left nephrolithiasis Diffuse nonspecific bladder wall thickening perhaps due to bladder outlet issues Electronically Signed: Yohannes Arcos MD at 12:40 EST ,
== END 2021-10-10 23:59 | disposition home or self-care (01) ==
LOC: US 09:27
PROVIDERS: PCP Family Medicine; Referring Provider Internal Medicine Nephrology; Visit Provider Internal Medicine Nephrology
DX: N18.32 Chronic kidney disease, stage 3b (principal)
CPT/HCPCS: 76770

== ENCOUNTER 2021-11-19 08:00 | Outpatient (CLI) | payer MEDICARE, OTHER, SELFPAY ==
[2021-11-19 09:00] LABS: Hematocrit 39.3 % (40-54); Hemoglobin 12.9 g/dL (13.0-16.5); Mean Corp Hgb Conc 32.8 g/dL (32-36); Mean Corpuscular Volume 94.5 fL (80-94); Mean Platelet Vol. 10.5 fl (6.2-12.0); Platelet Count 171 K/mm3 (150-450); RBC Distribution Width CV 13.5 % (11.6-14.6); RBC Distribution Width SD 46.5 fl (35.1-43.9); Red Blood Count 4.16 M/mm3 (4.6-6.2); White Blood Count 5.6 K/mm3 (4.4-11.0)
[2021-11-19 09:20] LABS: Microalbumin:Creatinine Ratio 153.4 mg/g CRE (<30 mg/g CRE)
[2021-11-19 09:23] LABS: PTHIN 85.4 pg/mL (18.4-80.1)
[2021-11-19 09:27] LABS: Vitamin D,25 Hydroxy 26.4 ng/mL
[2021-11-19 09:34] LABS: Albumin, Serum 3.5 g/dL (3.2-5.0); BUN 26 mg/dL (7-18); BUN/Creat Ratio 15.7 RATIO (10-20); Calcium,Total 9.1 mg/dL (8.5-10.1); Chloride 108 mmol/L (98-107); Creatinine, Serum 1.66 mg/dL (0.70-1.30); EST Glomerular Filtration Rate 43 mL/min (>60); Est Glom Filt Rate - Afr Amer 52 mL/min (>60); Glucose 166 mg/dL (74-106); Magnesium 2.2 mg/dL (1.6-2.6); Phosphorus 3.3 mg/dL (2.5-4.9); Potassium 4.3 mmol/L (3.5-5.1); Sodium Level 139 mmol/L (136-145); T4 Free Direct 1.54 ng/dL (0.76-1.46); Thyroid Stim Hormone (TSH) 0.33 uIU/mL (0.358-3.74)
== END 2021-11-19 23:59 | disposition home or self-care (01) ==
LOC: LAB 08:02
PROVIDERS: PCP Family Medicine; Referring Provider Family Medicine; Visit Provider Family Medicine
DX: E03.9 Hypothyroidism, unspecified (principal); N18.32 Chronic kidney disease, stage 3b; R80.9 Proteinuria, unspecified
CPT/HCPCS: 36415; 80069; 82043; 82306; 82570; 83735; 83970; 84439; 84443; 85027

== ENCOUNTER 2022-02-15 10:05 | Emergency (ER) | payer MEDICARE, OTHER, SELFPAY ==
[2022-02-15 10:07] VITALS: BP 115/54; PULSE 62; RESP 14; TEMP 36.1; O2SAT 97; BMI 31.4
--- NOTE | 2022-02-15 10:31 | CT_ITS ---
HISTORY: Pain. TECHNIQUE: Helically acquired images were obtained of the abdomen and pelvis without oral or IV contrast. A radiation dose optimization technique was used for this scan. 472 images. COMPARISON: 12/27/2017. FINDINGS: LOWER CHEST: Midline sternotomy. Mild atelectasis and subpleural blebs in the lung bases. BOWEL: Borderline to mildly dilated small bowel loops with air and fluid. Appendix nondilated. Moderate stool in the colon. Mild colonic diverticulosis without focal pericolonic inflammatory change. PERITONEUM: No significant free fluid. LIVER/SPLEEN: Nonenlarged. GALLBLADDER/BILIARY TREE: Distended gallbladder. PANCREAS: Edema and enlargement of the pancreatic head and uncinate process with fatty atrophy of the body and tail. KIDNEYS AND URETERS: 1-2 mm left renal calculi. No hydronephrosis. Chronic bilateral perinephric stranding. Left renal atrophy with fatty scarring in place of the previous subcapsular hematoma. ADRENAL GLANDS: No nodules. VESSELS: No abdominal aortic aneurysm. Atherosclerosis of the abdominal aorta and its major branches. Severe calcified plaque in the superior mesenteric artery. PELVIC ORGANS: Unremarkable. ABDOMINAL WALL: Tiny fat-containing umbilical and inguinal hernias. BONES: Degenerative change. CT/Abdomen/Pelvis without Cont IMPRESSION: Borderline dilated to mildly dilated fluid-filled small bowel loops without discrete transition point, likely mild ileus or enteritis. Partial small bowel obstruction considered less likely. Mild colonic diverticulosis without acute diverticulitis. Moderate stool in the colon. Mild proximal peripancreatic edema, compatible with mild acute pancreatitis. Distended gallbladder; consider correlation with gallbladder ultrasound. Left renal atrophy with nonobstructing renal calculi. Electronically Signed: Sole Whitaker MD at 12:00 EDT ,
--- NOTE | 2022-02-15 10:32 | EDS_ITS ---
HPI HPI - GI History of Present Illness Chief Complaint: Abd Pain Detail of Chief Complaint: Abdominal pain that started around noon yesterday. Narrative Narrative: Patient sustained urgency department complaint of abdominal pain us around noon yesterday. Currently rates pain is mild about 3 out of 10 without movement. Pain at times worse with certain movements. He went to urgent care and was referred to the emergency department. He denies nausea vomiting or diarrhea. He denies fever. He denies blood in stool or black tarry stool. Does complain of some urinary frequency. Patient last had a colonoscopy about a year ago. No history of diverticulitis. No prior abdominal surgeries. Patient states the pain was more periumbilical and now seems to maybe feel it up in the upper abdomen. Prior similar symptoms: No PFSH PFSH Medical History Atherosclerosis of aorta Atherosclerosis of coronary artery bypass graft of [place] heart with angina pectoris Atherosclerosis of coronary artery of [place] heart with angina pectoris Bilateral pleural effusion (10/24/19) Central retinal vein occlusion of left eye (05/08/19) Chronic anemia Chronic kidney disease (CKD) Diabetes mellitus Essential (primary) hypertension History of non-ST elevation myocardial infarction (NSTEMI) (10/24/19) HLD (hyperlipidemia) Hypothyroidism Iron deficiency anemia due to chronic blood loss Occlusion and stenosis of bilateral carotid arteries Renal calculi Home Medications aspirin 81 mg tablet,delayed release 81 mg PO DAILY@0800 [facility] 05/22/13 [History Last Taken 10/17/19 07:30] aflibercept 2 mg/0.05 mL intravitreal solution for injection (Eylea) 2 mg intravitreal Q12W 07/15/20 [History Last Taken Unknown] albuterol sulfate 90 mcg/actuation aerosol inhaler (Ventolin HFA) 2 puff inhalation Q4H PRN shortness of breath or wheezing #18 grams 08/15/20 [Rx Last Taken Unknown] insulin detemir U-100 100 unit/mL (3 mL) subcutaneous pen 50 unit subcut DAILY 10/17/20 [History Last Taken Unknown] levothyroxine 150 mcg tablet 150 mcg PO DAILY 08/30/21 [History Last Taken Unknown] losartan 50 mg tablet 50 mg PO DAILY 10/03/21 [History Last Taken Unknown] carvedilol 12.5 mg tablet 12.5 mg PO BID #60 tabs 01/13/22 [Rx Last Taken Unknown] amlodipine 5 mg tablet 5 mg PO BID #180 tabs 01/29/22 [Rx Last Taken Unknown] cholecalciferol (vitamin D3) 50 mcg (2,000 unit) capsule 50 mcg PO DAILY 01/29/22 [History Last Taken Unknown] nitroglycerin 0.4 mg sublingual tablet 0.4 mg sublingual Q5-15M PRN Chest Pain #25 tabs 01/29/22 [Rx Last Taken Unknown] simvastatin 20 mg tablet 20 mg PO QHS Cholesterol 01/29/22 [History Last Taken Unknown] ranolazine 1,000 mg tablet,extended release,12 hr 1,000 mg PO BID Chest Pain #180 tabs 02/02/22 [Rx Last Taken Unknown] Eylea 02/15/22 [History Last Taken Unknown] Tylenol 500 mg PO/SL BID 02/15/22 [History Last Taken Unknown] Allergy/AdvReac Type Severity Reaction Status Date / Time lisinopril AdvReac Intermediate COUGH Verified 02/15/22 10:08 Family History Father Diabetes Mother Cancer Lung cancer Brother CAD (coronary artery disease) HLD (hyperlipidemia) Myocardial infarction Sister Myocardial infarction CAD (coronary artery disease) Hypertension HLD (hyperlipidemia) Sister Diabetes Daughter Arthritis Son Arthritis Brother Myocardial infarction Surgical History H/O coronary artery bypass surgery (04/1998) History of bilateral cataract extraction History of colonoscopy (~08/2019) History of coronary artery stent placement (01/22/15) History of esophagogastroduodenoscopy (EGD) (~10/2019) History of left heart catheterization (10/24/19) Social History Smoking Status: Former smoker quit date: 08/16/79 alcohol intake: current alcohol intake frequency: holidays/special occasions only substance use type: does not use caffeine: Yes Type: coffee Number of servings: 2 what type of physical activity do you participate in: bicycling frequency: 5-6 times per week duration: 45-60 minutes/day seatbelt use: always do you feel safe at home: Yes ROS ROS ED Review of Systems ROS Unobtainable: other Constitutional Constitutional ED: Reports lethargy; Denies chills, fever(s), sweats or weight loss Eyes Eyes: Denies blurry vision, change in vision or diplopia ENT ENT ED: Denies rhinorrhea or sore throat Cardiovascular Cardiovascular: Reports racing heartbeat; Denies chest pain or orthopnea Respiratory/Chest Respiratory/Chest: Reports dyspnea and dyspnea on exertion; Denies cough, orthopnea or sputum Gastrointestinal Gastrointestinal: Reports abdominal pain; Denies diarrhea, nausea or vomiting Genitourinary Genitourinary ED: Denies dysuria, hematuria or urinary frequency Musculoskeletal Musculoskeletal: Denies arthralgias, back pain, myalgias or neck pain Integumentary Denies abscess, Abrasions or rash Neurologic Neurologic: Denies headache(s) or weakness Psychiatric Psychiatric: Denies anxiety, depression or suicidal thoughts Endocrine Endocrinology: Denies polydipsia, polyphagia or polyuria Hematologic/Lymphatic Hematologic/Lymphatic: Denies easy bleeding, easy bruising or lymphadenopathy Allergic/Immunologic Allergic/Immunologic ED: Denies mouth swelling, tongue swelling or urticaria EXAM Physical Exam Const Vital Signs: 02/15/22 10:07 Temperature 97.0 F L Temperature Source Temporal Pulse Rate 62 Respiratory Rate 14 Blood Pressure 115/54 L Blood Pressure Mean 74 Pulse Ox 97 Oxygen Delivery Method Room Air Positive well nourished and well developed General Appearance ED: well developed and NAD HEENT Reports TM's clear and moist mucous membranes normocephalic and atraumatic; Negative for trauma or tenderness Tympanic Membrane ED: Yes TM's clear Eyes PERRL and EOMs intact bilaterally General Eye ED: Negative for pale conjunctiva or scleral icterus Neck no lymphadenopathy, supple and no JVD General: Negative for tenderness Chest Wall inspection of chest normal and palpation of chest normal Chest: Negative for tenderness Resp normal respiratory effort and clear to auscultation bilaterally Effort and Inspection: Negative for respiratory distress or pain with movement Auscultation: Negative for rhonchi, wheezes or diminished lung sounds Cardio regular rate, regular rhythm, S1 normal heart sound, S2 normal heart sound and no murmurs Peripheral Pulses: pulses 2+ throughout GI normal to inspection, nondistended, normoactive bowel sounds, soft to palpation, non-distended and no masses GI Narrative: Patient was mild tenderness over the left lower quadrant with some guarding. There is no rebound, rigidity, or peritoneal signs. Back/Spine no CVA tenderness and no thoracic nor lumbar tenderness Extremity normal to inspection General Extremety ED: Negative for edema General Extremity: Negative for edema Neuro oriented x3, CN's II-XII intact bilaterally, no sensory deficits noted and gait normal Sensorium / Orientation: awake, alert, oriented to person, oriented to place and oriented to time Motor Exam: strength 5/5 throughout and strength abnormal Psych mental status grossly normal Skin no rashes or lesions noted and no wounds MDM MDM MDM Narrative Medical decision making narrative: IV line established on arrival. Patient did not require anything for pain. Lab work-up obtained showed a slight elevated white count of 13.1. Chemistries unremarkable other than a slightly elevated potassium of 5.8 however there was moderate hemolysis and I suspect this is fictitious related to the hemolysis. Patient has slightly elevated BUN of 34 and creatinine 1.87. Total bilirubin was slightly elevated 1.9 LFTs otherwise normal. Lipase was 118. Urinalysis was normal. CT scan of the M pelvis showed dilated fluid-filled small bowel loops without discrete transition point likely ileus or enteritis. Patient did have peripancreatic inflammatory changes which could represent mild pancreatitis. Patient also had a distended gallbladder and it was recommended that ultrasound be obtained. Gallbladder ultrasound obtained showed a distended gallbladder but otherwise no evidence of gallstones or biliary dilatation. There is no Vick sign and there was no pericholecystic fluid noted. No gallbladder wall thickening noted. At this point the patient is very comfortable at rest and states that his pain is almost resolved. He has not had any blood in his stool or black tarry stools. Etiology of his pain unclear. We discussed possibly empirically starting him on Pepcid or Prevacid however he would prefer not to do that at this time and just evaluate within next 3 to 5 days how he is feeling. Patient will follow-up with his primary care physician. He does not anything for pain or nausea for home. Patient did have inflammatory changes around the pancreas but there was a normal lipase therefore I am not convinced patient has pancreatitis. Lab Data Attestation: I reviewed the patient's lab results. Labs: Laboratory Results - last 24 hr 02/15/22 02/15/22 02/15/22 10:45 10:45 10:45 WBC 13.1 H RBC 4.12 L Hgb 12.9 L Hct 39.2 L MCV 95.1 H MCH 31.3 MCHC 32.9 RDW Std Deviation 45.2 H RDW Coeff of Matthew 13.1 Plt Count 190 MPV 10.5 Immature Gran % (Auto) 0.400 Neut % (Auto) 81.1 H Lymph % (Auto) 8.9 L [place] % (Auto) 9.1 Eos % (Auto) 0.3 Baso % (Auto) 0.2 Absolute Neuts (auto) 10.7 H Absolute Lymphs (auto) 1.17 Nucleated RBC % 0 Sodium 134 L Potassium 5.8 H Chloride 102 Carbon Dioxide 24.0 Anion Gap 8 BUN 34 H Creatinine 1.87 H Estim Creat Clear Calc 36.35 Est GFR (MDRD) Af Amer 45 L Est GFR (MDRD) Non-Af 38 L BUN/Creatinine Ratio 18.2 Glucose 135 H Calcium 9.1 Total Bilirubin 1.90 H AST 25 ALT 18 Alkaline Phosphatase 93 Total Protein 7.4 Albumin 3.5 Globulin 3.9 Albumin/Globulin Ratio 0.9 Lipase 118 Urine Color Yellow Urine Clarity Clear Urine pH 5.0 Ur Specific [place] 1.020 Urine Protein 30 H Urine Glucose (UA) Normal Urine Ketones 5 H Urine Occult Blood Negative Urine Nitrite Negative Urine Bilirubin 1 H Urine Urobilinogen Normal Ur Leukocyte Esterase 25 H Urine RBC 0 SEEN Urine WBC 0-5 SEEN Ur Squamous Epith Cells 0-5 SEEN Urine Bacteria 1+ Urine Mucus 0 SEEN POC Glucose 02/15/22 02/15/22 13:20 13:53 WBC RBC Hgb Hct MCV MCH MCHC RDW Std Deviation RDW Coeff of Matthew Plt Count MPV Immature Gran % (Auto) Neut % (Auto) Lymph % (Auto) [place] % (Auto) Eos % (Auto) Baso % (Auto) Absolute Neuts (auto) Absolute Lymphs (auto) Nucleated RBC % Sodium Potassium Chloride Carbon Dioxide Anion Gap BUN Creatinine Estim Creat Clear Calc Est GFR (MDRD) Af Amer Est GFR (MDRD) Non-Af BUN/Creatinine Ratio Glucose Calcium Total Bilirubin AST ALT Alkaline Phosphatase Total Protein Albumin Globulin Albumin/Globulin Ratio Lipase Urine Color Urine Clarity Urine pH Ur Specific [place] Urine Protein Urine Glucose (UA) Urine Ketones Urine Occult Blood Urine Nitrite Urine Bilirubin Urine Urobilinogen Ur Leukocyte Esterase Urine RBC Urine WBC Ur Squamous Epith Cells Urine Bacteria Urine Mucus POC Glucose 56 L 156 H Radiography Diagnostic Testing: Clinical Impression(s) from Imaging Studies Abdomen/Pelvis CT 02/15/22 10:31 IMPRESSION: Borderline dilated to mildly dilated fluid-filled small bowel loops without discrete transition point, likely mild ileus or enteritis. Partial small bowel obstruction considered less likely. Mild colonic diverticulosis without acute diverticulitis. Moderate stool in the colon. Mild proximal peripancreatic edema, compatible with mild acute pancreatitis. Distended gallbladder; consider correlation with gallbladder ultrasound. Left renal atrophy with nonobstructing renal calculi. Electronically Signed: Sole Whitaker MD at 12:00 EDT , Gallbladder Ultrasound 02/15/22 12:16 IMPRESSION: Distended gallbladder with no associated pericholecystic fluid nor reported positive sonographic Vick sign. Nonvisualization of the pancreas secondary to overlying bowel gas. Electronically Signed: Angelika Machuca MD at 14:41 EDT , Discharge Plan Triage Chief Complaint: Abd Pain ED Provider: Mini Bravo Dx/Rx/DC Orders Clinical Impression: Abdominal pain Instructions: ED Abdominal Pain Unkn Cause Male... Prescriptions: No Action Eylea 2 mg/0.05 mL solution 2 mg INTRAVIT Q12W albuterol sulfate [Ventolin HFA] 90 mcg/actuation HFA aerosol inhaler 2 puff INHALATION Q4H PRN (Reason: shortness of breath or wheezing) Qty: 18 6RF cholecalciferol (vitamin D3) 50 mcg (2,000 unit) capsule 50 mcg PO DAILY amlodipine 5 mg tablet 5 mg PO BID Qty: 180 3RF nitroglycerin 0.4 mg tablet, sublingual 0.4 mg SUBLINGUAL Q5-15M PRN (Reason: Chest Pain) Qty: 25 4RF aspirin 81 MG tablet 81 mg PO DAILY@0800 Label Comments: ANTIPLATELET simvastatin 20 mg tablet 20 mg PO QHS insulin detemir U-100 100 unit/mL (3 mL) insulin pen 50 unit SC DAILY levothyroxine 150 mcg Tablet 150 mcg PO DAILY Eylea Tylenol 500 mg PO/SL BID losartan 50 mg tablet 50 mg PO DAILY carvedilol 12.5 mg tablet 12.5 mg PO BID Qty: 60 11RF Rx Instructions: must administer with a meal/food ranolazine 1,000 mg tablet extended release 12 hr 1,000 mg PO BID Qty: 180 3RF Primary Care Provider: Jeffrey Thorne Referrals: Jeffrey Thorne DO [Primary Care Provider] - 3-5 Days Disposition Disposition: Home, Self Care
[2022-02-15] MEDS: 0.9% Normal Saline 1,000 ML 125 ML IV (10:55)
[2022-02-15 11:03] LABS: Mucous, Urine 0 SEEN /hpf (<or=2+); Red Blood Cells-Urine 0 SEEN /hpf (0-5)
[2022-02-15 11:06] LABS: Absolute Lymphocyte Count 1.17 X10^3/uL (0.83-4.51); Absolute Neutrophil Count 10.7 X10^3/uL (2.0-7.7); Basophil# 0.03 X10^3/uL; Basophil% 0.2 % (0-1); Color, Urine Yellow (Yellow); Eosinophil# 0.04 X10^3/uL; Eosinophils% 0.3 % (0-5); Glucose, Dipstick Normal (Normal); Hematocrit 39.2 % (40-54); Hemoglobin 12.9 g/dL (13.0-16.5); Ketone-Dipstick 5 mg/dl (Negative); Leukocyte Esterase-Dipstick 25 /ul (Negative); Lymphocyte # 1.17 X10^3/ul (0.83-4.51); Lymphocyte % 8.9 % (19-41); Mean Corp Hgb Conc 32.9 g/dL (32-36); Mean Corpuscular Hgb 31.3 pg (27.0-32.0); Mean Corpuscular Volume 95.1 fL (80-94); Mean Platelet Vol. 10.5 fl (6.2-12.0); Monocyte% 9.1 % (0-10); NRBC Flagged by Analyzer 0 % (0-5); Neutrophil # 10.65 X10^3/uL (2.7-7.7); Neutrophil % 81.1 % (47-70); Nitrite-Dipstick Negative (Negative); Occult Blood-Urine Negative /ul (Negative); Platelet Count 190 K/mm3 (150-450); Protein-Dipstick 30 mg/dl (Negative); RBC Distribution Width CV 13.1 % (11.6-14.6); RBC Distribution Width SD 45.2 fl (35.1-43.9); Red Blood Count 4.12 M/mm3 (4.6-6.2); Urine Bilirubin Dipstick 1 mg/dL (Negative); Urine Clarity Clear (Clear); Urine Urobilinogen Normal (Normal); White Blood Count 13.1 K/mm3 (4.4-11.0)
[2022-02-15 11:12] LABS: Bacteria 1+ /hpf (None Seen); Squamous Epithelial Cells - UA 0-5 SEEN /hpf (0-5); White Blood Cells 0-5 SEEN /hpf (0-5)
[2022-02-15 11:27] LABS: ALB/GLOB Ratio 0.9 RATIO (0.9-2.4); AST(SGOT) 25 U/L (15-37); Alanine Aminotransfer ALT/SGPT 18 U/L (16-61); Albumin, Serum 3.5 g/dL (3.2-5.0); Alkaline Phosphatase 93 U/L (45-117); Anion Gap 8 (5-15); BUN 34 mg/dL (7-18); BUN/Creat Ratio 18.2 RATIO (10-20); Calcium,Total 9.1 mg/dL (8.5-10.1); Chloride 102 mmol/L (98-107); Creatinine, Serum 1.87 mg/dL (0.70-1.30); EST Glomerular Filtration Rate 38 mL/min (>60); Est Glom Filt Rate - Afr Amer 45 mL/min (>60); Estimated Creatinine Clearance 36.35 ml/min; Globulin 3.9 g/dL (2.2-4.2); Glucose 135 mg/dL (74-106); Lipase 118 U/L (73-393); Potassium 5.8 mmol/L (3.5-5.1); Protein, Total 7.4 g/dL (6.4-8.2); Sodium Level 134 mmol/L (136-145)
[2022-02-15 12:05] VITALS: RESP 12
--- NOTE | 2022-02-15 12:16 | US_ITS ---
STUDY: ABDOMINAL ULTRASOUND - RIGHT UPPER QUADRANT REASON FOR VISIT: Male, 76 years old abdominal pain TECHNIQUE: Ultrasound evaluation of the right upper quadrant was performed with real-time and static escobar-scale imaging. TECHNICAL QUALITY: Adequate. COMPARISON: CT dated 02/15/2022 FINDINGS: Liver: The liver measures 13.6 cm. There is normal echogenicity of the liver. The bile ducts are within normal limits. There is hepatic color flow. The direction of portal flow is hepatopetal. There is no demonstrated mass lesion. Gallbladder: There is a distended gallbladder. The gallbladder wall measures 2.0 mm. There is a negative sonographic Vick''s sign. There is no pericholecystic fluid. There are no gallstones. Common Bile Duct (C.B.D.): The common bile duct measures 5.7 mm. Pancreas: There is nonvisualization of the pancreas. Right Kidney: Normal size of the right kidney. The right kidney measures 13.8 cm in length. Normal renal cortex. There is no demonstrated renal mass or cyst. There is no right hydronephrosis. US/Gallbladder IMPRESSION: Distended gallbladder with no associated pericholecystic fluid nor reported positive sonographic Vick sign. Nonvisualization of the pancreas secondary to overlying bowel gas. Electronically Signed: Angelika Machuca MD at 14:41 EDT ,
[2022-02-15 13:26] LABS: Bedside Glucose 56 mg/dL (74-106)
[2022-02-15] MEDS: Dextrose 50%-Water 25 GM/50 ML DISP.SYRIN IV (13:32)
[2022-02-15 14:01] LABS: Bedside Glucose 156 mg/dL (74-106)
[2022-02-15 15:07] VITALS: BP 113/60; PULSE 71
== END 2022-02-15 15:07 | disposition home or self-care (01) ==
PROVIDERS: Emergency Provider Emergency Medicine; PCP Family Medicine; Visit Provider Emergency Medicine
DX: R10.9 Unspecified abdominal pain (principal); E11.22 Type 2 diabetes mellitus with diabetic chronic kidney disease; I25.119 Atherosclerotic heart disease of native coronary artery with unspecified angina pectoris; Z79.4 Long term (current) use of insulin; I12.9 Hypertensive chronic kidney disease with stage 1 through stage 4 chronic kidney disease, or unspecified chronic kidney disease; N18.9 Chronic kidney disease, unspecified; E78.5 Hyperlipidemia, unspecified; I25.2 Old myocardial infarction; E03.9 Hypothyroidism, unspecified; Z79.82 Long term (current) use of aspirin; Z79.899 Other long term (current) drug therapy; Z87.891 Personal history of nicotine dependence; Z95.5 Presence of coronary angioplasty implant and graft
CPT/HCPCS: 74176; 76705; 80053; 81001; 82962; 83690; 85025; 96361; 96374; 99282; J7030; A4216

== ENCOUNTER → 2022-04-01 | Outpatient (CLI) | payer MEDICARE, OTHER, SELFPAY ==
[2022-04-01 07:50] LABS: Absolute Lymphocyte Count 0.95 X10^3/uL (0.83-4.51); Absolute Neutrophil Count 3.3 X10^3/uL (2.0-7.7); Basophil# 0.04 X10^3/uL; Basophil% 0.8 % (0-1); Eosinophil# 0.22 X10^3/uL; Eosinophils% 4.4 % (0-5); Hematocrit 39.3 % (40-54); Hemoglobin 12.7 g/dL (13.0-16.5); Lymphocyte # 0.95 X10^3/ul (0.83-4.51); Mean Corp Hgb Conc 32.3 g/dL (32-36); Mean Corpuscular Hgb 31.1 pg (27.0-32.0); Mean Corpuscular Volume 96.1 fL (80-94); Mean Platelet Vol. 10.4 fl (6.2-12.0); Monocyte# 0.45 X10^3/uL; NRBC Flagged by Analyzer 0 % (0-5); Neutrophil # 3.32 X10^3/uL (2.7-7.7); Neutrophil % 66.4 % (47-70); Platelet Count 178 K/mm3 (150-450); RBC Distribution Width CV 13.5 % (11.6-14.6); RBC Distribution Width SD 47.8 fl (35.1-43.9); Red Blood Count 4.09 M/mm3 (4.6-6.2)
[2022-04-01 07:53] LABS: Protein, Urine (Random) 12.2 mg/dL (<11.9); Protein:Creat Ratio 135 mg/g CRE (0-200)
[2022-04-01 08:33] LABS: ALB/GLOB Ratio 1.1 RATIO (0.9-2.4); AST(SGOT) 13 U/L (15-37); Alanine Aminotransfer ALT/SGPT 19 U/L (16-61); Albumin, Serum 3.6 g/dL (3.2-5.0); Alkaline Phosphatase 93 U/L (45-117); Anion Gap 6 (5-15); BUN 33 mg/dL (7-18); BUN/Creat Ratio 18.9 RATIO (10-20); Calcium,Total 8.5 mg/dL (8.5-10.1); Chloride 107 mmol/L (98-107); Cholesterol 141 mg/dL (200); Creatinine, Serum 1.75 mg/dL (0.70-1.30); EST Glomerular Filtration Rate 41 mL/min (>60); Est Glom Filt Rate - Afr Amer 49 mL/min (>60); Globulin 3.2 g/dL (2.2-4.2); Glucose 132 mg/dL (74-106); High Density Lipoprotein 50 mg/dL; Potassium 4.5 mmol/L (3.5-5.1); Protein, Total 6.8 g/dL (6.4-8.2); Sodium Level 138 mmol/L (136-145); Triglycerides 96 mg/dL; Very Low Density Lipoprotein 19 mg/dL (5-40)
[2022-04-01 08:34] LABS: Vitamin D,25 Hydroxy 39.3 ng/mL
[2022-04-02 16:21] LABS: PSA,Total - Annual Screen 0.53 ng/mL (0.00-4.00)
== END | disposition home or self-care (01) ==
PROVIDERS: PCP Family Medicine; Visit Provider Nurse Practitioner Adult Health
DX: N18.32 Chronic kidney disease, stage 3b (principal); R80.9 Proteinuria, unspecified; E78.00 Pure hypercholesterolemia, unspecified; D64.9 Anemia, unspecified; Z12.5 Encounter for screening for malignant neoplasm of prostate
CPT/HCPCS: 36415; 80053; 80061; 82306; 82570; 83970; 84100; 84153; 84156; 85025; G0103

== ENCOUNTER → 2022-07-30 | Outpatient (CLI) | payer MEDICARE, OTHER, SELFPAY ==
--- NOTE | 2022-07-30 08:56 | CDU_ITS ---
Reason For Study: Lightheadedness Rt. Velocities/BP Lt. Velocities/BP Prox CCA 152.1/9.7 cm/sec. Prox CCA 90/13.3 cm/sec. Mid CCA 115.6/15.2 cm/sec. Mid CCA 77.7/13.9 cm/sec. Dist CCA 96.1/12.6 cm/sec. Dist CCA 88.8/13.9 cm/sec. Prox ICA 109.7/15.1 cm/sec. Prox ICA 113.3/16.3 cm/sec. Mid ICA 108.4/22.5 cm/sec. Mid ICA 99.8/21.2 cm/sec. Dist ICA 0.95 cm/sec. Dist ICA 56.9/11.4 cm/sec. Prox ECA 161.3/9.7 cm/sec. Lt. ICA/CCA = 1.28. Rt. Vert. 45.8/7.7 cm/sec. Prox ECA 103.5/7.7 cm/sec. Lt. Vert. 44.6/11.4 cm/sec. Right Extracranial There is intimal thickening but no significant atherosclerotic plaque noted in the right common carotid artery. There is heterogeneous, irregular atherosclerotic plaque noted in the right internal carotid artery. The right internal carotid artery is very tortuous. There is heterogeneous, irregular atherosclerotic plaque noted in the right external carotid artery. Antegrade flow is noted in the right vertebral artery. Left Extracranial There is intimal thickening but no significant atherosclerotic plaque noted in the left common carotid artery. There is heterogeneous, irregular atherosclerotic plaque noted in the left internal carotid artery. There is heterogeneous, irregular atherosclerotic plaque noted in the left external carotid artery. Antegrade flow is noted in the left vertebral artery. Procedure Carotid Duplex 68113. This is a Carotid Duplex examination using B-mode, color flow and specral Doppler. Exam performed in department. VL/Carotid Duplex Ultrasound Interpretation Summary Mild (<50%) stenosis right extracranial internal carotid. Mild (<50%) stenosis left extracranial internal carotid. Patent and antegrade vertebrals bilaterally. Ordering Physician: Giovanna Chavez Referring Physician: Jeffrey Thorne Performed By: Jane Blunt RVT
== END | disposition home or self-care (01) ==
LOC: CVS 08:54
PROVIDERS: PCP Family Medicine; Referring Provider Physician Assistant Medical; Visit Provider Physician Assistant Medical
DX: I65.23 Occlusion and stenosis of bilateral carotid arteries (principal); R42 Dizziness and giddiness
CPT/HCPCS: 93880

== ENCOUNTER → 2022-11-30 | Outpatient (CLI) | payer MEDICARE, SELFPAY ==
[2022-11-30 12:43] LABS: Hematocrit 41.2 % (40-54); Hemoglobin 13.5 g/dL (13.0-16.5); Mean Corp Hgb Conc 32.8 g/dL (32-36); Mean Corpuscular Volume 97.6 fL (80-94); Mean Platelet Vol. 10.2 fl (6.2-12.0); Platelet Count 178 K/mm3 (150-450); RBC Distribution Width CV 14.1 % (11.6-14.6); RBC Distribution Width SD 50.5 fl (35.1-43.9); Red Blood Count 4.22 M/mm3 (4.6-6.2); White Blood Count 5.6 K/mm3 (4.4-11.0)
[2022-11-30 13:01] LABS: Protein, Urine (Random) 26.4 mg/dL (<11.9); Protein:Creat Ratio 376 mg/g CRE (0-200)
[2022-11-30 13:05] LABS: Albumin, Serum 3.5 g/dL (3.2-5.0); BUN 37 mg/dL (7-18); BUN/Creat Ratio 18.6 RATIO (10-20); Calcium,Total 8.8 mg/dL (8.5-10.1); Chloride 108 mmol/L (98-107); Creatinine, Serum 1.99 mg/dL (0.70-1.30); EST Glomerular Filtration Rate 35 mL/min (>60); Est Glom Filt Rate - Afr Amer 42 mL/min (>60); Glucose 139 mg/dL (74-106); Phosphorus 3.6 mg/dL (2.5-4.9); Potassium 4.5 mmol/L (3.5-5.1); Sodium Level 137 mmol/L (136-145)
[2022-11-30 13:09] LABS: Vitamin D,25 Hydroxy 27.7 ng/mL
== END | disposition home or self-care (01) ==
LOC: LAB 12:09
PROVIDERS: PCP Internal Medicine; Referring Provider Internal Medicine Nephrology; Visit Provider Internal Medicine Nephrology
DX: N18.32 Chronic kidney disease, stage 3b (principal); R80.9 Proteinuria, unspecified
CPT/HCPCS: 36415; 80069; 82306; 82570; 83970; 84156; 85027

== ENCOUNTER 2022-12-19 23:04 | Emergency (ER) | payer MEDICARE, SELFPAY ==
[2022-12-19 23:05] VITALS: BP 150/73; PULSE 60; RESP 16; TEMP 36.6; O2SAT 98; BMI 26.6
--- NOTE | 2022-12-19 23:12 | EKG12_ITS ---
Test Reason : CP Blood Pressure : / mmHG Vent. Rate : 056 BPM Atrial Rate : 056 BPM P-R Int : 220 ms QRS Dur : 106 ms QT Int : 466 ms P-R-T Axes : 053 -15 100 degrees QTc Int : 449 ms Sinus bradycardia with 1st degree A-V block ST & T wave abnormality, consider lateral ischemia Abnormal ECG Confirmed by VICKEY SWENSON, GISELA ([id number]), editor & co founder FIDEL TRINIDAD ([id number]) on 12/21/2022 2:47:49 PM Referred By: NADINE Confirmed By:LINDA HURD MD
--- NOTE | 2022-12-19 23:14 | ED.VIS.CHEST ---
HPI History of Present Illness Chief Complaint: Chest Pain [facility] Medical History Atherosclerosis of aorta Atherosclerosis of coronary artery bypass graft of [place] heart with angina pectoris Atherosclerosis of coronary artery of [place] heart with angina pectoris Bilateral pleural effusion (10/24/19) Central retinal vein occlusion of left eye (05/08/19) Chronic anemia Chronic kidney disease (CKD) COVID Diabetes mellitus Essential (primary) hypertension History of non-ST elevation myocardial infarction (NSTEMI) (10/24/19) HLD (hyperlipidemia) Hypothyroidism Iron deficiency anemia due to chronic blood loss Occlusion and stenosis of bilateral carotid arteries Renal calculi Home Medications aspirin 81 mg tablet,delayed release 81 mg PO DAILY@0800 [facility] 05/22/13 [History Last Taken 10/17/19 07:30] aflibercept 2 mg/0.05 mL intravitreal solution for injection (Eylea) 2 mg intravitreal Q12W 07/15/20 [History Last Taken Unknown] insulin detemir U-100 100 unit/mL (3 mL) subcutaneous pen 50 unit subcut DAILY 10/17/20 [History Last Taken Unknown] levothyroxine 150 mcg tablet 150 mcg PO DAILY 08/30/21 [History Last Taken Unknown] losartan 50 mg tablet 50 mg PO DAILY 10/03/21 [History Last Taken Unknown] carvedilol 12.5 mg tablet 12.5 mg PO BID #60 tabs 01/13/22 [Rx Last Taken Unknown] nitroglycerin 0.4 mg sublingual tablet 0.4 mg sublingual Q5-15M PRN Chest Pain #25 tabs 01/29/22 [Rx Last Taken Unknown] simvastatin 20 mg tablet 20 mg PO QHS Cholesterol 01/29/22 [History Last Taken Unknown] ranolazine 1,000 mg tablet,extended release,12 hr 1,000 mg PO BID Chest Pain #180 tabs 02/02/22 [Rx Last Taken Unknown] Tylenol 500 mg PO/SL BID 02/15/22 [History Last Taken Unknown] amlodipine 5 mg tablet 5 mg PO DAILY #180 tabs 07/22/22 [Rx Last Taken Unknown] isosorbide mononitrate 30 mg tablet,extended release 24 hr 30 mg PO DAILY #30 tabs 12/17/22 [Rx Last Taken Unknown] Allergy/AdvReac Type Severity Reaction Status Date / Time lisinopril AdvReac Intermediate COUGH Verified 12/19/22 23:08 Family History Father Diabetes Mother Cancer Lung cancer Brother CAD (coronary artery disease) HLD (hyperlipidemia) Myocardial infarction Sister Myocardial infarction CAD (coronary artery disease) Hypertension HLD (hyperlipidemia) Sister Diabetes Daughter Arthritis Son Arthritis Brother Myocardial infarction Surgical History H/O coronary artery bypass surgery (04/1998) History of bilateral cataract extraction History of colonoscopy (~08/2019) History of coronary artery stent placement (01/22/15) History of esophagogastroduodenoscopy (EGD) (~10/2019) History of left heart catheterization (10/24/19) Social History Smoking Status: Former smoker quit date: 08/16/79 alcohol intake: current alcohol intake frequency: holidays/special occasions only substance use type: does not use caffeine: Yes Type: coffee Number of servings: 2 what type of physical activity do you participate in: bicycling frequency: 5-6 times per week duration: 45-60 minutes/day seatbelt use: always do you feel safe at home: Yes EXAM Physical Exam Const Vital Signs: 12/19/22 23:05 12/19/22 23:31 12/19/22 23:31 Temperature 97.9 F Temperature Source Oral Pulse Rate 60 Respiratory Rate 16 Blood Pressure 150/73 H Blood Pressure Mean 98 Pulse Ox 98 Oxygen Delivery Method Room Air Room Air Room Air 12/20/22 00:27 12/20/22 01:13 Temperature Temperature Source Pulse Rate 56 L 56 L Respiratory Rate 18 Blood Pressure 145/66 H 138/60 H Blood Pressure Mean 92 86 Pulse Ox 95 94 Oxygen Delivery Method Room Air Room Air Heart Score History: Moderately Suspicious ECG: Nonspecific Repolarization Age: >/= 65 years Risk Factors: >/= 3 Risk Factors or History of CAD Troponin: </= Normal Limit Score: 6 MDM MDM MDM Narrative Medical decision making narrative: HISTORY OF PRESENT ILLNESS: 77-year-old male here for chest pain. The patient states he has had 3 weeks of intermittent chest pain that is not exertional. States the chest pain starts in his lower chest and radiates to the neck. This is not the patient's anginal equivalent from prior cardiac events. He states he has had no syncope. It is not associated shortness of breath. No leg swelling, orthopnea or paroxysmal nocturnal dyspnea. No bleeding diathesis. The patient denies recent surgery in the last 4 weeks or immobilization in the last 3 days, denies previous diagnosis of DVT or PE, hemoptysis, unilateral leg swelling or malignancy with treatment the last 6 months. No estrogen use noted. Patient denies sudden onset of pain, no tearing sensation, no migratory symptoms, no new numbness, weakness or loss of sensation. Patient denies family history or personal history of Marfan syndrome or Jacob-Danlos. He notes symptoms are relieved by nitroglycerin. He notes he stopped taking isosorbide dinitrate approximately 2 to 4 weeks ago around the time he started experiencing symptoms. He thinks it may be related. He denies any chest pain at this time. REVIEW OF SYMPTOMS: Pertinent positives: Chest pain Pertinent negatives: Syncope, focal weakness PHYSICAL EXAM: Nursing triage notes reviewed, Vital signs reviewed Constitutional: please see mdm HENT: MMM Eyes: Pupils equal round and reactive to light, Extraocular muscles intact Neck: No stridor, no JVD, full neck ROM Lungs: Clear to auscultation, No wheezing or rales. No increased work of breathing, no conversational dyspnea, no accessory muscle use, no nasal flaring. No respiratory distress noted Heart: Regular rate and rhythm, No murmurs, No rubs and No gallops, 2+ distal pulses (radial, femoral, posterior tibial) in all extremities Abdomen: Soft, there is no tenderness, rigidity, rebound or guarding, no obvious peritoneal signs, no palpable pulsatile abdominal masses, no auscultated abdominal bruit : No CVAT Extremities: No edema Neuro: No focal neurological deficits, cranial nerves II through XII intact, 5/5 strength in all extremities. Intact sensation to light touch in all extremities, 2+ reflexes bilateral patella dens. Normal gait. No ataxia. Skin: No rash or lesions noted MEDICAL DECISION MAKING: Chief Complaint: External records reviewed: Last echocardiogram from 2019 shows the following Normal LV size. Mild segmental systolic dysfunction (see wall motion). The estimated ejection fraction is 50 %. Stage 1 diastolic dysfunction. Mid-Inferior: Mildly hypokinetic. Infero-Basal: Hypokinetic. Mid-inferoseptal : Mildly hypokinetic. The rest of the wall segments are normal. MDM Narrative: The patient was hemodynamically stable, afebrile and nontoxic-appearing. No focal cardiopulmonary abnormalities were noted I considered the following differential diagnosis: ACS, arrhythmia, anemia, electrolyte abnormalities PE, aortic dissection, pneumonia I will obtain a broad lab and imaging work-up to further elucidate etiology patient complaints. Patient received aspirin nitroglycerin prior to arrival. Patient was chest pain-free at the time my evaluation. Initial EKG showed no STEMI, no acute changes from prior. Troponins were negative x2 essentially ruling out ACS. There is no signs of significant electrolyte abnormalities. The patient's history and physical exam not consistent with pulmonary embolism or aortic dissection. I had a shared decision-making discussion with the patient and . I discussed the fact that his heart score is elevated at 6 and that he has increased risk of major adverse cardiac events. I discussed and offered admission. I informed the patient that stress testing is unavailable on Sundays. Patient refused admission. Patient stated since he cannot get a stress test he did not see the viability of staying in the hospital. I agreed with this thought. Patient states he is comfortable being discharged with close cardiology follow-up. He states he will call his english faculty member on Wednesday. He was given strict return precautions and follow-up instructions. Factors affecting care: CAD, hypertension, type 2 diabetes status post CABG and stent Social determinants of health: Elderly History obtained from others: The patient's Shared decision making: I will have a discussion with the patient and or visitors regarding risk/benefits of further testing or admission. They will be made aware of of the risk/benefits inherent in this decision they will be given the opportunity to voice understanding. Consults: none Lab Data Attestation: I reviewed the patient's lab results. Lab results narrative: EKG with sinus bradycardia, left ax deviation, no STEMI there are lateral T wave inversions noted, these were also noted on prior EKG from October 2019 CBC with no leukocytosis, mild anemia, no thrombocytopenia BMP with CKD, no significant [place] abnormalities or anion gap Troponin is negative, no evidence of myocardial ischemia x2 Labs: Laboratory Results - last 24 hr 12/19/22 12/19/2223 23:10 23:10 01:10 WBC 5.6 RBC 4.01 L Hgb 12.6 L Hct 39.3 L MCV 98.0 H MCH 31.4 MCHC 32.1 RDW Std Deviation 50.3 H RDW Coeff of Matthew 13.8 Plt Count 174 MPV 10.0 Immature Gran % (Auto) 0.500 Neut % (Auto) 64.9 Lymph % (Auto) 22.0 [place] % (Auto) 9.0 Eos % (Auto) 3.1 Baso % (Auto) 0.5 Absolute Neuts (auto) 3.6 Absolute Lymphs (auto) 1.22 Nucleated RBC % 0 Sodium 138 Potassium 4.4 Chloride 104 Carbon Dioxide 26.0 Anion Gap 8 BUN 38 H Creatinine 1.86 H Estim Creat Clear Calc 37.08 Est GFR (MDRD) Af Amer 46 L Est GFR (MDRD) Non-Af 38 L BUN/Creatinine Ratio 20.4 H Glucose 231 H Calcium 9.0 Troponin I High Sens 15 23 Radiography Chest X-Ray - ED: Read by ED Physician Diagnostic Testing: Clinical Impression(s) from Imaging Studies Chest X-Ray 12/19/22 23:19 IMPRESSION: Previous median sternotomy. No acute cardiopulmonary disease process identified. Electronically Signed: Rivera Castillo MD at 23:29 EDT , I have personally reviewed the patient's chest x-ray. Chest x-ray is unremarkable for pulmonary edema, pneumothorax, pneumonia or focal cardiopulmonary abnormality. Discharge Plan Triage Chief Complaint: Chest Pain ED Provider: Karan Schneider Dx/Rx/DC Orders Clinical Impression: Chest pain, Chronic kidney disease (CKD) Instructions: Heart Attack Angina Sx Prescriptions: No Action Eylea 2 mg/0.05 mL solution 2 mg INTRAVIT Q12W nitroglycerin 0.4 mg tablet, sublingual 0.4 mg SUBLINGUAL Q5-15M PRN (Reason: Chest Pain) Qty: 25 4RF amlodipine 5 mg tablet 5 mg PO DAILY Qty: 180 3RF aspirin 81 MG tablet 81 mg PO DAILY@0800 Label Comments: ANTIPLATELET simvastatin 20 mg tablet 20 mg PO QHS insulin detemir U-100 100 unit/mL (3 mL) insulin pen 50 unit SC DAILY levothyroxine 150 mcg Tablet 150 mcg PO DAILY Tylenol 500 mg PO/SL BID losartan 50 mg tablet 50 mg PO DAILY carvedilol 12.5 mg tablet 12.5 mg PO BID Qty: 60 11RF Rx Instructions: must administer with a meal/food ranolazine 1,000 mg tablet extended release 12 hr 1,000 mg PO BID Qty: 180 3RF isosorbide mononitrate 30 mg tablet extended release 24 hr 30 mg PO DAILY Qty: 30 6RF Primary Care Provider: Jeannie Murphy Referrals: Jeannie Murphy MD [Primary Care Provider] - Activity Restrictions/Additional Instructions: Thank you for trusting us with your care today! Please return to the emergency department if your symptoms change or worsen. Specifically if you develop worsening chest pain, shortness of breath if you lose consciousness. Please call your english faculty member on Wednesday and attempt to schedule an expedited stress test. f Disposition Disposition: Home, Self Care
[2022-12-19 23:18] LABS: Absolute Lymphocyte Count 1.22 X10^3/uL (0.83-4.51); Absolute Neutrophil Count 3.6 X10^3/uL (2.0-7.7); Basophil# 0.03 X10^3/uL; Basophil% 0.5 % (0-1); Eosinophil# 0.17 X10^3/uL; Eosinophils% 3.1 % (0-5); Hematocrit 39.3 % (40-54); Hemoglobin 12.6 g/dL (13.0-16.5); Lymphocyte # 1.22 X10^3/ul (0.83-4.51); Mean Corp Hgb Conc 32.1 g/dL (32-36); Mean Corpuscular Hgb 31.4 pg (27.0-32.0); NRBC Flagged by Analyzer 0 % (0-5); Neutrophil % 64.9 % (47-70); Platelet Count 174 K/mm3 (150-450); RBC Distribution Width CV 13.8 % (11.6-14.6); RBC Distribution Width SD 50.3 fl (35.1-43.9); Red Blood Count 4.01 M/mm3 (4.6-6.2); White Blood Count 5.6 K/mm3 (4.4-11.0)
--- NOTE | 2022-12-19 23:19 | RAD_ITS ---
EXAM: XR CHEST, 1 VIEW CLINICAL INDICATION: chest pain TECHNIQUE: Frontal view of the chest. COMPARISON: Previous chest radiographs of 10/22/2019 and 10/19/2019. FINDINGS: LUNGS AND PLEURAL SPACES: No acute pulmonary infiltrates or pleural effusions are identified. The previously noted interstitial thickening and alveolar pulmonary infiltrates have resolved. No pneumothorax. HEART: Heart size remains mildly enlarged. Pulmonary vasculature is normal. MEDIASTINUM: Thoracic aorta is minimally elongated and calcific. No mediastinal widening. BONES/JOINTS: Previous median sternotomy again noted. SOFT TISSUES: Unremarkable. RAD/Chest 1 View (Portable) IMPRESSION: Previous median sternotomy. No acute cardiopulmonary disease process identified. Electronically Signed: Rivera Castillo MD at 23:29 EDT ,
[2022-12-19 23:44] LABS: Anion Gap 8 (5-15); BUN 38 mg/dL (7-18); BUN/Creat Ratio 20.4 RATIO (10-20); Chloride 104 mmol/L (98-107); Creatinine, Serum 1.86 mg/dL (0.70-1.30); EST Glomerular Filtration Rate 38 mL/min (>60); Est Glom Filt Rate - Afr Amer 46 mL/min (>60); Estimated Creatinine Clearance 37.08 ml/min; Glucose 231 mg/dL (74-106); Potassium 4.4 mmol/L (3.5-5.1); Sodium Level 138 mmol/L (136-145); Troponin-I HS (w/2H Reflex) 15 pg/mL (3.0-78.0)
[2022-12-20 00:27] VITALS: BP 145/66; PULSE 56; O2SAT 95
[2022-12-20 01:13] VITALS: BP 138/60; PULSE 56; RESP 18; O2SAT 94
[2022-12-20 01:14] LABS: Reflex Troponin-HS? (from REC) Y
[2022-12-20 01:37] LABS: Troponin-I HS 23 pg/mL (3.0-78.0)
[2022-12-20 03:27] VITALS: BP 148/63; PULSE 55; RESP 18; O2SAT 95
== END 2022-12-20 03:28 | disposition home or self-care (01) ==
PROVIDERS: Emergency Provider Emergency Medicine; PCP Internal Medicine; Visit Provider Emergency Medicine
DX: R07.9 Chest pain, unspecified (principal); E11.22 Type 2 diabetes mellitus with diabetic chronic kidney disease; Z95.1 Presence of aortocoronary bypass graft; Z95.5 Presence of coronary angioplasty implant and graft; E78.5 Hyperlipidemia, unspecified; Z87.891 Personal history of nicotine dependence; N18.9 Chronic kidney disease, unspecified; I25.10 Atherosclerotic heart disease of native coronary artery without angina pectoris; I12.9 Hypertensive chronic kidney disease with stage 1 through stage 4 chronic kidney disease, or unspecified chronic kidney disease
CPT/HCPCS: 99283; 71045; 80048; 84484; 85025; 93005; A4216

== ENCOUNTER 2022-12-20 09:07 | Inpatient (IN) | payer MEDICARE, SELFPAY ==
[2022-12-20] VITALS (8 sets, daily range): BP systolic 129–161; BP diastolic 46–73; PULSE 44–61; RESP 13–19; TEMP 36.2–36.6; O2SAT 94–100; BMI 32.2; BMI 31.6
--- NOTE | 2022-12-20 09:30 | EDS_ITS ---
HPI History of Present Illness Chief Complaint: Chest Pain Informant: patient Onset/Context/Timing Onset: Today and Hours (1) Activity at onset: sudden Timing: Continuous Quality: Positive for Pressure Location: Substernal Worsened By: Nothing Relieved By: NTG and - (Aspirin) Associated Symptoms: Positive for Palpitations; Negative for Nausea, Vomiting, Diaphoresis, Dyspnea, Cough, Fever, Lightheadedness or Acid Reflux Narrative Narrative: Patient presents with chest pain that began again this morning approximately 1 hour prior to arrival. Patient was seen here yesterday for chest pain. Patient had 2 troponins which were negative. Patient declined admission at that time. Patient states he woke up with pressure in his epigastric and lower chest area. Patient states it radiates up into his neck and into his shoulders. states patient was having some pain down his arm as well. Patient states he took nitroglycerin which helped. Patient states he also took aspirin which helped. Patient admits to some palpitations. Patient denies any nausea or vomiting. Patient denies any diaphoresis. Patient denies any cough or shortness of breath. CVD Risk Factors: Positive for Hypertension, Diabetes and Hypercholesterolemia; Negative for Family History 1' </=55 or Smoking PE Risk Factors: Negative for Recent Travel/Surgery, Recent Immobilization, Prior DVT or PE, Cancer or OCP + Smoking + >/=35 PFSH [facility] Medical History Atherosclerosis of aorta Atherosclerosis of coronary artery bypass graft of [place] heart with angina pectoris Atherosclerosis of coronary artery of [place] heart with angina pectoris Bilateral pleural effusion (10/24/19) Central retinal vein occlusion of left eye (05/08/19) Chronic anemia Chronic kidney disease (CKD) COVID Diabetes mellitus Essential (primary) hypertension History of non-ST elevation myocardial infarction (NSTEMI) (10/24/19) HLD (hyperlipidemia) Hypothyroidism Iron deficiency anemia due to chronic blood loss Occlusion and stenosis of bilateral carotid arteries Renal calculi Home Medications aspirin 81 mg tablet,delayed release 81 mg PO DAILY@0800 [facility] 05/22/13 [History Last Taken 12/20/22] aflibercept 2 mg/0.05 mL intravitreal solution for injection (Eylea) 2 mg intravitreal Q12W 07/15/20 [History Last Taken 2 Months Ago ~10/20/22] insulin detemir U-100 100 unit/mL (3 mL) subcutaneous pen (Levemir FlexPen) 50 unit subcut DAILY 10/17/20 [History Last Taken 12/20/22] levothyroxine 150 mcg tablet 150 mcg PO DAILY 08/30/21 [History Last Taken 12/20/22] losartan 50 mg tablet 50 mg PO DAILY 10/03/21 [History Last Taken 12/19/22] carvedilol 12.5 mg tablet 12.5 mg PO BID #60 tabs 01/13/22 [Rx Last Taken 12/20/22] nitroglycerin 0.4 mg sublingual tablet 0.4 mg sublingual Q5-15M PRN Chest Pain #25 tabs 01/29/22 [Rx Last Taken 12/20/22] simvastatin 20 mg tablet 20 mg PO QHS Cholesterol 01/29/22 [History Last Taken 12/20/22] ranolazine 1,000 mg tablet,extended release,12 hr 1,000 mg PO BID Chest Pain #180 tabs 02/02/22 [Rx Last Taken 12/20/22] amlodipine 5 mg tablet 5 mg PO DAILY #180 tabs 07/22/22 [Rx Last Taken 12/19/22] isosorbide mononitrate 30 mg tablet,extended release 24 hr 30 mg PO DAILY #30 tabs 12/17/22 [Rx Last Taken 12/20/22] acetaminophen 500 mg tablet 500 mg PO BID PAIN 12/20/22 [History Last Taken 12/20/22] Allergy/AdvReac Type Severity Reaction Status Date / Time lisinopril AdvReac Intermediate COUGH Verified 12/20/22 09:13 Family History Father Diabetes Mother Cancer Lung cancer Brother CAD (coronary artery disease) HLD (hyperlipidemia) Myocardial infarction Sister Myocardial infarction CAD (coronary artery disease) Hypertension HLD (hyperlipidemia) Sister Diabetes Daughter Arthritis Son Arthritis Brother Myocardial infarction Surgical History H/O coronary artery bypass surgery (04/1998) History of bilateral cataract extraction History of colonoscopy (~08/2019) History of coronary artery stent placement (01/22/15) History of esophagogastroduodenoscopy (EGD) (~10/2019) History of left heart catheterization (10/24/19) Social History Smoking Status: Former smoker quit date: 08/16/79 alcohol intake: current alcohol intake frequency: holidays/special occasions only substance use type: does not use caffeine: Yes Type: coffee Number of servings: 2 what type of physical activity do you participate in: bicycling frequency: 5-6 times per week duration: 45-60 minutes/day seatbelt use: always do you feel safe at home: Yes ROS ROS ED Constitutional Constitutional ED: Denies chills or fever(s) Eyes Eyes: Denies blurry vision or change in vision ENT ENT ED: Denies rhinorrhea or sore throat Cardiovascular Cardiovascular: Reports chest pain and palpitations Respiratory/Chest Respiratory/Chest: Denies cough or dyspnea Gastrointestinal Gastrointestinal: Denies abdominal pain, nausea or vomiting Genitourinary Genitourinary ED: Denies dysuria or hematuria Musculoskeletal Musculoskeletal: Reports neck pain; Denies back pain Integumentary Denies abscess or rash Neurologic Neurologic: Denies headache(s) or weakness Allergic/Immunologic Allergic/Immunologic ED: Denies mouth swelling or urticaria EXAM Physical Exam Const Vital Signs: 12/20/22 09:08 12/20/22 09:12 12/20/22 09:15 Temperature 97.2 F L Temperature Source Temporal Pulse Rate 61 60 Respiratory Rate 18 18 Respiratory Effort Normal Non-Labored Blood Pressure 140/66 H 140/66 H Blood Pressure Mean 90 90 Pulse Ox 95 97 Oxygen Delivery Method Room Air Room Air 12/20/22 09:42 12/20/22 10:07 Temperature Temperature Source Pulse Rate 58 L Respiratory Rate 19 H Respiratory Effort Blood Pressure 129/48 H Blood Pressure Mean 75 Pulse Ox 97 94 Oxygen Delivery Method Room Air Room Air Positive well nourished, well developed and obese General Appearance ED: well developed and NAD Nutritional Appearance: obese HEENT normocephalic and atraumatic Eyes PERRL and EOMs intact bilaterally Neck supple and no JVD Chest Wall palpation of chest normal Resp normal respiratory effort and clear to auscultation bilaterally Effort and Inspection: Negative for respiratory distress Cardio regular rate and regular rhythm GI normal to inspection, nondistended, normoactive bowel sounds, soft to palpation, non-tender and non-distended Extremity normal to inspection General Extremety ED: Negative for edema or tenderness General Extremity: Negative for edema Neuro oriented x3, CN's II-XII intact bilaterally and no sensory deficits noted Sensorium / Orientation: awake and alert Motor Exam: strength 5/5 throughout Psych mental status grossly normal Heart Score History: Moderately Suspicious ECG: Nonspecific Repolarization Age: >/= 65 years Risk Factors: >/= 3 Risk Factors or History of CAD Score: 6 MDM MDM MDM Narrative Medical decision making narrative: Differential diagnosis includes cardiac dysrhythmia, cardiac ischemia, unstable angina, pneumonia, pneumothorax, and musculoskeletal etiology. Patient has a [place] score of 0. Therefore, I do not feel this is from a pulmonary embolism. EKG will be obtained to assess for cardiac dysrhythmia and cardiac ischemia. Chest x-ray will be obtained to assess for pneumonia and pneumothorax. CBC will be obtained to assess for leukocytosis and anemia. Basic metabolic profile will be obtained to assess for electrolyte abnormality and renal function. High- sensitivity troponin will be obtained to assess for cardiac ischemia. 2-hour repeat high-sensitivity troponin will be obtained to assess for ongoing cardiac ischemia. Lab Data Attestation: I reviewed the patient's lab results. Lab results narrative: CBC was reviewed. There is a mild anemia with a hemoglobin of 11.4 and hematocrit 35.1. This is stable compared to previous results. Basic metabolic profile was reviewed. BUN was 33 and creatinine was 1.68. These are stable compared to previous results. High-sensitivity troponin was normal at 26. Labs: Laboratory Results - last 24 hr 12/20/22 12/20/22 09:27 09:27 WBC 5.3 RBC 3.61 L Hgb 11.4 L Hct 35.1 L MCV 97.2 H MCH 31.6 MCHC 32.5 RDW Std Deviation 49.9 H RDW Coeff of [place] 13.9 Plt Count 169 MPV 10.8 Immature Gran % (Auto) 0.400 Neut % (Auto) 71.7 H Lymph % (Auto) 16.3 L [place] % (Auto) 7.4 Eos % (Auto) 3.6 Baso % (Auto) 0.6 Absolute Neuts (auto) 3.8 Absolute Lymphs (auto) 0.86 Nucleated RBC % 0 Sodium 139 Potassium 4.5 Chloride 107 Carbon Dioxide 25.0 Anion Gap 7 BUN 33 H Creatinine 1.68 H Estim Creat Clear Calc 41.06 Est GFR (MDRD) Af Amer 51 L Est GFR (MDRD) Non-Af 42 L BUN/Creatinine Ratio 19.6 Glucose 153 H Calcium 8.7 Troponin I High Sens 26 Radiography Chest X-Ray - ED: 1 View, Read by ED Physician, Read by Radiologist and No Acute Disease Diagnostic Testing: Portable 1 view chest x-ray was obtained. On my independent interpretation, lung roger are clear. There is normal cardiac silhouette. Bony thorax is normal. There is no acute process noted. Radiologist also interpreted the x- ray and agrees. EKG Initial EKG: Attestation: I personally reviewed and interpreted this EKG as follows: Interpretation: Sinus Bradycardia (57) and Non-Specific ST Changes Comments: EKG was obtained. On my independent interpretation, it showed a normal sinus rhythm with a first-degree AV block and frequent PVCs with a rate of 57. OK interval was prolonged at 214 ms. QRS interval and QTc intervals were normal. There is borderline left axis deviation at -23. There are nonspecific ST-T wave changes. Prior EKG tracings: available for review Prior: Unchanged (07/22/2022) Management Discussion w/another healthcare provider: Hospitalist (Dr. Wood. He will admit the patient for observation to PCU) Treatment and Re-Evaluation :: Patient took his aspirin prior to arrival. Patient also took sublingual nitroglycerin prior to arrival. Patient states that he has taken more nitroglycerin in the past few days than he ever has in the past. Patient has a HEART score of 6. Since his chest pain is becoming more frequent, I recommended admission to the hospital. Case will be discussed with the hospitalist. Patient is agreeable with the plan. All questions were answered. Discharge Plan Dx/Rx/DC Orders Clinical Impression: Unstable angina, Essential (primary) hypertension Disposition Disposition: Acute Care Hospital [facility]
--- NOTE | 2022-12-20 09:37 | RAD_ITS ---
EXAM: XR CHEST, 1 VIEW CLINICAL INDICATION: Chest pain. TECHNIQUE: Frontal view of the chest. COMPARISON: 12/19/2022. FINDINGS: LUNGS AND PLEURAL SPACES: Pulmonary hypoinflation. No pneumothorax. No effusion. No suspicious infiltrates. HEART: Mild cardiomegaly. MEDIASTINUM: Central airways and mediastinal contour are unremarkable. BONES/JOINTS: Sternal wires remain intact. SOFT TISSUES: Unremarkable. RAD/Chest 1 View (Portable) IMPRESSION: No acute findings in the chest and unchanged when compared to 12/19/2022. Electronically Signed: Esa Vázquez MD at 11:12 EDT ,
--- NOTE | 2022-12-20 09:37 | EKG12_ITS ---
Test Reason : Blood Pressure : / mmHG Vent. Rate : 057 BPM Atrial Rate : 057 BPM P-R Int : 214 ms QRS Dur : 102 ms QT Int : 470 ms P-R-T Axes : 048 -23 128 degrees QTc Int : 457 ms Sinus bradycardia with 1st degree A-V block with frequent Premature ventricular complexes Abnormal ECG Confirmed by LIEN SWENSON, COLUMBA ([id number]), book editor FIDEL TRINIDAD ([id number]) on 12/22/2022 8:09:29 AM Referred By: RICKY Confirmed By:COLUMBA EMMANUEL MD
[2022-12-20 09:47] LABS: Absolute Lymphocyte Count 0.86 X10^3/uL (0.83-4.51); Absolute Neutrophil Count 3.8 X10^3/uL (2.0-7.7); Basophil# 0.03 X10^3/uL; Basophil% 0.6 % (0-1); Eosinophil# 0.19 X10^3/uL; Eosinophils% 3.6 % (0-5); Hematocrit 35.1 % (40-54); Hemoglobin 11.4 g/dL (13.0-16.5); Lymphocyte # 0.86 X10^3/ul (0.83-4.51); Lymphocyte % 16.3 % (19-41); Mean Corp Hgb Conc 32.5 g/dL (32-36); Mean Corpuscular Hgb 31.6 pg (27.0-32.0); Mean Corpuscular Volume 97.2 fL (80-94); Mean Platelet Vol. 10.8 fl (6.2-12.0); Monocyte# 0.39 X10^3/uL; Monocyte% 7.4 % (0-10); NRBC Flagged by Analyzer 0 % (0-5); Neutrophil # 3.77 X10^3/uL (2.7-7.7); Neutrophil % 71.7 % (47-70); Platelet Count 169 K/mm3 (150-450); RBC Distribution Width CV 13.9 % (11.6-14.6); RBC Distribution Width SD 49.9 fl (35.1-43.9); Red Blood Count 3.61 M/mm3 (4.6-6.2); White Blood Count 5.3 K/mm3 (4.4-11.0)
[2022-12-20 10:04] LABS: Anion Gap 7 (5-15); BUN 33 mg/dL (7-18); BUN/Creat Ratio 19.6 RATIO (10-20); Calcium,Total 8.7 mg/dL (8.5-10.1); Chloride 107 mmol/L (98-107); Creatinine, Serum 1.68 mg/dL (0.70-1.30); EST Glomerular Filtration Rate 42 mL/min (>60); Est Glom Filt Rate - Afr Amer 51 mL/min (>60); Estimated Creatinine Clearance 41.06 ml/min; Glucose 153 mg/dL (74-106); Potassium 4.5 mmol/L (3.5-5.1); Sodium Level 139 mmol/L (136-145); Troponin-I HS (w/2H Reflex) 26 pg/mL (3.0-78.0)
--- NOTE | 2022-12-20 10:06 | ED.RN ---
PO ASPIRIN NOT GIVEN DUE TO PT GETTING ASPIRIN IN [place]. VERBAL ORDERR BY DR. GARCÍA TO NOT GIVE ASPIRIN.
--- NOTE | 2022-12-20 11:25 | HP.PCM.HOS_ITS ---
HPI - General General Date of Admission: 12/20/22 Date of Service: 12/20/22 Chief Complaint: Atypical chest pain for last 3 days. HPI Narrative JEANETH MEHTA, is a 77 M who to ED visits 1 yesterday night and today in the morning for chest pain. Patient came to ED for chest pain/epigastric and 2 troponins were negative with no significant EKG and declined admission as per ED note. Patient came back today in the morning with similar complaint. He describes his pain as lower xiphisternum/epigastric heaviness that moves upward and midlines towards throat and neck and whaling out to shoulders and arms. He states it only starts when he tries to stand up or or walk or mild exertion but not at the rest. Denies associated symptom of nausea vomiting, diaphoresis palpitation, shortness of breath or dyspnea. Patient has history of CABG in 1997 and PCI/stent in 2014. He follows Dr. Hernandez and Giovanna in cardiology office. Twelve-lead EKG done in the ED and does not show acute changes with the previous EKG. [facility] Medical History Atherosclerosis of aorta Atherosclerosis of coronary artery bypass graft of [place] heart with angina pectoris Atherosclerosis of coronary artery of [place] heart with angina pectoris Bilateral pleural effusion (10/24/19) Central retinal vein occlusion of left eye (05/08/19) Chronic anemia Chronic kidney disease (CKD) COVID Diabetes mellitus Essential (primary) hypertension History of non-ST elevation myocardial infarction (NSTEMI) (10/24/19) HLD (hyperlipidemia) Hypothyroidism Iron deficiency anemia due to chronic blood loss Occlusion and stenosis of bilateral carotid arteries Renal calculi Home Medications aspirin 81 mg tablet,delayed release 81 mg PO DAILY@0800 [facility] 05/22/13 [History Last Taken 12/20/22] aflibercept 2 mg/0.05 mL intravitreal solution for injection (Eylea) 2 mg intravitreal Q12W 07/15/20 [History Last Taken 2 Months Ago ~10/20/22] insulin detemir U-100 100 unit/mL (3 mL) subcutaneous pen (Levemir FlexPen) 50 u nit subcut DAILY 10/17/20 [History Last Taken 12/20/22] levothyroxine 150 mcg tablet 150 mcg PO DAILY 08/30/21 [History Last Taken 12/20/22] losartan 50 mg tablet 50 mg PO DAILY 10/03/21 [History Last Taken 12/19/22] carvedilol 12.5 mg tablet 12.5 mg PO BID #60 tabs 01/13/22 [Rx Last Taken 12/20/22] nitroglycerin 0.4 mg sublingual tablet 0.4 mg sublingual Q5-15M PRN Chest Pain #25 tabs 01/29/22 [Rx Last Taken 12/20/22] simvastatin 20 mg tablet 20 mg PO QHS Cholesterol 01/29/22 [History Last Taken 12/20/22] ranolazine 1,000 mg tablet,extended release,12 hr 1,000 mg PO BID Chest Pain #180 tabs 02/02/22 [Rx Last Taken 12/20/22] amlodipine 5 mg tablet 5 mg PO DAILY #180 tabs 07/22/22 [Rx Last Taken 12/19/22] isosorbide mononitrate 30 mg tablet,extended release 24 hr 30 mg PO DAILY #30 tabs 12/17/22 [Rx Last Taken 12/20/22] acetaminophen 500 mg tablet 500 mg PO BID PAIN 12/20/22 [History Last Taken 12/20/22] Allergy/AdvReac Type Severity Reaction Status Date / Time lisinopril AdvReac Intermediate COUGH Verified 12/20/22 09:13 Family History Father Diabetes Mother Cancer Lung cancer Brother CAD (coronary artery disease) HLD (hyperlipidemia) Myocardial infarction Sister Myocardial infarction CAD (coronary artery disease) Hypertension HLD (hyperlipidemia) Sister Diabetes Daughter Arthritis Son Arthritis Brother Myocardial infarction Surgical History H/O coronary artery bypass surgery (04/1998) History of bilateral cataract extraction History of colonoscopy (~08/2019) History of coronary artery stent placement (01/22/15) History of esophagogastroduodenoscopy (EGD) (~10/2019) History of left heart catheterization (10/24/19) Social History Smoking Status: Former smoker quit date: 08/16/79 alcohol intake: current alcohol intake frequency: holidays/special occasions only substance use type: does not use caffeine: Yes Type: coffee Number of servings: 2 what type of physical activity do you participate in: bicycling frequency: 5-6 times per week duration: 45-60 minutes/day seatbelt use: always do you feel safe at home: Yes ROS ROS Narrative Constitutional: Reports fatigue and weakness. No fever no recent URI cough. HEENT: Reports systems reviewed and no addt'l complaints, except as documented Respiratory/Chest: Occasional cough probably allergic and chronic. and patient not concerned. No acute shortness of breath. CVS: As described HPI. Gastrointestinal: Denies coffee ground emesis, hematemesis or vomiting Genitourinary: Chronic intermittent micturition, stop and go. Denies burning urination or new urinary tract symptoms Musculoskeletal: Does not have acute joint pain or limited range of motion. No acute injury Neurologic: Denies seizure-like activity. No acute strokelike symptoms skin: No ulcer. No rash Endocrinology: Reports systems reviewed and no addt'l complaints, except as documented Hematologic/Lymphatic: Reports systems reviewed and no addt'l complaints, except as documented Rest 14 ROS are negative except as mentioned in HPI Vital Signs Vital Signs Vital Signs: 12/20/22 09:08 12/20/22 09:12 12/20/22 09:15 Temperature 97.2 F L Temperature Source Temporal Pulse Rate 61 60 Respiratory Rate 18 18 Respiratory Effort Normal Non-Labored Blood Pressure 140/66 H 140/66 H Blood Pressure Mean 90 90 Pulse Ox 95 97 Oxygen Delivery Method Room Air Room Air 12/20/22 09:42 12/20/22 10:07 12/20/22 11:14 Temperature 97.6 F L Temperature Source Oral Pulse Rate 58 L 52 L Respiratory Rate 19 H 13 Respiratory Effort Blood Pressure 129/48 H 138/73 H Blood Pressure Mean 75 94 Pulse Ox 97 94 97 Oxygen Delivery Method Room Air Room Air Room Air 12/20/22 11:14 Temperature 97.6 F L Temperature Source Oral Pulse Rate 53 L Respiratory Rate 17 Respiratory Effort Blood Pressure 138/73 H Blood Pressure Mean 94 Pulse Ox 97 Oxygen Delivery Method Room Air Weight Weight: 237 lb 10.533 oz Body Mass Index (BMI) 32.2 Physical Exam Narrative General: Alert, Oriented x3, Cooperative HEENT: Atraumatic, PERRLA, EOMI, Normocephalic Oral: Oral mucosa moist. No Gingival or Mucosal Lesions/ Ulcerations Neck: Supple, No JVD, Negative Carotid Bruits Lungs: Air entry diminished in bilateral lung bases. No crepitation/rhonchi Cardiovascular: Regular rate, Regular Rhythm, Normal S1, Normal S2, No murmurs Abdomen: Bowel Sounds Present, Soft, Non Tender, Non-Distended : No renal angle tenderness. No suprapubic tenderness. Extremities: No edema, Capillary Refill Less than 3 Seconds Skin: No rashes, No breakdown Musculoskeletal: No Tenderness to Palpation of Joints or Extremities. Range of motion intact. Chronic bilateral knee arthritis. Neurological: Cranial nerves II-XII grossly intact, DTR 2+/4 and Symmetrical, Neuro grossly intact Psych/Mental Status: Normal Affect, Appropriate. Results Lab / Micro Data Result Diagrams: 12/20/22 09:27 12/20/22 09:27 Labs: Laboratory Results - last 24 hr 12/20/22 09:27: WBC 5.3, RBC 3.61 L, Hgb 11.4 L, Hct 35.1 L, MCV 97.2 H, MCH 31.6, MCHC 32.5, RDW Std Deviation 49.9 H, RDW Coeff of Matthew 13.9, Plt Count 169, MPV 10.8, Immature Gran % (Auto) 0.400, Neut % (Auto) 71.7 H, Lymph % (Auto) 16.3 L, [place] % (Auto) 7.4, Eos % (Auto) 3.6, Baso % (Auto) 0.6, Absolute Neuts (auto) 3.8, Absolute Lymphs (auto) 0.86, Nucleated RBC % 0 12/20/22 09:27: Sodium 139, Potassium 4.5, Chloride 107, Carbon Dioxide 25.0, Anion Gap 7, BUN 33 H, Creatinine 1.68 H, Estim Creat Clear Calc 41.06, Est GFR (MDRD) Af Amer 51 L, Est GFR (MDRD) Non-Af 42 L, BUN/Creatinine Ratio 19.6, Glucose 153 H, Calcium 8.7, Troponin I High Sens 26 Radiology Impression Chest X-Ray 12/20/22 09:37 IMPRESSION: No acute findings in the chest and unchanged when compared to 12/19/2022. Electronically Signed: Esa Vázquez MD at 11:12 EDT , Assessment & Plan Assessment/Plan (1) Chest pain: PLAN: Plan This 77-year-old gentleman came to ED for atypical chest pain 2 times less than 1 day. 1. Atypical chest pain with history of coronary artery disease and CABG: Patient is being admitted in PCU. First 2 troponins during last night third troponin are negative. Twelve-lead EKG shows sinus bradycardia 57 bpm, first- degree AV block, QTc 457 ms with no acute changes from previous EKG. Frequent PVCs. Previous EKG of 07/22/2022 shows normal sinus rhythm 53 bpm. Will repeat fourth troponin to rule out ACS. NICKI score is high 5/7 although 2 points negative for no acute EKG changes and troponins negative. Pharmacological nuclear stress test tomorrow AM. TSH and fasting for tomorrow AM. Continue current cardiac medications aspirin, losartan, carvedilol, isosorbide mononitrate, and ranolazine. 2. Hypertension and dyslipidemia: Most recent lipid profile LDL 72, HDL 50, TC 41. Patient on simvastatin 20 mg daily will change to atorvastatin 40 mg daily at bedtime. Repeat fasting profile tomorrow AM. BP is controlled. Patient on losartan 50 mg daily continued. 3. Diabetes mellitus type 2: Glucose is reasonably controlled 153. Accu-Chek before meals and cover with Humalog sliding scale. Patient on insulin detemir 50 units continued. 4. Chronic macrocytic normochromic anemia probably due to chronic disease: MCV 97.2 H&H on baseline. B12 and folic acid tomorrow and 5. 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 Baseline is between 1.66-1.99 6 obesity grade 1: Patient BMI 32.2 kg/m?. Mild weight loss counseling done VTE prophylaxis, high risk: Lovenox 40 mg subcu daily. Bilateral SCDs. Living will/advanced directive/end of life care: Patient does not have living will or advanced directive. His next to kin is but not designated power of civil rights attorney for health. After discussion of benefits/risks procedures involved with full code, DNR CC arrest and DNR CC, the patient is not sure right now and will think over it. But for now he wants to keep full code. Patient does want artificial life support including intubation, tube feed, ventilator and/chest compression, central venous catheter, vasopressor and DC shock if needed Total time spent in [id number] encounter in discussion of advanced directive 17 minutes. Laboratory Results 12/20/22 09:27: WBC 5.3, RBC 3.61 L, Hgb 11.4 L, Hct 35.1 L, MCV 97.2 H, MCH 31.6, MCHC 32.5, RDW Std Deviation 49.9 H, RDW Coeff of Matthew 13.9, Plt Count 169, MPV 10.8, Immature Gran % (Auto) 0.400, Neut % (Auto) 71.7 H, Lymph % (Auto) 16.3 L, [place] % (Auto) 7.4, Eos % (Auto) 3.6, Baso % (Auto) 0.6, Absolute Neuts (auto) 3.8, Absolute Lymphs (auto) 0.86, Nucleated RBC % 0 12/20/22 09:27: Sodium 139, Potassium 4.5, Chloride 107, Carbon Dioxide 25.0, Anion Gap 7, BUN 33 H, Creatinine 1.68 H, Estim Creat Clear Calc 41.06, Est GFR (MDRD) Af Amer 51 L, Est GFR (MDRD) Non-Af 42 L, BUN/Creatinine Ratio 19.6, Glucose 153 H, Calcium 8.7, Troponin I High Sens 26 Charges/Coding Visit Charges Inpatient E&M: 33121 Init Hosp L3 Procedures Hospitalists Procedures: 31546 Advncd Care Plan 30 Min
[2022-12-20 11:44] LABS: Reflex Troponin-HS? (from REC) Y
[2022-12-20 11:55] LABS: AST(SGOT) 12 U/L (15-37); Alanine Aminotransfer ALT/SGPT 15 U/L (16-61); Alkaline Phosphatase 102 U/L (45-117); Bilirubin, Direct 0.23 mg/dL (0.00-0.30); Globulin 2.7 g/dL (2.2-4.2); Protein, Total 5.7 g/dL (6.4-8.2)
[2022-12-20 12:10] LABS: Magnesium 2.2 mg/dL (1.6-2.6)
[2022-12-20 12:11] LABS: Troponin-I HS 30 pg/mL (3.0-78.0)
--- NOTE | 2022-12-20 12:31 | EKG12_ITS ---
Test Reason : CP Blood Pressure : / mmHG Vent. Rate : 059 BPM Atrial Rate : 059 BPM P-R Int : 218 ms QRS Dur : 102 ms QT Int : 474 ms P-R-T Axes : 055 -21 117 degrees QTc Int : 469 ms Sinus bradycardia with 1st degree A-V block with frequent Premature ventricular complexes T wave abnormality, consider lateral ischemia Abnormal ECG When compared with ECG of 20-DEC-2022 12:58, MANUAL COMPARISON REQUIRED, DATA IS UNCONFIRMED Confirmed by VIKCEY SWENSON, GISELA ([id number]), newspaper managing editor FIDEL TRINIDAD ([id number]) on 12/22/2022 1:17:10 PM Referred By: Confirmed By:LINDA HURD MD
[2022-12-20] MEDS: Pantoprazole Sodium 40 MG Tablet PO (13:49)
[2022-12-20] MEDS: Enoxaparin 40 MG/0.4 ML Syringe SC (13:49)
[2022-12-20 15:05] LABS: Troponin-I HS 27 pg/mL (3.0-78.0)
--- NOTE | 2022-12-20 15:28 | NURSING ---
This RN taking over care of pt at this time.
[2022-12-20 17:00] LABS: Bedside Glucose 106 mg/dL (74-106)
--- NOTE | 2022-12-20 18:06 | NURSING ---
Pt checked blood glucose with dexcom, result 133.
[2022-12-20] MEDS: Atorvastatin Calcium 10 MG Tablet PO (21:07)
[2022-12-20] MEDS: Ranolazine 500 MG Tablet 1000 MG PO (21:07)
[2022-12-20] MEDS: Carvedilol 12.5 MG Tablet PO (21:08)
[2022-12-21] VITALS (7 sets, daily range): BP systolic 137–166; BP diastolic 66–78; PULSE 51–76; RESP 14–18; TEMP 36.6–37.2; O2SAT 93–100; BMI 31.5
[2022-12-21 01:05] LABS: Bedside Glucose 74 mg/dL (74-106)
[2022-12-21 06:23] LABS: Absolute Lymphocyte Count 1.21 X10^3/uL (0.83-4.51); Absolute Neutrophil Count 3.4 X10^3/uL (2.0-7.7); Basophil# 0.03 X10^3/uL; Basophil% 0.6 % (0-1); Eosinophil# 0.15 X10^3/uL; Eosinophils% 2.8 % (0-5); Hematocrit 35.2 % (40-54); Hemoglobin 11.8 g/dL (13.0-16.5); Lymphocyte # 1.21 X10^3/ul (0.83-4.51); Lymphocyte % 22.8 % (19-41); Mean Corp Hgb Conc 33.5 g/dL (32-36); Mean Corpuscular Hgb 32.2 pg (27.0-32.0); Mean Corpuscular Volume 96.2 fL (80-94); Mean Platelet Vol. 10.3 fl (6.2-12.0); Monocyte# 0.46 X10^3/uL; Monocyte% 8.7 % (0-10); NRBC Flagged by Analyzer 0 % (0-5); Neutrophil # 3.44 X10^3/uL (2.7-7.7); Neutrophil % 64.7 % (47-70); Platelet Count 157 K/mm3 (150-450); RBC Distribution Width CV 14.2 % (11.6-14.6); RBC Distribution Width SD 50.3 fl (35.1-43.9); Red Blood Count 3.66 M/mm3 (4.6-6.2); White Blood Count 5.3 K/mm3 (4.4-11.0)
[2022-12-21] MEDS: Levothyroxine 150 MCG Tablet PO (06:50)
[2022-12-21 07:17] LABS: Anion Gap 6 (5-15); BUN 30 mg/dL (7-18); BUN/Creat Ratio 19.9 RATIO (10-20); Calcium,Total 8.7 mg/dL (8.5-10.1); Chloride 111 mmol/L (98-107); Cholesterol 131 mg/dL (200); Creatinine, Serum 1.51 mg/dL (0.70-1.30); EST Glomerular Filtration Rate 48 mL/min (>60); Est Glom Filt Rate - Afr Amer 58 mL/min (>60); Estimated Creatinine Clearance 45.68 ml/min; Glucose 144 mg/dL (74-106); High Density Lipoprotein 41 mg/dL; Potassium 4.3 mmol/L (3.5-5.1); Sodium Level 142 mmol/L (136-145); Thyroid Stim Hormone (TSH) 7.74 uIU/mL (0.358-3.74); Triglycerides 163 mg/dL; Very Low Density Lipoprotein 33 mg/dL (5-40)
[2022-12-21 08:18] LABS: Vitamin B12 141 pg/mL (211-911)
--- NOTE | 2022-12-21 12:02 | CASEMGMT ---
Social Work As per admitting magneto repairer, pt does not have LW/POA, not interested in additional information. KWAME Cruz
[2022-12-21 12:20] LABS: Bedside Glucose 65 mg/dL (74-106)
--- NOTE | 2022-12-21 12:31 | EKG12_ITS ---
Test Reason : AM EKG Blood Pressure : / mmHG Vent. Rate : 062 BPM Atrial Rate : 062 BPM P-R Int : 200 ms QRS Dur : 102 ms QT Int : 466 ms P-R-T Axes : 050 -29 116 degrees QTc Int : 472 ms Sinus rhythm with frequent Premature ventricular complexes Nonspecific T wave abnormality Prolonged QT Abnormal ECG When compared with ECG of 21-DEC-2022 05:43, MANUAL COMPARISON REQUIRED, DATA IS UNCONFIRMED Confirmed by VICKEY SWENSON, GISELA ([id number]), science editor FIDEL TRINIDAD ([id number]) on 12/22/2022 1:16:04 PM Referred By: Confirmed By:LINDA HUDR MD
--- NOTE | 2022-12-21 12:39 | PCM.CONS.C ---
Assessment & Plan Assessment/Plan (1) Unstable angina: PLAN: He presented with unstable angina and underwent a cardiac catheterization which demonstrated high-grade lesion in the saphenous vein graft to the obtuse marginal vessels for which he underwent urgent PCI and stenting. He is currently doing better. The plan is for him to continue the current medical therapy. (2) History of coronary artery stent placement: PLAN: Previously underwent PCI of the body of the saphenous vein graft. As noted above in the report. (3) H/O coronary artery bypass surgery: PLAN: Status post coronary bypass graft surgery with a PAZ to the LAD and a saphenous vein graft to obtuse marginal branch (4) Essential (primary) hypertension: PLAN: He does have a history of hypertension. His blood pressure will be aggressively controlled on the current medical therapy. (5) HLD (hyperlipidemia): QUALIFIERS: Hyperlipidemia type: unspecified Qualified Code(s): E78.5 - Hyperlipidemia, unspecified PLAN: He will continue with aggressive risk factor modification. HPI Consult Data Date of Consult: 12/21/22 HPI Narrative HPI Narrative: JEANETH MEHTA, is a 77 M who presents with recurrent chest discomfort. He had apparently been complaining of chest discomfort over the last few weeks but had not confided in his to tell her this and then presented to the emergency room with chest discomfort was evaluated with negative enzymes and was discharged on patient's insistence. He however represented with similar discomfort in less than 24 hours after having consumed a fair amount of sublingual nitroglycerin. He was admitted to the hospital and was undergoing a stress test when he developed significant ST depression inferior laterally. Cardiology was then called urgently. He has a history of coronary artery disease status post coronary artery bypass surgery 1997 with a left internal mammary artery to the left anterior descending artery, saphenous vein graft to second obtuse marginal branch, and bare-metal stent to the saphenous vein graft to the obtuse marginal branch in January 2015.? He also has a history of hypertension, hyperlipidemia, anemia, and diabetes.? He had a long admission to the hospital in October 2019 he presented with anemia and shortness of breath and a non-ST elevation myocardial infarction.? His hemoglobin went down to 6.2, his troponin went up to 20.3 and his aspirin and Plavix had to be discontinued.? He also had some renal dysfunction with bilateral pleural effusions.? An echocardiogram performed demonstrated preserved ejection fraction and pulmonary systolic pressures of 41 mmHg.? He did undergo a limited cardiac catheterization which demonstrated a patent stent in the saphenous vein graft to the obtuse marginal branch though there was distal disease.? Medical therapy was recommended due to his chronic kidney disease his losartan was discontinued and his Norvasc discontinued due to hypotension.? He was directed to go to to the cardiac catheterization laboratory. [facility] Medical History Atherosclerosis of aorta Atherosclerosis of coronary artery bypass graft of [place] heart with angina pectoris Atherosclerosis of coronary artery of [place] heart with angina pectoris Bilateral pleural effusion (10/24/19) Central retinal vein occlusion of left eye (05/08/19) Chronic anemia Chronic kidney disease (CKD) COVID Diabetes mellitus Essential (primary) hypertension History of non-ST elevation myocardial infarction (NSTEMI) (10/24/19) HLD (hyperlipidemia) Hypothyroidism Iron deficiency anemia due to chronic blood loss Occlusion and stenosis of bilateral carotid arteries Renal calculi Home Medications aspirin 81 mg tablet,delayed release 81 mg PO DAILY@0800 [facility] 05/22/13 [History Last Taken 12/20/22] aflibercept 2 mg/0.05 mL intravitreal solution for injection (Eylea) 2 mg intravitreal Q12W 07/15/20 [History Last Taken 2 Months Ago ~10/20/22] insulin detemir U-100 100 unit/mL (3 mL) subcutaneous pen (Levemir FlexPen) 50 unit subcut DAILY 10/17/20 [History Last Taken 12/20/22] levothyroxine 150 mcg tablet 150 mcg PO DAILY 08/30/21 [History Last Taken 12/20/22] losartan 50 mg tablet 50 mg PO DAILY 10/03/21 [History Last Taken 12/19/22] carvedilol 12.5 mg tablet 12.5 mg PO BID #60 tabs 01/13/22 [Rx Last Taken 12/20/22] nitroglycerin 0.4 mg sublingual tablet 0.4 mg sublingual Q5-15M PRN Chest Pain #25 tabs 01/29/22 [Rx Last Taken 12/20/22] simvastatin 20 mg tablet 20 mg PO QHS Cholesterol 01/29/22 [History Last Taken 12/20/22] ranolazine 1,000 mg tablet,extended release,12 hr 1,000 mg PO BID Chest Pain #180 tabs 02/02/22 [Rx Last Taken 12/20/22] amlodipine 5 mg tablet 5 mg PO DAILY #180 tabs 07/22/22 [Rx Last Taken 12/19/22] isosorbide mononitrate 30 mg tablet,extended release 24 hr 30 mg PO DAILY #30 tabs 12/17/22 [Rx Last Taken 12/20/22] acetaminophen 500 mg tablet 500 mg PO BID PAIN 12/20/22 [History Last Taken 12/20/22] Allergy/AdvReac Type Severity Reaction Status Date / Time lisinopril AdvReac Intermediate COUGH Verified 12/20/22 09:13 Family History Father Diabetes Mother Cancer Lung cancer Brother CAD (coronary artery disease) HLD (hyperlipidemia) Myocardial infarction Sister Myocardial infarction CAD (coronary artery disease) Hypertension HLD (hyperlipidemia) Sister Diabetes Daughter Arthritis Son Arthritis Brother Myocardial infarction Surgical History H/O coronary artery bypass surgery (04/1998) History of bilateral cataract extraction History of colonoscopy (~08/2019) History of coronary artery stent placement (01/22/15) History of esophagogastroduodenoscopy (EGD) (~10/2019) History of left heart catheterization (10/24/19) Social History Smoking Status: Former smoker quit date: 08/16/79 alcohol intake: current alcohol intake frequency: holidays/special occasions only substance use type: does not use caffeine: Yes Type: coffee Number of servings: 2 what type of physical activity do you participate in: bicycling frequency: 5-6 times per week duration: 45-60 minutes/day seatbelt use: always do you feel safe at home: Yes ROS Constitutional Constitutional: Denies fever(s) or weight loss Eyes Eyes: Reports systems reviewed and no addt'l complaints, except as documented ENT HEENT: Reports systems reviewed and no addt'l complaints, except as documented Cardiovascular Cardiovascular: Reports chest pain at rest and chest pain with activity; Denies dyspnea at rest, dyspnea on exertion, edema, palpitations or paroxysmal nocturnal dyspnea Respiratory/Chest Respiratory/Chest: Reports dyspnea on exertion; Denies productive cough, shortness of breath at rest or shortness of breath with exertion Gastrointestinal Gastrointestinal: Denies change in bowel habits, nausea, vomiting or weight changes Genitourinary Genitourinary: Denies difficulty urinating Musculoskeletal Musculoskeletal: Denies joint stiffness or muscle weakness Integumentary Integumentary: Denies lesions Neurologic Neurologic: Denies dizziness or syncope Psychiatric Psychiatric: Denies anxiety Endocrine Endocrinology: Denies excessive sweating or fatigue Hematologic/Lymphatic Hematologic/Lymphatic: Denies anemia Allergic/Immunologic Allergic/Immunologic: Denies seasonal rhinorrhea Physical Exam Const alert, oriented x3 and no apparent distress General Appearance: cooperative HEENT hearing grossly normal bilaterally Head and Scalp: atraumatic Eyes EOMs intact bilaterally Neck General: normal visual inspection Chest inspection of chest normal and palpation of chest normal Resp normal respiratory effort Auscultation: clear to auscultation bilaterally Cardio regular rate, regular rhythm, S1 normal heart sound and S2 normal heart sound Jugular Venous Distention: JVD GI normal to inspection, nondistended, normoactive bowel sounds Extremity normal capillary refill and no pedal edema Peripheral Pulses: Yes pulses 2+ throughout and femoral pulses present Skin no rashes or lesions noted Neuro oriented x3 and CN's II-XII intact bilaterally Psych Appearance: grossly normal and appropriate Risk Stratification Risk Stratification Applicable: Yes Age >/= 65: Yes >/= 3 CAD Risk Factors (HTN, HLD, DM, family hx of CAD, or current smoker): Yes Aspirin Use in the Past 7 Days: Yes Severe Angina (>/= episodes in 24 hours): Yes EKG ST Changes >/= 0.5mm: Yes Positive Cardiac Marker: No NICKI Risk Stratification Score: 5 NICKI % Risk: 25% Risk Objective Data Vital Signs: Vital Signs Temp Pulse Resp BP Pulse Ox O2 Del Method 97.9 F 60 16 147/77 H 98 Room Air 12/21/22 08:25 12/21/22 08:25 12/21/22 08:25 12/21/22 08:25 12/21/22 08:25 12/21/22 08:25 Oxygen Delivery Method Room Air Weight: 232 lb 5.875 oz Body Mass Index (BMI) 31.5 Intake & Output: Intake and Output for Last 24 Hours 12/19/22 12/20/22 12/21/22 23:59 23:59 23:59 Intake Total 360 / 360 Balance 360 / 360 Lab / Micro Data Result Diagrams: 12/21/22 05:58 12/21/22 05:58 Labs: Laboratory Results - last 24 hr 12/20/22 12:59: POC Glucose 106 12/20/22 14:30: Troponin I High Sens 27 12/21/22 00:43: POC Glucose 74 12/21/22 01:54: POC Glucose 65 L 12/21/22 05:58: Vitamin B12 141 L 12/21/22 05:58: Sodium 142, Potassium 4.3, Chloride 111 H, Carbon Dioxide 25.0, Anion Gap 6, BUN 30 H, Creatinine 1.51 H, Estim Creat Clear Calc 45.68, Est GFR (MDRD) Af Amer 58 L, Est GFR (MDRD) Non-Af 48 L, BUN/Creatinine Ratio 19.9, Glucose 144 H, Calcium 8.7, Triglycerides 163, Cholesterol 131, LDL Cholesterol 57, VLDL Cholesterol 33, HDL Cholesterol 41, Folate 14.50, TSH 7.74 H 12/21/22 05:58: WBC 5.3, RBC 3.66 L, Hgb 11.8 L, Hct 35.2 L, MCV 96.2 H, MCH 32.2 H, MCHC 33.5, RDW Std Deviation 50.3 H, RDW Coeff of Matthew 14.2, Plt Count 157, MPV 10.3, Immature Gran % (Auto) 0.400, Neut % (Auto) 64.7, Lymph % (Auto) 22.8, [place] % (Auto) 8.7, Eos % (Auto) 2.8, Baso % (Auto) 0.6, Absolute Neuts (auto) 3.4, Absolute Lymphs (auto) 1.21, Nucleated RBC % 0 Cardiology Labs/Tests 12/21/22 05:58: Sodium 142, Potassium 4.3, Chloride 111 H, Carbon Dioxide 25.0, Anion Gap 6, BUN 30 H, Creatinine 1.51 H, Est GFR (MDRD) Af Amer 58 L, Est GFR (MDRD) Non-Af 48 L, BUN/Creatinine Ratio 19.9, Glucose 144 H, Calcium 8.7, Triglycerides 163, Cholesterol 131, LDL Cholesterol 57, VLDL Cholesterol 33, HDL Cholesterol 41 12/21/22 05:58: WBC 5.3, RBC 3.66 L, Hgb 11.8 L, Hct 35.2 L, MCV 96.2 H, MCH 32.2 H, MCHC 33.5, Plt Count 157, MPV 10.3, Immature Gran % (Auto) 0.400, Neut % (Auto) 64.7, Lymph % (Auto) 22.8, [place] % (Auto) 8.7, Eos % (Auto) 2.8, Baso % (Auto) 0.6, Absolute Neuts (auto) 3.4, Nucleated RBC % 0 Rhythm: EKG: ECHO: Stress Test: Cardiac Cath: PCI: CT Surgery: Holter monitor: EPS: PPM: CXR: Chest CT Scan:
--- NOTE | 2022-12-21 12:44 | CL.I_ITS ---
Patient Name: JEANETH MEHTA Study Date: 12/21/2022 Performing: Jameson Aggarwal MD Ht: 72 inches 182.88 cm : 1945 Wt: 232.7 lbs 105.4 kg Age: 77 Gender: male BSA: 2.27 PROCEDURE(S) PERFORMED DC11-(70039)AO ROOT ANGIO WITH HEART CATH IC14-(34100/C9604)GRAFT-MICHELINE AND/OR PTCA, SINGLE GRAFT CLINICAL PROFILE AND CO-MORBIDITIES Indications: Worsening Angina Heart Failure: None Stress/Imaging Stress Test w/SPECT MPI: Yes Result: Positive Stress Test with SPECT MPI: Positive CAD Presentations: Unstable angina. CONCLUSIONS Successful MICHELINE to SVG to OM1 RECOMMENDATIONS DESCRIPTION OF PROCEDURE The patient arrived to the procedure lab. The risks and benefits of the procedure as well as a full description of our services here and current unavailability of surgical backup were fully explained to the patient and/or their significant other prior to the catheterization. The Timeout was completed, verifying the correct patient and procedure. The patient's procedural site was prepped and draped in the usual fashion. Local anesthetic was given subcutaneously to left radial region with Lidocaine 2% Using a modified Seldinger technique,arterial access was obtained via the left radial artery, a 6Fr sheath was inserted. Left internal mammary artery graft to the LAD selective angiography was performed in multiple views using a 5 Fr. IM catheter. Saphenous Vein graft to the OM 1 selective angiography was performed in multiple views using a 5 Fr. AL 1 catheter.The images were reviewed and options discussed. A decision was then made to proceed with an Intervention, IVUS or other adjunct procedure. AL 1 Guide catheter was inserted and engaged into the SVG to the OM 1. BMW Guide wire was advanced to the SVG to OM graft. 3.5 x 12 Emerge Balloon catheter was advanced across lesion in the graft to the OM 1. PTCA balloon inflated at 6 atms for 3 secs. PTCA balloon inflated at 6 atms for 5 secs. 3.5 x 12 Resolute Brayden Drug Eluting stent was advanced across the lesion in the graft to the OM 1. 3.5 x 22 Resolute Commerce Drug Eluting stent was advanced across the lesion in the graft to the OM 1. Angiogram performed post stent deployment. 3.5 x 8 Resolute Brayden Drug Eluting stent was advanced across the lesion in the graft to the OM 1. Angiogram performed post stent deployment. The arterial sheath was pulled and a TR Band was applied for hemostasis INTERVENTION INFORMATION LESION SITE: Vein > to 1st OM Segment Number: 20-First obtuse marginal branch segment - 1st OM , Lesion Location: Body Lesion Complexity: High/C, chronic total occlusion: No, lesion at bifurcation: Yes, thrombus present: No, lesion length: 20 mm, culprit lesion: Yes, Previously treated lesion: No Pre Stenosis: 99 % Pre intervention NICKI flow: 2 PROCEDURE: Drug Eluting Stent with pre dilatation. Post Stenosis: 0 % Post intervention NICKI flow: 3 Lesion Devices: Cordis 6 Fr AL1.0 100cm Guide Catheter [place] .014 190cm BMW Penn Straight Robbi Sci EMERGE MR 3.50x12 BALLOON Medtronic Resolute Commerce RX MICHELINE 3.5x12 Medtronic Resolute Brayden RX MICHELINE 3.5x22 Medtronic Resolute Brayden RX MICHELINE 3.5x08 COMPLICATIONS No Complications PROCEDURE MEDICATIONS Fentanyl 50 mcg IV Versed 1 mg IV Oxygen: 2 L/min via nasal cannula Brilinta 180 mg PO @ 12/21/2022 12:25:42 Heparin given IA 12/21/2022 11:04:23 Heparin 6000 unit(s) IV 12/21/2022 11:48:17 IV Bolus: .9 NaCl 500 ml total 12/21/2022 12:26:11 SUMMARY OF HEMODYNAMIC DATA Time AIR REST ECG 10:39:20 AO 138/53 (82) SA 11:01:23 Signed By Jameson Aggarwal MD On 12/21/2022 12:42:56 Jameson Aggarwal MD
[2022-12-21] MEDS: 0.9% Normal Saline 1,000 ML 125 ML IV ×2 (12:47→20:06)
[2022-12-21] MEDS: Carvedilol 12.5 MG Tablet PO ×2 (13:02→21:32)
[2022-12-21] MEDS: Ranolazine 500 MG Tablet 1000 MG PO ×2 (13:02→21:32)
[2022-12-21] MEDS: amLODIPine 5 MG Tablet PO (13:02)
[2022-12-21] MEDS: Isosorbide Mononitrate 30 MG Tablet PO (13:02)
[2022-12-21] MEDS: Losartan Potassium 50 MG Tablet PO (13:02)
[2022-12-21] MEDS: Pantoprazole Sodium 40 MG Tablet PO (13:02)
[2022-12-21] MEDS: Insulin Glargine-YFGN 100 UNIT/ML Pen 50 UNIT SC (13:07)
--- NOTE | 2022-12-21 13:57 | CL.D_ITS ---
Patient Name: JEANETH MEHTA Study Date: 12/21/2022 Performing: Cosme Hernandez MD Ht: 72 inches 182.88 cm : 1945 Wt: 232.7 lbs 105.4 kg Age: 77 Gender: male BSA: 2.27 PROCEDURE(S) PERFORMED DC02-(03985)LHC/COR DC11-(89220)AO ROOT ANGIO WITH HEART CATH IC14-(72000/C9604)GRAFT-MICHELINE AND/OR PTCA, SINGLE GRAFT CLINICAL PROFILE AND INDICATIONS Indications: Worsening Angina, Worsening Angina Heart Failure: None Stress/Imaging Stress Test w/SPECT MPI: Yes Result: PositiveStress Test with SPECT MPI: PositiveStress/Image Study Performed: No CAD Presentations: Unstable angina. Unstable angina. 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 All pamunkey coronary arteries are occluded. RECOMMENDATIONS Referred for immediate PCI DESCRIPTION OF PROCEDURE The patient arrived to the procedure lab. The risks and benefits of the procedure as well as a full description of our services here and current unavailability of surgical backup were fully explained to the patient and/or their significant other prior to the catheterization. The Timeout was completed, verifying the correct patient and procedure. The patient's procedural site was prepped and draped in the usual fashion. Local anesthetic was given subcutaneously to left radial region with Lidocaine 2%. Using a modified Seldinger technique, arterial access was obtained via the left radial artery, a 6Fr sheath was inserted. Left internal mammary artery graft to the LAD selective angiography was performed in multiple views using a 5 Fr. IM catheter. Saphenous Vein graft to the OM 1 selective angiography was performed in multiple views using a 5 Fr. AL 1 catheter.The arterial sheath was pulled and a TR Band was applied for hemostasis CORONARY ANGIOGRAPHY DOMINANCE: Left Dominant LEFT HEART ASSESSMENT Left Ventricular Ejection Fraction: by Echo 45 % Lateral Hypokinesis - Moderate Depressed Left Ventricular systolic function LEFT MAIN: Severe calcification, Diffusely diseased up to 60 % LEFT ANTERIOR DESCENDING ARTERY: PROX LAD: is occluded CIRCUMFLEX ARTERY: is occluded RIGHT CORONARY ARTERY: PROX RCA: is occluded GRAFTS: PAZ graft to the Mid LAD is patent Saphenous Vein graft to the 2nd OM High-grade lesion within the body of the graft after the previously placed stent and a lesion close to the bifurcation of the anastomotic area. COMPLICATIONS No Complications PROCEDURE MEDICATIONS Fentanyl 50 mcg IV Versed 1 mg IV Oxygen: 2 L/min via nasal cannula Brilinta 180 mg PO @ 12/21/2022 12:25:42 Heparin given IA 12/21/2022 11:04:23 Heparin 6000 unit(s) IV 12/21/2022 11:48:17 IV Bolus: .9 NaCl 500 ml total 12/21/2022 12:26:11 SUMMARY OF HEMODYNAMIC DATA Time AIR REST ECG 10:39:20 AO 138/53 (82) SA 11:01:23 Signed By Cosme Hernandez MD On 12/21/2022 13:56:49 Cosme Hernandez MD
--- NOTE | 2022-12-21 15:34 | CRPHASE1 ---
Patient Communication Former Patient:: Phase II PHII Cardiac Rehab Discussed with Patient:: Yes Guide to Cardiac Rehab Given to Patient:: Yes Cardiac Rehab Facility Choice List Given to Patient:: Yes - pt chooses [facility] Choice Program [facility] CR PHII:: Communication Given to CR, Refer to [facility] Choice Program Other:: Communication Given to CR, With permission faxed order and referral information Refer Phase II Cardiac Rehab:: Yes Sessions:: 36 sessions - 3 days/wk, 12 weeks Cardiac Rehabilitation Info Cardiac Rehabilitation Program Information: Cardiac Rehab The cardiac rehab team at [facility] consists of highly skilled exercise physiologists, nurses, respiratory therapists and physicians working together with you. Our purpose is to help you have a full recovery and achieve the goals you set for yourself. Over the years many of our patients have returned to activities they assumed they would never do again! We can help restore your confidence and motivation to make lifestyle changes that can have a significant impact on your health and quality of life! We can help answer questions and concerns you may have about exercise, lifestyle, medications, diet, stress and anxiety which are common following a hospitalization. WE monitor ECG and vital signs during exercise and discuss your progress with you and report to your physician(s). Cardiac Rehab is proven to help reduce readmissions, improve functional capacity and lower recurrence of problems with your heart. Our Cardiac Rehab program is Certified by the [place] [employer]-Vascular and Pulmonary [employer] (AACVPR) and Accredited by the [place] [employer] through our [facility]. You can contact us at . We invite you to call us with your questions or to get started in our program. If you have other questions or concerns be sure to ask your physician/provider during your follow-up visit. WE look forward to seeing you!
--- NOTE | 2022-12-21 15:35 | CRPH1.INSTRU ---
General Education CAD and cardiac anatomy and function:: Patient communicates acknowledgment Explanation of diagnoses and procedures:: Patient communicates acknowledgment Sign/Symptoms of WI:: Patient communicates acknowledgment Antiplatelet therapy: Patient communicates acknowledgment Proper use of NTG-SL: Patient communicates acknowledgment Emergency procedures and activation of EMS: Patient communicates acknowledgment Compliance of all prescribed medications: Patient communicates acknowledgment
--- NOTE | 2022-12-21 16:54 | STRESSREP ---
Stress Test Report Pharmacologic myocardial perfusion stress test. 77-year-old man with a history of chest pain Resting EKG demonstrates sinus bradycardia with a rate of 58 bpm frequent premature ventricular complex. Resting blood pressure is 144/70 mmHg. 0.4 mg of regadenoson was infused per usual protocol followed by rapid intravenous saline flush injection. Continuous EKG monitoring was performed. The maximum heart rate was 75 bpm which was 52% of max impacted heart rate the maximum workload was 1 metabolic equivalent. At rest there were no ST or T wave changes noted to suggest ischemia and at peak infusion approximately 2 mm of horizontal and downsloping ST depression were noted in leads I to V4 V5 and V6 with 2.[address] elevation in aVR suggestive of ischemia was present. The patient was administered 2 sublingual nitroglycerin with improvement in the chest discomfort as well as the EKG. Myocardial perfusion protocol. 14.8 mCi of technetium 99m sestamibi was injected at rest. 0.4 mg of regadenoson was infused per usual protocol. At peak infusion 44.4 mCi of technetium 99m sestamibi was injected. The test was terminated due to chest discomfort and stress images were not obtained. Perfusion SPECT analysis: The resting images similar demonstrated normal uptake of tracer noted in all areas of the myocardium. Stress images were not obtained due to patient developing chest pain. Conclusion: Incomplete pharmacologic myocardial perfusion stress test with EKG changes as well as clinical angina present.
--- NOTE | 2022-12-21 19:01 | PCM.PN.HOSP ---
Reason for Visit Reason for Visit: Diagnoses Hyperlipidemia, unspecified (12/21/22) Essential (primary) hypertension (12/21/22) Unstable angina (12/21/22) Chest pain, unspecified (12/21/22) Presence of aortocoronary bypass graft (12/21/22) Presence of coronary angioplasty implant and graft (12/21/22) Subjective Subjective Seen and examined today, he underwent a cardiac catheterization which showed occlusive coronary disease in the vein graft to his circumflex artery, this was stented and the patient had no complications. Patient underwent a cardiac catheterization due to an abnormal stress test today-patient had chest pain during the stress test with EKG changes. Patient has no complaints of any chest pain or shortness of breath time of my examination tonight Objective Data Objective Data Vital Signs: Vital Signs Temp Pulse Resp BP Pulse Ox O2 Del Method 98.0 F 58 L 18 137/78 H 100 Room Air 12/21/22 14:59 12/21/22 14:59 12/21/22 14:59 12/21/22 14:59 12/21/22 14:59 12/21/22 15:02 Oxygen Delivery Method Room Air Weight: 105.4 kg Body Mass Index (BMI) 31.5 Intake & Output: Intake and Output for Last 24 Hours 12/19/22 12/20/22 12/21/22 23:59 23:59 23:59 Intake Total 360 / 360 240 / 240 Balance 360 / 360 240 / 240 Lab / Micro Data Result Diagrams: 12/21/22 05:58 12/21/22 05:58 Labs: Laboratory Results - last 24 hr 12/21/22 00:43: POC Glucose 74 12/21/22 01:54: POC Glucose 65 L 12/21/22 05:58: Vitamin B12 141 L 12/21/22 05:58: Sodium 142, Potassium 4.3, Chloride 111 H, Carbon Dioxide 25.0, Anion Gap 6, BUN 30 H, Creatinine 1.51 H, Estim Creat Clear Calc 45.68, Est GFR (MDRD) Af Amer 58 L, Est GFR (MDRD) Non-Af 48 L, BUN/Creatinine Ratio 19.9, Glucose 144 H, Calcium 8.7, Triglycerides 163, Cholesterol 131, LDL Cholesterol 57, VLDL Cholesterol 33, HDL Cholesterol 41, Folate 14.50, TSH 7.74 H 12/21/22 05:58: WBC 5.3, RBC 3.66 L, Hgb 11.8 L, Hct 35.2 L, MCV 96.2 H, MCH 32.2 H, MCHC 33.5, RDW Std Deviation 50.3 H, RDW Coeff of Matthew 14.2, Plt Count 157, MPV 10.3, Immature Gran % (Auto) 0.400, Neut % (Auto) 64.7, Lymph % (Auto) 22.8, [place] % (Auto) 8.7, Eos % (Auto) 2.8, Baso % (Auto) 0.6, Absolute Neuts (auto) 3.4, Absolute Lymphs (auto) 1.21, Nucleated RBC % 0 Physical Exam Const alert, oriented x3, no apparent distress, average body habitus and healthy appearing General Appearance: cooperative, well kempt and well developed Orientation / Consciousness: awake, oriented to person, oriented to place and oriented to time HEENT normocephalic and moist oral mucous membranes Eyes PERRL, EOMs intact bilaterally and conjunctivae normal Neck supple, no JVD, thyroid normal and no carotid bruits General: trachea midline Resp normal respiratory effort, no retractions, no use of accessory muscles and clear to auscultation bilaterally Auscultation: Negative for rales, rhonchi or wheezes Cardio regular rate, regular rhythm, S1 normal heart sound, S2 normal heart sound, no murmurs, no rub and no gallops GI normal to inspection, nondistended, normoactive bowel sounds, soft to palpation, non-tender and non-distended Extremity no clubbing, cyanosis or edema Skin no rashes or lesions noted General Skin Exam: no breakdown Neuro oriented x3, CN's II-XII intact bilaterally, moves all extremities, no focal motor deficits and no sensory deficits noted Sensorium / Orientation: awake, alert, oriented to person, oriented to place and oriented to time Speech: speech normal Psych affect normal Assessment & Plan Assessment/Plan (1) Unstable angina: PLAN: Plan 1. 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
[2022-12-21] MEDS: TICAGRELOR 90 MG TABLET PO (21:32)
[2022-12-21] MEDS: Atorvastatin Calcium 10 MG Tablet PO (21:32)
[2022-12-22 03:56] VITALS: BP 133/75; PULSE 56; RESP 18; TEMP 36.8; O2SAT 100
[2022-12-22 04:19] VITALS: BMI 31.6
[2022-12-22] MEDS: Levothyroxine 150 MCG Tablet PO (05:57)
[2022-12-22 06:01] LABS: Hematocrit 34.4 % (40-54); Hemoglobin 11.3 g/dL (13.0-16.5); Mean Corp Hgb Conc 32.8 g/dL (32-36); Mean Corpuscular Hgb 32.2 pg (27.0-32.0); Mean Platelet Vol. 11.2 fl (6.2-12.0); Platelet Count 153 K/mm3 (150-450); RBC Distribution Width CV 14.4 % (11.6-14.6); RBC Distribution Width SD 52.4 fl (35.1-43.9); Red Blood Count 3.51 M/mm3 (4.6-6.2); White Blood Count 6.9 K/mm3 (4.4-11.0)
[2022-12-22 06:32] LABS: ALB/GLOB Ratio 1.1 RATIO (0.9-2.4); AST(SGOT) 16 U/L (15-37); Alanine Aminotransfer ALT/SGPT 17 U/L (16-61); Albumin, Serum 2.7 g/dL (3.2-5.0); Alkaline Phosphatase 82 U/L (45-117); Anion Gap 5 (5-15); BUN 26 mg/dL (7-18); BUN/Creat Ratio 15.7 RATIO (10-20); Calcium,Total 8.1 mg/dL (8.5-10.1); Chloride 109 mmol/L (98-107); Creatinine, Serum 1.66 mg/dL (0.70-1.30); EST Glomerular Filtration Rate 43 mL/min (>60); Est Glom Filt Rate - Afr Amer 52 mL/min (>60); Estimated Creatinine Clearance 41.55 ml/min; Globulin 2.4 g/dL (2.2-4.2); Glucose 121 mg/dL (74-106); Potassium 4.4 mmol/L (3.5-5.1); Protein, Total 5.1 g/dL (6.4-8.2); Sodium Level 140 mmol/L (136-145)
[2022-12-22 07:48] VITALS: O2SAT 98
--- NOTE | 2022-12-22 08:06 | PN.CARD_ITS ---
Subjective Subjective Seen and evaluated. Objective Data Vital Signs: Vital Signs Temp Pulse Resp BP Pulse Ox O2 Del Method 98.2 F 56 L 18 133/75 H 100 Bi-pap 12/22/22 03:56 12/22/22 03:56 12/22/22 03:56 12/22/22 03:56 12/22/22 03:56 12/22/22 04:00 Oxygen Delivery Method Bi-pap Weight: 232 lb 12.93 oz Body Mass Index (BMI) 31.6 Intake & Output: Intake and Output for Last 24 Hours 12/20/22 12/21/22 12/22/22 23:59 23:59 23:59 Intake Total 360 / 360 1154.58 / 1454.58 1529.58 / 1529.58 Balance 360 / 360 1154.58 / 1454.58 1529.58 / 1529.58 Lab / Micro Data Result Diagrams: 12/22/22 05:15 12/22/22 05:15 Labs: Laboratory Results - last 24 hr 12/21/22 01:54: POC Glucose 65 L 12/21/22 05:58: Vitamin B12 141 L 12/22/22 05:15: WBC 6.9, RBC 3.51 L, Hgb 11.3 L, Hct 34.4 L, MCV 98.0 H, MCH 32.2 H, MCHC 32.8, RDW Std Deviation 52.4 H, RDW Coeff of Matthew 14.4, Plt Count 153, MPV 11.2 12/22/22 05:15: Sodium 140, Potassium 4.4, Chloride 109 H, Carbon Dioxide 26.0, Anion Gap 5, BUN 26 H, Creatinine 1.66 H, Estim Creat Clear Calc 41.55, Est GFR (MDRD) Af Amer 52 L, Est GFR (MDRD) Non-Af 43 L, BUN/Creatinine Ratio 15.7, Glucose 121 H, Calcium 8.1 L, Total Bilirubin 1.50 H, AST 16, ALT 17, Alkaline Phosphatase 82, Total Protein 5.1 L, Albumin 2.7 L, Globulin 2.4, Albumin/Globulin Ratio 1.1 Cardiology Labs/Tests 12/22/22 05:15: WBC 6.9, RBC 3.51 L, Hgb 11.3 L, Hct 34.4 L, MCV 98.0 H, MCH 32.2 H, MCHC 32.8, Plt Count 153, MPV 11.2 12/22/22 05:15: Sodium 140, Potassium 4.4, Chloride 109 H, Carbon Dioxide 26.0, Anion Gap 5, BUN 26 H, Creatinine 1.66 H, Est GFR (MDRD) Af Amer 52 L, Est GFR (MDRD) Non-Af 43 L, BUN/Creatinine Ratio 15.7, Glucose 121 H, Calcium 8.1 L, Total Bilirubin 1.50 H Rhythm: EKG: ECHO: Stress Test: Cardiac Cath: PCI: CT Surgery: Holter monitor: EPS: PPM: CXR: Chest CT Scan: Physical Exam Const alert, oriented x3, no apparent distress, average body habitus and healthy appearing General Appearance: cooperative, well kempt and well developed Orientation / Consciousness: awake, oriented to person, oriented to place and oriented to time HEENT normocephalic and moist oral mucous membranes Eyes PERRL, EOMs intact bilaterally and conjunctivae normal Neck supple, no JVD, thyroid normal and no carotid bruits General: trachea midline Resp normal respiratory effort, no retractions, no use of accessory muscles and clear to auscultation bilaterally Auscultation: Negative for rales, rhonchi or wheezes Cardio regular rate, regular rhythm, S1 normal heart sound, S2 normal heart sound, no murmurs, no rub and no gallops GI normal to inspection, nondistended, normoactive bowel sounds, soft to palpation, non-tender and non-distended Extremity no clubbing, cyanosis or edema Skin no rashes or lesions noted General Skin Exam: no breakdown Neuro oriented x3, CN's II-XII intact bilaterally, moves all extremities, no focal motor deficits and no sensory deficits noted Sensorium / Orientation: awake, alert, oriented to person, oriented to place and oriented to time Speech: speech normal Psych affect normal Assessment & Plan Assessment/Plan (1) Unstable angina: PLAN: He presented with unstable angina and underwent a cardiac catheterization which demonstrated high-grade lesion in the saphenous vein graft to the obtuse marginal vessels for which he underwent urgent PCI and stenting. He is curre ntly doing better. The plan is for him to continue the current medical therapy. He should start cardiac rehab (2) History of coronary artery stent placement: PLAN: Previously underwent PCI of the body of the saphenous vein graft. As noted above in the report. (3) H/O coronary artery bypass surgery: PLAN: Status post coronary bypass graft surgery with a PAZ to the LAD and a saphenous vein graft to obtuse marginal branch (4) Essential (primary) hypertension: PLAN: He does have a history of hypertension. His blood pressure will be aggressively controlled on the current medical therapy. (5) HLD (hyperlipidemia): QUALIFIERS: Hyperlipidemia type: unspecified Qualified Code(s): E78.5 - Hyperlipidemia, unspecified PLAN: He will continue with aggressive risk factor modification.
[2022-12-22 08:24] VITALS: BP 171/82; PULSE 64; RESP 16; TEMP 36.3; O2SAT 97
[2022-12-22] MEDS: TICAGRELOR 90 MG TABLET PO (08:28)
[2022-12-22] MEDS: Insulin Glargine-YFGN 100 UNIT/ML Pen 50 UNIT SC (08:28)
[2022-12-22] MEDS: Carvedilol 12.5 MG Tablet PO (08:28)
[2022-12-22] MEDS: Losartan Potassium 50 MG Tablet PO (08:28)
[2022-12-22] MEDS: Aspirin E.C. 81 MG Tablet PO (08:28)
[2022-12-22] MEDS: Pantoprazole Sodium 40 MG Tablet PO (08:29)
[2022-12-22] MEDS: amLODIPine 5 MG Tablet PO (08:30)
[2022-12-22] MEDS: Isosorbide Mononitrate 30 MG Tablet PO (08:30)
[2022-12-22] MEDS: Ranolazine 500 MG Tablet 1000 MG PO (08:31)
--- NOTE | 2022-12-22 10:00 | EKG12_ITS ---
Test Reason : CHEST PAIN FOLLOW UP Blood Pressure : / mmHG Vent. Rate : 052 BPM Atrial Rate : 052 BPM P-R Int : 230 ms QRS Dur : 102 ms QT Int : 478 ms P-R-T Axes : 039 -25 121 degrees QTc Int : 444 ms Sinus bradycardia with 1st degree A-V block Nonspecific ST and T wave abnormality Abnormal ECG When compared with ECG of 20-DEC-2022 09:26, MANUAL COMPARISON REQUIRED, DATA IS UNCONFIRMED Confirmed by VICKEY SWENSON, GISELA ([id number]), newspaper editor managing FIDEL TRINIDAD ([id number]) on 12/22/2022 1:19:25 PM Referred By: BELÉN Confirmed By:LINDA HURD MD
--- NOTE | 2022-12-22 10:15 | CASEMGMT ---
RN FARNAZ Face to Face with patient for initial transition planning/care coordination assessment. RN CM introduced self and role at [facility]. Patient lying in bed, alert and oriented. Patient willing to participate in assessment and is able to answer all questions appropriately. Care providers, pharmacy, and demographics verified. Patient wishes to discharge home, denies need for home health at this time. Patient states he has no further needs or concerns at this time. CM to follow for discharge planning needs that may arise. PCP: Katherine Specialists: Mary, neurology tech; Huan, brush hand; Genesis, security analyst; Yasmeen, nephrology; Will, urologist Preferred Pharmacy: [facility] Insurance: [employer] Prescription Benefit: yes, Brilinta savings card provided to patient Living Will/HPOA: none, interested in completing LNOK: Living Arrangements: Patient lives with in a single story home with ramp to enter. Patient is independent at home. Transportation: self, DME/HHC: Patient has shower chair, raised toilet, crutches, grab bars, walker, rollator, bipap and pulse ox at home. No previous HHC or SNF. Disposition Plan: Patient to discharge home with family support and follow-up plans in place. Jane GIORDANO, RN, CM
--- NOTE | 2022-12-22 12:01 | DCINST_ITS ---
Discharge Instructions Diet Discharge Diet: No restrictions Activity Discharge Activity: Return to Normal Activity Weight Bearing Status: Full weight bearing Follow Up Care Test Results: Test results from this visit will be discussed in further detail at your follow- up appointment, if applicable. Discharge Plan Admission Admit Date/Time: 12/21/22 16:54 Primary Reason for Your Visit: unstable angina Attending Provider: Tyrone Garcia Primary Care Provider: Jeannie Murphy Consulting Providers: Danyel Wood Discharge Orders/Prescriptions Prescriptions: New Brilinta 90 mg Tablet 90 mg PO BID Qty: 60 0RF Continued Eylea 2 mg/0.05 mL solution 2 mg INTRAVIT Q12W nitroglycerin 0.4 mg tablet, sublingual 0.4 mg SUBLINGUAL Q5-15M PRN (Reason: Chest Pain) Qty: 25 4RF amlodipine 5 mg tablet 5 mg PO DAILY Qty: 180 3RF aspirin 81 MG tablet 81 mg PO DAILY@0800 Label Comments: ANTIPLATELET simvastatin 20 mg tablet 20 mg PO QHS Levemir FlexPen 100 unit/mL (3 mL) insulin pen 50 unit SC DAILY levothyroxine 150 mcg Tablet 150 mcg PO DAILY acetaminophen 500 mg Tablet 500 mg PO BID losartan 50 mg tablet 50 mg PO DAILY carvedilol 12.5 mg tablet 12.5 mg PO BID Qty: 60 11RF Rx Instructions: must administer with a meal/food ranolazine 1,000 mg tablet extended release 12 hr 1,000 mg PO BID Qty: 180 3RF isosorbide mononitrate 30 mg tablet extended release 24 hr 30 mg PO DAILY Qty: 30 6RF Referrals / Follow Up: Jeannie Murphy MD [Primary Care Provider] - 12/25/22 10:40 am Cosme Hernandez MD [Med Staff - Active Staff] - See Referral Note (as scheduled) Disposition Disposition (needs filled in before D/C Order can be placed): Home, Self Care
--- NOTE | 2022-12-22 12:05 | DS.PCM_ITS ---
Providers Date of Admission: 12/21/22 Date of Discharge: 12/22/22 Primary Care Physician: Dr. Jeannie Murphy MD Reason For Visit: ATYPICAL CHEST PAIN Diagnosis Discharge Diagnosis (1) Unstable angina: Status: Acute Code(s): I20.0 - Unstable angina (2) History of coronary artery stent placement: Status: Resolved Code(s): Z95.5 - Presence of coronary angioplasty implant and graft (3) H/O coronary artery bypass surgery: Status: Resolved Code(s): Z95.1 - Presence of aortocoronary bypass graft (4) Essential (primary) hypertension: Status: Chronic Code(s): I10 - Essential (primary) hypertension (5) HLD (hyperlipidemia): Status: Chronic Code(s): E78.5 - Hyperlipidemia, unspecified Qualifiers: Hyperlipidemia type: unspecified Qualified Code(s): E78.5 - Hyperlipidemia, unspecified Plan 1. Unstable angina-status post MICHELINE to circumflex graft-patient appears stable at this time, he will remain on his present medications #2 occlusive coronary disease-again patient had MICHELINE inserted into his circumflex graft, continue present medications #3 essential hypertension-patient is to remain on his present medications #4 hyperlipidemia-patient will remain on his statin #5 type 2 diabetes-patient's blood sugars will be monitored, he will remain on his home insulin, sliding scale insulin will be used per scale #6 hypothyroidism-patient is on Synthroid #7 chronic kidney disease stage IIIb secondary to type II diabetes-BMP will be repeated tomorrow Total clinical time spent by myself addressing patient's medical issues, reviewing all of his data, and collaborating with patient's care team: 35 minutes Medications at Discharge Home Medications aspirin 81 mg tablet,delayed release 81 mg PO DAILY@0800 [facility] 05/22/13 aflibercept 2 mg/0.05 mL intravitreal solution for injection (Eylea) 2 mg intravitreal Q12W [facility] 07/15/20 insulin detemir U-100 100 unit/mL (3 mL) subcutaneous pen (Levemir FlexPen) 50 unit subcut DAILY diabetes 10/17/20 levothyroxine 150 mcg tablet 150 mcg PO DAILY thyroid 08/30/21 losartan 50 mg tablet 50 mg PO DAILY blood pressure 10/03/21 carvedilol 12.5 mg tablet 12.5 mg PO BID #60 tabs 01/13/22 nitroglycerin 0.4 mg sublingual tablet 0.4 mg sublingual Q5-15M PRN Chest Pain #25 tabs 01/29/22 simvastatin 20 mg tablet 20 mg PO QHS Cholesterol 01/29/22 ranolazine 1,000 mg tablet,extended release,12 hr 1,000 mg PO BID Chest Pain #180 tabs 02/02/22 amlodipine 5 mg tablet 5 mg PO DAILY #180 tabs 07/22/22 isosorbide mononitrate 30 mg tablet,extended release 24 hr 30 mg PO DAILY #30 tabs 12/17/22 acetaminophen 500 mg tablet 500 mg PO BID PAIN 12/20/22 ticagrelor 90 mg tablet (Brilinta) 90 mg PO BID #60 tabs 12/22/22 Hospital Course Operations None Procedures Cardiac catheterization (MICHELINE inserted into the vein graft to the circumflex artery) and Nuclear stress test Summary of Care Provided Minutes Spent on Discharge: 32 Hospital Course: 77-year-old white male was seen in the emergency room at [facility] with a chief complaint of chest pain over 3 days prior. Patient had been to the emergency room previously and had 2 troponins which were negative and there is no significant EKG changes and patient was not admitted. Patient returned several hours later with complaints of pain over his lower xiphoid/epigastric area that moves forward to the throat and neck and out to his shoulder and arms. Patient had a previous history of coronary artery disease with coronary artery bypass and stent placement previously. Work-up in the emergency room included troponin which was unremarkable, EKG shows sinus bradycardia 57 with a first-degree block and no acute changes from previous EKG. There were frequent PVCs noted. Patient was admitted to PCU for unstable angina, cardiac medications were continued and he was seen in consultation by cardiology. Patient underwent an exercise stress test but had EKG changes during the stress test as well as clinical angina, stress test was stopped and the patient was given sublingual nitroglycerin, he was then taken for a cardiac catheterization which showed occlusive coronary disease in the saphenous vein graft to the circumflex artery. A MICHELINE was placed and the patient returned to PCU, he had no untoward events after the procedure or during his hospitalization. His cardiac medications were adjusted. On 12/22/2022, patient was seen and examined: On examination he appeared in good health and spirits. Vital signs as documented. Skin warm and dry and without overt rashes. Neck without JVD, neck was supple, trachea midline, thyroid was normal. Lungs clear bilaterally, normal air movement was noted. Heart exam notable for regular rhythm, normal sounds and absence of murmurs, rubs or gallops. Abdomen unremarkable and without evidence of organomegaly, masses, or abdominal aortic enlargement. Bowel sounds are present, abdomen is not distended. Extremities nonedematous, no cyanosis was noted, no clubbing was noted. Neuro: Cranial nerves II through XII are grossly intact, no focal motor deficits were noted, sensation to light touch and pinprick intact, motor exam 5/5 throughout. Psych: Patient is alert and oriented x3, he does not appear anxious or depressed, he does not appear agitated. Patient was felt to be stable for discharge home on 12/22/2022. Weight / BMI Weight Weight: 105.6 kg Body Mass Index (BMI) 31.6 ABG / Lab / Microbiology Data Result Diagrams: 12/22/22 05:15 12/22/22 05:15 Laboratory: Laboratory Results - last 24 hr 12/21/22 01:54: POC Glucose 65 L 12/22/22 05:15: WBC 6.9, RBC 3.51 L, Hgb 11.3 L, Hct 34.4 L, MCV 98.0 H, MCH 32.2 H, MCHC 32.8, RDW Std Deviation 52.4 H, RDW Coeff of Matthew 14.4, Plt Count 153, MPV 11.2 12/22/22 05:15: Sodium 140, Potassium 4.4, Chloride 109 H, Carbon Dioxide 26.0, Anion Gap 5, BUN 26 H, Creatinine 1.66 H, Estim Creat Clear Calc 41.55, Est GFR (MDRD) Af Amer 52 L, Est GFR (MDRD) Non-Af 43 L, BUN/Creatinine Ratio 15.7, Glucose 121 H, Calcium 8.1 L, Total Bilirubin 1.50 H, AST 16, ALT 17, Alkaline Phosphatase 82, Total Protein 5.1 L, Albumin 2.7 L, Globulin 2.4, Albumin/Globulin Ratio 1.1 D/C Instructions Discharge Diet: No restrictions Weight Bearing Status: Full weight bearing Meaningful Use Info Meaningful Use Diagnoses (Choose all that apply): None applicable Discharge Plan Admission Admit Date/Time: 12/21/22 16:54 Primary Reason for Your Visit: unstable angina Attending Provider: Tyrone Garcia Primary Care Provider: Jeannie Murphy Consulting Providers: Danyel Wood Instructions Additional Instructions / Restrictions: Patient Problems: Altered Health Status related to Hospitalization Patient Goals: *Optimal Level of Health *Keep Appointments *Medication Compliance *Remain Safe Discharge Orders/Prescriptions Prescriptions: New Brilinta 90 mg Tablet 90 mg PO BID Qty: 60 0RF Continued Eylea 2 mg/0.05 mL solution 2 mg INTRAVIT Q12W nitroglycerin 0.4 mg tablet, sublingual 0.4 mg SUBLINGUAL Q5-15M PRN (Reason: Chest Pain) Qty: 25 4RF amlodipine 5 mg tablet 5 mg PO DAILY Qty: 180 3RF aspirin 81 MG tablet 81 mg PO DAILY@0800 Label Comments: ANTIPLATELET simvastatin 20 mg tablet 20 mg PO QHS Levemir FlexPen 100 unit/mL (3 mL) insulin pen 50 unit SC DAILY levothyroxine 150 mcg Tablet 150 mcg PO DAILY acetaminophen 500 mg Tablet 500 mg PO BID losartan 50 mg tablet 50 mg PO DAILY carvedilol 12.5 mg tablet 12.5 mg PO BID Qty: 60 11RF Rx Instructions: must administer with a meal/food ranolazine 1,000 mg tablet extended release 12 hr 1,000 mg PO BID Qty: 180 3RF isosorbide mononitrate 30 mg tablet extended release 24 hr 30 mg PO DAILY Qty: 30 6RF Referrals / Follow Up: Jeannie Murphy MD [Primary Care Provider] - 12/25/22 10:40 am Cosme Hernandez MD [Med Staff - Active Staff] - 01/12/23 4:00 pm (Appointment is with Ben [facility]ck N.P[facility] Disposition Disposition (needs filled in before D/C Order can be placed): Home, Self Care Charges/Coding Visit Charges Inpatient E&M: 35649 Disch Hosp >30min
[2022-12-22 12:16] VITALS: BP 171/82; PULSE 64; RESP 16; TEMP 36.3; O2SAT 97
--- NOTE | 2022-12-22 12:31 | PHA.DC.MC ---
Pharmacy Service has performed discharge medication reconciliation and counseling for this patient. 1. TICAGRELOR 90MG PO BID The patient's discharge medication list was reviewed for discrepancies and discrepancies were resolved. Home Medications aspirin 81 mg tablet,delayed release 81 mg PO DAILY@0800 [facility] 05/22/13 aflibercept 2 mg/0.05 mL intravitreal solution for injection (Eylea) 2 mg intravitreal Q12W 07/15/20 insulin detemir U-100 100 unit/mL (3 mL) subcutaneous pen (Levemir FlexPen) 50 unit subcut DAILY 10/17/20 levothyroxine 150 mcg tablet 150 mcg PO DAILY 08/30/21 losartan 50 mg tablet 50 mg PO DAILY 10/03/21 carvedilol 12.5 mg tablet 12.5 mg PO BID #60 tabs 01/13/22 nitroglycerin 0.4 mg sublingual tablet 0.4 mg sublingual Q5-15M PRN Chest Pain #25 tabs 01/29/22 simvastatin 20 mg tablet 20 mg PO QHS Cholesterol 01/29/22 ranolazine 1,000 mg tablet,extended release,12 hr 1,000 mg PO BID Chest Pain #180 tabs 02/02/22 amlodipine 5 mg tablet 5 mg PO DAILY #180 tabs 07/22/22 isosorbide mononitrate 30 mg tablet,extended release 24 hr 30 mg PO DAILY #30 tabs 12/17/22 acetaminophen 500 mg tablet 500 mg PO BID PAIN 12/20/22 ticagrelor 90 mg tablet (Brilinta) 90 mg PO BID #60 tabs 12/22/22 The patient was counseled on the following discharge medications and changes in medications for homegoing were reviewed. The Reason for Use, instructions for use, and potential side effects were reviewed for all new medications. The patient's questions regarding all of their medications were answered. The patient was able to verbally demonstrate an understanding of their discharge medications.
== END 2022-12-22 13:17 | disposition home or self-care (01) | DRG 247 ==
LOC: ED 10:30 → PCU 11:49
PROVIDERS: Specialist; Admitting Provider Internal Medicine; Emergency Provider Emergency Medicine; PCP Internal Medicine; Visit Provider Internal Medicine
DX: I25.110 Atherosclerotic heart disease of native coronary artery with unstable angina pectoris (principal); D63.8 Anemia in other chronic diseases classified elsewhere; E11.22 Type 2 diabetes mellitus with diabetic chronic kidney disease; E03.9 Hypothyroidism, unspecified; D50.0 Iron deficiency anemia secondary to blood loss (chronic); E66.9 Obesity, unspecified; Z79.4 Long term (current) use of insulin; N18.32 Chronic kidney disease, stage 3b; E78.00 Pure hypercholesterolemia, unspecified; I12.9 Hypertensive chronic kidney disease with stage 1 through stage 4 chronic kidney disease, or unspecified chronic kidney disease; I44.0 Atrioventricular block, first degree; K21.9 Gastro-esophageal reflux disease without esophagitis; I25.2 Old myocardial infarction; K29.70 Gastritis, unspecified, without bleeding; Z87.891 Personal history of nicotine dependence; Z95.5 Presence of coronary angioplasty implant and graft; Z79.82 Long term (current) use of aspirin; Z86.16 Personal history of COVID-19; Z95.1 Presence of aortocoronary bypass graft; Z79.899 Other long term (current) drug therapy; Z79.890 Hormone replacement therapy; I49.3 Ventricular premature depolarization; Z68.32 Body mass index [BMI] 32.0-32.9, adult
CPT/HCPCS: 36415; 71045; 78452; 80048; 80053; 80061; 80076; 82607; 82746; 82962; 83735; 84443; 84484; 85025; 85027; 92937; 93005; 93017; 93455; 93567; 94668; 99152; 99153; 99283; 99285; A9500; C1894; J7030; J7040; Q9967; A4216; C1725; C1769; C1874; C1887; C9604; J1327; J2785

== ENCOUNTER → 2023-01-04 | Outpatient (CLI) | payer MEDICARE, SELFPAY ==
--- NOTE | 2023-01-04 13:55 | PCM.CR.HP2 ---
CR - History & Physical - General Arrival date:: 01/04/23 - t Arrival time:: 13:55 Date of Referral:: 12/23/22 Date of CR Evaluation:: 01/04/23 Referring Physician: Dr. Cosme Hernandez Primary Diagnosis: PCI with coronary stent - History of Present Cardiac Event Onset Date: Enter Onset Date of cardiac illnesses in Comment field below PTCA or coronary stenting:: Yes - 12/21/22 to circumflex graft - Sleep Disorder Evaluation Hx of Sleep Apnea: Yes Do you snore loudly (louder than talking or can be heard through closed doors)?: No Do you often feel tired/ fatigued/ sleepy during daytime?: No Has anyone observed you stop breathing during sleep?: No History of Hypertension (for STOP score): Yes STOP Results: Negative - Medications Home Medications: Ambulatory Orders Medication Instructions Recorded aspirin 81 mg tablet,delayed 81 mg PO DAILY@0800 [facility] 05/22/13 release aflibercept 2 mg/0.05 mL 2 mg intravitreal Q12W eye [facility] 07/15/20 intravitreal solution for injection (Eylea) insulin detemir U-100 100 unit/mL 50 unit subcut DAILY diabetes 10/17/20 (3 mL) subcutaneous pen (Levemir FlexPen) levothyroxine 150 mcg tablet 150 mcg PO DAILY thyroid 08/30/21 losartan 50 mg tablet 50 mg PO DAILY blood pressure 10/03/21 carvedilol 12.5 mg tablet 12.5 mg PO BID #60 tabs 01/13/22 nitroglycerin 0.4 mg sublingual 0.4 mg sublingual Q5-15M PRN Chest 01/29/22 tablet Pain #25 tabs simvastatin 20 mg tablet 20 mg PO QHS Cholesterol 01/29/22 ranolazine 1,000 mg 1,000 mg PO BID Chest Pain #180 02/02/22 tablet,extended release,12 hr tabs amlodipine 5 mg tablet 5 mg PO DAILY #180 tabs 07/22/22 isosorbide mononitrate 30 mg 30 mg PO DAILY #30 tabs 12/17/22 tablet,extended release 24 hr acetaminophen 500 mg tablet 500 mg PO BID PAIN 12/20/22 ticagrelor 90 mg tablet (Brilinta) 90 mg PO BID #60 tabs 12/22/22 - Allergies Allergies/Adverse Reactions: Allergies lisinopril Adverse Reaction (Intermediate, Verified 12/20/22 09:13) COUGH Advanced Directives - Advanced Directives Power of Web Administrator: No Living Will: No Advance Directives Information Provided: No Advance Directives on File: No DNR Order?:: No Past Medical History - Covid-19 Screening 65 years or older:: Yes Has a serious heart condition:: Yes - Past Medical Illness Medical History: Past Medical History (Last Reviewed 12/21/22 @ 13:[address] 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 Onset Date: 05/08/19 H34.8122 Chronic anemia D64.9 Chronic kidney disease (CKD) N18.9 COVID U07.1 2021-mild symptoms Diabetes mellitus E11.9 Essential (primary) hypertension I10 History of non-ST elevation myocardial infarction (NSTEMI) Onset Date: 10/24/19 I25.2 HLD (hyperlipidemia) E78.5 Hypothyroidism E03.9 Iron deficiency anemia due to chronic blood loss D50.0 Occlusion and stenosis of bilateral carotid arteries I65.23 Renal calculi N20.0 - Past Surgical History Surgical History: Past Surgical History (Last Updated 12/23/22 @ 17:18 by Rina Olivia) H/O coronary artery bypass surgery Onset Date: 04/1998 Z95.1 CABG x 2 PAZ-LAD, SVG-OM Apr 1998 History of bilateral cataract extraction Z98.41, Z98.42 History of colonoscopy Onset Date: ~08/2019 Z98.890 History of coronary artery stent placement Onset Date: 12/21/22 Z95.5 [id number] w/ 4.0 x 15 mm Stent 01/22/15 History of esophagogastroduodenoscopy (EGD) Onset Date: ~10/2019 Z98.890 History of left heart catheterization Onset Date: 10/24/19 Z98.890 10/24/2019 Patent saphenous vein graft to the circumflex artery. Presumed patent PAZ to the LAD. Preserved ejection fraction. Surgical History: - - CABG, lithotripsy - Family History Summary Family History: Family History (Last Reviewed 12/21/22 @ 13:[address] Cosme Hernandez MD) Father Diabetes Mother Cancer Lung cancer Brother CAD (coronary artery disease) HLD (hyperlipidemia) Myocardial infarction Sister Myocardial infarction CAD (coronary artery disease) Hypertension HLD (hyperlipidemia) Sister Diabetes Daughter Arthritis Son Arthritis Brother Myocardial infarction Social History - Smoking History Smoking Status: Former smoker Years Smokin Packs Smoked per Day: 1 Hx Smoking Cessation Date: 08/16/79 - Alcohol Use Alcohol Usage: Yes - holidays and special occasions - Substance Abuse Hx Substance Use: No - Occupation Occupation (List type of work in comments):: Retired - Hobbies, Recreation, Social Activities Hobbies: Other - hunting and fishing Recreational Activities: I am able to engage in all my recreational activities Social Environment - Status Marital Status: - Current Living Arrangements Living Environment:: Spouse - Children How many children do you have?: 3 Do any of your children live nearby?: Yes - Safety Do you feel safe in your surroundings?: Yes - Assistance Do you need any assistance at home?: no Review of Systems - Review of Systems Hints: Right click = Denies (Slash). Left click = Reports ([place]) Review of Present Symptoms: Reports: Appetite - Normal, Sleep - Normal. Denies: Shortness of Breath at Rest, Shortness of Breath with Exertion, PVD, Operative Discomfort, Angina, Wound Healing, Dizziness/Lightheadedness, Fatigue, Heart Arrhythmia/Irregularities, Appetite - Special Diet, Sexual Changes - Pain Is Patient Pain Free?: Yes Risk Factor Assessment - Vital Signs Pulse Ox: 98 Blood Pressure: 133/75 - Pulse Pulse Rate: 56 - Diabetes Diabetic History: Type II Nutrition Referral for Diabetes: No - Obesity Height: 6 ft Weight:: 105.233 kg Weight in Pounds: 232.0 lbs Body Mass Index (BMI): 31.4 Nutritional Referral for Obesity: No - pt declines - Physical Inactivity Physical Inactivity: Reg Exercise 30 min/day - Risk Stratification Risk Guidelines: Lowest Risk: Risk Factor for Smoking, Moderate Risk: Risk Factor for Sedentary Lifestyle, Risk Factor for Depression, Highest Risk: Risk Factor for Dyslipidemia, Risk Factor for Diabetes, Risk Factor for Obesity, Risk Factor for Hypertension - Family History Family History: Family History (Last Reviewed 12/21/22 @ 13:[address] Cosme Hernandez MD) Father Diabetes Mother Cancer Brother CAD (coronary artery disease) HLD (hyperlipidemia) Myocardial infarction Sister Myocardial infarction CAD (coronary artery disease) Hypertension HLD (hyperlipidemia) Sister Diabetes Daughter Arthritis Son Arthritis Brother Myocardial infarction Motivation - Motivation to Participate On a scale of 1 to 10, how prepared are you to commit to attending program?: 7 What do you see as barriers to successfully being able to complete the program?: nothing What do you see as the benefits of succesfully completing the program? In other words, what do you hope to get out of participating in the program?: more energy, stronger Are there issues you are dealing with that will interfere with completing the program?: Doctor appointments Do you have a spouse or signficant other, family or friends who will help support you to complete the program?: yes
[2023-01-04 15:03] VITALS: BP 133/75; PULSE 56; O2SAT 98; BMI 31.4
--- NOTE | 2023-01-04 15:03 | PCM.CR.ITP ---
Diagnosis - General Information Admitting Diagnosis: PCI with coronary stent Personal Learning Style:: Audio/Visual, Demonstration, Group, Individual Preference, Written Stage of change r/t lifestyle modifications:: Contemplation Gave educational material for:: Treating Heart Disease, Emotions & Heart Disease, Stress Management & Relaxation, Sleep Disorders & Heart Disease, How The Heart Works, What it means to have Heart Disease, How Coronary Artery Disease is Diagnosed, Heart Procedures, What Heart Medications Do, Risk Factors & Modifications, Living an Active Life, Nutrition - Education/Goals Cardiac Rehabilitation Goals: 1. Maintain the individual as the primary focus of care. 2. To improve the patient's quality of life. 3. Identification of cardiac risk factors and provide cardiac risk factor management. 4. Enhance the psychosocial status of the patient. 5. Reconditioning enough to allow the patient to resume customary activities. 6. Control symptoms of cardiac disease Personal Goals: Initial Assessment: Improve energy level, Improve muscle strength and endurance, Improve diet and eating habits (eat healthier), Control risk factors (learn risk factor modification) Scale for measuring improvement of personal goals: Enter appropriate number in Comments. 2 = Unchanged. 3 = Slightly Better. 4 = Moderate Improvement. 5 = Met my Goal - Diagnosis & Disease Process Outcomes/Goals: Pt IDs own risk factors & lifestyle modifications by Session 10, Verbalizes symptoms of angina & response by session 3., Pt independently manages, Other Additional Outcomes/Goals: Plan/Interventions: Assist Pt to ID & engage in lifestyle modification to reduce CVD risk, Instruct on individual risk factors, Review symptoms of angina & emergency actions, Review secondary diagnosis & identify educational needs., Other see comment 30 day Reassessments:: Not Met 30 day Reassessments:: Not Met 30 day Reassessments:: Not Met 30 day Reassessments:: Not Met Final Reassessments:: Not Met - Safety Referral to Physical Therapy: No Referral to [facility] Case Management: No Fall Risk Assessed:: Yes Assistive Devices:: None Exercise - Initial Assessment - Visit Date of Eval: 01/04/23 - initial eval Mets: Pre-: >3 METS for 30 minutes by discharge, >5 METS for 30 minutes by discharge, >7 METS for 30 minutes by discharge, Unable to meet goal due to: (see comment below) - Physician Prescribed Exercise Modalities: Treadmill, Rower, Airdyne, NuStep, SciFit, Lateral [place] Frequency: 3x/week for 12 weeks [36 sessions] Intensity: 60-80% of age predicted maximum heart rate reserve Current METSs:: 3 Target Heart Rate:: 94-108 Resting Blood Pressure: 133/75 EKG Type: SB with 1st degree AV block - Outcomes & Goals Goals:: Verbalizes understanding of THR, RPE & goal METS by session 6, Documents in home exercise log/reports 30 min aerobic 5 day/wk by DC, Demonstrates accurate pulse taking by DC, Other additional outcome/goals: see below - Intervention & Plan Exercise Program Goals: Instruct on personal THR & RPE, Instruct on MET level & personal MET goal, Show patient to take own pulse /validate performance until accurate, Instruct on home exercise, Other additional plan/int - Physical Activity Home Exercise Physical Activity - Home Exercise: Safe Exercise, Warm-up, Self-monitoring, Cool-Down, Home Exercise > 30 min Daily, Sitting Time <3 hours/daily - Intervention & Plan Plan/Intervention: Instruct warm-up & cool-down if exercising at > 2 METs, Instruct on symptoms of exercise intolerance & actions to take, Instruct & monitor on saf, Assess intial functional capacity & safety risk, Other See below Nutrition - Initial Assessment - Program Goals Nutrition Program Goals: LDL <100 optimal. 100 - 129 Near optimal. 130 - 159 Borderline High. 160 - 189 High. Total Cholesterol <200 desirable. 200 - 239 Borderline High. >/= 240 High. HDL < 40 Low >/=60 High. Triglycerides <150 desirable. <199 optimal. VlDL 5 - 40. HgbA1C <7%. BMI <25 Patient has diagnosis of Hyperlipidemia (ICD E78)?: Yes - Visit Date of Assessment:: 01/04/23 - initial eval - Cholesterol/Lipids (Other Core Measures) Determine presence & major risk factors that modify LDL goal: Cigarette smoking, Hypertension or hypertensive medication, Low HDL cholesterol <40 mg/dL*, Family history of premature CHD in Male < 55 years: female <65 yearsFa, Age men > 45 years; women >/= 55 years Outcomes/Goals: Pt IDs own risk factors & lifestyle modifications by Session 10, Verbalizes symptoms of angina & response by session 3., Pt independently manages, Other Additional Outcomes/Goals: Intervention/Plan: Advocate for lipid panel cholesterol medication if applicable, Instruct on personal lipid levels & lipid goals/NCEP guidelines, Instruct on cholesterol, Other additional plan/int Referral to dietitian:: No - declines - Diabetes (Other Core Measures) Diabetes Type: Diagnosis Type II ICD-10 E11 Insulin dependent injection/pump?: Yes Outcomes/Goals:: Able to state symptoms of, Able to state, Able to state, Other additional Intervention/Plan:: Instruct on, Refer to, Instruct on, Other - Weight Mgt (Other Care) Height: 6 ft Weight:: 105.233 kg BMI: 31.4 Diagnosis Overweight/Obesity BMI> 30% ICD-10 E66: Yes Diagnosis High BMI/Morbid Obesity BMI> 35% ICD-10 Z68: No Outcomes/Goals: Pt sets, maintains & shows weight loss goal & trend during rehab, Other additional outcomes/goals Intervention/Plan: Instruct on ideal BMI & set weight loss goal w/patient, Assist pt to ID & incorporate diet changes for weight loss by S9, Refer to Structured Weight Loss program as appropriate, Encourage goal of using 250-300dcal per session for weight loss, Other additional plan/interventions - Healthy Eating Habits Will attend diet classes:: Yes Outcomes/Goals:: Consume diet rich in vegs,fruits,whole grain/high fiber,fish,lean meat, Limit sat/trans fats,cholesterol & added salts & sugars, Other additional outcome/goals: Intervention/Plan:: Assess current eating habits, Other Additional plan/interventions - Education Gave educational materials for:: Signs & symptoms of hypoglycemia, Signs & symptoms of hyperglycemia, Relate diabetes to coronary artery disease Nutrition - 30-Day Assessment Nutrition - 60-Day Assessment Nutrition - 90-Day Assessment Nutrition - Final Assessment Core - Initial Assessment - Visit Date of Eval: 01/04/23 - initial eval - Medication Compliance Preventative Medication(s):: Aspirin, Statin/lipid, Beta jolly, Eliquis H/O mental health issues: depression, anxiety, or addiction?: No Doesn?t believe in the benefits of treatment?: No Believes medications are unnecessary or harmful?: No Has a concern about medication side effects?: No Expresses concern over the cost of medications?: No Outcomes/Goals: Verbalizes medications,desired effect & common side effects @ DC, Pt self-reports following medication regimen, Keeps card in wallet w/medications listed by DC, Other additional outcome/goals: Interventions/plans: Instruct on medication effects & side effects, Review medication list w/patient every two weeks, Instruct importance of taking meds as ordered & assist problem solving, Other additional - Tobacco Use Tobacco Use: Non-smoker Do you use smokeless tobacco?: No - Hypertension Hypertension Diagnosis:: Hypertension ICD-10 I10 Resting Blood Pressure:: 133/75 [place] [employer] Hypertension Guidelines: [place] [employer] Hypertension Guidelines. Normal BP Less than 120/80. Elevated BP 120/80. Hypertension Stage 1: BP 130-139/80-89. Hypertesnion Stage 2: BP 140 or higher/90 or higher. Hypertension Crisis: BP higher than 180/120 Outcomes/Goals: Able to verbalize/achieve optimal blood pressure <130/80, Incorporates diet changes & exercise for blood pressure control by DC, Other additional outcomes/goals Interventions/plan: Instruct on optimal blood pressure, hypertension & medications, Instruct on effects of sodium, alcohol, stress, exercise &hypertension, Other additional plan/interventions - Tobacco Cessation Referral Smoking Cessation Referral:: No Individual Education/Counseling:: No Education Schedule Given:: Yes Core - 30-Day Assessment Core - 60-Day Assessment Core - 90 Day Assessment Core - Final Assessment Psychosocial - Initial Assess - VIsit Date of Eval: 01/04/23 - initial eval History of previous Mental disease:: No Psychosocial - 30-Day Assess Psychosocial - 60-Day Assess Psychosocial - 90-Day Assess Psychosocial - Final Assessmen Patient Health Questionnaire Initial Assessment 1. Little interest or pleasure in doing things: Several days 2. Feeling down, depressed, or hopeless: Not at all 3. Trouble falling or staying asleep, or sleeping too much: More than half the days 4. Feeling tired or having little energy: More than half the days 5. Poor appetite or overeating: More than half the days 6. Feeling bad about yourself -- or that you are a failure or have let yourself or your family down: Not at all 7. Trouble concentrating on things, such as reading the newspaper or watching television: Not at all 8. Moving or speaking so slowly that other people could have noticed. Or the opposite - being so fidgety or restless that you have been moving around a lot more than usual: Not at all 9. Thoughts that you would be better off , or of hurting yourself in some way: Not at all How difficult have these problems made it for you to do your work, take care of things at home, or get along with other people?: Not difficult at all Total Score: 7 ISAÍAS-Q SV Test - Statements CAD is a disease of the arteries in the heart: False Examples of risk factors for heart disease: True Angina is chest pain or discomfort: True The benefits of resistance training include: True Eating more meat and dairy products: False Anti-platelet medications such as aspirin are important: True The only effective way to manage stress: False An exercise warm-up slowly increases heart rate: False Prepared, processed foods usually have high sodium: True Depression is common after a heart attack: True The statin medications lower cholesterol: True To control blood pressure, lower the amount of sodium: True If someone gets chest discomfort during walking: False Transfats are partially hydrogenated vegetable oils: True Sleep apnea that is not treated increases the risk: False To control cholesterol, one should become a vegetarian: False Someone knows if he/she is exercising at the right level: True Diabetes cannot be prevented with exercise & health eating: True Stress is a large risk for heart attack: True A diet that can help lower blood pressure is rich in: True - Total Score Total Correct Responses: 18 Self-Efficacy Initial Assessment We would like to know how confident you are in doing certain activities. Please select your confidence level for:: Select your confidence level for the following using the scale 1-10 where 1 is not at all confident and 10 is totally confident. Your score is the average of all 6 responses. Fatigue: How confident are you that you can keep the fatigue caused by your disease from interfering with the things you want to do? Select Number: 8 Physical Discomfort or Pain: How confident are you that you can keep the physical discomfort or pain of your disease from interfering with the things you want to do? Select Number: 8 Emotional Distress: How confident are you that you can keep the emotional distress caused by your disease from interfering with the things you want to do? Select Number: 8 Other Symptoms or Health Problems: How confident are you that you can keep other symptoms or health problems from interfering with the things you want to do? Select Number: 6 Different Tasks and Activities: How confident are you that you can do the different tasks and activities needed to manage your health condition so as to reduce your need to see a doctor? Select Number: 7 Medication: How confident are you that you can do things other than just taking medication to reduce how much your illness affects your everyday life? Select Number: 8 Total Score:: 7 Nutrition Survey - Nutrition Survey Initial Have you lost >10 lbs over the past 2 months without trying?: No Are you following a special diet at home for diabetes, low fat, or low salt?: Yes Are you interested in meeting with a dietitian for help understanding your diet?: No Do you eat less than 3 meals a day?: No Do you eat fatty meats (pandey, sausage, ribs, etc), fried foods, desserts, large amounts of salad dressings, margarine, butter, or cheese most days?: Yes Do you have food allergies? [Enter types in comment field]: No Do you eat in restaurants more than 3 times a week?: No Do you season food with salt, seasoning salt, or garlic salt?: Yes Do you used canned, boxed, frozen meals, or soups, seasoning packets?: Yes Total Score:: 4
[2023-01-04 15:15] VITALS: BP 133/75; BMI 31.4
== END | disposition home or self-care (01) ==
LOC: CR 13:42
PROVIDERS: PCP Internal Medicine; Referring Provider Internal Medicine Cardiovascular Disease; Visit Provider Internal Medicine Cardiovascular Disease
DX: I25.119 Atherosclerotic heart disease of native coronary artery with unspecified angina pectoris (principal); I25.709 Atherosclerosis of coronary artery bypass graft(s), unspecified, with unspecified angina pectoris; R07.9 Chest pain, unspecified; Z95.5 Presence of coronary angioplasty implant and graft

== ENCOUNTER 2023-01-13 10:15 | Outpatient (RCR) | payer MEDICARE, SELFPAY ==
[2023-01-04 15:15] VITALS: BMI 31.4
== END 2023-01-13 23:59 ==
LOC: CR 10:15
PROVIDERS: PCP Internal Medicine; Referring Provider Internal Medicine Cardiovascular Disease; Visit Provider Internal Medicine Cardiovascular Disease
DX: I25.119 Atherosclerotic heart disease of native coronary artery with unspecified angina pectoris (principal); I25.709 Atherosclerosis of coronary artery bypass graft(s), unspecified, with unspecified angina pectoris
CPT/HCPCS: 93798

== ENCOUNTER 2023-02-12 10:15 | Outpatient (RCR) | payer MEDICARE, SELFPAY ==
[2023-01-04 15:15] VITALS: BMI 31.4
--- NOTE | 2023-02-03 08:32 | CR.ITP_ITS ---
Diagnosis Exercise - 30-day Assessment - Visit Date of Eval: 02/03/23 Session #:: 10 - Physician Prescribed Exercise Modalities: Treadmill, Airdyne, NuStep Frequency: 3x/week for 12 weeks [36 sessions] Intensity: 60-80% of age predicted maximum heart rate reserve Current METSs:: 3 Target Heart Rate:: 94-108 Current RPE:: 11-13 Maximum Excercise HR:: 73 Resting Blood Pressure: 152/64 Maximum Exercise Blood Pressure: 152/64 EKG Type: SB to NSR with rare pac and pvc - Outcomes & Goals Goals:: Verbalizes understanding of THR, RPE & goal METS by session 6, Documents in home exercise log/reports 30 min aerobic 5 day/wk by DC, Demonstrates accurate pulse taking by DC, Other additional outcome/goals: see below - Intervention & Plan Exercise Program Goals: Instruct on personal THR & RPE, Instruct on MET level & personal MET goal, Show patient to take own pulse /validate performance until accurate, Instruct on home exercise, Other additional plan/int - 30-day Reassessments 30 day Reassessments:: Progressing - pulse taking demonstrated - Physical Activity Home Exercise Physical Activity - Home Exercise: Safe Exercise, Warm-up, Self-monitoring, Cool-Down, Home Exercise > 30 min Daily, Sitting Time <3 hours/daily - Outcomes & Goals Outcomes/Goals: Demonstrates correct Warm-up/exercise Cool-Down (S3) if = 2.5 METs, Verbalizes symptoms of exercise intolerance by Session 3 (S3), Demonstrate safe equipment use (S3) & follows exercise prescrition (6), Other: See below - Intervention & Plan Plan/Intervention: Instruct warm-up & cool-down if exercising at > 2 METs, Instruct on symptoms of exercise intolerance & actions to take, Instruct & monitor on saf, Assess intial functional capacity & safety risk, Other See below - 30-day Reassessments 30 day Reassessments:: Progressing - attended safe exercise class Nutrition - Initial Assessment Nutrition - 30-Day Assessment - Program Goals Nutrition Program Goals: LDL <100 optimal. 100 - 129 Near optimal. 130 - 159 Borderline High. 160 - 189 High. Total Cholesterol <200 desirable. 200 - 239 Borderline High. >/= 240 High. HDL < 40 Low >/=60 High. Triglycerides <150 desirable. <199 optimal. VlDL 5 - 40. HgbA1C <7%. BMI <25 Patient has diagnosis of Hyperlipidemia (ICD E78)?: Yes - Visit Date of Assessment:: 02/03/23 Session #:: 10 - Cholesterol/Lipids (Other Core Measures) Determine presence & major risk factors that modify LDL goal: Cigarette smoking, Hypertension or hypertensive medication, Low HDL cholesterol <40 mg/dL*, Family history of premature CHD in Male < 55 years: female <65 yearsFa, Age men > 45 years; women >/= 55 years Outcomes/Goals: Pt IDs own risk factors & lifestyle modifications by Session 10, Verbalizes symptoms of angina & response by session 3., Pt independently manages, Other Additional Outcomes/Goals: Intervention/Plan: Advocate for lipid panel cholesterol medication if applicable, Instruct on personal lipid levels & lipid goals/NCEP guidelines, Instruct on cholesterol, Other additional plan/int Referral to dietitian:: No 30-day Reassessments:: Progressing - risk factors reviewed - Diabetes (Other Core Measures) Diabetes Type: Diagnosis Type II ICD-10 E11 Fasting blood glucose:: 186 Insulin dependent injection/pump?: Yes Outcomes/Goals:: Able to state symptoms of, Able to state, Able to state, Other additional Intervention/Plan:: Instruct on, Refer to, Instruct on, Other - Weight Mgt (Other Care) Height: 6 ft Weight:: 103.873 kg BMI: 31.0 Diagnosis Overweight/Obesity BMI> 30% ICD-10 E66: Yes Diagnosis High BMI/Morbid Obesity BMI> 35% ICD-10 Z68: No Outcomes/Goals: Pt sets, maintains & shows weight loss goal & trend during rehab, Other additional outcomes/goals Intervention/Plan: Instruct on ideal BMI & set weight loss goal w/patient, Assist pt to ID & incorporate diet changes for weight loss by S9, Refer to Structured Weight Loss program as appropriate, Encourage goal of using 250- 300dcal per session for weight loss, Other additional plan/interventions 30 day Reassessments:: Progressing - will attend nutrition class - Healthy Eating Habits Will attend diet classes:: Yes Outcomes/Goals:: Consume diet rich in vegs,fruits,whole grain/high fiber,fish,lean meat, Limit sat/trans fats,cholesterol & added salts & sugars, Other additional outcome/goals: Intervention/Plan:: Assess current eating habits, Other Additional plan/interventions 30-day Reassessments:: Progressing - will attend nutrition class - Education Gave educational materials for:: Signs & symptoms of hypoglycemia, Signs & symptoms of hyperglycemia, Relate diabetes to coronary artery disease, Healthy eating Nutrition - 60-Day Assessment Nutrition - 90-Day Assessment Nutrition - Final Assessment Core - Initial Assessment Core - 30-Day Assessment - Visit Date of Eval: 02/03/23 Session #:: 10 - Medication Compliance Preventative Medication(s):: Aspirin, Statin/lipid, Beta jolly, Eliquis H/O mental health issues: depression, anxiety, or addiction?: No Doesn?t believe in the benefits of treatment?: No Believes medications are unnecessary or harmful?: No Has a concern about medication side effects?: No Expresses concern over the cost of medications?: No Outcomes/Goals: Verbalizes medications,desired effect & common side effects @ DC, Pt self-reports following medication regimen, Keeps card in wallet w/medications listed by DC, Other additional outcome/goals: Interventions/plans: Instruct on medication effects & side effects, Review medication list w/patient every two weeks, Instruct importance of taking meds as ordered & assist problem solving, Other additional 30-day Reassessments:: Progressing - encouraged to take his meds - Tobacco Use Tobacco Use: Non-smoker Do you use smokeless tobacco?: No - Hypertension Hypertension Diagnosis:: Hypertension ICD-10 I10 Resting Blood Pressure:: 152/64 [place] [employer] Hypertension Guidelines: [place] [employer] Hypertension Guidelines. Normal BP Less than 120/80. Elevated BP 120/80. Hypertension Stage 1: BP 130-139/80-89. Hypertesnion Stage 2: BP 140 or higher/90 or higher. Hypertension Crisis: BP higher than 180/120 Peak Exercise Blood Pressure:: 152/64 Outcomes/Goals: Able to verbalize/achieve optimal blood pressure <130/80, Incorporates diet changes & exercise for blood pressure control by DC, Other additional outcomes/goals Interventions/plan: Instruct on optimal blood pressure, hypertension & medications, Instruct on effects of sodium, alcohol, stress, exercise &hypertension, Other additional plan/interventions 30 day Reassessments:: Progressing - encouraged to take his meds - Tobacco Cessation Referral Smoking Cessation Referral:: No Individual Education/Counseling:: No Education Schedule Given:: Yes Core - 60-Day Assessment Core - 90 Day Assessment Core - Final Assessment Psychosocial - Initial Assess Psychosocial - 30-Day Assess - VIsit Date of Eval: 02/03/23 Session #:: 10 Psychosocial - 60-Day Assess Psychosocial - 90-Day Assess Psychosocial - Final Assessmen Patient Health Questionnaire 30-Day Re-eval Assessment 1. Little interest or pleasure in doing things: Several days 2. Feeling down, depressed, or hopeless: Not at all 3. Trouble falling or staying asleep, or sleeping too much: More than half the days 4. Feeling tired or having little energy: More than half the days 5. Poor appetite or overeating: More than half the days 6. Feeling bad about yourself -- or that you are a failure or have let yourself or your family down: Not at all 7. Trouble concentrating on things, such as reading the newspaper or watching television: Not at all 8. Moving or speaking so slowly that other people could have noticed. Or the opposite - being so fidgety or restless that you have been moving around a lot more than usual: Not at all 9. Thoughts that you would be better off , or of hurting yourself in some way: Not at all How difficult have these problems made it for you to do your work, take care of things at home, or get along with other people?: Not difficult at all Total Score: 7 Self-Efficacy 30-Day Re-eval Assessment We would like to know how confident you are in doing certain activities. Please select your confidence level for:: Select your confidence level for the following using the scale 1-10 where 1 is not at all confident and 10 is totally confident. Your score is the average of all 6 responses. Fatigue: How confident are you that you can keep the fatigue caused by your disease from interfering with the things you want to do? Select Number: 8 Physical Discomfort or Pain: How confident are you that you can keep the physical discomfort or pain of your disease from interfering with the things you want to do? Select Number: 8 Emotional Distress: How confident are you that you can keep the emotional distress caused by your disease from interfering with the things you want to do? Select Number: 8 Other Symptoms or Health Problems: How confident are you that you can keep other symptoms or health problems from interfering with the things you want to do? Select Number: 6 Different Tasks and Activities: How confident are you that you can do the different tasks and activities needed to manage your health condition so as to reduce your need to see a doctor? Select Number: 7 Medication: How confident are you that you can do things other than just taking medication to reduce how much your illness affects your everyday life? Select Number: 8 Total Score:: 7 Nutrition Survey
[2023-02-03 08:41] VITALS: BP 152/64; BMI 31.0
== END 2023-02-12 23:59 ==
LOC: CR 10:15
PROVIDERS: PCP Internal Medicine; Referring Provider Internal Medicine Cardiovascular Disease; Visit Provider Internal Medicine Cardiovascular Disease
DX: I25.119 Atherosclerotic heart disease of native coronary artery with unspecified angina pectoris (principal); I25.709 Atherosclerosis of coronary artery bypass graft(s), unspecified, with unspecified angina pectoris
CPT/HCPCS: 93798

== ENCOUNTER 2023-03-15 10:15 | Outpatient (RCR) | payer MEDICARE, SELFPAY ==
[2023-02-03 08:41] VITALS: BMI 31.0
[2023-02-13 01:36] VITALS: BP 152/64
--- NOTE | 2023-03-05 07:03 | CR.ITP_ITS ---
Nutrition - Initial Assessment Weight Mgt (Other Care) Height: 6 ft Weight:: 222 lb BMI: 30.1 Core - Initial Assessment Hypertension Resting Blood Pressure:: 118/58 [place] [employer] Hypertension Guidelines Psychosocial - Initial Assess Target Goals Target Goals Referral to Behavioral Health PS - Interventions: Yes: Attend Stress Management Classes and No: Referral to Behavioral Health if PHQ-9 score >9:, No: Referral to [facility] and No: Referral to Physician if PHQ-9 if score is 5-9: Patient Health Questionnaire PHQ-9 Screening 60-Day Re-eval Assessment: 1. Little interest or pleasure in doing things: Not at all 2. Feeling down, depressed, or hopeless: Not at all 3. Trouble falling or staying asleep, or sleeping too much: More than half the days 4. Feeling tired or having little energy: Several days 5. Poor appetite or overeating: Several days 6. Feeling bad about yourself -- or that you are a failure or have let yourself or your family down: Not at all 7. Trouble concentrating on things, such as reading the newspaper or watching television: Not at all 8. Moving or speaking so slowly that other people could have noticed. Or the opposite - being so fidgety or restless that you have been moving around a lot more than usual: Not at all 9. Thoughts that you would be better off , or of hurting yourself in some way: Not at all How difficult have these problems made it for you to do your work, take care of things at home, or get along with other people?: Not difficult at all Total Score: 4 Self-Efficacy 6-Item Scale 60-Day Re-eval Assessment: We would like to know how confident you are in doing certain activities. Please select your confidence level for: Fatigue Select Number: 9 Physical Discomfort or Pain Select Number: 9 Emotional Distress Select Number: 9 Other Symptoms or Health Problems Select Number: 8 Different Tasks and Activities Select Number: 8 Medication Select Number: 9 Total Score:: 8 Nutrition Survey Nutrition Survey Instructions Scoring Instructions Exercise - 60-day Assessment Visit Date of Eval: 03/05/23 Session #:: 22 Physician Prescribed Exercise Modalities: Treadmill, Airdyne and NuStep Frequency: 3x/week for 12 weeks [36 sessions] Intensity: 60-80% of age predicted maximum heart rate reserve Duration: 30 - 45 minutes Current METSs:: 5.5 Target Heart Rate:: 108-122 Current RPE:: 12-14 Maximum Excercise HR:: 81 Resting Blood Pressure: 134/60 Maximum Exercise Blood Pressure: 150/56 EKG Type: SB to NSR with rare PVC Current Physical Activity or Exercising minutes: 39:44 Outcomes & Goals Goals:: Verbalizes understanding of THR, RPE & goal METS by session 6, Documents in home exercise log/reports 30 min aerobic 5 day/wk by DC and Demonstrates accurate pulse taking by DC Intervention & Plan Exercise Program Goals: Instruct on personal THR & RPE, Instruct on MET level & personal MET goal, Show patient to take own pulse /validate performance until accurate and Instruct on home exercise 30-day Reassessments 30 day Reassessments:: Met Physical Activity Home Exercise Physical Activity - Home Exercise: Safe Exercise, Warm-up, Self-monitoring, Cool-Down, Home Exercise > 30 min Daily and Sitting Time <3 hours/daily Outcomes & Goals Outcomes/Goals: Demonstrates correct Warm-up/exercise Cool-Down (S3) if = 2.5 METs, Verbalizes symptoms of exercise intolerance by Session 3 (S3) and Demonstrate safe equipment use (S3) & follows exercise prescrition (6) Intervention & Plan Plan/Intervention: Instruct warm-up & cool-down if exercising at > 2 METs, Instruct on symptoms of exercise intolerance & actions to take, Instruct & monitor on saf and Assess intial functional capacity & safety risk 30-day Reassessments 30 day Reassessments:: Met Nutrition - 30-Day Assessment Weight Mgt (Other Care) Height: 6 ft Weight:: 222 lb BMI: 30.1 Nutrition - 60-Day Assessment Program Goals Nutrition Program Goals Patient has diagnosis of Hyperlipidemia (ICD E78)?: Yes Visit Date of Eval: 03/05/23 Session #:: 22 Cholesterol/Lipids (Other Core Measures) Total Triglycerides (mg/dL): 163 Total Cholesterol: 131 LDL Cholesterol (mg/dL): 57 HDL Cholesterol (mg/dL): 41 Determine presence & major risk factors that modify LDL goal: Hypertension or hypertensive medication, Low HDL cholesterol <40 mg/dL*, Family history of premature CHD in Male < 55 years: female <65 yearsFa and Age men > 45 years; women >/= 55 years Outcomes/Goals: Pt IDs own risk factors & lifestyle modifications by Session 10, Verbalizes symptoms of angina & response by session 3. and Pt independently manages Intervention/Plan: Instruct on personal lipid levels & lipid goals/NCEP guidelines and Instruct on cholesterol Referral to dietitian:: Yes 30-day Reassessments:: Progressing Diabetes (Other Core Measures) Diabetes Type: Diagnosis Type II ICD-10 E11 Fasting blood glucose:: 121 Hgb A1C (4.2 -6.3): 6.8 Insulin dependent injection/pump?: No Non-Insulin Dependent?: No Do you monitor your blood sugar at home?: No Referral to Diabetic Clinic:: Yes Outcomes/Goals:: Able to state symptoms of, Able to state and Able to state Intervention/Plan:: Refer to 30-day Reassessments:: Progressing Weight Mgt (Other Care) Not Applicable: No Height: 6 ft Weight:: 222 lb BMI: 30.1 Diagnosis Overweight/Obesity BMI> 30% ICD-10 E66: Yes Diagnosis High BMI/Morbid Obesity BMI> 35% ICD-10 Z68: No Outcomes/Goals: Pt sets, maintains & shows weight loss goal & trend during rehab Intervention/Plan: Instruct on ideal BMI & set weight loss goal w/patient, Assist pt to ID & incorporate diet changes for weight loss by S9, Refer to Structured Weight Loss program as appropriate and Encourage goal of using 250- 300dcal per session for weight loss 30 day Reassessments:: Progressing Reassessment Notes & Comments:: down from 227 Healthy Eating Habits Will attend diet classes:: Yes Outcomes/Goals:: Consume diet rich in vegs,fruits,whole grain/high fiber,fish,lean meat and Limit sat/trans fats,cholesterol & added salts & sugars Intervention/Plan:: Assess current eating habits 30-day Reassessments:: Progressing Education Gave educational materials for:: Signs & symptoms of hypoglycemia, Signs & symptoms of hyperglycemia, Relate diabetes to coronary artery disease and Healthy eating Core - Final Assessment Hypertension Resting Blood Pressure:: 118/58 [place] [employer] Hypertension Guidelines Core - 60-Day Assessment Visit Date of Eval: 03/05/23 Session #:: 22 Medication Compliance Preventative Medication(s):: Aspirin, Ticagrelor/P2Y12 inhibitor, Statin/lipid and Beta jolly H/O mental health issues: depression, anxiety, or addiction?: No Doesn?t believe in the benefits of treatment?: No Believes medications are unnecessary or harmful?: No Has a concern about medication side effects?: No Expresses concern over the cost of medications?: No Outcomes/Goals: Verbalizes medications,desired effect & common side effects @ DC, Pt self-reports following medication regimen and Keeps card in wallet w/medications listed by DC Interventions/plans: Instruct on medication effects & side effects, Review medication list w/patient every two weeks and Instruct importance of taking meds as ordered & assist problem solving 30-day Reassessments:: Met Tobacco Use Tobacco Use: Non-smoker Hypertension Hypertension Diagnosis:: Hypertension ICD-10 I10 Resting Blood Pressure:: 142/58 Resting Blood Pressure:: 118/58 [place] [employer] Hypertension Guidelines Peak Exercise Blood Pressure:: 150/56 Outcomes/Goals: Able to verbalize/achieve optimal blood pressure <130/80 and Incorporates diet changes & exercise for blood pressure control by DC Interventions/plan: Instruct on optimal blood pressure, hypertension & medications and Instruct on effects of sodium, alcohol, stress, exercise &h ypertension 30 day Reassessments:: Progressing Tobacco Cessation Referral Smoking Cessation Referral:: No Individual Education/Counseling:: No Education Schedule Given:: Yes Psychosocial - 30-Day Assess Target Goals Target Goals Referral to Behavioral Health PS - Interventions: Yes: Attend Stress Management Classes and No: Referral to Behavioral Health if PHQ-9 score >9:, No: Referral to [facility] and No: Referral to Physician if PHQ-9 if score is 5-9: Outcomes/Goals: See list Psychosocial Outcomes/Goals:: ID's personal stressors & 2 strategies to manage stress by discharge Psychosocial - 60-Day Assess VIsit Date of Eval: 03/05/23 Session #:: 22 Not Applicable: Yes History of previous Mental disease:: No Target Goals Target Goals Psychosocial Test Tool Used:: PHQ-9 Questionnaire phq-9 Severity Referral to Behavioral Health PS - Interventions: Yes: Attend Stress Management Classes and No: Referral to Behavioral Health if PHQ-9 score >9:, No: Referral to [facility] and No: Referral to Physician if PHQ-9 if score is 5-9: Outcomes/Goals: See list Psychosocial Outcomes/Goals:: ID's personal stressors & 2 strategies to manage stress by discharge Intervention/Plan: See List Interventions/Plan:: Assess stressors,coping strategies & signs of derpression on admission, Instruct/assist pt to develop coping & personal stress Mgt strategies, Instruct patient to recognize signs & symptoms of depression and Instruct patient to recog 30-day Reassessments: 30 day Reassessments:: Met Psychosocial - 90-Day Assess Target Goals Target Goals Referral to Behavioral Health PS - Interventions: Yes: Attend Stress Management Classes and No: Referral to Behavioral Health if PHQ-9 score >9:, No: Referral to [facility] and No: Referral to Physician if PHQ-9 if score is 5-9: Psychosocial - Final Assessmen Target Goals Target Goals Referral to Behavioral Health PS - Interventions: Yes: Attend Stress Management Classes and No: Referral to Behavioral Health if PHQ-9 score >9:, No: Referral to [facility] and No: Referral to Physician if PHQ-9 if score is 5-9: Nutrition - 90-Day Assessment Weight Mgt (Other Care) Height: 6 ft Weight:: 222 lb BMI: 30.1 Nutrition - Final Assessment Weight Mgt (Other Care) Height: 6 ft Weight:: 222 lb BMI: 30.1
[2023-03-05 07:15] VITALS: BP 118/58; BP 134/60; BP 142/58; BMI 30.1
== END 2023-03-15 23:59 ==
LOC: CR 10:15
PROVIDERS: PCP Internal Medicine; Referring Provider Internal Medicine Cardiovascular Disease; Visit Provider Internal Medicine Cardiovascular Disease
DX: I25.119 Atherosclerotic heart disease of native coronary artery with unspecified angina pectoris (principal); I25.709 Atherosclerosis of coronary artery bypass graft(s), unspecified, with unspecified angina pectoris; R07.9 Chest pain, unspecified; I20.0 Unstable angina; Z95.5 Presence of coronary angioplasty implant and graft; Z95.1 Presence of aortocoronary bypass graft
CPT/HCPCS: 93798

== ENCOUNTER 2023-04-05 10:15 | Outpatient (RCR) | payer MEDICARE, SELFPAY ==
[2023-03-05 07:15] VITALS: BMI 30.1
[2023-03-16 00:38] VITALS: BP 118/58; BP 134/60; BP 142/58; BP 152/64
== END 2023-04-15 23:59 ==
LOC: CR 10:15
PROVIDERS: PCP Internal Medicine; Referring Provider Internal Medicine Cardiovascular Disease; Visit Provider Internal Medicine Cardiovascular Disease
DX: I25.119 Atherosclerotic heart disease of native coronary artery with unspecified angina pectoris (principal); I25.709 Atherosclerosis of coronary artery bypass graft(s), unspecified, with unspecified angina pectoris; Z95.5 Presence of coronary angioplasty implant and graft; R07.9 Chest pain, unspecified
CPT/HCPCS: 93798

== ENCOUNTER → 2023-06-16 | Outpatient (CLI) | payer MEDICARE, SELFPAY ==
[2023-03-05 07:15] VITALS: BMI 30.1
[2023-06-16 11:12] LABS: Protein, Urine (Random) 15.7 mg/dL (<11.9); Protein:Creat Ratio 164 mg/g CRE (0-200)
[2023-06-16 11:21] LABS: Anion Gap 6 (5-15); BUN 31 mg/dL (7-18); BUN/Creat Ratio 17.9 RATIO (10-20); Calcium,Total 8.5 mg/dL (8.5-10.1); Chloride 106 mmol/L (98-107); Creatinine, Serum 1.73 mg/dL (0.70-1.30); EST Glomerular Filtration Rate 41 mL/min (>60); Est Glom Filt Rate - Afr Amer 50 mL/min (>60); Glucose 168 mg/dL (74-106); Potassium 4.6 mmol/L (3.5-5.1); Sodium Level 140 mmol/L (136-145)
== END | disposition home or self-care (01) ==
LOC: LAB 08:40
PROVIDERS: PCP Internal Medicine; Referring Provider Internal Medicine Nephrology; Visit Provider Internal Medicine Nephrology
DX: R80.9 Proteinuria, unspecified (principal); N18.32 Chronic kidney disease, stage 3b
CPT/HCPCS: 36415; 80048; 82570; 84156

== ENCOUNTER → 2023-12-13 | Outpatient (CLI) | payer MEDICARE, SELFPAY ==
[2023-03-05 07:15] VITALS: BMI 30.1
[2023-12-13 13:12] LABS: Anion Gap 4 (5-15); BUN 39 mg/dL (7-18); BUN/Creat Ratio 23.2 RATIO (10-20); Calcium,Total 8.9 mg/dL (8.5-10.1); Chloride 108 mmol/L (98-107); Creatinine, Serum 1.68 mg/dL (0.70-1.30); EST Glomerular Filtration Rate 42 mL/min (>60); Est Glom Filt Rate - Afr Amer 51 mL/min (>60); Glucose 149 mg/dL (74-106); Potassium 4.7 mmol/L (3.5-5.1); Sodium Level 138 mmol/L (136-145)
[2023-12-13 13:35] LABS: Protein, Urine (Random) 9.7 mg/dL (<11.9); Protein:Creat Ratio 182 mg/g CRE (0-200)
== END | disposition home or self-care (01) ==
PROVIDERS: PCP Internal Medicine; Referring Provider Internal Medicine Nephrology; Visit Provider Internal Medicine Nephrology
DX: R80.9 Proteinuria, unspecified (principal); N18.32 Chronic kidney disease, stage 3b
CPT/HCPCS: 36415; 80048; 82570; 84156

== ENCOUNTER → 2024-06-05 | Outpatient (CLI) | payer MEDICARE, SELFPAY ==
[2023-03-05 07:15] VITALS: BMI 30.1
[2024-06-05 15:28] LABS: PSA,Total - Annual Screen 0.82 ng/mL (0.00-4.00)
== END | disposition home or self-care (01) ==
LOC: LAB 14:16
PROVIDERS: PCP Internal Medicine; Referring Provider Nurse Practitioner; Visit Provider Nurse Practitioner
DX: Z12.5 Encounter for screening for malignant neoplasm of prostate (principal)
CPT/HCPCS: 36415; 84153; G0103

== ENCOUNTER → 2024-12-11 | Outpatient (CLI) | payer MEDICARE, SELFPAY ==
[2023-03-05 07:15] VITALS: BMI 30.1
[2024-12-11 10:27] LABS: Protein, Urine (Random) 10.6 mg/dL (0.0-12.0); Protein:Creat Ratio 174 mg/g CRE (0-200)
[2024-12-11 10:39] LABS: Anion Gap 11 (5-15); BUN 33 mg/dL (4-19); BUN/Creat Ratio 21.1 RATIO (10-20); Calcium,Total 9.4 mg/dL (7.6-11.0); Carbon Dioxide 24.6 mmol/L (21.0-32.0); Chloride 104 mmol/L (98-108); Creatinine, Serum 1.57 mg/dL (0.70-1.20); EST Glomerular Filtration Rate 45 (>60); Glucose 114 mg/dL (70-99); Potassium 4.3 mmol/L (3.3-5.1); Sodium Level 140 mmol/L (133-145)
== END | disposition home or self-care (01) ==
LOC: LAB 08:35
PROVIDERS: PCP Internal Medicine; Referring Provider Internal Medicine Nephrology; Visit Provider Internal Medicine Nephrology
DX: N18.32 Chronic kidney disease, stage 3b (principal); R80.9 Proteinuria, unspecified
CPT/HCPCS: 36415; 80048; 82570; 84156

== ENCOUNTER → 2025-06-04 | Outpatient (CLI) | payer MEDICARE, SELFPAY ==
[2023-03-05 07:15] VITALS: BMI 30.1
[2025-06-04 11:01] LABS: Hematocrit 38.9 % (40-54); Hemoglobin 13.0 g/dL (13.0-16.5); Immature Granulocytes Count 0.030 X10^3/uL (0.0-0.0); Mean Corp Hgb Conc 33.4 g/dL (32-36); Mean Corpuscular Volume 97.7 fL (80-94); Mean Platelet Vol. 9.8 fl (6.2-12.0); NRBC Flagged by Analyzer 0 % (0-5); Platelet Count 145 K/mm3 (150-450); RBC Distribution Width CV 13.3 % (11.6-14.6); RBC Distribution Width SD 48.4 fl (35.1-43.9); Red Blood Count 3.98 M/mm3 (4.6-6.2); White Blood Count 5.1 K/mm3 (4.4-11.0)
[2025-06-07 03:07] LABS: Bluegrass, Kentucky <0.10 kU/L (Class 0); Cat Hair/Dander, Standard <0.10 kU/L (Class 0); Dog Epithelia <0.10 kU/L (Class 0); Elm, American White <0.10 kU/L (Class 0); Oak, White <0.10 kU/L (Class 0); Plantain, English <0.10 kU/L (Class 0); Ragweed, Short/Common <0.10 kU/L (Class 0)
== END | disposition home or self-care (01) ==
PROVIDERS: PCP Internal Medicine; Referring Provider Nurse Practitioner Acute Care; Visit Provider Nurse Practitioner Acute Care
DX: J30.2 Other seasonal allergic rhinitis (principal)
CPT/HCPCS: 36415; 82785; 85025; 86003

== ENCOUNTER → 2025-06-11 | Outpatient (CLI) | payer MEDICARE, SELFPAY ==
[2023-03-05 07:15] VITALS: BMI 30.1
[2025-06-11 12:07] LABS: PSA,Total - Annual Screen 0.56 ng/mL (0.02-4.00)
== END | disposition home or self-care (01) ==
LOC: LAB 11:00
PROVIDERS: PCP Internal Medicine; Referring Provider Urology; Visit Provider Urology
DX: Z12.5 Encounter for screening for malignant neoplasm of prostate (principal)
CPT/HCPCS: 36415; 84153; G0103